=== PATIENT | female | born 1935 | race Caucasian/White ===

== ENCOUNTER → 2016-07-04 | Outpatient (REF) | payer MEDICARE, OTHER ==
[~2016-07-04] MED LIST: /BRIN1OS OU; /HCTZ25TA PO; /ONDA4TA PO; BIMA01SOL OU; BISAC5TA PO; CALC25TA PO; CALC600T7 PO; CALTTAB10 PO; CARD120T4 PO; CLAR5TAB PO; CORE25TA PO; DEPA250T32 PO; DEPA500T2 PO; DILT180C53 PO; DILT90TA PO; DIOV320T PO; DOXA1TAB41 PO; DOXA2TAB PO; DRIS50002 PO; ESTR62CR PV; FIBE625T4 PO; FLAX1000 PO; FLOV110A IN; HYDR100T13 PO; HYDR12.55 PO; HYDR25TA PO; KLOR10TA21 PO; LEXA1TAB PO; MICR10CA PO; TYLE325T5 PO; VENTAER INH; VITA100066 PO; VITA200016 PO; ZETI10TA2 PO; ZYPR2.5T2 PO; ZYPR5TAB2 PO
[2016-07-04 17:06] LABS: ANION GAP 8 MEQ/L (8-16); BLOOD UREA NITROGEN 15 MG/DL (7-18); CALCIUM LEVEL 9.1 MG/DL (8.8-10.2); CARBON DIOXIDE LEVEL 28 MEQ/L (21-32); CHLORIDE LEVEL 103 MEQ/L (98-107); CREATININE FOR GFR 0.94 MG/DL (0.55-1.02); GLOMERULAR FILTRATION RATE > 60.0 (>32); GLUCOSE, FASTING 164 MG/DL (83-110); POTASSIUM SERUM 3.6 MEQ/L (3.5-5.1); SODIUM LEVEL 139 MEQ/L (136-145)
== END ==
LOC: M LAB REF 16:20
PROVIDERS: ATTEND Internal Medicine Endocrinology, Diabetes & Metabolism
DX: M85.9 Disorder of bone density and structure, unspecified (principal)

== ENCOUNTER 2016-07-10 10:16 | Outpatient (CLI) | payer MEDICARE, OTHER ==
[~2016-07-10] VITALS: Ht 162.6 cm; Wt 79.1 kg
[2016-07-10] MEDS ORDERED: ZOLEDRONIC ACID 5 MG in APPROPRIATE DILUENT 1 EA IV ONE (11:00)
[2016-07-10] MEDS ORDERED: LOSA100T36 PO (15:20)
[2016-07-10] MEDS ORDERED: BUME1TAB27 PO (15:22)
[2016-07-10] MEDS ORDERED: CLON3PA TD (15:23)
[2016-07-10] MEDS ORDERED: COUM2.5T11 PO (15:23)
== END 2016-07-10 11:20 | disposition home or self-care (01) ==
LOC: M INFU 10:16
PROVIDERS: ATTEND Internal Medicine Endocrinology, Diabetes & Metabolism
DX: M81.0 Age-related osteoporosis without current pathological fracture (principal); Z78.0 Asymptomatic menopausal state; Z79.01 Long term (current) use of anticoagulants; Z79.899 Other long term (current) drug therapy; Z88.2 Allergy status to sulfonamides; Z88.8 Allergy status to other drugs, medicaments and biological substances; Z91.012 Allergy to eggs; Z91.013 Allergy to seafood
CPT/HCPCS: 96365; J3489

== ENCOUNTER → 2016-10-09 | Outpatient (REF) | payer MEDICARE, OTHER ==
[~2016-10-09] MED LIST changes: +BUME1TAB27 PO; +CLON3PA TD; +COUM2.5T11 PO; +LOSA100T36 PO
[2016-10-09 17:56] LABS: ANION GAP 9 MEQ/L (8-16); BLOOD UREA NITROGEN 16 MG/DL (7-18); CALCIUM LEVEL 9.5 MG/DL (8.8-10.2); CARBON DIOXIDE LEVEL 27 MEQ/L (21-32); CHLORIDE LEVEL 101 MEQ/L (98-107); CREATININE FOR GFR 0.74 MG/DL (0.55-1.02); GLOMERULAR FILTRATION RATE > 60.0 (>32); GLUCOSE, FASTING 136 MG/DL (83-110); POTASSIUM SERUM 3.7 MEQ/L (3.5-5.1); SODIUM LEVEL 137 MEQ/L (136-145)
== END ==
LOC: M LAB REF 16:26
PROVIDERS: ATTEND Physician Assistant Medical
DX: M85.9 Disorder of bone density and structure, unspecified (principal)

== ENCOUNTER 2017-05-21 06:04 | Day surgery (SDC) | payer MEDICARE, OTHER ==
[~2017-05-21 06:04] MED LIST changes: -/BRIN1OS OU; -/HCTZ25TA PO; -/ONDA4TA PO; -BIMA01SOL OU; -BISAC5TA PO; -BUME1TAB27 PO; -CALC25TA PO; -CALC600T7 PO; -CALTTAB10 PO; -CARD120T4 PO; -CLAR5TAB PO; -CLON3PA TD; -CORE25TA PO; -COUM2.5T11 PO; -DEPA250T32 PO; -DEPA500T2 PO; -DILT180C53 PO; -DILT90TA PO; -DIOV320T PO; -DOXA1TAB41 PO; -DOXA2TAB PO; -DRIS50002 PO; -ESTR62CR PV; -FIBE625T4 PO; -FLAX1000 PO; -FLOV110A IN; -HYDR100T13 PO; -HYDR12.55 PO; -HYDR25TA PO; -KLOR10TA21 PO; -LEXA1TAB PO; -LOSA100T36 PO; -MICR10CA PO; +SLF 3 ML SYR IV; -TYLE325T5 PO; -VENTAER INH; -VITA100066 PO; -VITA200016 PO; -ZETI10TA2 PO; -ZYPR2.5T2 PO; -ZYPR5TAB2 PO
[2017-05-21] MEDS: LIDOCAINE 0.75%/EPINEPHRINE 0.025% IN BSS 1ML SYR INTRACAMERAL (OR ONLY) As Ordered (06:36)
[2017-05-21] MEDS ORDERED: MIDAZOLAM INJ 2 MG/2 ML VIAL (J2250) As Ordered (07:00)
[2017-05-21] MEDS ORDERED: fentaNYL 100 MCG/2 ML INJECTION (J3010) As Ordered (07:00)
[2017-05-21] MEDS: ACETYLCHOLINE OPHTH SOLN 1% 2ML (MIOCHOL-E) As Ordered (07:33)
[2017-05-21] MEDS: POVIDONE-IODINE 5% OPHTH PREP SOL 30ML As Ordered (07:33)
[2017-05-21] MEDS: DUOVISC (0.50ML VISCOAT/0.55ML PROVISC) OPHTH KIT As Ordered (07:33)
[2017-05-21] MEDS: CEFUROXIME 1MG/0.1ML INTRACAMERAL INJ As Ordered (07:33)
[2017-05-21] MEDS: BALANCED SALT IRRIGATION SOLUTION 500ML BAG (FOR OR EYE MACHINE) As Ordered (07:33)
[2017-05-21] MEDS: LIDOCAINE 1% SDV 5 ML VIAL As Ordered (07:36)
== END 2017-05-21 08:24 | disposition home or self-care (01) ==
LOC: M SDC 06:04
DX: H59.022 Cataract (lens) fragments in eye following cataract surgery, left eye (principal); I11.0 Hypertensive heart disease with heart failure; H40.1130 Primary open-angle glaucoma, bilateral, stage unspecified; I48.91 Unspecified atrial fibrillation; I50.9 Heart failure, unspecified; R60.0 Localized edema; K57.32 Diverticulitis of large intestine without perforation or abscess without bleeding; K21.9 Gastro-esophageal reflux disease without esophagitis; M17.9 Osteoarthritis of knee, unspecified; F41.9 Anxiety disorder, unspecified; F32.9 Major depressive disorder, single episode, unspecified; Z88.1 Allergy status to other antibiotic agents; Z88.2 Allergy status to sulfonamides; Z88.5 Allergy status to narcotic agent; Z91.012 Allergy to eggs; Z91.013 Allergy to seafood; Z79.899 Other long term (current) drug therapy; Z79.01 Long term (current) use of anticoagulants; Z95.0 Presence of cardiac pacemaker; Z96.651 Presence of right artificial knee joint; Z98.51 Tubal ligation status
CPT/HCPCS: 66850

== ENCOUNTER → 2017-10-02 | Outpatient (CLI) | payer MEDICARE, OTHER ==
[2017-10-02 12:33] LABS: ANION GAP 6 MEQ/L (8-16); BLOOD UREA NITROGEN 14 MG/DL (7-18); CALCIUM LEVEL 9.7 MG/DL (8.8-10.2); CARBON DIOXIDE LEVEL 29 MEQ/L (21-32); CHLORIDE LEVEL 104 MEQ/L (98-107); GLOMERULAR FILTRATION RATE > 60.0 (>32); GLUCOSE, FASTING 109 MG/DL (70-100); POTASSIUM SERUM 4.1 MEQ/L (3.5-5.1); SODIUM LEVEL 139 MEQ/L (136-145)
== END ==
LOC: M WUC 10:29
DX: M85.9 Disorder of bone density and structure, unspecified (principal)
CPT/HCPCS: 80048

== ENCOUNTER → 2017-10-15 | Outpatient (CLI) | payer MEDICARE, OTHER | LOC: M WHC 13:33 | DX: Z12.31 Encounter for screening mammogram for malignant neoplasm of breast (principal); Z01.419 Encounter for gynecological examination (general) (routine) without abnormal findings (principal); Z78.0 Asymptomatic menopausal state; Z92.29 Personal history of other drug therapy; Z12.12 Encounter for screening for malignant neoplasm of rectum | CPT/HCPCS: 77067 ==

== ENCOUNTER → 2017-12-02 | Outpatient (CLI) | payer MEDICARE, OTHER ==
[2017-12-02 08:54] LABS: HEMATOCRIT 37.7 % (36.0-47.0); HEMOGLOBIN 12.5 g/dl (12.0-15.5); MEAN CORPUSCULAR HGB CONC 33.2 g/dl (32.0-36.5); MEAN CORPUSCULAR VOLUME 90.6 fl (80.0-96.0); PLATELET COUNT, AUTOMATED 274 10^3/uL (150-450); RED BLOOD COUNT 4.16 10^6/uL (4.00-5.40); RED CELL DISTRIBUTION WIDTH 13.2 % (11.5-14.5); WHITE BLOOD COUNT 7.4 10^3/uL (4.0-10.0)
[2017-12-02 09:13] LABS: ANION GAP 7 MEQ/L (8-16); BLOOD UREA NITROGEN 15 MG/DL (7-18); CALCIUM LEVEL 9.6 MG/DL (8.8-10.2); CARBON DIOXIDE LEVEL 28 MEQ/L (21-32); CHLORIDE LEVEL 105 MEQ/L (98-107); GLOMERULAR FILTRATION RATE > 60.0 (>32); GLUCOSE, FASTING 137 MG/DL (70-100); POTASSIUM SERUM 4.3 MEQ/L (3.5-5.1); SODIUM LEVEL 140 MEQ/L (136-145)
== END ==
LOC: M WUC 08:09
DX: I44.7 Left bundle-branch block, unspecified (principal); I50.40 Unspecified combined systolic (congestive) and diastolic (congestive) heart failure
CPT/HCPCS: 80048

== ENCOUNTER → 2017-12-05 | Outpatient (CLI) | payer MEDICARE, OTHER | LOC: M WUC 11:57 | DX: M19.011 Primary osteoarthritis, right shoulder (principal) | CPT/HCPCS: 73030 ==

== ENCOUNTER → 2018-02-10 | Outpatient (REF) | payer MEDICARE, OTHER | LOC: M WUC 11:55 | DX: N39.0 Urinary tract infection, site not specified (principal) | CPT/HCPCS: 87088; 87186 ==

== ENCOUNTER → 2018-05-12 | Outpatient (CLI) | payer MEDICARE, OTHER ==
[~2018-05-12] MED LIST changes: +/BRIN1OS OU; +/HCTZ25TA PO; +/ONDA4TA PO; +BIMA01SOL OU; +BISAC5TA PO; +BUME1TAB27 PO; +CALC25TA PO; +CALC600T7 PO; +CALTTAB10 PO; +CARD120T4 PO; +CART240C3 PO; +CLAR5TAB PO; +CLON3PA TD; +CORE25TA PO; +COUM2.5T17 PO; +DEPA250T32 PO; +DEPA500T2 PO; +DILT180C53 PO; +DILT90TA PO; +DIOV320T PO; +DOXA1TAB41 PO; +DOXA2TAB PO; +DRIS50003 PO; +ELIQ2.5T PO; +ESTR62CR PV; +FIBE625T4 PO; +FLAX1000 PO; +FLAX10008 PO; +FLOV110A IN; +HYDR100T13 PO; +HYDR12.55 PO; +HYDR25TA PO; +KLOR10TA21 PO; +LEXA1TAB PO; +LOSA-4 PO; +MICR10CA PO; +RECL5INJ2 IV; -SLF 3 ML SYR IV; +TYLE325T5 PO; +VENTAER INH; +VITA100066 PO; +VITA200016 PO; +ZETI10TA30 PO; +ZYPR2.5T2 PO; +ZYPR5TAB2 PO
[2018-05-12 17:45] LABS: CALCIUM LEVEL 9.2 MG/DL (8.8-10.2)
[2018-05-12 18:02] LABS: TOTAL 25(OH) VITAMIN D 28.6 NG/ML (30.0-100.0)
== END ==
LOC: M WUC 10:41
PROVIDERS: ATTEND Internal Medicine Endocrinology, Diabetes & Metabolism
DX: E83.52 Hypercalcemia (principal)

== ENCOUNTER → 2018-07-05 | Outpatient (CLI) | payer MEDICARE, OTHER ==
[~2018-07-05] MED LIST changes: +ACET1TAB55 PO; +ASPI325T PO; +BRIN1OPH OU; +BUME1TAB3 PO; +FIBE625T PO; -LOSA-4 PO; +LOSA100T50 PO; +TIMOXEOPD OU
[2018-07-05 14:09] LABS: BLOOD UREA NITROGEN 14 MG/DL (7-18); CALCIUM LEVEL 9.5 MG/DL (8.8-10.2); CARBON DIOXIDE LEVEL 26 MEQ/L (21-32); CHLORIDE LEVEL 105 MEQ/L (98-107); CREATININE FOR GFR 0.79 MG/DL (0.55-1.30); GLOMERULAR FILTRATION RATE > 60.0 (>32); GLUCOSE, FASTING 150 MG/DL (70-100); POTASSIUM SERUM 4.1 MEQ/L (3.5-5.1); SODIUM LEVEL 138 MEQ/L (136-145)
== END ==
LOC: M WUC 09:54
PROVIDERS: ATTEND Internal Medicine Endocrinology, Diabetes & Metabolism
DX: M85.9 Disorder of bone density and structure, unspecified (principal)

== ENCOUNTER 2018-07-13 08:51 | Outpatient (CLI) | payer MEDICARE, OTHER ==
[~2018-07-13] VITALS: Ht 162.6 cm; Wt 73.1 kg
[~2018-07-13 08:51] MED LIST changes: -ACET1TAB55 PO; -ASPI325T PO; -BRIN1OPH OU; -BUME1TAB3 PO; -FIBE625T PO; -TIMOXEOPD OU
[2018-07-13 09:00] VITALS: BP 173/74
[2018-07-13] MEDS ORDERED: ZOLEDRONIC ACID 5 MG in APPROPRIATE DILUENT 1 EA IV ONE (09:00)
[2018-07-13 09:50] VITALS: BP_SYST 157; BP_SYST 173; BP_DIAS 73; BP_DIAS 74
[2018-07-13] MEDS ORDERED: BUME1TAB3 PO (15:19)
[2018-07-13] MEDS ORDERED: VENTAER INH (15:22)
[2018-07-13] MEDS ORDERED: FIBE625T PO (15:24)
[2018-07-13] MEDS ORDERED: ASPI325T PO (15:24)
[2018-07-13] MEDS ORDERED: BIMA01SOL OU ×2 (15:25→15:26)
[2018-07-13] MEDS ORDERED: BRIN1OPH OU (15:25)
[2018-07-13] MEDS ORDERED: TIMOXEOPD OU (15:28)
[2018-07-13] MEDS ORDERED: ACET1TAB55 PO (15:29)
== END 2018-07-13 09:50 | disposition home or self-care (01) ==
LOC: M INFU 08:51
PROVIDERS: ATTEND Internal Medicine Endocrinology, Diabetes & Metabolism
DX: M81.0 Age-related osteoporosis without current pathological fracture (principal); Z88.3 Allergy status to other anti-infective agents; Z88.8 Allergy status to other drugs, medicaments and biological substances; Z91.012 Allergy to eggs
CPT/HCPCS: 96365; J3489

== ENCOUNTER → 2018-10-04 | Outpatient (CLI) | payer MEDICARE, OTHER ==
[~2018-10-04] MED LIST changes: -/BRIN1OS OU; -/HCTZ25TA PO; -/ONDA4TA PO; +ACET1TAB55 PO; +ASPI-1 PO; +AZOP0.2S OU; +BRIN1OPH OU; +BUME1TAB3 PO; +CLON0.3D2 TD; -CLON3PA TD; +FIBE625T PO; +HYDR-3644 PO; +HYDR-4266 PO; -HYDR25TA PO; +ONDA-1 PO; +TIMOXEOPD OU
[2018-10-04 16:56] LABS: BLOOD UREA NITROGEN 11 MG/DL (7-18); CARBON DIOXIDE LEVEL 31 MEQ/L (21-32); CHLORIDE LEVEL 103 MEQ/L (98-107); CREATININE FOR GFR 0.77 MG/DL (0.55-1.30); GLOMERULAR FILTRATION RATE > 60.0 (>32); GLUCOSE, FASTING 150 MG/DL (70-100); POTASSIUM SERUM 3.9 MEQ/L (3.5-5.1); SODIUM LEVEL 139 MEQ/L (136-145)
[2018-10-04 17:03] LABS: TOTAL 25(OH) VITAMIN D 32.2 NG/ML (30.0-100.0)
== END ==
LOC: M WUC 14:10
PROVIDERS: ATTEND Internal Medicine Endocrinology, Diabetes & Metabolism
DX: M85.9 Disorder of bone density and structure, unspecified (principal); E55.9 Vitamin D deficiency, unspecified

== ENCOUNTER → 2019-03-22 | Outpatient (CLI) | payer MEDICARE, OTHER ==
[~2019-03-22] MED LIST changes: +ZETI10TA16 PO; -ZETI10TA30 PO
--- NOTE | 2019-03-22 14:14 | REPMRS ---
Patient History The patient states she had a clinical breast exam in 02/2019. No known family history of cancer. Took unspecified hormones for 2 years 6 months. 3D TOMOSYNTHESIS WAS PERFORMED. The Giana Jose lifetime risk for breast cancer is 0.4%. Digital Woman Screen Mammo: March 22, 2019 - Exam #: [id number] Bilateral CC and MLO view(s) were taken. Technologist: Kasia Molina, Technologist Prior study comparison: October 15, 2017, digital woman screen mammo performed at [facility]. April 04, 2016, digital woman screen mammo performed at [facility]. FINDINGS: The breast tissue is heterogeneously dense. This may lower the sensitivity of mammography. There has been no change in the appearance of the mammogram from the prior studies. There is a moderate amount of residual fibroglandular tissue which is fairly symmetric. There is no interval development of dominant mass, areas of architectural distortion, or clustered microcalcification typical of malignancy. Assessment: BI-RADS/ACR category 1 mammogram. Negative Mammogram. Recommendation Routine screening mammogram in 1 year (for women over age 40). This mammogram was interpreted with the aid of an FDA-approved computer-aided dectection system. Electronically Signed By: Anton Sandy MD 03/22/19 [id number]
== END ==
LOC: M WHC 13:09
PROVIDERS: ATTEND Nurse Practitioner Women's Health
DX: Z12.31 Encounter for screening mammogram for malignant neoplasm of breast (principal); Z92.29 Personal history of other drug therapy
CPT/HCPCS: 77063; 77067; G0463

== ENCOUNTER → 2019-05-03 | Outpatient (CLI) | payer MEDICARE, OTHER ==
[2019-05-03 09:59] LABS: HEMOGLOBIN A1c 7.2 %
[2019-05-03 10:09] LABS: CHOLESTEROL RISK RATIO 4.625 (<5)
== END ==
LOC: M WUC 08:09
PROVIDERS: ATTEND Psychiatry & Neurology Psychiatry
DX: Z79.899 Other long term (current) drug therapy (principal)

== ENCOUNTER → 2019-05-03 | Outpatient (CLI) | payer MEDICARE, OTHER ==
[2019-05-03 10:06] LABS: BLOOD UREA NITROGEN 16 MG/DL (7-18); CALCIUM LEVEL 9.8 MG/DL (8.8-10.2); CARBON DIOXIDE LEVEL 29 MEQ/L (21-32); CHLORIDE LEVEL 106 MEQ/L (98-107); CREATININE FOR GFR 0.82 MG/DL (0.55-1.30); GLOMERULAR FILTRATION RATE > 60.0 (>32); GLUCOSE, FASTING 134 MG/DL (70-100); POTASSIUM SERUM 4.3 MEQ/L (3.5-5.1); SODIUM LEVEL 139 MEQ/L (136-145)
[2019-05-03 10:24] LABS: TOTAL 25(OH) VITAMIN D 35.3 NG/ML (30.0-100.0)
== END ==
LOC: M WUC 08:05
PROVIDERS: ATTEND Internal Medicine Endocrinology, Diabetes & Metabolism
DX: E55.9 Vitamin D deficiency, unspecified (principal); M85.9 Disorder of bone density and structure, unspecified; Z79.82 Long term (current) use of aspirin; Z79.899 Other long term (current) drug therapy

== ENCOUNTER 2019-06-21 01:14 | Inpatient (IN) | payer MEDICARE, OTHER ==
[~2019-06-21] VITALS: Ht 162.6 cm; Wt 74.6 kg
[2019-06-21] VITALS (7 sets, daily range): BP systolic 131–154; BP diastolic 62–69
[~2019-06-21 01:14] MED LIST changes: +cloNIDine HCL 0.2 MG/24 HR PATCH TD SCH
[2019-06-21] MEDS ORDERED: FUROSEMIDE 100 MG/10 ML VIAL (J1940) IV ONE (01:45)
[2019-06-21] MEDS ORDERED: dexameTHASONE 20 MG/5 ML VIAL (J1100) IV ONE (01:45)
[2019-06-21] MEDS: IPRATROPIUM 0.5MG/ALBUTEROL 2.5MG INH SOL UD 3ML (DUONEB)(J7620) NEB SCH ×3 (01:46→02:07)
[2019-06-21 01:59] LABS: BASO # 0.1 10^3/uL (0.0-0.2); BASO % 0.4 % (0.0-1.0); EOS # 0.2 10^3/uL (0.0-0.5); EOS % 1.1 % (0.0-3.0); HEMOGLOBIN 12.1 g/dl (12.0-15.5); LYMPH # 4.2 10^3/uL (1.5-5.0); MEAN CORPUSCULAR HEMOGLOBIN 26.9 pg (27.0-33.0); MEAN CORPUSCULAR HGB CONC 29.5 g/dl (32.0-36.5); MEAN CORPUSCULAR VOLUME 91.1 fl (80.0-96.0); MONO # 1.1 10^3/uL (0.0-0.8); MONO % 6.6 % (0.0-5.0); NEUTROPHILS % 66.1 % (36.0-66.0); PLATELET COUNT, AUTOMATED 272 10^3/uL (150-450); WHITE BLOOD COUNT 16.6 10^3/uL (4.0-10.0)
[2019-06-21] MEDS: IPRATROPIUM 0.5MG/ALBUTEROL 2.5MG INH SOL UD 3ML (DUONEB)(J7620) INH SCH ×4 (02:00→19:53)
[2019-06-21 02:14] LABS: ABG BASE EXCESS -6.3 (-2.0-2.0); ABG HCO3 20.5 MEQ/L (22.0-26.0); ABG O2 SATURATION 97.7 % (95.0-99.0); ABG PARTIAL PRESSURE CO2 45.6 mmHg (35.0-45.0); ABG STANDARD HCO3 19.4 MEQ/L (22.0-26.0); ABG TOTAL CO2 21.9 MEQ/L (23.0-31.0); ABG pH (ARTERIAL) 7.271 UNITS (7.350-7.450)
[2019-06-21 02:24] LABS: BLOOD UREA NITROGEN 13 MG/DL (7-18); CALCIUM LEVEL 8.9 MG/DL (8.8-10.2); CARBON DIOXIDE LEVEL 23 MEQ/L (21-32); CHLORIDE LEVEL 106 MEQ/L (98-107); CK-MB VALUE MASS < 1.0 NG/ML (<3.6); CPK CREATINE PHOSPHOKINASE 45 U/L (26-192); CREATININE FOR GFR 1.01 MG/DL (0.55-1.30); GLOMERULAR FILTRATION RATE 55.6 (>32); GLUCOSE, FASTING 295 MG/DL (70-100); MB/CK RELATIVE INDEX 2.22 (< OR =4); NT-PRO BNP 5249 PG/ML (<450); POTASSIUM SERUM 3.5 MEQ/L (3.5-5.1); SODIUM LEVEL 140 MEQ/L (136-145); TROPONIN I 0.02 NG/ML (< 0.10)
[2019-06-21] MEDS ORDERED: NITROGLYCERIN 2% OINT 1 GM *U/D* PKT TOP ONE (02:45)
[2019-06-21] MEDS ORDERED: AZITHROMYCIN INJ 500 MG, VIAL MATE ADAPTER 1 EACH in D5W 250 ML IV ONE (03:00)
[2019-06-21] MEDS ORDERED: cefTRIAXone SOD 1 GM in D5W MINI-BAG PLUS 50 ML IV ONE (03:00)
[2019-06-21] MEDS ORDERED: CLON0.2D6 TD (03:45)
[2019-06-21] MEDS ORDERED: CART240C3 PO (03:45)
[2019-06-21] MEDS ORDERED: PROAAER10 INH (03:45)
[2019-06-21] MEDS ORDERED: CLON0.1D3 TD (03:45)
[2019-06-21] MEDS ORDERED: ACET-907 PO (03:45)
[2019-06-21] MEDS ORDERED: VITAD1000T PO (03:45)
[2019-06-21] MEDS ORDERED: RHOP0.02 OU (03:45)
[2019-06-21] MEDS ORDERED: ASPI-264 PO (03:45)
[2019-06-21] MEDS ORDERED: CEPH500C PO (03:45)
[2019-06-21] MEDS ORDERED: ALBUTEROL SULFATE 2.5 MG/0.5 ML INH NEB SOLN INH PRN (03:45)
[2019-06-21] MEDS ORDERED: BUME1TAB3 PO (03:45)
[2019-06-21] MEDS ORDERED: PILL CUTTER 1 EACH XX PRN (04:45)
--- NOTE | 2019-06-21 07:11 | HPEPDOC ---
[facility] Medical History & Physical Date of Admission Jun 21, 2019 Date of Service: Jun 21, 2019 Primary Care Physician: Tien Cerna MD Attending Physician: ELY TOUSSAINT MD History and Physical CHIEF COMPLAINT: Shortness of breath HISTORY OF PRESENT ILLNESS: Rosario is an 83-year-old female with past history of CHF (unspecified type) with pacemaker, atrial fibrillation with watchman's device, hypertension, asthma, diverticulitis with history of GI bleed, GERD, and osteoporosis, who presented to the emergency department this evening by EMS for acute shortness of breath and increased work of breathing. Patient had been seen 2 weeks ago by her primary care physician and was informed she had "fluid on the lungs." Her PCP subsequently instructed her to take her daily Bumex medication bid to help get off the excess fluid. Patient experienced a couple days of improved breathing, but then over the last 3-4 days, her dyspnea returned and this evening became even more pronounced. Around midnight tonight, patient's shortness of breath and increased work of breathing, became so severe that she called 911 and was subsequently brought to the ED. In the ambulance patient was placed on CPAP. In the ED, patient received a dose of Decadron, 80 mg IV furosemide, 1 nebulizer treatment, nitroglycerin to decrease afterload, and was switched to bilevel ventilation. She was in acute respiratory distress with on presentation with O2 saturation of 85%, coarse breath sounds, and significant bilateral crackles. ABG showed borderline respiratory acidosis and she had leukocytosis. There were no ischemic findings on EKG and negative troponins. Portable chest x-ray official radiology read was not in, yet there pierced to be signs of fluid overload as well as potential or right lobe infiltrate. Patient received IV ceftriaxone. Hospitalist team was contacted to continue treatment and further workup patient's acute respiratory failure, potential CAP, and acutely decompensated CHF. PAST MEDICAL HISTORY: CHF (unspecified type), with pacemaker Asthma Hypertension. Atrial fibrillation, with watchman's device Diverticulosis. Diverticulitis. History of GI bleed. GERD Osteoporosis. PAST SURGICAL HISTORY: Cholecystectomy Tubal ligation Tonsillectomy. Neck lipoma excision. Hysterectomy (uterus only) Right total knee arthroplasty. Left heart cath. Pacemaker implantation. Watchman's device implantation. Dilation and curettage. SOCIAL HISTORY: Marital status: . Resides in: Children: Employment: Tobacco use: ETOH: Illicit drug use: Tattoos done unprofessionally: . IV drug use: Other relevant social factors: FAMILY HISTORY: Father: Mother: Siblings: Children: Hereditary Diseases: Unexpected deaths due to medical reasons: ALLERGIES: Please see below. REVIEW OF SYSTEMS: CONSTITUTIONAL: Endorses unintentional 4 pound weight loss in last week an unintentional 10 pound weight loss in the last year; Denies fever, chills, night sweats HEENT: Endorses dry throat, chronic morning rhinorrhea, CARDIOVASCULAR: Endorses bilateral pedal edema RESPIRATORY: Endorses shortness of breath that is improving with less work of breathing, orthopnea, paroxysmal nocturnal dyspnea nonproductive cough but with sensation phlegm needs to be expectorated GASTROINTESTINAL: Denies abdominal pain, feeling nauseated, vomiting, constipation or diarrhea. GENITOURINARY: Denies dysuria or hematuria. NEUROLOGICAL: Denies numbness or paresthesias. ENDOCRINE: Endorses recent intermittent heat intolerance; denies cold intolerance HOME MEDICATIONS: Please see below. PHYSICAL EXAMINATION: VITAL SIGNS: Please see below. GENERAL APPEARANCE: Pleasant and interactive, elderly female sitting upright in bed with bilevel ventilatory assistance device operating with full face mask. Does not appear to be in acute distress. Alert and oriented 3. Well- developed and well-nourished. Appears stated age. Approximately 1200 and 100 light yellow colored expelled from Ludwig HEENT: Normocephalic, atraumatic. Full face mask over nose and mouth connected to bilevel ventilatory device. No pharyngeal erythema or exudate. No cervical or supraclavicular lymphadenopathy appreciated. Anicteric and noninjected sclera. PERRLA. CARDIOVASCULAR: Difficult to appreciate for rhythm and murmurs or rubs with background noise of bilevel ventilatory machine running. S1, S2 appreciated. LUNGS: Moderate rhonchorous breath sounds with bilateral crackles, more pronounced on the right and expiratory wheeze bilateral bases. Symmetric chest expansion. Mildly diminished tidal volume. No accessory muscle use or retractions on respiration. Breathing with the assistance of bilevel ventilatory devicewith settings of IPAP 12, EPAP 8, respiratory rate 12, inspiratory time 0.9 seconds, and O2 percentage 80%. ABDOMEN: Multiple well-healed abdominal scars present. Soft, nondistended and nontender. Possible umbilical hernia. Hypoactive bowel sounds present but difficult to appreciate fully due to background bilevel ventilatory noise. EXTREMITIES: Trace pitting edema, more pronounced with right lower extremity. 2+ radial and posterior tibial pulses palpated bilaterally. NEUROLOGICAL: Awake, alert and oriented 3. No focal neurological deficits appreciated. Responds appropriately to questions and commands. PSYCHIATRIC: Mood and affect appear appropriate. LABORATORY DATA: Please see below. IMAGING: Portable chest x-ray, 06/17/19: (Official radiologist read not in at time of documentation). Signs of fluid overload with right lobe infiltrate. MICROBIOLOGY: Please see below. ASSESSMENT & PLAN: This is an 83-year-old female with history of CHF with pacemaker, atrial fibrillation with watchman's device, hypertension, asthma, diverticulosis and diverticulitis, history of GI bleed, GERD, and osteoporosis who presented in acute respiratory failure likely secondary to acutely decompensated congestive heart failure and possible right lung community-acquired pneumonia. #Acute hypoxic respiratory failure -Likely secondary to CHF exacerbation and right lobe infiltrate -Initial O2 saturation of 85% -Patient has improved respiratory status since presentation is oxygenating well -Likely will try to step down to nasal cannula supplemental oxygen soon -Received 1 nebulizer treatment and Decadron in ED -Due to patient's improvement after urinating off 1 L, her respiratory distress is most likely due to fluid overload; we will do another ABG and pending stability likely switch patient from bilevel to nasal cannula #Right lung lobe infiltrate -Likely community-acquired pneumonia -IV ceftriaxone and azithromycin -Pro calcitonin ordered and pending to evaluate for CAP -Repeat 6 PM chest x-ray ordered for 06/21 -Blood culture pending #Acutely decompensated congestive heart failure -Patient has pacemaker -Patient has urinated off over 1 L in the ED after receiving 1 dose IV furosemide; has Ludwig for now, but please consider discontinuing it after patient is off bilevel ventilatory management -Acute respiratory distress due mostly to fluid volume as respiratory status improved after urinating off 1 L -80 mg furosemide every 8 hours with goal of -2 L in the next 24 hour -fluid restriction of 1.5-2 L -Strict I's and O's -Daily weights -Echocardiogram ordered to further define CHF type: On review, patient did have previous echocardiograms done, but unable to view results as they were through [facility] #Atrial fibrillation -Patient has watchman's device -Rate well controlled -Continue with home diltiazem for rate control -DVT prophylaxis dose of subcutaneous heparin -No home anticoagulation, does take 325 mg of aspirin for antiplatelet coverage -Telemetry #Hypertension -Patient's home weekly clonidine patch continued, *but significant consideration should be given to another antihypertensive medication. As patient complains she is very thirsty as a result of taking the clonidine; this thirst is leading to increased oral fluid intake and may be complicating patient's fluid/CHF status - - common side effect of clonidine is increased thirst #DVT prophylaxis: Heparin 5000 units, q12h sq DISPOSITION: Vital Signs Vital Signs Date Time Temp Pulse Resp B/P (MAP) Pulse Ox O2 Delivery O2 Flow Rate FiO2 06/21/19 06:00 69 131/63 (85) 94 Nasal Cannula 4.0 06/21/19 05:28 65 06/21/19 05:23 97.8 22 Laboratory Data Labs 24H Laboratory Tests 2 06/21/19 01:53: Immature Granulocyte % (Auto) 0.8, Neutrophils (%) (Auto) 66.1H, Lymphocytes (%) (Auto) 25.0, Monocytes (%) (Auto) 6.6H, Eosinophils (%) (Auto) 1.1, Basophils (%) (Auto) 0.4, Neutrophils # (Auto) 11.0H, Lymphocytes # (Auto) 4.2, Monocytes # (Auto) 1.1H, Eosinophils # (Auto) 0.2, Basophils # (Auto) 0.1, Nucleated Red Blood Cells % (auto) 0.0, Blood Gas Bicarbonate Standard 19.4L, Arterial Blood pH 7.271L, Arterial Blood Partial Pressure CO2 45.6H, Arterial Blood Partial Pressure O2 112.0H, Arterial Blood Total CO2 21.9L, Arterial Blood HCO3 20.5L, Arterial Blood Base Excess -6.3L, Arterial Blood Oxygen Saturation 97.7, Anion Gap 11, Glomerular Filtration Rate 55.6, Calcium Level 8.9, Total Creatine Kinase 45, Creatine Kinase MB < 1.0, Creatine Kinase MB Relative Index 2.22, T roponin I 0.02, NG-Stt-K-Type Natriuretic Peptide 5249H 06/21/19 05:39: CBC/BMP Laboratory Tests 06/21/19 01:53 Microbiology Microbiology 06/21/19 Blood Culture, Received Pending Home Medications Scheduled Acetaminophen (Tylenol) 325 Mg Tablet, 650 MG PO QHS Aspirin (Aspirin) 325 Mg Tablet, 325 MG PO DAILY TAKES RIGHT AFTER LUNCH Bimatoprost (Lumigan) 50 Drop/2.5 Ml Mavis, 1 DROP OU QHS Brinzolamide (Azopt) 200 Drop/10 Ml Susp, 1 DROP OU TID Bumetanide (Bumetanide) 1 Mg Tablet, 1 MG PO DAILY Cefuroxime Axetil (Cefuroxime) 250 Mg Tablet, 250 MG PO BID Cephalexin (Cephalexin) 500 Mg Capsule, 2,000 MG PO ASDIRECTED PRIOR TO DENTAL PROCEDURE Cholecalciferol (Vitamin D3) (Vitamin D3) 1,000 Unit Tablet, 2,000 UNITS PO DAILY TAKES RIGHT AFTER LUNCH Clonidine (Clonidine) 0.1 Mg Patch.tdwk, 0.1 MG TD 1XWK PLACES ON OPPOSITE SHOULDER OF 0.2MG PATCH. ALTERNATES AFTER EACH DOSE. EVERY THURSDAY. Clonidine (Clonidine) 0.2 Mg Patch.tdwk, 0.2 MG TD 1XWK PLACES ON OPPOSITE SHOULDER OF 0.1MG PATCH. ALTERNATES AFTER EACH DOSE. EVERY THURSDAY. Diltiazem HCl (Cartia Xt) 240 Mg Cap.er.24h, 240 MG PO QHS Netarsudil Mesylate (Rhopressa) 2.5 Ml Drops, 1 DROP OU QHS Olanzapine (Zyprexa) 2.5 Mg Tab, 3.75 MG PO QHS Polyethylene Glycol 3350 (Miralax) 119 Gm Powder, 17 GRAM PO DAILY for constipation dissolve in water Timolol Maleate (Timolol Maleate) 100 Drop/5 Ml Mavis, 1 DROP OU DAILY Scheduled PRN Albuterol Sulfate (Proair Hfa) 8.5 Gm Hfa.aer.ad, 2 PUFF INH Q4H PRN for SHORTNESS OF BREATH Allergies Coded Allergies: Crab (Verified Allergy, Severe, SEVERE BY TESTING NEVER HAD, 06/21/19) egg (Verified Adverse Reaction, Intermediate, DIARRHEA, 06/21/19) meperidine (Verified Adverse Reaction, Intermediate, INTOLERANCE - NAUSEA, 06/21/19) moxifloxacin (Verified Adverse Reaction, Intermediate, N/V/D DEHYDRATION, 06/21/19) Sulfa (Sulfonamide Antibiotics) (Verified Adverse Reaction, Mild, DIZZY, 06/21/19) A-FIB/CHADSVASC A-FIB History Current/History of A-Fib/PAF?: Yes Current PO Anticoag Therapy: Yes (DVT prophylaxis heparin) GME ATTESTATION GME ATTESTATION My faculty preceptor for this patient encounter was physically present during the encounter and was fully available. All aspects of the patient interview, examination, medical decision making process, and medical care plan development were reviewed and approved by the faculty preceptor. The faculty preceptor is aware and concurs with the plan as stated in the body of this note and will attest to such by his/her cosignature. ATTENDING NOTE I examined Ms. Castro and agree with Dr. Beckham's assessment and plan. Briefly she is an elderly lady with significant cardiac disease with a history of CHF, AF and has a PPM wh presented with elizabeth volume overload and respiratory distress and found to be in significant pulmonary edema 2/2 congestive heart failure, however also with R sided infiltrate c/f pneumonia. We are treating her with diuretics and antibiotics and will order a TTE to assess the status of her HF. Of note, she was initially placedo on BiPAP and given some steroids during moment of respiratory distress in the ED but quickly responded to IV lasix and was de-escalated to nasal canula. ARPIT TRAVIS D.O. Jun 21, 2019 07:11 ELY TOUSSAINT MD Jun 23, 2019 20:46
--- NOTE | 2019-06-21 07:43 | REP ---
Portable chest, 01:42 a.m., single AP view with the patient upright: Comparison is 08/13/2013. There is a large perihilar density as an interval change. There is a large right lower lobe density as an interval change. These could represent infiltrates or masses. Left lung is clear. There is cardiomegaly, unchanged. There has been interval placement of a dual chamber pacemaker. There is an old healed fracture of the left humeral neck. Impression: Large right lung densities. These could represent infiltrates or masses. No pleural effusion. Electronically Signed by Anton Ramirez MD 06/21/2019 07:34 A
[2019-06-21] MEDS ORDERED: FUROSEMIDE 100 MG/10 ML VIAL (J1940) IV SCH (08:00)
[2019-06-21] MEDS: BRINZOLAMIDE 1 % OPHTH SUSP (AZOPT) 10ML OU SCH ×3 (08:42→20:04)
[2019-06-21] MEDS: TIMOLOL MALEATE 0.5% OPHTH SOLN 5 ML OU SCH ×2 (08:42→20:03)
[2019-06-21] MEDS: HEPARIN SOD (PORCINE) 5000 UNITS/ML VIAL (J1644 PER 1000UNITS) SQ SCH ×2 (08:45→20:03)
[2019-06-21] MEDS: VITAMIN D 1,000 INTERNATIONAL UNITS TABLET PO SCH (08:46)
[2019-06-21] MEDS ORDERED: ASPIRIN 325 MG TAB PO SCH ×2 (09:00→14:00)
--- NOTE | 2019-06-21 12:03 | IPNPDOC ---
Text Note Date of Service The patient was seen on 06/21/19. NOTE H&P reviewed. Patient admitted after midnight. Doing much better currently. No longer requiring bipap. On 4 liters, does not use home oxygen. Breathing comfortably at rest. Can transfer to PCU, wean oxygen as tolerated, start k dur 20 meq bid, reduce IV lasix 40 mg tid, continue empiric abx pending procalcitonin level. keep tenorio x 24 hours than discontinue, echo pending. VS,Fishbone, I+O VS, Fishbone, I+O Laboratory Tests 06/21/19 01:53 Vital Signs Date Time Temp Pulse Resp B/P (MAP) Pulse Ox O2 Delivery O2 Flow Rate FiO2 06/21/19 08:47 142/63 06/21/19 08:20 69 06/21/19 06:00 94 Nasal Cannula 4.0 06/21/19 05:28 65 06/21/19 05:23 97.8 22 I&O- Last 24 Hours up to 6 AM 06/21/19 05:59 Intake Total 50 ml Output Total 1600 ml Balance -1550 ml JO ANN ORTIZ MD Jun 21, 2019 12:03
[2019-06-21] MEDS: POTASSIUM CHLORIDE 10 MEQ SR TABLET PO SCH ×2 (12:32→20:04)
[2019-06-21 12:36] LABS: CALCIUM LEVEL 9.3 MG/DL (8.8-10.2); CREATININE FOR GFR 1.15 MG/DL (0.55-1.30); GLOMERULAR FILTRATION RATE 47.9 (>32); MAGNESIUM LEVEL 1.9 MG/DL (1.8-2.4); POTASSIUM SERUM 3.3 MEQ/L (3.5-5.1)
[2019-06-21] MEDS: FUROSEMIDE 40 MG/4 ML VIAL (J1940) IV SCH ×2 (16:35→23:01)
[2019-06-21 18:13] LABS: CALCIUM LEVEL 8.9 MG/DL (8.8-10.2); CREATININE FOR GFR 1.05 MG/DL (0.55-1.30); GLOMERULAR FILTRATION RATE 53.2 (>32); POTASSIUM SERUM 3.3 MEQ/L (3.5-5.1)
--- NOTE | 2019-06-21 19:48 | ECHO ---
DATE OF PROCEDURE: 06/21/2019 REFERRING PHYSICIAN: Dr. Cain INDICATION: Congestive heart failure. Height 163 cm, weight is 80 kg. DIMENSIONS: IVS: 1.2 LV: 5.0 LVPW: 1.1 LA: 4.5 Aorta: 3.1 IVC: 2.5 Mitral E wave velocity: 106 A wave: 35 E prime septal: 5.5 E prime lateral: 11.5 FINDINGS: The study is of difficult technical quality with limited visualization. The patient is in sinus rhythm with intermittent ventricular pacing. Left ventricle is of normal size. There appears to be hypokinesis of the posterior wall and atypical septal motion, likely related to ventricular pacing. Overall ejection fraction is estimated around 50%. Right ventricle appears grossly normal size. Left atrium is at least moderately enlarged. Right atrium was poorly visualized but appears at least mildly enlarged. Aortic valve is sclerotic, but it is tricuspid and mobility of cusps is preserved. There are degenerative abnormalities of mitral valve with thickening of mitral leaflets and mitral annular calcifications. Tricuspid and pulmonic valves appear normal. No pericardial effusion is noted. Inferior vena cava is dilated, and there is only partial collapse with inspiration indicative of very high central venous pressure. Aortic root is normal. Aortic arch and abdominal aorta were not well seen. Left pleural effusion is seen. There is an echo artifact with right- sided heart chambers corresponding to the pacemaker electrode. Doppler interrogation reveals no significant aortic stenosis or insufficiency. There is moderate mitral insufficiency and probably mild to moderate tricuspid insufficiency. Calculated pulmonary artery pressure is at least in 50s corresponding at minimum to moderate pulmonary hypertension. Mitral inflow pattern and tissue Doppler imaging of mitral annulus revealed grade 2 diastolic dysfunction. CONCLUSIONS: 1. Study is of fair technical quality. 2. The patient is in sinus rhythm. 3. Normal LV size with septal wall motion abnormality, posterior wall hypokinesis and overall ejection fraction (EF) estimated around 50%. 4. Moderate mitral insufficiency. 5. Mild to moderate tricuspid insufficiency. 6. High central venous pressure and at least moderate pulmonary hypertension. 7. Left pleural effusion. COMMENT: Subacute bacterial endocarditis (SBE) prophylaxis is not recommended. MTDD
[2019-06-21] MEDS: LATANOPROST 0.005% OPHTH SOLN 2.5 ML OU SCH (20:04)
[2019-06-21] MEDS: OLANZapine 2.5MG TABLET PO SCH (20:07)
[2019-06-21] MEDS ORDERED: POTASSIUM CHLORIDE 10 MEQ SR TABLET PO ONE (20:30)
[2019-06-21] MEDS: [UNRECOGNIZED DRUG - OTHER] OU SCH (20:42)
[2019-06-21] MEDS: ACETAMINOPHEN TAB 650MG DOSE (2X325MG) PO PRN (23:01)
[2019-06-22] VITALS (7 sets, daily range): BP systolic 103–163; BP diastolic 52–70
[2019-06-22] MEDS: IPRATROPIUM 0.5MG/ALBUTEROL 2.5MG INH SOL UD 3ML (DUONEB)(J7620) INH SCH ×4 (01:30→21:05)
[2019-06-22] MEDS: cefTRIAXone SOD 1 GM in D5W MINI-BAG PLUS 50 ML IV SCH (02:28)
[2019-06-22] MEDS: AZITHROMYCIN INJ 500 MG, VIAL MATE ADAPTER 1 EACH in D5W 250 ML IV SCH (03:00)
[2019-06-22 05:24] LABS: HEMATOCRIT 33.7 % (36.0-47.0); HEMOGLOBIN 10.7 g/dl (12.0-15.5); MEAN CORPUSCULAR HEMOGLOBIN 27.9 pg (27.0-33.0); MEAN CORPUSCULAR HGB CONC 31.8 g/dl (32.0-36.5); MEAN CORPUSCULAR VOLUME 87.8 fl (80.0-96.0); PLATELET COUNT, AUTOMATED 260 10^3/uL (150-450); RED BLOOD COUNT 3.84 10^6/uL (4.00-5.40); WHITE BLOOD COUNT 20.2 10^3/uL (4.0-10.0)
[2019-06-22 05:52] LABS: CALCIUM LEVEL 8.8 MG/DL (8.8-10.2); CREATININE FOR GFR 1.06 MG/DL (0.55-1.30); GLOMERULAR FILTRATION RATE 52.6 (>32); POTASSIUM SERUM 4.1 MEQ/L (3.5-5.1)
[2019-06-22] MEDS: VITAMIN D 1,000 INTERNATIONAL UNITS TABLET PO SCH (08:19)
[2019-06-22] MEDS: HEPARIN SOD (PORCINE) 5000 UNITS/ML VIAL (J1644 PER 1000UNITS) SQ SCH ×2 (08:19→20:05)
[2019-06-22] MEDS: FUROSEMIDE 40 MG/4 ML VIAL (J1940) IV SCH ×3 (08:19→23:49)
[2019-06-22] MEDS: POTASSIUM CHLORIDE 10 MEQ SR TABLET PO SCH ×2 (08:20→20:02)
[2019-06-22] MEDS: BRINZOLAMIDE 1 % OPHTH SUSP (AZOPT) 10ML OU SCH ×3 (08:20→20:05)
[2019-06-22] MEDS: TIMOLOL MALEATE 0.5% OPHTH SOLN 5 ML OU SCH ×2 (08:20→20:06)
--- NOTE | 2019-06-22 11:35 | IPNPDOC ---
Subjective Date Seen The patient was seen on 06/22/19. Subjective Chief Complaint/HPI feeling better this morning, off oxygen. Objective Physical Examination General Exam: Positive: Alert Eye Exam: Negative: Sclera icteric Neck Exam: Positive: Supple; Negative: JVD, thyromegaly Chest Exam: Positive: Rales Heart Exam: Positive: Rate Normal, Normal S1, Normal S2 Abdomen Exam: Positive: Normal bowel sounds Extremity Exam: Negative: Edema Skin Exam: Negative: Rash Neuro Exam: Positive: Normal Speech Psych Exam: Positive: Mood NL Assessment /Plan Assessment #Acute diastolic CHF - continue IV lasix 40 mg for another 24 hours, will change to bumex in am - ECHO reviewed, LVEF 50% - remove tenorio - transfer to med/surg with tele - likely home in next 1-2 days # Acute hypoxic respiratory failure - resolved #Right lung lobe infiltrate -IV ceftriaxone and azithromycin -Procalcitonin pending, continue abx until result back #Hx of Atrial fibrillation - s/p watchman's device - on full dose asa - continue diltiazem #Hypertension -continue clonidine #DVT prophylaxis: Heparin 5000u sq bid Plan/VTE VTE Prophylaxis Ordered?: Yes VTE Exclusion Mechanical Proph: N/A:VTE Prophy Ordered VTE Exclusion Pharmacological: N/A:VTE Prophy Ordered VS, I&O, 24H, Fishbone Vital Signs/I&O Vital Signs Date Time Temp Pulse Resp B/P (MAP) Pulse Ox O2 Delivery O2 Flow Rate FiO2 06/22/19 08:00 98.1 69 20 119/59 (79) 94 Room Air 06/22/19 04:00 1.0 06/21/19 05:28 65 I&O- Last 24 Hours up to 6 AM 06/22/19 05:59 Intake Total 1865 ml Output Total 2150 ml Balance -285 ml Laboratory Data 24H LABS Laboratory Tests 2 06/21/19 11:57: Anion Gap 9, Glomerular Filtration Rate 47.9, Calcium Level 9.3, Magnesium Level 1.9 06/21/19 17:38: Anion Gap 8, Glomerular Filtration Rate 53.2, Calcium Level 8.9 06/22/19 05:06: Anion Gap 7L, Glomerular Filtration Rate 52.6, Calcium Level 8.8, Magnesium Level 2.0, Nucleated Red Blood Cells % (auto) 0.0 CBC/BMP Laboratory Tests 06/21/19 11:57 1/28/20 17:38 06/22/19 05:06 Microbiology Microbiology 06/21/19 Blood Culture - Preliminary, Resulted No growth after 24 hours . All specim... JO ANN ORTIZ MD Jun 22, 2019 11:35
[2019-06-22] MEDS ORDERED: ASPIRIN 325 MG TAB PO SCH (14:00)
[2019-06-22] MEDS: OLANZapine 2.5MG TABLET PO SCH (20:03)
[2019-06-22] MEDS: ACETAMINOPHEN TAB 650MG DOSE (2X325MG) PO PRN (20:03)
[2019-06-22] MEDS: [UNRECOGNIZED DRUG - OTHER] OU SCH (20:06)
[2019-06-22] MEDS: LATANOPROST 0.005% OPHTH SOLN 2.5 ML OU SCH (20:06)
[2019-06-23] VITALS: BP 128/59
[2019-06-23] MEDS: IPRATROPIUM 0.5MG/ALBUTEROL 2.5MG INH SOL UD 3ML (DUONEB)(J7620) INH SCH ×2 (01:51→07:34)
[2019-06-23] MEDS: cefTRIAXone SOD 1 GM in D5W MINI-BAG PLUS 50 ML IV SCH (02:17)
[2019-06-23] MEDS: AZITHROMYCIN INJ 500 MG, VIAL MATE ADAPTER 1 EACH in D5W 250 ML IV SCH (03:11)
[2019-06-23 04:00] VITALS: BP 153/69
[2019-06-23] MEDS: ACETAMINOPHEN TAB 650MG DOSE (2X325MG) PO PRN (04:12)
[2019-06-23 05:20] LABS: HEMATOCRIT 34.9 % (36.0-47.0); HEMOGLOBIN 11.2 g/dl (12.0-15.5); MEAN CORPUSCULAR HEMOGLOBIN 28.3 pg (27.0-33.0); MEAN CORPUSCULAR HGB CONC 32.1 g/dl (32.0-36.5); MEAN CORPUSCULAR VOLUME 88.1 fl (80.0-96.0); PLATELET COUNT, AUTOMATED 265 10^3/uL (150-450); RED BLOOD COUNT 3.96 10^6/uL (4.00-5.40); WHITE BLOOD COUNT 18.3 10^3/uL (4.0-10.0)
[2019-06-23 05:41] LABS: CALCIUM LEVEL 9.6 MG/DL (8.8-10.2); CREATININE FOR GFR 1.05 MG/DL (0.55-1.30); GLOMERULAR FILTRATION RATE 53.2 (>32)
[2019-06-23 07:24] VITALS: BP 134/67
[2019-06-23] MEDS: BRINZOLAMIDE 1 % OPHTH SUSP (AZOPT) 10ML OU SCH (08:45)
[2019-06-23] MEDS: TIMOLOL MALEATE 0.5% OPHTH SOLN 5 ML OU SCH (08:45)
[2019-06-23] MEDS: VITAMIN D 1,000 INTERNATIONAL UNITS TABLET PO SCH (08:46)
[2019-06-23] MEDS: POTASSIUM CHLORIDE 10 MEQ SR TABLET PO SCH (08:47)
[2019-06-23] MEDS: HEPARIN SOD (PORCINE) 5000 UNITS/ML VIAL (J1644 PER 1000UNITS) SQ SCH (08:47)
--- NOTE | 2019-06-23 08:57 | IPNPDOC ---
Subjective Date Seen The patient was seen on 06/23/19. Subjective Chief Complaint/HPI No events overnight. Did well with PT, and cleared to go home. No sob, nor CP. Objective Physical Examination General Exam: Positive: Alert Eye Exam: Negative: Sclera icteric Neck Exam: Positive: Supple; Negative: JVD, thyromegaly Chest Exam: Positive: Rales Heart Exam: Positive: Rate Normal, Normal S1, Normal S2 Abdomen Exam: Positive: Normal bowel sounds Extremity Exam: Negative: Edema Skin Exam: Negative: Rash Neuro Exam: Positive: Normal Speech Psych Exam: Positive: Mood NL Assessment /Plan Assessment #Acute diastolic CHF - resume home bumex - ECHO reviewed, LVEF 50% - home today, f/u with pcp in 1 week # Acute hypoxic respiratory failure - resolved #Right lung lobe infiltrate/CAP - cefuroxime x 5 days -Procalcitonin mildly elevated #Hx of Atrial fibrillation - s/p watchman's device - on full dose asa - continue diltiazem #Hypertension -continue clonidine #DVT prophylaxis: Heparin 5000u sq bid Plan/VTE VTE Prophylaxis Ordered?: Yes VTE Exclusion Mechanical Proph: N/A:VTE Prophy Ordered VTE Exclusion Pharmacological: N/A:VTE Prophy Ordered VS, I&O, 24H, Fishbone Vital Signs/I&O Vital Signs Date Time Temp Pulse Resp B/P (MAP) Pulse Ox O2 Delivery O2 Flow Rate FiO2 06/23/19 04:00 97.6 69 18 153/69 (97) 94 Room Air 06/22/19 04:00 1.0 06/21/19 05:28 65 I&O- Last 24 Hours up to 6 AM 06/23/19 06:00 Intake Total 1235 ml Output Total 2850 ml Balance -1615 ml Laboratory Data 24H LABS Laboratory Tests 2 06/23/19 04:53: Nucleated Red Blood Cells % (auto) 0.0, Anion Gap 9, Glomerular Filtration Rate 53.2, Calcium Level 9.6 CBC/BMP Laboratory Tests 06/23/19 04:53 Microbiology Microbiology 06/21/19 Blood Culture - Preliminary, Resulted No Growth after 48 hours. All Specime... JO ANN ORTIZ MD Jun 23, 2019 08:57
[2019-06-23] MEDS ORDERED: BUMETANIDE 1 MG TAB PO SCH (09:00)
[2019-06-23] MEDS ORDERED: CEFU1TAB20 PO (09:01)
[2019-06-23] MEDS ORDERED: MIRA3350 PO (10:14)
[2019-06-24 00:08] LABS: BODY FLUID CULTURE Not indicated. (.); LEGIONELLA ANTIGEN URINE Negative (Negative); ORGANISM ID Not indicated. (.); SPECIMEN SOURCE Urine (.); URINE STREP PNEUMONIAE ANTIGEN Negative (Negative)
[2019-06-25] MEDS ORDERED: cloNIDine HCL 0.1 MG/24 HR PATCH TD SCH (09:00)
--- NOTE | 2019-06-25 13:45 | DSES ---
DATE OF ADMISSION: 06/21/2019 DATE OF DISCHARGE: 06/23/2019 DISCHARGE DIAGNOSIS: 1. Acute diastolic congestive heart failure. 2. Acute hypoxic respiratory failure, resolved. 3. Right lower lobe infiltrate likely secondary to community acquired pneumonia. 4. History of atrial fibrillation status post watchman's procedure in the past. 5. Hypertension. CONSULTANTS: None. PROCEDURES DURING HOSPITALIZATION: None. DISPOSITION: The patient is discharged home in stable condition without any need for home oxygen. Her condition is much improved from admission. DISCHARGE INSTRUCTIONS: The patient was instructed to take antibiotics cefuroxime for the next 5 days. She is to resume her Bumex at her current outpatient dose and is to followup with her primary care physician within the next week. Relevant imaging studies done during the patient's hospital stay were a chest x-ray which showed a large right lower lobe density that could represent infiltrate, large perihilar density evident interval change. Old healed fracture of the left humeral neck. Echocardiogram Doppler which showed that she had a left ventricular ejection fraction measured at around 50% with moderate mitral insufficiency and mild to moderate tricuspid insufficiency, high central venous pressure and at least moderate pulmonary hypertension, left pleural effusion. LABS: Blood cultures times 2 are no growth to date. Urine legionella was negative. Urine strip pneumonia antigen was negative. Procalcitonin was slightly elevated at 0.56. Sodium 136, potassium 4, chloride 98, bicarbonate 29, anion gap was 9, BUN 32, creatinine 1.05, calcium 9.6, blood gas showed a pH of 7.27, Pco2 of 45, Po2 of 112, bicarbonate 20, total of CO2 of 21.9, oxygen saturation was 97% on base ex of -6.3, white blood cell count 16.6 on admission and slighter higher at 18.3 secondary to having received Dexamethasone in the ER department. Hemoglobin 12.1, hematocrit 41, platelet count 272,000. DISCHARGE MEDICATIONS: Tylenol 650 mg at bed, albuterol inhaler 2 puffs every 4 hours as needed, full dose aspirin daily, Lumigan 1 drop OU at bedtime, Azopt 1 drop OU three times a day, bumetanide 1 mg by mouth daily, ceftriaxone 250 mg twice a day for the next 5 days, cholecalciferol 2000 units by mouth daily, clonidine weekly, diltiazem 240 mg at bedtime, Lopressor 1 drop OU at bedtime, olanzapine 3.75 mg at bedtime, MiraLAX 17 grams daily, Timolol 1 drop OU daily. HOSPITAL COURSE: Mrs. Castro is an 83-year-old woman who presents to the hospital with complaints of worsening shortness of breath. Patient was noted to be in respiratory distress. She was found to have Oxygen sats of 85%. She received neublizer treatment. She was placed on BiPAP. She is treated with a dose of Decadron 80 mg IV, furosemide and given nitroglycerin and was admitted to the ICU for close monitoring. Clinically she diuresed quite well during her hospital stay putting out a net negative water balance of 3.9 liters. Patient was maintained on IV Lasix, An echocardiogram was obtained which showed that she had a preserved left ventricular ejection fraction with no significant valvular heart disease. Her chest x-ray was suspicious for possible pneumonia so she was empirically treated with antibiotics. Procalcitonin did come back slightly elevated so she was transitioned to oral antibiotics. Patient clinically improved. She was weaned off of the BiPAP and transitioned to nasal cannula which was eventually weaned to home oxygen. She was seen by PT/OT and cleared to go home. She was subsequently discharged home in stable condition. A total of 30 minutes was spent completing discharge.
== END 2019-06-23 10:24 | disposition home health service (06) | DRG 291 ==
LOC: M ED 01:14 → M ED INP 03:43 → ENRESERVTM 04:49 → ENRESERVDT 04:49 → M ICU 05:19
PROVIDERS: ADMIT Internal Medicine; ATTEND Internal Medicine
DX: I11.0 Hypertensive heart disease with heart failure (principal); J18.9 Pneumonia, unspecified organism; J96.01 Acute respiratory failure with hypoxia; I50.31 Acute diastolic (congestive) heart failure; I48.91 Unspecified atrial fibrillation; I27.20 Pulmonary hypertension, unspecified; I08.1 Rheumatic disorders of both mitral and tricuspid valves; Z95.0 Presence of cardiac pacemaker; J45.909 Unspecified asthma, uncomplicated; K57.30 Diverticulosis of large intestine without perforation or abscess without bleeding; K21.9 Gastro-esophageal reflux disease without esophagitis; M81.0 Age-related osteoporosis without current pathological fracture; Z96.651 Presence of right artificial knee joint; F17.200 Nicotine dependence, unspecified, uncomplicated; Z79.82 Long term (current) use of aspirin; Z79.899 Other long term (current) drug therapy; Z88.2 Allergy status to sulfonamides; Z91.012 Allergy to eggs; Z91.013 Allergy to seafood; Z88.8 Allergy status to other drugs, medicaments and biological substances

== ENCOUNTER 2019-09-04 01:44 | Inpatient (IN) | payer MEDICARE, OTHER ==
[2019-09-04] VITALS (44 sets, daily range): BP systolic 88–154; BP diastolic 42–69; O2SAT 100
[~2019-09-04] VITALS: Ht 162.6 cm; Wt 77.8 kg
[~2019-09-04 01:44] MED LIST changes: +ACET-907 PO; +ASPI-264 PO; +CEFU1TAB20 PO; +CEPH500C PO; +CLON0.1D3 TD; +CLON0.2D6 TD; +MIRA3350 PO; +PROAAER10 INH; +RHOP0.02 OU; +VITAD1000T PO; -cloNIDine HCL 0.2 MG/24 HR PATCH TD SCH
[2019-09-04] MEDS ORDERED: PROPOFOL 1,000 MG/100 ML VIAL As Ordered ONE (01:57)
[2019-09-04] MEDS ORDERED: FUROSEMIDE 20 MG TAB As Ordered ONE (02:04)
[2019-09-04] MEDS ORDERED: FUROSEMIDE 100MG/10ML VIAL (J1940) As Ordered ONE (02:05)
[2019-09-04] MEDS ORDERED: propofoL 1,000 MG in IV 1 EA IV SCH (02:30)
[2019-09-04] MEDS ORDERED: VECURONIUM BROMIDE 10 MG VIAL IV STA (02:30)
[2019-09-04] MEDS ORDERED: FUROSEMIDE 100MG/10ML VIAL (J1940) IV ONE (02:30)
[2019-09-04] MEDS ORDERED: SUCCINYLCHOLINE INJ 200 MG/10 ML VIAL (J0330) IV STA (02:30)
[2019-09-04] MEDS ORDERED: ETOMIDATE INJ 20MG/10ML VIAL IV STA (02:30)
[2019-09-04 02:35] LABS: INR 1.29; PARTIAL THROMBOPLASTIN TIME 28.1 SECONDS (25.0-38.4); PROTHROMBIN TIME 15.8 SECONDS (11.8-14.0)
[2019-09-04 02:38] LABS: D-DIMER QUANT 2408.62 ng/ml (<500)
[2019-09-04 02:44] LABS: BLOOD UREA NITROGEN 20 MG/DL (7-18); C REACTIVE PROTEIN QUANTITATIV 0.32 MG/DL (0.00-0.30); CALCIUM LEVEL 10.1 MG/DL (8.8-10.2); CARBON DIOXIDE LEVEL 27 MEQ/L (21-32); CHLORIDE LEVEL 104 MEQ/L (98-107); CK-MB VALUE MASS < 1.0 NG/ML (<3.6); CPK CREATINE PHOSPHOKINASE 50 U/L (26-192); CREATININE FOR GFR 1.02 MG/DL (0.55-1.30); GLUCOSE, FASTING 216 MG/DL (70-100); LDH LACTATE DEHYDROGENASE 238 U/L (84-246); NT-PRO BNP 5344 PG/ML (<450); POTASSIUM SERUM 3.9 MEQ/L (3.5-5.1); SODIUM LEVEL 138 MEQ/L (136-145); TROPONIN I < 0.02 NG/ML (< 0.10)
[2019-09-04 03:07] LABS: BASO # 0.1 10^3/uL (0.0-0.2); BASO % 0.5 % (0.0-1.0); EOS # 0.2 10^3/uL (0.0-0.5); EOS % 1.5 % (0.0-3.0); HEMATOCRIT 40.5 % (36.0-47.0); HEMOGLOBIN 12.6 g/dl (12.0-15.5); LYMPH # 3.4 10^3/uL (1.5-5.0); LYMPH % 23.7 % (24.0-44.0); MEAN CORPUSCULAR HEMOGLOBIN 27.9 pg (27.0-33.0); MEAN CORPUSCULAR HGB CONC 31.1 g/dl (32.0-36.5); MEAN CORPUSCULAR VOLUME 89.6 fl (80.0-96.0); MONO % 7.1 % (0.0-5.0); NEUTROPHILS # 9.6 10^3/uL (1.5-8.5); NEUTROPHILS % 66.8 % (36.0-66.0); PLATELET COUNT, AUTOMATED 267 10^3/uL (150-450); RED BLOOD COUNT 4.52 10^6/uL (4.00-5.40); WHITE BLOOD COUNT 14.4 10^3/uL (4.0-10.0)
[2019-09-04] MEDS ORDERED: NOREPINEPHRINE 4 MG/4 ML AMP As Ordered ONE ×3 (03:16→03:21)
[2019-09-04] MEDS ORDERED: VECURONIUM BROMIDE 10 MG VIAL IV ONE (03:45)
[2019-09-04] MEDS ORDERED: NOREPINEPHRINE BITARTRATE 16 MG in D5W 484 ML IV SCH (03:45)
[2019-09-04] MEDS ORDERED: NOREPINEPHRINE BITARTRATE 8 MG in D5W 492 ML IV SCH (04:36)
[2019-09-04] MEDS ORDERED: MORPHINE 2 MG/ML 1ML VIAL (J2270) IV PRN (05:15)
[2019-09-04] MEDS: AZITHROMYCIN INJ 500 MG, VIAL MATE ADAPTER 1 EACH in D5W 250 ML IV SCH (05:17)
[2019-09-04 05:57] LABS: ABG BASE EXCESS -1.4 (-2.0-2.0); ABG HCO3 24.1 MEQ/L (22.0-26.0); ABG O2 SATURATION 98.2 % (95.0-99.0); ABG PARTIAL PRESSURE CO2 43.4 mmHg (35.0-45.0); ABG PARTIAL PRESSURE O2 111.3 mmHg (75.0-100.0); ABG STANDARD HCO3 23.3 MEQ/L (22.0-26.0); ABG TOTAL CO2 25.4 MEQ/L (23.0-31.0); ABG pH (ARTERIAL) 7.362 UNITS (7.350-7.450)
[2019-09-04] MEDS ORDERED: ETOMIDATE INJ 20MG/10ML VIAL ONE (07:30)
[2019-09-04] MEDS ORDERED: VECURONIUM BROMIDE 10 MG VIAL ONE (07:30)
[2019-09-04] MEDS ORDERED: SUCCINYLCHOLINE 100 MG/5 ML SYRINGE (J0330) ONE (07:30)
--- NOTE | 2019-09-04 07:40 | HPE ---
DATE OF ADMISSION: 09/04/2019 START TIME: 0415 hours. STOP TIME: 0500 hours. I was called to the emergency room to attend Rosario Castro. The patient has been examined and chart is reviewed. I spoke by phone with her as currently no visitors are allowed in the hospital. This is an 83-year-old female with known underlying issues with heart failure. She was recently admitted for it in May. She is known to have an underlying pacemaker. She was admitted in May with similar issues. According to her , she had a recent change in her medications as she has had increasing difficulties with inability to lie flat in bed secondary to shortness of breath. He said she was just started on a new medication several days ago, but is not sure what it is. She is followed by Dr. Cerna. She has no fever, no chills, no sweats, no sputum production and no recent travel. He denies that she had any chest pain. He says that last night she laid down, felt short of breath and sat up, was able to lay back down, but in less than an hour again was up short of breath and called the ambulance. He states that over the last several weeks she has had increasing difficulties with inability to lie flat and has actually been sleeping sitting up in a recliner chair. ALLERGIES: Are listed as: 1. Crab. 2. SULFA. 3. EGGS. 4. MEPERIDINE. 5. MOXIFLOXACIN. MEDICATIONS: Medications at the time of her most recent discharge show: - albuterol as needed - Lumigan and Azopt eye drops - Bumex 1 mg daily - clonidine unknown patch, which she changes weekly - diltiazem 240 mg at bedtime - Rhopressa eye drops - olanzapine 3.75 at bedtime - MiraLAX - timolol eye drops PAST MEDICAL HISTORY: Significant for: Known congestive heart failure (CHF), mainly diastolic with a pacemaker in place. Previous history of atrial fibrillation. Underlying asthma, not further defined. Hypertension. Diverticulitis. Previous gastrointestinal (GI) bleed. Osteoporosis. Glaucoma. PAST SURGICAL HISTORY: Surgically, she has had: Cholecystectomy. Tonsillectomy. Previous tubal ligation. Hysterectomy, uterus only. Right knee arthroplasty. Pacemaker. SOCIAL HISTORY: She is currently a nonsmoker. No history of alcohol. FAMILY HISTORY: Currently unobtainable. REVIEW OF SYSTEMS: This per the . CONSTITUTIONAL: Negative for any recent fevers or chills. HEENT: Unremarkable for double vision or blurred vision. PULMONARY: As per the HPI. CARDIAC: As per the HPI. GI: Unremarkable for any recent nausea or vomiting. : Unremarkable for any dysuria or urgency. NEUROLOGIC: Unremarkable for seizures or stroke. ENDOCRINE: Unremarkable for diabetes or thyroid disease. HEMATOLOGIC: Unremarkable for any chronic bleeding dyscrasias. MUSCULOSKELETAL: Unremarkable for any recent arthralgias or myalgias. NEUROLOGIC: Unremarkable. PSYCHIATRIC: Unremarkable. PHYSICAL EXAMINATION: Reveals an intubated elderly female here in the emergency department. She is on 5 mcg of Levophed. Heart rate is 70 and regular. Respiratory rate is 16, with occasional breathing over the vent. Blood pressure currently 136 systolic. HEENT: Shows an oral endotracheal tube. Pupils with some reaction. Membranes are moist. Trachea is in the midline. CHEST: Shows diminished but symmetric expansion. There are rhonchi that clear completely with suctioning. There are significant basilar crackles dependently bilaterally. CARDIAC EXAM: Distant but generally regular. Pacemaker generator palpable in the left pectoralis region. Peripheral pulses palpable. Trace edema. ABDOMEN: Obese, soft, active bowel sounds. No convincing organomegaly or masses. EXTREMITIES: No cyanosis or clubbing. NEUROLOGIC: She was medically paralyzed by the ER. LABORATORIES: Current laboratories show a white blood cell count of 14.4, hemoglobin 12.6, platelet count 267,000, 66.8% segs, no bands. Sodium 138, potassium 3.9, chloride 104, CO2 27, BUN 20, creatinine 1.02, first lactate 3.3, LDH 238, BNP 5344, troponin less than 0.02. Blood gas done in the ER, after intubation, shows a pH of 7.274, pCO2 of 49.2 then a pO2 of 77. Chest x-ray compared to one from May shows significant cardiomegaly, diffuse increased interstitial markings, right much greater than left, and an endotracheal tube in good position. IMPRESSION: : 1. Acute respiratory failure most likely secondary to cardiac dysfunction. 2. Known diastolic heart failure. 3. Indwelling pacemaker. 4. History of hypertension. RECOMMENDATIONS: At this point, she in intubated as she presented to the ER in profound respiratory distress. I spoke with the who requested at this point she remain a FULL CODE. Given the history obtained from the with her progressive difficulties with orthopnea and her known heart failure, my suspicion is that is the primary driving force. There is no suggestion of underlying COVID-19 infection at this point. I suspect that her white count is on the basis of stress and demargination, but she will be empirically treated for community acquired pneumonia. She is allergic to quinolones and therefore Rocephin and azithromycin will be used. She was hypertensive at the time of admission, became hypotensive after the administration of propofol and increased level of PEEP by the ER. We were able to wean her Levophed at this point. Her clonidine patch at this point has been removed. We will gently diuresis her, especially in view of her previous presentation, the history obtained from the , and her elevated BNP. Ulcer and deep vein thrombosis (DVT) prophylaxis are in place. At this point, she is critically ill. There is a very high likelihood of further decompensation. We will sedate her as needed and assure adequate pain control as well. I have discussed this at length with the by phone. We will facilitate transfer to the intensive care unit. She does remain critically ill. I left the bedside at 0500 hours. 45 minutes of critical care time were delivered at the bedside, not including procedures. She had a central line placed prior to my arrival in the right IJ by the ER.
[2019-09-04] MEDS: propofoL 1,000 MG in IV 1 EA IV SCH ×3 (08:01→21:56)
[2019-09-04] MEDS: PANTOPRAZOLE 40MG INJ (PROTONIX) (C9113) IV SCH (08:16)
[2019-09-04] MEDS: cefTRIAXone SOD 1 GM in D5W MINI-BAG PLUS 50 ML IV SCH (08:17)
[2019-09-04] MEDS: HEPARIN SOD (PORCINE) 5000 UNITS/ML VIAL (J1644 PER 1000UNITS) SC SCH ×3 (08:17→21:56)
[2019-09-04] MEDS: CHLORHEXIDINE GLUCONATE 0.12 % 15ML UDC (PERIDEX ORAL RINSE) MT SCH ×2 (08:26→20:07)
[2019-09-04] MEDS: ALBUTEROL SULFATE 2.5 MG/0.5 ML INH NEB SOLN NEB SCH ×5 (08:37→23:57)
[2019-09-04 09:00] LABS: CK-MB VALUE MASS 2.3 NG/ML (<3.6); MB/CK RELATIVE INDEX 2.88 (< OR =4); TROPONIN I 0.03 NG/ML (< 0.10)
--- NOTE | 2019-09-04 09:17 | REP ---
REASON: Status post intubation. Two AP examinations of the chest were obtained, one at 02:16:54 a.m. and the other at 02:18:28 a.m. The reason for the second image is due to the fact that the first image was incomplete. Both have been compared to 06/21/2019. There is an endotracheal tube in place, the tip is in satisfactory position at the level of the inferior margin of the aortic knob. There is cardiomegaly accentuated by technique. There is a dual-chamber bipolar pacemaker device in place, the leads appear contiguous and appropriate. There is a central venous catheter seen entering from the right internal jugular vein, the tip is in the superior vena cava. Heavy patchy opacities are seen in the right upper and right lower lobe regions with possible early left perihilar opacity. There is slight right CP angle blunting. The left CP angle is clear. The osseous structures are within normal limits. IMPRESSION: 1. Endotracheal tube and central venous catheter, as described above. 2. Right upper and right lower lobe pneumonia with possible developing left perihilar pneumonia. 3. Small right pleural effusion. 4. Cardiomegaly, accentuated by technique. 5. Other findings, as described above. Electronically Signed by Art Baxter DO 09/04/2019 10:45 A
--- NOTE | 2019-09-04 10:02 | CCN ---
DATE: 09/04/2019 START TIME: 0908 hours. STOP TIME: 0929 hours. I again attended Rosario Castro her in the recovery room, which is now the intensive care unit for overflow. She is much more comfortable on the ventilator. She is arousable. Blood pressure anywhere from the 120s to 160s. She is making reasonable urine. She is synchronous with the ventilator at this point. Lactic acid down to 2.8. Repeat chemistries are pending. On exam, she is sedate but comfortable. She remains afebrile. HEENT otherwise normocephalic, atraumatic. OG tube and oral endotracheal tube in place. She has a right IJ line in place. Chest shows some occasional rhonchi, but much improved from earlier today. She has dependent crackles. Peripheral pulses are palpable. Edema is unchanged. Cardiac exam distant but generally regular. Pacemaker generator palpable. Peripheral pulses palpable. Edema is unchanged. Abdomen obese, soft, nontender with active bowel sounds. Extremities no cyanosis or clubbing. Neurologically she is sedate but moves all extremities. The most pressing problems requiring my presence at the bedside: 1. Respiratory failure, hypoxemic. 2. Metabolic acidosis. 3. Congestive heart failure (CHF). At this point, i still believe this is predominantly secondary to cardiac dysfunction. She has responded nicely to diuretics. Her blood pressure is somewhat labile and should it remain more elevated we will begin to re-add her outpatient antihypertensives. At this point, we will keep her ventilated for the next several hours and see how she does. Cardiac enzymes are pending. There is no obvious ischemic changes on her ECG. I do not believe this is predominantly infectious, but her procalcitonin is pending and will continue empiric antimicrobials until to return. I left the bedside at 0929 hours. An additional 21 minutes of critical care time was delivered at the bedside, not including procedures.
[2019-09-04] MEDS: FUROSEMIDE 40MG/4ML VIAL (J1940) IV SCH ×2 (11:15→17:27)
--- NOTE | 2019-09-04 11:39 | ECGEPIP ---
[facility] - ED Test Date: 2019-09-04 Pat Name: LASHA JOHNSON Department: Room: - Gender: Female Lifestyle Director: : 1935 Requested By: REJI CHINCHILLA Order Number: [id number] Reading MD: Marla Rees Measurements Intervals [place] Rate: 69 P: MA: 0 QRS: -25 QRSD: 161 T: 80 QT: 443 QTc: 477 Interpretive Statements ELECTRONIC VENTRICULAR PACEMAKER ABNORMAL RHYTHM ECG NO PRIOR ECG FOR COMPARISON Electronically Signed on 09-04-2019 11:39:05 EDT by Marla Rees
[2019-09-04] MEDS: MIDAZOLAM INJ 2 MG/2 ML VIAL (J2250) IV PRN ×2 (11:56→16:02)
[2019-09-04 16:48] LABS: BLOOD UREA NITROGEN 17 MG/DL (7-18); CALCIUM LEVEL 9.1 MG/DL (8.8-10.2); CARBON DIOXIDE LEVEL 29 MEQ/L (21-32); CHLORIDE LEVEL 105 MEQ/L (98-107); CREATININE FOR GFR 0.83 MG/DL (0.55-1.30); GLOMERULAR FILTRATION RATE > 60.0 (>32); GLUCOSE, FASTING 119 MG/DL (70-100); POTASSIUM SERUM 3.1 MEQ/L (3.5-5.1); SODIUM LEVEL 142 MEQ/L (136-145)
[2019-09-04] MEDS ORDERED: POTASSIUM CHLORIDE 10% LIQ 20 MEQ/15 ML UDC PO ONE ×3 (17:15→23:45)
[2019-09-04 23:21] LABS: BLOOD UREA NITROGEN 14 MG/DL (7-18); CALCIUM LEVEL 6.7 MG/DL (8.8-10.2); CARBON DIOXIDE LEVEL 23 MEQ/L (21-32); CHLORIDE LEVEL 118 MEQ/L (98-107); CK-MB VALUE MASS < 1.0 NG/ML (<3.6); CPK CREATINE PHOSPHOKINASE 52 U/L (26-192); CREATININE FOR GFR 0.61 MG/DL (0.55-1.30); GLOMERULAR FILTRATION RATE > 60.0 (>32); GLUCOSE, FASTING 105 MG/DL (70-100); MB/CK RELATIVE INDEX 1.92 (< OR =4); POTASSIUM SERUM 2.9 MEQ/L (3.5-5.1); SODIUM LEVEL 147 MEQ/L (136-145); TROPONIN I 0.07 NG/ML (< 0.10)
[2019-09-05] VITALS (26 sets, daily range): BP systolic 99–173; BP diastolic 52–80
[2019-09-05] MEDS: FUROSEMIDE 40MG/4ML VIAL (J1940) IV SCH ×2 (02:00→09:48)
[2019-09-05] MEDS ORDERED: POTASSIUM CHLORIDE 10% LIQ 20 MEQ/15 ML UDC PO ONE (02:15)
[2019-09-05] MEDS: propofoL 1,000 MG in IV 1 EA IV SCH ×2 (03:07→07:58)
[2019-09-05] MEDS: ALBUTEROL SULFATE 2.5 MG/0.5 ML INH NEB SOLN NEB SCH ×6 (04:36→23:30)
[2019-09-05] MEDS: HEPARIN SOD (PORCINE) 5000 UNITS/ML VIAL (J1644 PER 1000UNITS) SC SCH ×3 (05:17→20:28)
[2019-09-05] MEDS: AZITHROMYCIN INJ 500 MG, VIAL MATE ADAPTER 1 EACH in D5W 250 ML IV SCH (05:17)
[2019-09-05 06:10] LABS: ABG HCO3 22.7 MEQ/L (22.0-26.0); ABG O2 SATURATION 97.5 % (95.0-99.0); ABG PARTIAL PRESSURE CO2 34.6 mmHg (35.0-45.0); ABG PARTIAL PRESSURE O2 95.7 mmHg (75.0-100.0); ABG STANDARD HCO3 23.7 MEQ/L (22.0-26.0); ABG TOTAL CO2 23.8 MEQ/L (23.0-31.0); ABG pH (ARTERIAL) 7.435 UNITS (7.350-7.450)
[2019-09-05 06:14] LABS: BASO % 0.3 % (0.0-1.0); EOS # 0.1 10^3/uL (0.0-0.5); EOS % 0.9 % (0.0-3.0); HEMATOCRIT 35.8 % (36.0-47.0); HEMOGLOBIN 11.3 g/dl (12.0-15.5); LYMPH # 2.2 10^3/uL (1.5-5.0); MEAN CORPUSCULAR HEMOGLOBIN 28.3 pg (27.0-33.0); MEAN CORPUSCULAR HGB CONC 31.6 g/dl (32.0-36.5); MEAN CORPUSCULAR VOLUME 89.7 fl (80.0-96.0); MONO # 1.3 10^3/uL (0.0-0.8); MONO % 13.1 % (0.0-5.0); NEUTROPHILS # 6.1 10^3/uL (1.5-8.5); NEUTROPHILS % 62.4 % (36.0-66.0); PLATELET COUNT, AUTOMATED 199 10^3/uL (150-450); RED BLOOD COUNT 3.99 10^6/uL (4.00-5.40); WHITE BLOOD COUNT 9.7 10^3/uL (4.0-10.0)
[2019-09-05 06:41] LABS: ALBUMIN 2.6 GM/DL (3.2-5.2); ALT/SGPT 14 U/L (12-78); BILIRUBIN,TOTAL 0.7 MG/DL (0.2-1.0); BLOOD UREA NITROGEN 18 MG/DL (7-18); CALCIUM LEVEL 7.6 MG/DL (8.8-10.2); CARBON DIOXIDE LEVEL 25 MEQ/L (21-32); CHLORIDE LEVEL 114 MEQ/L (98-107); CHOLESTEROL LEVEL 149 MG/DL (< 200); CPK CREATINE PHOSPHOKINASE 86 U/L (26-192); CREATININE FOR GFR 0.76 MG/DL (0.55-1.30); GLOMERULAR FILTRATION RATE > 60.0 (>32); GLUCOSE, FASTING 144 MG/DL (70-100); LDH LACTATE DEHYDROGENASE 148 U/L (84-246); PHOSPHORUS LEVEL 2.4 MG/DL (2.5-4.9); POTASSIUM SERUM 3.5 MEQ/L (3.5-5.1); SODIUM LEVEL 144 MEQ/L (136-145); TOTAL PROTEIN 5.8 GM/DL (6.4-8.2); TRIGLYCERIDES LEVEL 204 MG/DL (<150)
--- NOTE | 2019-09-05 07:33 | REP ---
Clinical: Respiratory failure. Comparison: 09/04/2019, 06/21/2019. Findings: Endotracheal tube approximately 2 cm above the trinh. Nasogastric tube courses below left hemidiaphragm. Right IJ line with tip in the SVC. The cardiac silhouette is stable and mildly enlarged. Aerated lung haskins appear improved as compared to recent prior examination with decreased opacity/interstitial markings. No obvious effusion. No pneumothorax. Skeletal structures intact. Impression: 1. Considerably improved aeration to the bilateral lung haskins with decreased infiltrates. 2. Lines and tubes in satisfactory position. Electronically Signed by Agustin Fernandez MD 09/05/2019 07:24 A
[2019-09-05] MEDS: cefTRIAXone SOD 1 GM in D5W MINI-BAG PLUS 50 ML IV SCH (07:57)
[2019-09-05] MEDS: PANTOPRAZOLE 40MG INJ (PROTONIX) (C9113) IV SCH (08:00)
[2019-09-05] MEDS: POTASSIUM CHLORIDE 10% LIQ 20 MEQ/15 ML UDC PO SCH ×2 (08:01→20:28)
[2019-09-05] MEDS: CHLORHEXIDINE GLUCONATE 0.12 % 15ML UDC (PERIDEX ORAL RINSE) MT SCH ×2 (08:01→20:26)
[2019-09-05] MEDS ORDERED: cloNIDine HCL 0.2 MG/24 HR PATCH TD SCH ×2 (09:00)
[2019-09-05 10:12] LABS: ABG BASE EXCESS 0.2 (-2.0-2.0); ABG HCO3 24.4 MEQ/L (22.0-26.0); ABG PARTIAL PRESSURE CO2 38.1 mmHg (35.0-45.0); ABG PARTIAL PRESSURE O2 80.5 mmHg (75.0-100.0); ABG STANDARD HCO3 24.7 MEQ/L (22.0-26.0); ABG TOTAL CO2 25.6 MEQ/L (23.0-31.0); ABG pH (ARTERIAL) 7.425 UNITS (7.350-7.450)
--- NOTE | 2019-09-05 10:27 | CCN ---
DATE OF VISIT: 09/05/2019 START TIME: 829 STOP TIME: 914 I again attended Rosario Castro her in the recovery room/intensive care unit (ICU). I spoke at length with the nurse at the bedside. She has had no new events overnight. Maximum temperature (Tmax) overnight 97.6, blood pressure 99 to the 170s systolic, heart rate 60s-80s, respiratory rate 16-20. She does overbreathe the ventilator. Intake and output midnight to midnight 752 mL in with 2722 mL out, and she is already 400 mL negative for this morning. Most recent laboratories show a white blood cell count 9.7, hemoglobin 11.3, platelet count 199,000, 66% segmented neutrophils, no bands. Sodium 144, potassium of 3.5, chloride 114, CO2 25, BUN 18, creatinine 0.76, glucose 144. Troponin max only 0.07. Blood gas this morning, rate of 16, tidal volume 380, FIO2 of 40%, shows a pH 7.435, PCO2 of 34.6, and a pO2 of 95.7. Chest x-ray shows marked improvement in vasculature. Lines and tubes in good position. On examination, she is sedate but easily arousable. Moves all extremities. Pupils were actually clear. Trache is in the midline. Jugular venous distention difficult to assess. Chest shows occasional rhonchi, cleared completely with cough and suctioning. There are some faint dependent crackles. Expansion although diminished is symmetric. Cardiac examination: Distant but regular. Pacemaker generator palpable in the left pectoralis region. Peripheral pulses palpable. Trace edema. Abdomen: Obese, soft, nontender, with active bowel sounds. No convincing organomegaly or masses. Extremities: No cyanosis or clubbing. Neurologically, as outlined above. The most pressing problems requiring my immediate presence at the bedside: 1. Respiratory failure, requiring mechanical ventilatory support. 2. Congestive heart failure, mainly diastolic. 3. Metabolic acidosis secondary to the above. 4. Hypertension. At this point, likely we will be able to proceed quickly towards extubation this morning. We will start adding back her home medications, especially her antihypertensives. She has diuresed well. She did require repletion of her potassium. We will continue with twice a day dosing of her diuretics until she can be on an oral regimen. We will continue to replace her potassium, as well. Once she is extubated, we will likely transfer her care to the hospitalist service. We await the outcome of that intervention. Propofol was discontinued. She immediately became quite alert. She was extubated without difficulty. No stridor. Oxygenating well on 40% aerosol face mask. Blood pressure 150-170 systolic, and he clonidine patch was re-added. We have spoken with Dr. Murray from the hospitalist service, who has agreed to assume her care. Will check a blood gas in an hour. I left the bedside at 0915 hours. A total of 45 minutes of critical care time was delivered at the bedside, not including procedures.
[2019-09-05] MEDS ORDERED: PILL CUTTER 1 EACH XX PRN (20:15)
[2019-09-05] MEDS: OLANZapine 2.5MG TABLET PO SCH (20:27)
[2019-09-06 04:00] VITALS: BP 134/78
[2019-09-06] MEDS: ALBUTEROL SULFATE 2.5 MG/0.5 ML INH NEB SOLN NEB SCH ×5 (04:19→20:56)
[2019-09-06] MEDS: HEPARIN SOD (PORCINE) 5000 UNITS/ML VIAL (J1644 PER 1000UNITS) SC SCH ×3 (04:56→23:19)
[2019-09-06 05:08] LABS: BASO # 0.1 10^3/uL (0.0-0.2); BASO % 0.5 % (0.0-1.0); EOS # 0.2 10^3/uL (0.0-0.5); EOS % 1.3 % (0.0-3.0); HEMATOCRIT 36.7 % (36.0-47.0); HEMOGLOBIN 11.4 g/dl (12.0-15.5); LYMPH # 2.8 10^3/uL (1.5-5.0); LYMPH % 24.1 % (24.0-44.0); MEAN CORPUSCULAR HEMOGLOBIN 27.8 pg (27.0-33.0); MEAN CORPUSCULAR HGB CONC 31.1 g/dl (32.0-36.5); MEAN CORPUSCULAR VOLUME 89.5 fl (80.0-96.0); MONO # 1.5 10^3/uL (0.0-0.8); MONO % 12.7 % (0.0-5.0); PLATELET COUNT, AUTOMATED 200 10^3/uL (150-450); WHITE BLOOD COUNT 11.6 10^3/uL (4.0-10.0)
[2019-09-06 05:47] LABS: ALBUMIN 2.9 GM/DL (3.2-5.2); ALT/SGPT 12 U/L (12-78); BILIRUBIN,TOTAL 1.3 MG/DL (0.2-1.0); BLOOD UREA NITROGEN 18 MG/DL (7-18); CALCIUM LEVEL 9.1 MG/DL (8.8-10.2); CARBON DIOXIDE LEVEL 28 MEQ/L (21-32); CHLORIDE LEVEL 108 MEQ/L (98-107); CHOLESTEROL LEVEL 176 MG/DL (< 200); CPK CREATINE PHOSPHOKINASE 81 U/L (26-192); CREATININE FOR GFR 0.69 MG/DL (0.55-1.30); GLOMERULAR FILTRATION RATE > 60.0 (>32); GLUCOSE, FASTING 114 MG/DL (70-100); LDH LACTATE DEHYDROGENASE 199 U/L (84-246); PHOSPHORUS LEVEL 2.9 MG/DL (2.5-4.9); POTASSIUM SERUM 4.1 MEQ/L (3.5-5.1); SODIUM LEVEL 140 MEQ/L (136-145); TOTAL PROTEIN 6.2 GM/DL (6.4-8.2); TRIGLYCERIDES LEVEL 164 MG/DL (<150)
[2019-09-06 06:02] LABS: ABG BASE EXCESS 1.8 (-2.0-2.0); ABG HCO3 25.7 MEQ/L (22.0-26.0); ABG O2 SATURATION 97.4 % (95.0-99.0); ABG PARTIAL PRESSURE CO2 37.9 mmHg (35.0-45.0); ABG PARTIAL PRESSURE O2 90.7 mmHg (75.0-100.0); ABG TOTAL CO2 26.9 MEQ/L (23.0-31.0); ABG pH (ARTERIAL) 7.449 UNITS (7.350-7.450)
[2019-09-06] MEDS ORDERED: MIRALAX *UNIT DOSE* 17GM PACKET PO PRN (07:30)
--- NOTE | 2019-09-06 07:36 | REP ---
Clinical: Respiratory failure. Comparison: 09/05/2019, 09/04/2019. Findings: Right IJ line with tip in the SVC. Pacemaker in stable position. Cardiomegaly again suggested. Lung haskins are relatively clear and without obvious consolidation, effusion, or pneumothorax. Previously identified infiltrates have essentially resolved by radiographic evaluation. Skeletal structures stable. Impression: 1. Improved aeration and the previously noted infiltrates have essentially resolved by radiographic appearance. Electronically Signed by Agustin Fernandez MD 09/06/2019 07:28 A
[2019-09-06] MEDS: CHLORHEXIDINE GLUCONATE 0.12 % 15ML UDC (PERIDEX ORAL RINSE) MT SCH ×2 (07:42→21:25)
[2019-09-06] MEDS: FUROSEMIDE 40MG/4ML VIAL (J1940) IV SCH (08:44)
[2019-09-06] MEDS: PANTOPRAZOLE 40MG INJ (PROTONIX) (C9113) IV SCH (08:44)
[2019-09-06] MEDS: POTASSIUM CHLORIDE 10% LIQ 20 MEQ/15 ML UDC PO SCH (08:53)
[2019-09-06] MEDS: TIMOLOL MALEATE 0.5% OPHTH SOLN 5 ML OU SCH (09:00)
[2019-09-06 10:04] VITALS: BP 136/56
[2019-09-06 15:27] VITALS: BP 163/68
[2019-09-06] MEDS: BRINZOLAMIDE 1 % OPHTH SUSP (AZOPT) 10ML OU SCH ×2 (17:14→21:28)
--- NOTE | 2019-09-06 17:52 | IPNPDOC ---
Date Seen The patient was seen on 09/06/19. Progress Note SUBJECTIVE: 83-year-old female with past medical history of atrial fibrillation, hypertension and congestive heart failure, was admitted for acute respiratory failure and acute on chronic systolic congestive heart failure. Patient was intubated and placed on mechanical ventilation in the emergency department, extubated successfully the following morning, has been stable since then. She has diuresed really well with IV Lasix, currently requiring 2 L of oxygen via nasal cannula. She is having a mild nonproductive cough, no other complaints at this time. She denies any chest pain, nausea, vomiting, abdominal pain, diarrhea or constipation. 10 point review of system is negative except for above PHYSICAL EXAMINATION: VITAL SIGNS: Please see below. GENERAL: No distress HEENT: Normocephalic, atraumatic, moist mucous membranes NECK: Supple CARDIOVASCULAR EXAMINATION: S1, S2, no murmurs RESPIRATORY EXAMINATION: Scattered rhonchi, no wheezing ABDOMINAL EXAMINATION: Soft, nontender, nondistended, positive bowel sounds EXTREMITIES: Range of motion intact SKIN: No rash NEUROLOGICAL EXAMINATION: Alert and oriented 3, no focal deficits PSYCHIATRIC EXAMINATION: Calm and cooperative LABORATORY DATA, IMAGING STUDIES, MICROBIOLOGY: Please see below. ASSESSMENT AND PLAN: 83-year-old female with past medical history of systolic congestive heart failure, atrial fibrillation and hypertension was admitted for acute respiratory failure secondary to acute on chronic systolic congestive heart failure. PROBLEMS: 1. Acute on chronic systolic congestive heart failure: Significant clinical imp rovement with IV Lasix, switch to home Bumex 1 mg per day starting tomorrow, monitor I's and O's, weight daily, fluid restriction of 1500 miles per day. 2. Acute respiratory failure: Secondary to above, was intubated, has been extubated since yesterday. Continue supplemental oxygen as needed to maintain O2 sats between 80-92%. 3. Hypertension: Continue clonidine patch and Cardizem. 4. Atrial fibrillation: Not on anticoagulation, continue Cardizem. DVT prophylaxis: Heparin subcutaneous GI prophylaxis: Not needed VS, I&O, 24H, Fishbone Vital Signs/I&O Vital Signs Date Time Temp Pulse Resp B/P (MAP) Pulse Ox O2 Delivery O2 Flow Rate FiO2 09/06/19 15:28 70 16 09/06/19 15:27 97.6 163/68 (99) 95 Room Air 09/06/19 08:05 1.0 09/05/19 12:00 35 I&O- Last 24 Hours up to 6 AM 09/06/19 06:00 Intake Total 740 ml Output Total 2750 ml Balance -2010 ml Laboratory Data 24H LABS Laboratory Tests 2 09/06/19 04:55: Immature Granulocyte % (Auto) 0.4, Neutrophils (%) (Auto) 61.0, Lymphocytes (%) (Auto) 24.1, Monocytes (%) (Auto) 12.7H, Eosinophils (%) (Auto) 1.3, Basophils (%) (Auto) 0.5, Neutrophils # (Auto) 7.0, Lymphocytes # (Auto) 2.8, Monocytes # (Auto) 1.5H, Eosinophils # (Auto) 0.2, Basophils # (Auto) 0.1, Nucleated Red Blood Cells % (auto) 0.0, Anion Gap 4L, Glomerular Filtration Rate > 60.0, Calcium Level 9.1#, Phosphorus Level 2.9#, Total Bilirubin 1.3#H, Aspartate Amino Transf (AST/SGOT) 13, Alanine Aminotransferase (ALT/SGPT) 12, Alkaline Phosphatase 56, Lactate Dehydrogenase 199, Total Creatine Kinase 81, Total Protein 6.2L, Albumin 2.9L, Albumin/Globulin Ratio 0.88L, Triglycerides Level 164H, Cholesterol Level 176 09/06/19 05:44: Blood Gas Bicarbonate Standard 26.0, Arterial Blood pH 7.449, Arterial Blood Partial Pressure CO2 37.9, Arterial Blood Partial Pressure O2 90.7, Arterial Blood Total CO2 26.9, Arterial Blood HCO3 25.7, Arterial Blood Base Excess 1.8, Arterial Blood Oxygen Saturation 97.4 CBC/BMP Laboratory Tests 09/06/19 04:55 Microbiology Microbiology 09/04/19 Gram Stain - Final, Resulted 09/04/19 Sputum Culture - Preliminary, Resulted Streptococcus Pneumoniae 09/04/19 Respiratory Virus Panel (PCR) ([facility]) - Final, Complete 09/04/19 Blood Culture - Preliminary, Resulted No Growth after 48 hours. All Specime... LYUBOV DIEHL MD Sep 06, 2019 17:52
[2019-09-06] MEDS ORDERED: NETARSUDIL MESYLATE OU SCH (21:00)
[2019-09-06] MEDS ORDERED: LATANOPROST 0.005% OPHTH SOLN 2.5 ML OU SCH (21:00)
[2019-09-06 21:27] VITALS: BP 148/58
[2019-09-06] MEDS: OLANZapine 2.5MG TABLET PO SCH (21:27)
[2019-09-06 22:00] VITALS: BP 167/69
[2019-09-07] MEDS: ALBUTEROL SULFATE 2.5 MG/0.5 ML INH NEB SOLN NEB SCH ×4 (00:41→11:11)
[2019-09-07] MEDS: HEPARIN SOD (PORCINE) 5000 UNITS/ML VIAL (J1644 PER 1000UNITS) SC SCH ×2 (05:35→13:03)
[2019-09-07 06:00] VITALS: BP 148/59
[2019-09-07 06:31] LABS: BASO # 0.1 10^3/uL (0.0-0.2); BASO % 0.7 % (0.0-1.0); EOS # 0.2 10^3/uL (0.0-0.5); HEMATOCRIT 38.8 % (36.0-47.0); HEMOGLOBIN 12.1 g/dl (12.0-15.5); LYMPH # 2.9 10^3/uL (1.5-5.0); LYMPH % 25.5 % (24.0-44.0); MEAN CORPUSCULAR HEMOGLOBIN 28.1 pg (27.0-33.0); MEAN CORPUSCULAR HGB CONC 31.2 g/dl (32.0-36.5); MEAN CORPUSCULAR VOLUME 90.2 fl (80.0-96.0); MONO # 1.3 10^3/uL (0.0-0.8); MONO % 11.6 % (0.0-5.0); NEUTROPHILS # 6.7 10^3/uL (1.5-8.5); NEUTROPHILS % 59.8 % (36.0-66.0); PLATELET COUNT, AUTOMATED 195 10^3/uL (150-450); WHITE BLOOD COUNT 11.2 10^3/uL (4.0-10.0)
[2019-09-07 07:03] LABS: ALBUMIN 2.9 GM/DL (3.2-5.2); ALT/SGPT 15 U/L (12-78); BILIRUBIN,TOTAL 0.7 MG/DL (0.2-1.0); BLOOD UREA NITROGEN 18 MG/DL (7-18); CALCIUM LEVEL 9.6 MG/DL (8.8-10.2); CARBON DIOXIDE LEVEL 26 MEQ/L (21-32); CHLORIDE LEVEL 105 MEQ/L (98-107); CHOLESTEROL LEVEL 171 MG/DL (< 200); CPK CREATINE PHOSPHOKINASE 41 U/L (26-192); CREATININE FOR GFR 0.74 MG/DL (0.55-1.30); GLOMERULAR FILTRATION RATE > 60.0 (>32); GLUCOSE, FASTING 123 MG/DL (70-100); LDH LACTATE DEHYDROGENASE 196 U/L (84-246); MAGNESIUM LEVEL 2.2 MG/DL (1.8-2.4); PHOSPHORUS LEVEL 3.9 MG/DL (2.5-4.9); SODIUM LEVEL 136 MEQ/L (136-145); TOTAL PROTEIN 6.7 GM/DL (6.4-8.2); TRIGLYCERIDES LEVEL 155 MG/DL (<150)
[2019-09-07] MEDS ORDERED: BUMETANIDE 1 MG TAB PO SCH (09:00)
[2019-09-07] MEDS: CHLORHEXIDINE GLUCONATE 0.12 % 15ML UDC (PERIDEX ORAL RINSE) MT SCH (09:03)
[2019-09-07] MEDS: BRINZOLAMIDE 1 % OPHTH SUSP (AZOPT) 10ML OU SCH (09:03)
[2019-09-07] MEDS: TIMOLOL MALEATE 0.5% OPHTH SOLN 5 ML OU SCH (09:08)
--- NOTE | 2019-09-07 09:52 | REP ---
REASON: Followup. COMPARISON: Multiple, the latest 09/06/2019. The technique utilized in obtaining the radiograph has magnified the cardiac silhouette and accentuated the interstitial markings. There is cardiomegaly accentuated by technique, status quo. There is a dual chamber bipolar pacemaker device in place status quo. No acute patchy parenchymal opacities or pleural effusions have developed since the last exam. Mild chronic lung field changes status quo with evidence of mild fibrotic change. No change in the osseous structures. IMPRESSION: No evidence of acute cardiopulmonary disease. Findings as described above. Electronically Signed by Art Baxter DO 09/07/2019 10:24 A
[2019-09-07] MEDS ORDERED: CEFD1CAP8 PO (10:40)
--- NOTE | 2019-09-07 18:39 | DS.PDOC ---
Discharge Summary General Date of Admission Sep 04, 2019 at 04:36 Date of Discharge 09/07/19 Attending Physician: LYUBOV DIEHL MD Discharge Summary PROCEDURES PERFORMED DURING STAY: Intubation and mechanical ventilation ADMITTING DIAGNOSES: 1. Acute respiratory failure, acute on chronic systolic congestive heart failure. DISCHARGE DIAGNOSES: 1. Acute respiratory failure, acute on chronic systolic congestive heart failure. COMPLICATIONS/CHIEF COMPLAINT: Acute Resp Failure With Hypoxia. HISTORY OF PRESENT ILLNESS: 83-year-old female with past medical history of congestive heart failure, was admitted for acute respiratory failure secondary to acute on chronic systolic congestive heart failure. She was intubated in the emergency department and remained on mechanical ventilation overnight, was extubated the following day without any difficulties. She was diuresed aggr essively with IV Lasix 40 mg twice a day with good urine output and clinical improvement. She initially required supplemental oxygen, which has been titrated off at this time. She has been switched back on her outpatient regimen of Bumex 1 mg daily, making good urine, clinically at baseline, no other complaint at this time. Patient has been evaluated by physical therapy and acute rehabilitation is recommended. Patient will be discharged to acute rehabilitation unit later today. HOSPITAL COURSE: As above. DISCHARGE MEDICATIONS: Please see below. ALLERGIES: Please see below. PHYSICAL EXAMINATION: VITAL SIGNS: Please see below. GENERAL: No distress HEENT: Normocephalic, atraumatic, moist mucous membranes NECK: Supple CARDIOVASCULAR EXAMINATION: S1, S2, no murmurs RESPIRATORY EXAMINATION: Scattered rhonchi, no wheezing ABDOMINAL EXAMINATION: Soft, nontender, nondistended, positive bowel sounds EXTREMITIES: Trace edema SKIN: No rash NEUROLOGICAL EXAMINATION: Alert and oriented 3, no focal deficits PSYCHIATRIC EXAMINATION: Calm and cooperative LABORATORY DATA: Please see below. IMAGING: Chest x-ray showed pulmonary edema, which resolved on subsequent x-rays PROGNOSIS: Fair ACTIVITY: As tolerated. DIET: Cardiac DISCHARGE PLAN: Follow with PCP and faculty administrator after discharge from acute rehabilitation unit DISPOSITION: 62 D/T Rehab Facility. DISCHARGE INSTRUCTIONS: 1. As above. DISCHARGE CONDITION: Stable. TIME SPENT ON DISCHARGE: Greater than 32 minutes. Vital Signs/I&Os Vital Signs Date Time Temp Pulse Resp B/P (MAP) Pulse Ox O2 Delivery O2 Flow Rate FiO2 09/07/19 06:00 98.8 70 19 148/59 (88) 94 Room Air 09/06/19 22:58 2.0 09/05/19 12:00 35 I&O- Last 24 Hours up to 6 AM 09/07/19 06:00 Intake Total 1260 ml Output Total 1025 ml Balance 235 ml Laboratory Data Labs 24H Laboratory Tests 2 09/07/19 06:14: Immature Granulocyte % (Auto) 0.4, Neutrophils (%) (Auto) 59.8, Lymphocytes (%) (Auto) 25.5, Monocytes (%) (Auto) 11.6H, Eosinophils (%) (Auto) 2.0, Basophils (%) (Auto) 0.7, Neutrophils # (Auto) 6.7, Lymphocytes # (Auto) 2.9, Monocytes # (Auto) 1.3H, Eosinophils # (Auto) 0.2, Basophils # (Auto) 0.1, Nucleated Red Blood Cells % (auto) 0.0, Anion Gap 5L, Glomerular Filtration Rate > 60.0, Ca lcium Level 9.6, Phosphorus Level 3.9#, Magnesium Level 2.2, Total Bilirubin 0.7, Aspartate Amino Transf (AST/SGOT) 12, Alanine Aminotransferase (ALT/SGPT) 15, Alkaline Phosphatase 56, Lactate Dehydrogenase 196, Total Creatine Kinase 41, Total Protein 6.7, Albumin 2.9L, Albumin/Globulin Ratio 0.76L, Triglycerides Level 155H, Cholesterol Level 171 CBC/BMP Laboratory Tests 09/07/19 06:14 Microbiology Microbiology 09/04/19 Gram Stain - Final, Complete 09/04/19 Sputum Culture - Final, Complete Streptococcus Pneumoniae 09/04/19 Respiratory Virus Panel (PCR) ([facility]) - Final, Complete 09/04/19 Blood Culture - Preliminary, Resulted No Growth after 72 hours. All specime... Discharge Medications Scheduled Acetaminophen (Tylenol) 325 Mg Tablet, 650 MG PO QHS, (Reported) Aspirin (Aspirin) 325 Mg Tablet, 325 MG PO DAILY, (Reported) TAKES RIGHT AFTER LUNCH Bimatoprost (Lumigan) 50 Drop/2.5 Ml Mavis, 1 DROP OU QHS, (Reported) Brinzolamide (Azopt) 200 Drop/10 Ml Susp, 1 DROP OU TID, (Reported) Bumetanide (Bumetanide) 1 Mg Tablet, 1 MG PO DAILY, (Reported) Cefdinir (Cefdinir) 300 Mg Capsule, 1 CAP PO BID Cholecalciferol (Vitamin D3) (Vitamin D3) 1,000 Unit Tablet, 2,000 UNITS PO DAILY, (Reported) TAKES RIGHT AFTER LUNCH Clonidine (Clonidine) 0.1 Mg Patch.tdwk, 0.1 MG TD 1XWK, (Reported) PLACES ON OPPOSITE SHOULDER OF 0.2MG PATCH. ALTERNATES AFTER EACH DOSE. EVERY THURSDAY. NEITHER PATCH ON AT THIS TIME, REMOVED ON ADMISSION Clonidine (Clonidine) 0.2 Mg Patch.tdwk, 0.2 MG TD 1XWK, (Reported) PLACES ON OPPOSITE SHOULDER OF 0.1MG PATCH. ALTERNATES AFTER EACH DOSE. EVERY THURSDAY. NEITHER PATCH ON AT THIS TIME, REMOVED ON ADMISSION Diltiazem HCl (Cartia Xt) 240 Mg Cap.er.24h, 240 MG PO QHS, (Reported) Netarsudil Mesylate (Rhopressa) 2.5 Ml Drops, 1 DROP OU QHS, (Reported) Olanzapine (Zyprexa) 2.5 Mg Tab, 3.75 MG PO QHS, (Reported) Polyethylene Glycol 3350 (Miralax) 119 Gm Powder, 17 GRAM PO DAILY for constipation dissolve in water Timolol Maleate (Timolol Maleate) 100 Drop/5 Ml Mavis, 1 DROP OU DAILY, (Reported) Allergies Coded Allergies: Crab (Verified Allergy, Severe, SEVERE BY TESTING NEVER HAD, 06/21/19) egg (Verified Adverse Reaction, Intermediate, DIARRHEA, 06/21/19) meperidine (Verified Adverse Reaction, Intermediate, INTOLERANCE - NAUSEA, 06/21/19) moxifloxacin (Verified Adverse Reaction, Intermediate, N/V/D DEHYDRATION, 06/21/19) Sulfa (Sulfonamide Antibiotics) (Verified Adverse Reaction, Mild, DIZZY, 06/21/19) LYUBOV DIEHL MD Sep 07, 2019 18:39
== END 2019-09-07 13:20 | DRG 208 ==
LOC: M ED 01:44 → M ED INP 04:36 → ENRESERV 05:14 → M RR INP 06:43 → M MS5PR 09-06 09:40
PROVIDERS: ADMIT Internal Medicine; ATTEND Internal Medicine
PROC: 5A1945Z Respiratory Ventilation, 24-96 Consecutive Hours (ICD-10-PCS; principal; 2019-09-04)
DX: J96.01 Acute respiratory failure with hypoxia (principal); I50.23 Acute on chronic systolic (congestive) heart failure; E87.2 Acidosis; Z79.899 Other long term (current) drug therapy; Z79.82 Long term (current) use of aspirin; Z88.8 Allergy status to other drugs, medicaments and biological substances; Z88.2 Allergy status to sulfonamides; Z91.012 Allergy to eggs; Z91.013 Allergy to seafood; Z95.0 Presence of cardiac pacemaker; J45.909 Unspecified asthma, uncomplicated; I11.0 Hypertensive heart disease with heart failure; M81.0 Age-related osteoporosis without current pathological fracture; H40.9 Unspecified glaucoma; Z96.651 Presence of right artificial knee joint; K57.30 Diverticulosis of large intestine without perforation or abscess without bleeding; I48.91 Unspecified atrial fibrillation

== ENCOUNTER 2019-09-07 11:53 | Inpatient (IN) | payer MEDICARE, OTHER ==
[~2019-09-07] VITALS: Ht 162.6 cm; Wt 71.4 kg
[2019-09-07] MEDS: PANTOPRAZOLE 40MG TAB (PROTONIX) PO SCH (09:00)
[~2019-09-07 11:53] MED LIST changes: +ASPIRIN ENTERIC 325 MG TAB PO SCH; +CEFD1CAP8 PO
[2019-09-07 13:30] VITALS: BP 149/70
[2019-09-07] MEDS ORDERED: BISACODYL 10 MG SUPP PR PRN (13:30)
[2019-09-07] MEDS ORDERED: MAALOX 30 ML SUSP *UDC PO PRN (13:30)
[2019-09-07] MEDS: ALBUTEROL 90 MCG/ACT 8GM HFA INHALER INH SCH ×2 (15:24→19:46)
[2019-09-07] MEDS: BRINZOLAMIDE 1 % OPHTH SUSP (AZOPT) 10ML OU SCH ×2 (15:51→20:45)
[2019-09-07] MEDS: guaiFENesin 200 MG TAB PO SCH ×2 (15:56→20:43)
[2019-09-07] MEDS: REMEDY PHYTOPLEX Z-GUARD PASTE 113GM TUBE (FROM STOREROOM PRODUCT) TOP SCH ×2 (15:57→20:45)
--- NOTE | 2019-09-07 18:43 | IPNPDOC ---
Date Seen The patient was seen on 09/07/19. Progress Note SUBJECTIVE: 83-year-old female with past medical history of atrial fibrillation, hypertension and congestive heart failure, was admitted for acute respiratory failure and acute on chronic systolic congestive heart failure. Patient was intubated for 1 day, extubated without any difficulty, made significant clinical improvement with aggressive diuresis and currently back to her baseline. Patient was discharged to acute rehabilitation unit based on physical therapy recommendations. Patient is is comfortable, without any complaints at this time, reports dyspnea and cough are at baseline, no other complaints at this time. 10 point review of system is negative except for above PHYSICAL EXAMINATION: VITAL SIGNS: Please see below. GENERAL: No distress HEENT: Normocephalic, atraumatic, moist mucous membranes NECK: Supple CARDIOVASCULAR EXAMINATION: S1, S2, no murmurs RESPIRATORY EXAMINATION: Scattered rhonchi, no wheezing ABDOMINAL EXAMINATION: Soft, nontender, nondistended, positive bowel sounds EXTREMITIES: Range of motion intact SKIN: No rash NEUROLOGICAL EXAMINATION: Alert and oriented 3, no focal deficits PSYCHIATRIC EXAMINATION: Calm and cooperative LABORATORY DATA, IMAGING STUDIES, MICROBIOLOGY: Please see below. ASSESSMENT AND PLAN: 83-year-old female with past medical history of systolic congestive heart failure, atrial fibrillation and hypertension was admitted for acute respiratory failure secondary to acute on chronic systolic congestive heart failure. PROBLEMS: 1. Acute on chronic systolic congestive heart failure: Now resolved, continue Bumex 1 mg daily, monitor I's and O's and fluid restriction of 1500 miles per day is recommended. 2. Pneumonia: Patient with productive cough, sputum cultures grew strep pneumo, continue cefdinir. 3. Hypertension: Continue clonidine patch and Cardizem. 4. Atrial fibrillation: Not on anticoagulation, continue Cardizem. 5. Physical deconditioning: Management as per primary team DVT prophylaxis: Heparin subcutaneous GI prophylaxis: Not needed VS, I&O, 24H, Fishbone Vital Signs/I&O Vital Signs Date Time Temp Pulse Resp B/P (MAP) Pulse Ox O2 Delivery O2 Flow Rate FiO2 09/07/19 13:30 98.2 70 20 149/70 (96) 94 Room Air LYUBOV DIEHL MD Sep 07, 2019 18:42
[2019-09-07] MEDS: CHLORHEXIDINE GLUCONATE 0.12 % 15ML UDC (PERIDEX ORAL RINSE) MT SCH (20:43)
[2019-09-07] MEDS: CEFDINIR 300 MG CAP (OMNICEF) PO SCH (20:43)
[2019-09-07] MEDS: OLANZapine 2.5MG TABLET PO SCH (20:44)
[2019-09-07] MEDS: LATANOPROST 0.005% OPHTH SOLN 2.5 ML OU SCH (20:44)
[2019-09-07] MEDS: NETARSUDIL MESYLATE OU SCH (20:44)
[2019-09-07] MEDS: DOCUSATE SODIUM 100 MG CAP PO SCH (20:45)
[2019-09-07] MEDS: SENNA 8.6 MG TAB (SENOKOT) PO SCH (20:46)
[2019-09-07] MEDS: ACETAMINOPHEN TAB 650MG DOSE (2X325MG) PO PRN (20:59)
[2019-09-07] MEDS: HEPARIN SOD (PORCINE) 5000UNITS/ML VIAL (J1644 PER 1000UNITS) SC SCH (21:00)
[2019-09-07 21:03] VITALS: BP 154/80
[2019-09-07] MEDS ORDERED: HEPARIN SOD (PORCINE) 5000UNITS/ML VIAL (J1644 PER 1000UNITS) SC SCH (22:00)
[2019-09-08 06:00] VITALS: BP 140/65
[2019-09-08 06:19] LABS: BASO # 0.1 10^3/uL (0.0-0.2); BASO % 0.6 % (0.0-1.0); EOS # 0.3 10^3/uL (0.0-0.5); EOS % 2.9 % (0.0-3.0); HEMATOCRIT 40.9 % (36.0-47.0); HEMOGLOBIN 12.8 g/dl (12.0-15.5); LYMPH % 29.7 % (24.0-44.0); MEAN CORPUSCULAR HEMOGLOBIN 27.5 pg (27.0-33.0); MEAN CORPUSCULAR HGB CONC 31.3 g/dl (32.0-36.5); MONO # 1.1 10^3/uL (0.0-0.8); MONO % 10.6 % (0.0-5.0); NEUTROPHILS # 5.6 10^3/uL (1.5-8.5); NEUTROPHILS % 55.9 % (36.0-66.0); PLATELET COUNT, AUTOMATED 243 10^3/uL (150-450); RED BLOOD COUNT 4.65 10^6/uL (4.00-5.40)
[2019-09-08 06:47] LABS: ALT/SGPT 14 U/L (12-78); BLOOD UREA NITROGEN 19 MG/DL (7-18); CALCIUM LEVEL 10.6 MG/DL (8.8-10.2); CARBON DIOXIDE LEVEL 26 MEQ/L (21-32); CHLORIDE LEVEL 104 MEQ/L (98-107); CREATININE FOR GFR 0.82 MG/DL (0.55-1.30); GLOMERULAR FILTRATION RATE > 60.0 (>32); GLUCOSE, FASTING 123 MG/DL (70-100); POTASSIUM SERUM 3.9 MEQ/L (3.5-5.1); SODIUM LEVEL 137 MEQ/L (136-145)
[2019-09-08 06:48] LABS: ALBUMIN 3.2 GM/DL (3.2-5.2); BILIRUBIN,TOTAL 0.6 MG/DL (0.2-1.0); TOTAL PROTEIN 7.3 GM/DL (6.4-8.2)
[2019-09-08] MEDS: ALBUTEROL 90 MCG/ACT 8GM HFA INHALER INH SCH ×4 (07:39→19:30)
[2019-09-08] MEDS: TIMOLOL MALEATE 0.5% OPHTH SOLN 5 ML OU SCH (08:06)
[2019-09-08] MEDS: BRINZOLAMIDE 1 % OPHTH SUSP (AZOPT) 10ML OU SCH ×3 (08:06→22:09)
[2019-09-08] MEDS: BUMETANIDE 1 MG TAB PO SCH (08:12)
[2019-09-08] MEDS: CEFDINIR 300 MG CAP (OMNICEF) PO SCH ×2 (08:12→22:07)
[2019-09-08] MEDS: DOCUSATE SODIUM 100 MG CAP PO SCH ×2 (08:12→21:00)
[2019-09-08] MEDS: PANTOPRAZOLE 40MG TAB (PROTONIX) PO SCH (08:12)
[2019-09-08] MEDS: ASPIRIN 81 MG ENTERIC TAB PO SCH (08:13)
[2019-09-08] MEDS: REMEDY PHYTOPLEX Z-GUARD PASTE 113GM TUBE (FROM STOREROOM PRODUCT) TOP SCH ×3 (08:13→21:00)
[2019-09-08] MEDS: guaiFENesin 200 MG TAB PO SCH ×3 (08:13→22:07)
[2019-09-08] MEDS: CHLORHEXIDINE GLUCONATE 0.12 % 15ML UDC (PERIDEX ORAL RINSE) MT SCH ×2 (08:13→21:00)
[2019-09-08] MEDS: HEPARIN SOD (PORCINE) 5000UNITS/ML VIAL (J1644 PER 1000UNITS) SC SCH ×2 (09:39→22:10)
[2019-09-08] MEDS: ACETAMINOPHEN TAB 650MG DOSE (2X325MG) PO PRN (10:46)
--- NOTE | 2019-09-08 13:06 | HPEPDOC ---
Liquefaction Supervisor Note DATE OF ADMISSION: 09-07-19 DATE OF SERVICE: 09-07-19 TIME OF ADMISSION: Please refer to physician's admission order. SOURCE OF ADMISSION INFORMATION: [facility] record and patient CHIEF COMPLAINT: pneumonia with CHF exacerbation HISTORY OF PRESENT ILLNESS: 83F pmh diastolic CHF with pacemaker, Afib not on AC due to hx of GI bleed, HTN, asthma, diverticulitis, recent admission for CHF exacerbation in May 2019, presented to [facility] ED on 09-04-19 with difficulty breathing, orthopnea and admitted for respiratory failure. CXR revealed, Right upper and right lower lobe pneumonia with possible developing left perihilar pneumonia. She was diuresed, treated for suspected CAP, started on levophed for hypotension, intubated, and admitted to the ICU. She continued IV antibiotics, diuresis, and had her electrolyte imbalances corrected. She was evaluated by therapy and noted to be below her baseline for ADLs and mobility and deemed medically appropriate for discharge to ARU on 09-07-19. On initial visit patient reports she does not want to take ASA 325mg as she has a family member who had a hemorrhagic stroke and is concerned about bleeding. She is agreeable to take baby Aspirin at this time and agrees to discuss this further with her PMD. REVIEW OF SYSTEMS: The following is a completed review of systems and has been reviewed. Review of systems otherwise unremarkable. PAIN: Patient self reports no pain EYES: No recent vision changes EARS, NOSE, & THROAT: No throat pain, or dysphagia, or rhinorrhea CARDIOVASCULAR: Denies chest pain or palpitations PULMONARY: Denies shortness of breath at rest, +on exertion GASTROINTESTINAL: Denies constipation/diarrhea GENITOURINARY:denies dysuria MUSCULOSKELETAL: generalized weakness NEUROLOGICAL:no paresthesias HEMATOLOGICAL: denies easy bruising SKIN:right central line incision PSYCHIATRIC: Unremarkable All other review of systems found to be negative. PAST MEDICAL HISTORY: as per HPI PAST SURGICAL HISTORY: Cholecystectomy, tonsillectomy, tubal ligation, hysterectomy, right knee arthroplasty, pacemaker ALLERGIES: Please see below. MEDICATIONS: Please see below. FAMILY HISTORY: hemorrhagic stroke SOCIAL HISTORY: Non smoker, no ETOH, no illicit drugs DIET: low sodium, fluid restrict PHYSICAL EXAMINATION: VITAL SIGNS: Please see below. GENERAL: Pleasant and cooperative. No acute distress. HEENT: PERRL. Extraocular movements intact. Clear conjunctiva. right neck incision with dressing c/d/i CARDIOVASCULAR: Regular rate and rhythm. No murmurs, rubs, or gallops LUNGS: Clear to auscultation bilaterally. No wheezes. No rhonchi ABDOMEN: Soft, nontender, nondistended. Positive bowel sounds. Normal active bowel sounds NEUROLOGICAL: Alert and oriented times three. Cranial nerves II through XII grossly intact. Sensation grossly intact all 4 limbs EXTREMITIES: 5\5 strength bilateral upper extremities. 5\5 strength right lower extremity. 5/5 strength in left lower extremity. (+) bilat LE edema SKIN: right neck incision LABORATORY DATA: Please see below. IMAGING:Imaging documentation personally reviewed by record. FUNCTIONAL STATUS: Premorbid: Independent with all activities of daily life as well as mobility On Admission: Standby-by assist to contact guard for functional transfers, ambulation, and transfers GOALS: Mod-I with RW community distances, stairs, functional transfers, dressing, bathing, toileting, medical optimization ASSESSMENT:83-year-old F with past medical history of diastolic CHF who presents status post CHF exacerbation with pneumonia PLAN: 1. Rehab-PT/OT advance gait and ADLs, energy conservation techniques, titrate off 02, strengthen/stretch/maintain ROM all 4 limbs 2. Neuro: no active concerns 3. Cardiac: hx of diastolic CHF s/p recent exacerbation, c/u Bumex, fluid rstriction, daily weights, monitor for fluid overload -hx of Afib with Pacemaker not on AC with hx of GI bleed, c/u Cardizem -HTN c/u clonidine and ASA 81 mg, patient refusing to restart 325mg as she is concerned about family hx of hemorrhagic strokes-she agrees to discuss this further with her PMD 4. Resp: c/u Cefdinir for community acquired pneumonia with sputum +strep pneumo, c/u breathing treatments, incentive spirometry, monitor for worsening respiratory function -c/u 02 prn goal 88-92%, will attempt to taper off 5. GI ppx: protonix 6. DVT ppx: heparin and teds 7. Psych: c/u Zyprexa qHS 8. Pain: tylneol prn 9. Dispo: TBD POST ADMISSION PHYSICIAN EVALUATION: Medical and functional status: Description of medical status, medical assessment: As above. Rehabilitation diagnosis and current and prior cold morbid medical conditions as above. Risk of complications and plans to mitigate them as above. Description of functional status current status is as above. Prior status as above. Status compared to preadmission: There are no clinically significant differences between the patient's current status and the information described on the preadmission screening document. Treatment plan anticipated: Treatment plan is as described above. Required disciplines including physical therapy, occupational therapy, others as noted above. Intensity of services: 3 hours a day, 6 days a week. Special considerations: There are no specific special or safety considerations that would likely preclude immediate implementation of an intensive rehabilitation program or subsequently influence the plan of care. ATTESTATION: Considering all the information above, it is my best judgment that this patient requires intensive rehabilitation therapy as described above and an inpatient hospital environment due to the complexity of nursing, medical, and rehabilitation needs required by the patient. Furthermore, this patient can reasonably be expected to participate in an benefit from an inpatient rehabilitation stay with an interdisciplinary team approach to the delivery of rehabilitation care under the direction and supervision of rehabilitation physician. PROGNOSIS: good ESTIMATED LENGTH OF STAY:7-10 days. PROJECTED DISCHARGE DESTINATION: Home with family support and any durable medical equipment required to increase functional safety and mobility. TIME SPENT COUNSELING AND COORDINATING INITIAL CARE: Greater than 70 minutes. Vital Signs Vital Sign - Last 24 Hours 09/07/19 09/07/19 09/07/19 09/08/19 13:30 20:44 21:03 06:00 Temp 98.2 98.4 97.6 Pulse 70 65 80 70 Resp 20 20 18 B/P (MAP) 149/70 (96) 154/80 154/80 (104) 140/65 (90) Pulse Ox 94 91 92 O2 Delivery Room Air Room Air Room Air Laboratory Data CBC/BMP Laboratory Tests 09/08/19 06:08 Labs 24H Laboratory Tests 2 09/08/19 06:08: Immature Granulocyte % (Auto) 0.3, Neutrophils (%) (Auto) 55.9, Lymphocytes (%) (Auto) 29.7, Monocytes (%) (Auto) 10.6H, Eosinophils (%) (Auto) 2.9, Basophils (%) (Auto) 0.6, Neutrophils # (Auto) 5.6, Lymphocytes # (Auto) 3.0, Monocytes # (Auto) 1.1H, Eosinophils # (Auto) 0.3, Basophils # (Auto) 0.1, Nucleated Red Blood Cells % (auto) 0.2H, Anion Gap 7L, Glomerular Filtration Rate > 60.0, Calcium Level 10.6H, Total Bilirubin 0.6, Aspartate Amino Transf (AST/SGOT) 10, Alanine Aminotransferase (ALT/SGPT) 14, Alkaline Phosphatase 66, Total Protein 7.3, Albumin 3.2, Albumin/Globulin Ratio 0.78L Home Medications Scheduled Acetaminophen (Tylenol) 325 Mg Tablet, 650 MG PO QHS, (Reported) Aspirin (Aspirin) 325 Mg Tablet, 325 MG PO DAILY, (Reported) TAKES RIGHT AFTER LUNCH Bimatoprost (Lumigan) 50 Drop/2.5 Ml Mavis, 1 DROP OU QHS, (Reported) Brinzolamide (Azopt) 200 Drop/10 Ml Susp, 1 DROP OU TID, (Reported) Bumetanide (Bumetanide) 1 Mg Tablet, 1 MG PO DAILY, (Reported) Cefdinir (Cefdinir) 300 Mg Capsule, 1 CAP PO BID Cholecalciferol (Vitamin D3) (Vitamin D3) 1,000 Unit Tablet, 2,000 UNITS PO DAILY, (Reported) TAKES RIGHT AFTER LUNCH Clonidine (Clonidine) 0.1 Mg Patch.tdwk, 0.1 MG TD 1XWK, (Reported) PLACES ON OPPOSITE SHOULDER OF 0.2MG PATCH. ALTERNATES AFTER EACH DOSE. EVERY THURSDAY. NEITHER PATCH ON AT THIS TIME, REMOVED ON ADMISSION Clonidine (Clonidine) 0.2 Mg Patch.tdwk, 0.2 MG TD 1XWK, (Reported) PLACES ON OPPOSITE SHOULDER OF 0.1MG PATCH. ALTERNATES AFTER EACH DOSE. EVERY THURSDAY. NEITHER PATCH ON AT THIS TIME, REMOVED ON ADMISSION Diltiazem HCl (Cartia Xt) 240 Mg Cap.er.24h, 240 MG PO QHS, (Reported) Netarsudil Mesylate (Rhopressa) 2.5 Ml Drops, 1 DROP OU QHS, (Reported) Olanzapine (Zyprexa) 2.5 Mg Tab, 3.75 MG PO QHS, (Reported) Polyethylene Glycol 3350 (Miralax) 119 Gm Powder, 17 GRAM PO DAILY dissolve in water Timolol Maleate (Timolol Maleate) 100 Drop/5 Ml Mavis, 1 DROP OU DAILY, (Reported) Allergies Coded Allergies: Crab (Verified Allergy, Severe, SEVERE BY TESTING NEVER HAD, 06/21/19) egg (Verified Adverse Reaction, Intermediate, DIARRHEA, 06/21/19) meperidine (Verified Adverse Reaction, Intermediate, INTOLERANCE - NAUSEA, 06/21/19) moxifloxacin (Verified Adverse Reaction, Intermediate, N/V/D DEHYDRATION, 06/21/19) Sulfa (Sulfonamide Antibiotics) (Verified Adverse Reaction, Mild, DIZZY, 06/21/19) A-FIB/CHADSVASC A-FIB History Current/History of A-Fib/PAF?: Yes Current PO Anticoag Therapy: No GLEN MARSHALL MD Sep 08, 2019 13:06
--- NOTE | 2019-09-08 13:06 | IPNPDOC ---
PM&R Progress Note DATE OF SERVICE: Sep 08, 2019 [employer] Progress Note Subjective: Patient reports she thinks therapy is going well, but that she is too advanced for the program. She wants to be more active and thinks she can do this better at home. She is agreeable to wait until tomorrow to make her final decision, but is leaning towards Thursday. She reports nasal congestion from sitting next to heater. REVIEW OF SYSTEMS: The following is a completed review of systems and has been reviewed. Review of systems otherwise unremarkable. PAIN: Patient self reports no pain EYES: No recent vision changes EARS, NOSE, & THROAT: No throat pain, or dysphagia, or rhinorrhea CARDIOVASCULAR: Denies chest pain or palpitations PULMONARY: Denies shortness of breath at rest, +on exertion GASTROINTESTINAL: Denies constipation/diarrhea GENITOURINARY:denies dysuria MUSCULOSKELETAL: generalized weakness NEUROLOGICAL:no paresthesias HEMATOLOGICAL: denies easy bruising SKIN:right central line incision PSYCHIATRIC: Unremarkable All other review of systems found to be negative. PHYSICAL EXAMINATION: VITAL SIGNS: Please see below. GENERAL: Pleasant and cooperative. No acute distress. HEENT: PERRL. Extraocular movements intact. Clear conjunctiva. right neck incision with dressing c/d/i CARDIOVASCULAR: Regular rate and rhythm. No murmurs, rubs, or gallops LUNGS: Clear to auscultation bilaterally. No wheezes. No rhonchi ABDOMEN: Soft, nontender, nondistended. Positive bowel sounds. Normal active bowel sounds NEUROLOGICAL: Alert and oriented times three. Cranial nerves II through XII grossly intact. Sensation grossly intact all 4 limbs EXTREMITIES: 5\5 strength bilateral upper extremities. 5\5 strength right lower extremity. 5/5 strength in left lower extremity. (+) bilat LE edema (improving) SKIN: right neck incision ASSESSMENT:83-year-old F with past medical history of diastolic CHF who presents status post CHF exacerbation with pneumonia PLAN: 1. Rehab-PT/OT advance gait and ADLs, energy conservation techniques, titrate off 02, strengthen/stretch/maintain ROM all 4 limbs, ambulating with RW 2. Neuro: no active concerns 3. Cardiac: hx of diastolic CHF s/p recent exacerbation, c/u Bumex, fluid restriction, daily weights, monitor for fluid overload -hx of Afib with Pacemaker not on AC with hx of GI bleed, c/u Cardizem -HTN c/u clonidine and ASA 81 mg, patient refusing to restart 325mg as she is concerned about family hx of hemorrhagic strokes-she agrees to discuss this further with her PMD 4. Resp: c/u Cefdinir for community acquired pneumonia with sputum +strep pneumo, c/u breathing treatments, incentive spirometry, monitor for worsening respiratory function -will start Floanse and nasal spray -c/u 02 prn goal 88-92%, will attempt to taper off 5. GI ppx: protonix 6. DVT ppx: heparin and teds 7. Psych: c/u Zyprexa qHS 8. Pain: tylneol prn 9. Dispo: TBD Allergies Coded Allergies: Crab (Verified Allergy, Severe, SEVERE BY TESTING NEVER HAD, 06/21/19) egg (Verified Adverse Reaction, Intermediate, DIARRHEA, 06/21/19) meperidine (Verified Adverse Reaction, Intermediate, INTOLERANCE - NAUSEA, 06/21/19) moxifloxacin (Verified Adverse Reaction, Intermediate, N/V/D DEHYDRATION, 06/21/19) Sulfa (Sulfonamide Antibiotics) (Verified Adverse Reaction, Mild, DIZZY, 06/21/19) Vital Signs Vital Signs Date Time Temp Pulse Resp B/P (MAP) Pulse Ox O2 Delivery O2 Flow Rate FiO2 09/08/19 06:00 97.6 70 18 140/65 (90) 92 Room Air Laboratory Data CBC/BMP Laboratory Tests 09/08/19 06:08 Labs 24H Laboratory Tests 2 09/08/19 06:08: Immature Granulocyte % (Auto) 0.3, Neutrophils (%) (Auto) 55.9, Lymphocytes (%) (Auto) 29.7, Monocytes (%) (Auto) 10.6H, Eosinophils (%) (Auto) 2.9, Basophils (%) (Auto) 0.6, Neutrophils # (Auto) 5.6, Lymphocytes # (Auto) 3.0, Monocytes # (Auto) 1.1H, Eosinophils # (Auto) 0.3, Basophils # (Auto) 0.1, Nucleated Red Blood Cells % (auto) 0.2H, Anion Gap 7L, Glomerular Filtration Rate > 60.0, Calcium Level 10.6H, Total Bilirubin 0.6, Aspartate Amino Transf (AST/SGOT) 10, Alanine Aminotransferase (ALT/SGPT) 14, Alkaline Phosphatase 66, Total Protein 7.3, Albumin 3.2, Albumin/Globulin Ratio 0.78L Current Medications Current Medications Current Medications Medications (Trade) Dose Ordered Sig/Andrew Route PRN Reason Start Time Stop Time Status Last Admin Dose Admin Acetaminophen (Tylenol Tab) 650 mg Q4HP PRN PO fever/MILD PAIN (PS 1-4) 09/07/19 13:30 09/08/19 10:46 Al Hydrox/Mg Hydrox/Simethicone (Mylanta) 30 ml Q4HP PRN PO DYSPEPSIA 09/07/19 13:30 Albuterol Sulfate (Proventil, Ventolin Hfa) 2 puff RQID INH 09/07/19 16:00 09/08/19 12:10 Aspirin (Ecotrin) 81 mg DAILY PO 09/08/19 09:00 09/08/19 08:13 Aspirin (Ecotrin) 325 mg DAILY PO 09/07/19 09:00 09/07/19 18:38 DC Bisacodyl (Dulcolax Suppository) 10 mg DAILYPRN PRN TX CONSTIPATION 09/07/19 13:30 Brinzolamide (Azopt) 1 drop TID OU 09/07/19 16:00 09/08/19 08:06 Bumetanide (Bumex) 1 mg DAILY PO 09/08/19 09:00 09/08/19 08:12 Cefdinir (Omnicef) 300 mg BID PO 09/07/19 21:00 09/12/19 09:01 09/08/19 08:12 Chlorhexidine Gluconate (Peridex Oral Rinse) 15 ml BID MT 09/07/19 21:00 09/08/19 08:13 Clonidine HCl (Qngapxge-Wsx-9) 1 ea Q7D@09 [facility] 09/12/19 09:00 Diltiazem HCl (Cardizem Cd) 240 mg QPM PO 09/07/19 21:00 09/07/19 20:44 Docusate Sodium (Colace) 100 mg BID PO 09/07/19 21:00 09/08/19 08:12 Guaifenesin (Robitussin Tab) 400 mg TID PO 09/07/19 16:00 09/08/19 08:13 Heparin Sodium (Porcine) (Heparin) 5,000 units Q12H SC 09/07/19 22:00 09/08/19 09:39 Heparin Sodium (Porcine) (Heparin) 5,000 units Q8H SC 09/07/19 22:00 09/07/19 18:38 DC Latanoprost (Xalatan 0.005% Op Soln) 1 drop QHS OU 09/07/19 21:00 09/07/19 20:44 Olanzapine (ZyPREXA) 3.75 mg QPM PO 09/07/19 21:00 09/07/19 20:44 Pantoprazole Sodium (Protonix) 40 mg DAILY PO 09/07/19 09:00 09/08/19 08:12 Patient Own Medication (Patient'S Own Med) 1 DROP OU QHS QHS OU 09/07/19 21:00 09/07/19 20:44 Senna (Senokot) 1 tab QHS PO 09/07/19 21:00 Timolol Maleate (Timoptic 0.5% Ophth Mavis) 1 drop DAILY OU 09/08/19 09:00 09/08/19 08:06 GLEN MARSHALL MD Sep 08, 2019 13:06
[2019-09-08 14:00] VITALS: BP 151/67
[2019-09-08] MEDS: SENNA 8.6 MG TAB (SENOKOT) PO SCH (21:00)
[2019-09-08 22:01] VITALS: BP 152/74
[2019-09-08] MEDS: OLANZapine 2.5MG TABLET PO SCH (22:07)
[2019-09-08] MEDS: SODIUM CHLORIDE NASAL 0.65% SPRAY BTL (OCEAN) SCH (22:07)
[2019-09-08] MEDS: FLUTICASONE PROP 0.05% NASAL SPRAY 16 GM (FLONASE) NARES SCH (22:07)
[2019-09-08] MEDS: LATANOPROST 0.005% OPHTH SOLN 2.5 ML OU SCH (22:09)
[2019-09-08] MEDS: NETARSUDIL MESYLATE OU SCH (22:09)
[2019-09-09 06:00] VITALS: BP 126/57
[2019-09-09 07:09] LABS: BASO # 0.1 10^3/uL (0.0-0.2); BASO % 0.6 % (0.0-1.0); EOS # 0.2 10^3/uL (0.0-0.5); EOS % 2.3 % (0.0-3.0); HEMOGLOBIN 11.6 g/dl (12.0-15.5); LYMPH # 2.5 10^3/uL (1.5-5.0); LYMPH % 29.3 % (24.0-44.0); MEAN CORPUSCULAR HEMOGLOBIN 27.6 pg (27.0-33.0); MEAN CORPUSCULAR HGB CONC 31.4 g/dl (32.0-36.5); MEAN CORPUSCULAR VOLUME 87.9 fl (80.0-96.0); MONO % 11.8 % (0.0-5.0); NEUTROPHILS # 4.8 10^3/uL (1.5-8.5); NEUTROPHILS % 55.7 % (36.0-66.0); PLATELET COUNT, AUTOMATED 247 10^3/uL (150-450); RED BLOOD COUNT 4.21 10^6/uL (4.00-5.40); WHITE BLOOD COUNT 8.6 10^3/uL (4.0-10.0)
[2019-09-09] MEDS: ALBUTEROL 90 MCG/ACT 8GM HFA INHALER INH SCH ×4 (07:29→19:30)
[2019-09-09 07:38] LABS: BLOOD UREA NITROGEN 21 MG/DL (7-18); CALCIUM LEVEL 9.5 MG/DL (8.8-10.2); CARBON DIOXIDE LEVEL 27 MEQ/L (21-32); CHLORIDE LEVEL 103 MEQ/L (98-107); CREATININE FOR GFR 0.85 MG/DL (0.55-1.30); GLOMERULAR FILTRATION RATE > 60.0 (>32); GLUCOSE, FASTING 114 MG/DL (70-100); POTASSIUM SERUM 4.1 MEQ/L (3.5-5.1); SODIUM LEVEL 136 MEQ/L (136-145)
[2019-09-09] MEDS: REMEDY PHYTOPLEX Z-GUARD PASTE 113GM TUBE (FROM STOREROOM PRODUCT) TOP SCH ×3 (09:00→21:00)
[2019-09-09] MEDS: CHLORHEXIDINE GLUCONATE 0.12 % 15ML UDC (PERIDEX ORAL RINSE) MT SCH ×2 (09:00→21:00)
[2019-09-09] MEDS: FLUTICASONE PROP 0.05% NASAL SPRAY 16 GM (FLONASE) NARES SCH ×2 (09:17→21:35)
[2019-09-09] MEDS: TIMOLOL MALEATE 0.5% OPHTH SOLN 5 ML OU SCH (09:17)
[2019-09-09] MEDS: BRINZOLAMIDE 1 % OPHTH SUSP (AZOPT) 10ML OU SCH ×3 (09:17→21:35)
[2019-09-09] MEDS: HEPARIN SOD (PORCINE) 5000UNITS/ML VIAL (J1644 PER 1000UNITS) SC SCH ×2 (09:18→21:32)
[2019-09-09] MEDS: SODIUM CHLORIDE NASAL 0.65% SPRAY BTL (OCEAN) SCH ×3 (09:18→21:43)
[2019-09-09] MEDS: guaiFENesin 200 MG TAB PO SCH ×3 (09:19→21:34)
[2019-09-09] MEDS: ASPIRIN 81 MG ENTERIC TAB PO SCH (09:19)
[2019-09-09] MEDS: DOCUSATE SODIUM 100 MG CAP PO SCH ×2 (09:20→21:32)
[2019-09-09] MEDS: BUMETANIDE 1 MG TAB PO SCH (09:20)
[2019-09-09] MEDS: CEFDINIR 300 MG CAP (OMNICEF) PO SCH ×2 (09:20→21:35)
[2019-09-09] MEDS: PANTOPRAZOLE 40MG TAB (PROTONIX) PO SCH (09:20)
[2019-09-09] MEDS ORDERED: BUME1TAB3 PO (10:35)
[2019-09-09] MEDS ORDERED: CEFD1CAP8 PO (10:39)
[2019-09-09] MEDS ORDERED: CART240C3 PO (10:39)
[2019-09-09] MEDS ORDERED: CLON0.2D6 TOP (10:39)
[2019-09-09] MEDS ORDERED: ASPI81TAEC PO (10:39)
--- NOTE | 2019-09-09 12:54 | IPNPDOC ---
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 REVIEW OF SYSTEMS: The following is a completed review of systems and has been reviewed. Review of systems otherwise unremarkable. PAIN: Patient self reports no pain EYES: No recent vision changes EARS, NOSE, & THROAT: No throat pain, or dysphagia, or rhinorrhea CARDIOVASCULAR: Denies chest pain or palpitations PULMONARY: Denies shortness of breath at rest, +on exertion (improving) GASTROINTESTINAL: Denies constipation/diarrhea GENITOURINARY:denies dysuria MUSCULOSKELETAL: generalized weakness NEUROLOGICAL:no paresthesias HEMATOLOGICAL: denies easy bruising SKIN:right central line incision PSYCHIATRIC: Unremarkable All other review of systems found to be negative. PHYSICAL EXAMINATION: VITAL SIGNS: Please see below. GENERAL: Pleasant and cooperative. No acute distress. HEENT: PERRL. Extraocular movements intact. Clear conjunctiva. right neck incision with dressing c/d/i CARDIOVASCULAR: Regular rate and rhythm. No murmurs, rubs, or gallops LUNGS: Clear to auscultation bilaterally. No wheezes. No rhonchi ABDOMEN: Soft, nontender, nondistended. Positive bowel sounds. Normal active bowel sounds NEUROLOGICAL: Alert and oriented times three. Cranial nerves II through XII gr ossly intact. Sensation grossly intact all 4 limbs EXTREMITIES: 5\5 strength bilateral upper extremities. 5\5 strength right lower extremity. 5/5 strength in left lower extremity. (+) bilat LE edema (improving) SKIN: right neck incision-healed ASSESSMENT:83-year-old F with past medical history of diastolic CHF who presents status post CHF exacerbation with pneumonia PLAN: 1. Rehab-PT/OT advance gait and ADLs, energy conservation techniques, titrate off 02, strengthen/stretch/maintain ROM all 4 limbs, ambulating with RW 2. Neuro: no active concerns 3. Cardiac: hx of diastolic CHF s/p recent exacerbation, c/u Bumex, fluid restriction, daily weights, monitor for fluid overload -hx of Afib with Pacemaker not on AC with hx of GI bleed, c/u Cardizem -HTN c/u clonidine and ASA 81 mg, patient refusing to restart 325mg as she is concerned about family hx of hemorrhagic strokes-she agrees to discuss this further with her PMD 4. Resp: c/u Cefdinir for community acquired pneumonia with sputum +strep pneumo, c/u breathing treatments, incentive spirometry, monitor for worsening respiratory function -c/u Flonase and nasal spray -c/u 02 prn goal 88-92%, will attempt to taper off 5. GI ppx: protonix 6. DVT ppx: heparin and teds 7. Psych: c/u Zyprexa qHS 8. Pain: tylneol prn 9. Dispo: 09-10-19 to home, patient would benefit from further inpatient rehab from a cardiac perspective, however desires to go home sooner and is functionally safe to do so and has 24-7 help at home from her . Allergies Coded Allergies: Crab (Verified Allergy, Severe, SEVERE BY TESTING NEVER HAD, 06/21/19) egg (Verified Adverse Reaction, Intermediate, DIARRHEA, 06/21/19) meperidine (Verified Adverse Reaction, Intermediate, INTOLERANCE - NAUSEA, 06/21/19) moxifloxacin (Verified Adverse Reaction, Intermediate, N/V/D DEHYDRATION, 06/21/19) Sulfa (Sulfonamide Antibiotics) (Verified Adverse Reaction, Mild, DIZZY, 06/21/19) Vital Signs Vital Signs Date Time Temp Pulse Resp B/P (MAP) Pulse Ox O2 Delivery O2 Flow Rate FiO2 09/09/19 06:00 98.0 68 16 126/57 (80) 97 Room Air Laboratory Data CBC/BMP Laboratory Tests 09/09/19 06:14 Labs 24H Laboratory Tests 2 09/09/19 06:14: Immature Granulocyte % (Auto) 0.3, Neutrophils (%) (Auto) 55.7, Lymphocytes (%) (Auto) 29.3, Monocytes (%) (Auto) 11.8H, Eosinophils (%) (Auto) 2.3, Basophils (%) (Auto) 0.6, Neutrophils # (Auto) 4.8, Lymphocytes # (Auto) 2.5, Monocytes # (Auto) 1.0H, Eosinophils # (Auto) 0.2, Basophils # (Auto) 0.1, Nucleated Red Blood Cells % (auto) 0.0, Anion Gap 6L, Glomerular Filtration Rate > 60.0, Calcium Level 9.5 Current Medications Current Medications Current Medications Medications (Trade) Dose Ordered Sig/Andrew Route PRN Reason Start Time Stop Time Status Last Admin Dose Admin Acetaminophen (Tylenol Tab) 650 mg Q4HP PRN PO fever/MILD PAIN (PS 1-4) 09/07/19 13:30 09/08/19 10:46 Al Hydrox/Mg Hydrox/Simethicone (Mylanta) 30 ml Q4HP PRN PO DYSPEPSIA 09/07/19 13:30 Albuterol Sulfate (Proventil, Ventolin Hfa) 2 puff RQID INH 09/07/19 16:00 09/09/19 12:25 Aspirin (Ecotrin) 81 mg DAILY PO 09/08/19 09:00 09/09/19 09:19 Aspirin (Ecotrin) 325 mg DAILY PO 09/07/19 09:00 09/07/19 18:38 DC Bisacodyl (Dulcolax Suppository) 10 mg DAILYPRN PRN VT CONSTIPATION 09/07/19 13:30 Brinzolamide (Azopt) 1 drop TID OU 09/07/19 16:00 09/09/19 09:17 Bumetanide (Bumex) 1 mg DAILY PO 09/08/19 09:00 09/09/19 09:20 Cefdinir (Omnicef) 300 mg BID PO 09/07/19 21:00 09/12/19 09:01 09/09/19 09:20 Chlorhexidine Gluconate (Peridex Oral Rinse) 15 ml BID MT 09/07/19 21:00 09/08/19 08:13 Clonidine HCl (Rjauqync-Zim-3) 1 ea Q7D@09 TOP 09/12/19 09:00 Diltiazem HCl (Cardizem Cd) 240 mg QPM PO 09/07/19 21:00 09/08/19 22:06 Docusate Sodium (Colace) 100 mg BID PO 09/07/19 21:00 09/09/19 09:20 Fluticasone Propionate (Flonase 0.05% Nasal Dennis) 1 spray BID NARES 09/08/19 21:00 09/09/19 09:17 Guaifenesin (Robitussin Tab) 400 mg TID PO 09/07/19 16:00 09/09/19 09:19 Heparin Sodium (Porcine) (Heparin) 5,000 units Q12H SC 09/07/19 22:00 09/09/19 09:18 Heparin Sodium (Porcine) (Heparin) 5,000 units Q8H SC 09/07/19 22:00 09/07/19 18:38 DC Latanoprost (Xalatan 0.005% Op Soln) 1 drop QHS OU 09/07/19 21:00 09/08/19 22:09 Olanzapine (ZyPREXA) 3.75 mg QPM PO 09/07/19 21:00 09/08/19 22:07 Pantoprazole Sodium (Protonix) 40 mg DAILY PO 09/07/19 09:00 09/09/19 09:20 Patient Own Medication (Patient'S Own Med) 1 DROP OU QHS QHS OU 09/07/19 21:00 09/08/19 22:09 Senna (Senokot) 1 tab QHS PO 09/07/19 21:00 Sodium Chloride (Cotton Nasal Dennis) 2 spray TID NA 09/08/19 21:00 09/09/19 09:18 Timolol Maleate (Timoptic 0.5% Ophth Mavis) 1 drop DAILY OU 09/08/19 09:00 09/09/19 09:17 GLEN MARSHALL MD Sep 09, 2019 12:54
[2019-09-09 14:05] VITALS: BP 135/60
[2019-09-09] MEDS: ACETAMINOPHEN TAB 650MG DOSE (2X325MG) PO PRN (14:29)
[2019-09-09 20:00] VITALS: BP 164/73
[2019-09-09] MEDS: OLANZapine 2.5MG TABLET PO SCH (21:33)
[2019-09-09 21:34] VITALS: BP 164/73
[2019-09-09] MEDS: SENNA 8.6 MG TAB (SENOKOT) PO SCH (21:35)
[2019-09-09] MEDS: LATANOPROST 0.005% OPHTH SOLN 2.5 ML OU SCH (21:38)
[2019-09-09] MEDS: NETARSUDIL MESYLATE OU SCH (21:39)
[2019-09-10 06:00] VITALS: BP 137/62
[2019-09-10] MEDS: ALBUTEROL 90 MCG/ACT 8GM HFA INHALER INH SCH (07:15)
[2019-09-10] MEDS: DOCUSATE SODIUM 100 MG CAP PO SCH (09:00)
[2019-09-10] MEDS: REMEDY PHYTOPLEX Z-GUARD PASTE 113GM TUBE (FROM STOREROOM PRODUCT) TOP SCH (09:00)
[2019-09-10] MEDS: CHLORHEXIDINE GLUCONATE 0.12 % 15ML UDC (PERIDEX ORAL RINSE) MT SCH (09:24)
[2019-09-10] MEDS: CEFDINIR 300 MG CAP (OMNICEF) PO SCH (09:24)
[2019-09-10] MEDS: PANTOPRAZOLE 40MG TAB (PROTONIX) PO SCH (09:25)
[2019-09-10] MEDS: guaiFENesin 200 MG TAB PO SCH (09:25)
[2019-09-10] MEDS: BUMETANIDE 1 MG TAB PO SCH (09:25)
[2019-09-10] MEDS: ASPIRIN 81 MG ENTERIC TAB PO SCH (09:25)
[2019-09-10] MEDS: HEPARIN SOD (PORCINE) 5000UNITS/ML VIAL (J1644 PER 1000UNITS) SC SCH (09:26)
[2019-09-10] MEDS: FLUTICASONE PROP 0.05% NASAL SPRAY 16 GM (FLONASE) NARES SCH (09:27)
[2019-09-10] MEDS: SODIUM CHLORIDE NASAL 0.65% SPRAY BTL (OCEAN) SCH (09:27)
[2019-09-10] MEDS: BRINZOLAMIDE 1 % OPHTH SUSP (AZOPT) 10ML OU SCH (09:27)
[2019-09-10] MEDS: TIMOLOL MALEATE 0.5% OPHTH SOLN 5 ML OU SCH (09:27)
[2019-09-12] MEDS ORDERED: cloNIDine HCL 0.2 MG/24 HR PATCH TOP SCH (09:00)
--- NOTE | 2019-09-13 12:12 | PMRDS ---
DATE OF ADMISSION: 09/07/2019 DATE OF DISCHARGE: 09/10/2019 CHIEF COMPLAINT/DISCHARGE DIAGNOSIS: Congestive heart failure (CHF) exacerbation. HISTORY OF PRESENT ILLNESS: 83F pmh diastolic CHF with pacemaker, Afib not on AC due to hx of GI bleed, HTN, asthma, diverticulitis, recent admission for CHF exacerbation in May 2019, presented to [facility] ED on 09-04-19 with difficulty breathing, orthopnea and admitted for respiratory failure. CXR revealed, Right upper and right lower lobe pneumonia with possible developing left perihilar pneumonia. She was diuresed, treated for suspected CAP, started on levophed for hypotension, intubated, and admitted to the ICU. She continued IV antibiotics, diuresis, and had her electrolyte imbalances corrected. She was evaluated by therapy and noted to be below her baseline for ADLs and mobility and deemed medically appropriate for discharge to ARU on 09-07-19. On initial visit patient reports she does not want to take ASA 325mg as she has a family member who had a hemorrhagic stroke and is concerned about bleeding. She is agreeable to take baby Aspirin at this time and agrees to discuss this further with her PMD. PAST MEDICAL HISTORY: As per history of present illness (HPI). HOSPITAL COURSE: The patient was admitted and enrolled in a comprehensive physical therapy (PT), occupational therapy (OT) program. She received 24-hour nursing supervision. She was maintained on fluid restriction and continued on Bumex for diastolic CHF, status post recent exacerbation. The patient expressed concern over restarting her aspirin 325 given the family history of hemorrhagic strokes but did agree to start on a baby aspirin and to followup closely with her primary care physician. The patient was maintained on cefdinir and made quick gains in therapy. The patient expressed desire to be discharged on 09/10/2019, despite physician and therapist encouragement to stay a few days longer to work on endurance. However, the patient was technically functionally stable to go home and was discharged on 09/10/2019/ DISCHARGE MEDICATIONS: As per instructions. FUNCTIONAL HISTORY ON DISCHARGE: The patient was independent able to walk 150 feet at a modified independent level and in occupational therapy she was modified independent for toileting and dressing. Thank for this referral.
== END 2019-09-10 11:25 | disposition home or self-care (01) | DRG 91 ==
LOC: M PM&R 13:30
PROVIDERS: ADMIT Physical Medicine & Rehabilitation; ATTEND Physical Medicine & Rehabilitation
DX: R26.89 Other abnormalities of gait and mobility (principal); J15.4 Pneumonia due to other streptococci; I50.32 Chronic diastolic (congestive) heart failure; I48.91 Unspecified atrial fibrillation; I11.0 Hypertensive heart disease with heart failure; J45.909 Unspecified asthma, uncomplicated; K57.30 Diverticulosis of large intestine without perforation or abscess without bleeding; Z95.0 Presence of cardiac pacemaker; Z79.82 Long term (current) use of aspirin; Z79.899 Other long term (current) drug therapy; Z88.2 Allergy status to sulfonamides; Z88.8 Allergy status to other drugs, medicaments and biological substances; Z91.012 Allergy to eggs; Z91.013 Allergy to seafood

== ENCOUNTER → 2019-09-28 | Outpatient (CLI) | payer MEDICARE, OTHER ==
[~2019-09-28] MED LIST changes: +ASPI81TAEC PO; -ASPIRIN ENTERIC 325 MG TAB PO SCH; +CLON0.2D6 TOP
[2019-09-28 17:00] LABS: BLOOD UREA NITROGEN 14 MG/DL (7-18); CARBON DIOXIDE LEVEL 28 MEQ/L (21-32); CHLORIDE LEVEL 104 MEQ/L (98-107); CREATININE FOR GFR 0.85 MG/DL (0.55-1.30); GLOMERULAR FILTRATION RATE > 60.0 (>32); GLUCOSE, FASTING 144 MG/DL (70-100); POTASSIUM SERUM 3.6 MEQ/L (3.5-5.1); SODIUM LEVEL 140 MEQ/L (136-145)
== END ==
LOC: M WUC 14:07
PROVIDERS: ATTEND Internal Medicine Endocrinology, Diabetes & Metabolism
DX: E83.52 Hypercalcemia (principal)

== ENCOUNTER → 2020-09-03 | Outpatient (CLI) | payer MEDICARE, OTHER ==
[~2020-09-03] MED LIST changes: +ASPI-569 PO; -ASPI81TAEC PO; +CALC-212 PO; -CALC600T7 PO; +D31000TA2 PO; -VITAD1000T PO
--- NOTE | 2020-09-03 15:01 | REPMRS ---
Patient History The patient states she had a clinical breast exam in 08/2020 No known family history of cancer. Took unspecified hormones for 2 years 6 months. 3D TOMOSYNTHESIS WAS PERFORMED. Iris breast density c. Digital Woman Screen Mammo: September 03, 2020 - Exam #: [id number] Bilateral CC and MLO view(s) were taken. Technologist: Kasia Molina, Technologist Prior study comparison: March 22, 2019, bilateral digital woman screen mammo performed at [facility]. October 15, 2017, digital woman screen mammo performed at [facility]. FINDINGS: The breast tissue is heterogeneously dense. This may lower the sensitivity of mammography. There has been no change in the appearance of the mammogram from the prior studies. There is a moderate amount of residual fibroglandular tissue which is fairly symmetric. There is no interval development of dominant mass, areas of architectural distortion, or clustered microcalcification typical of malignancy. Large coarse benign appearing calcifications are present. No significant changes when compared with prior studies. Assessment: BI-RADS/ACR category 1 mammogram. Negative Mammogram. Recommendation Routine screening mammogram in 1 year (for women over age 40). This mammogram was interpreted with the aid of an FDA-approved computer-aided dectection system. Electronically Signed By: Anton Sandy MD 09/03/20 1500
== END ==
LOC: M WHC 13:37
PROVIDERS: ATTEND Nurse Practitioner Women's Health
DX: Z01.419 Encounter for gynecological examination (general) (routine) without abnormal findings (principal); Z12.31 Encounter for screening mammogram for malignant neoplasm of breast; Z92.29 Personal history of other drug therapy; R92.1 Mammographic calcification found on diagnostic imaging of breast
CPT/HCPCS: 77063; 77067; G0101

== ENCOUNTER → 2020-09-04 | Outpatient (CLI) | payer MEDICARE, OTHER ==
[2020-09-04 10:15] LABS: HEMOGLOBIN A1c 6.4 %
[2020-09-04 10:27] LABS: CHOLESTEROL RISK RATIO 5.775 (<5)
== END ==
LOC: M WUC 08:08
PROVIDERS: ATTEND Psychiatry & Neurology Psychiatry
DX: Z79.899 Other long term (current) drug therapy (principal)

== ENCOUNTER 2021-03-22 13:44 | Inpatient (IN) | payer MEDICARE, OTHER ==
--- OUTSIDE RECORDS SUMMARY | 2021-03-22 13:50 | CCD | Continuity of Care Document ---
Author Author Rosario CURRY P.CAni Organization Unknown Address [address] [place] [address] Phone [phone] Care Team Providers Care Consumer Services Advisor Name Role Phone Jose CURRY AUTM [phone] Social History Type Date Description Comments Sex Unknown Allergies, Adverse Reactions, Alerts Active Allergies Criticality Reaction | Severity Comments Date Bactrim Unable to assess criticality 06/07/2020 Demerol Unable to assess criticality 06/07/2020 Avelox Unable to assess criticality 06/07/2020 Entresto Unable to assess criticality Leg Weakness 02/06/2021 Medications Active Medications SIG Qnty Indications Ordering Provide r Date Carvedilol 12.5mg Tablets take one tablet by mouth twice a day with food 180tabs Juni Curry, P.C. 02/06/2021 Irbesartan 300mg Tablets take one tablet by mouth in the evening 90tabs Tien Cerna M[facility] 01/30/2021 Azopt 1% Suspension Shawn King Timolol Maleate 0.5% Solution Instill 1 Drop Into Each Eye Twice Daily Unknown 0 Rhopressa 0.02% Solution Shawn King Cartia XT 240mg Caps ER 24HR take 1 capsule by mouth once daily 90caps Tien Cerna M.D[facility] Bumetanide 1mg Tablets Take One Tablet By Mouth Twice Daily 180tabs Tien Cerna [facility] Eq Aspirin Adult Low Dose 81mg Lucien Valentino Timolol Maleate 0.5% (Daily) Solution FernandoShawn johnson Clopidogrel Bisulfate 75mg Tablets ConnerBeth clayton History Medications Metoprolol Tartrate 50mg Tablets Take 1 Tablet By Mouth Twice Daily 180tabs Tien [facility] 02/06/2021 - 02/06/2021 Avapro 150mg Tablets take one tablet by mouth in the evening 90tabs Tien Cerna [facility] - 01/30/2021 Immunizations CPT Code Status Date Vaccine Lot # [id number] Given 03/15/2010 Flu Injection 15420 Given 03/16/2009 Flu Injection 95332 Given 03/16/2008 Flu Injection 88071 Given 04/27/2007 Flu Injection 44868 Given 03/12/2006 Flu Injection 15738 Given 04/29/2004 Flu Injection Vital Signs Date Vital Result Comment 01/30/2021 10:35am Height 66 inches 5'6" Weight 175.12 lb BMI (Body Mass Index) 28.3 kg/m2 Body Temperature 97.2 F BP Systolic 154 mmHg BP Diastolic 84 mmHg Heart Rate 81 /min O2 % BldC Oximetry 98 % 01/24/2021 3:26pm Height 66 inches 5'6" Weight 175.00 lb BMI (Body Mass Index) 28.2 kg/m2 Body Temperature 97.2 F BP Systolic 155 mmHg BP Diastolic 85 mmHg Heart Rate 82 /min O2 % BldC Oximetry 97 % Procedures Date Code Description Status 02/06/2021 35686 Office/Outpatient Established Mo d MDM 30-39 Min Completed 02/06/2021 01465 Pacemaker Inerrogation Completed 01/30/2021 07954 Office/Outpatient Established Mo d MDM 30-39 Min Completed 01/30/2021 66185 EKG Completed 01/24/2021 38429 Office/Outpatient Established Mo d MDM 30-39 Min Completed 11/29/2020 22498 Office/Outpatient Established Mo d MDM 30-39 Min Completed 10/12/2020 66704 Pacemaker Inerrogation Completed Encounters Type Date Location Provider Dx Diagnosis Office Visit 02/06/2021 [facility] I48.0 Paroxysmal atrial fibrillation I11.9 Hypertensive heart disease w [facility] heart failure Z95.0 Presence of cardiac pacemake r Office Visit 01/30/2021 10:30a [facility] Tien [facility] I48.0 Paroxysmal atrial fibrillation I11.9 Hypertensive heart disease w [facility] heart failure E78.5 Hyperlipidemia, unspecified I49.49 Other premature depolarizati on Office Visit 01/24/2021 3:30p [facility]ien [facility] I48.0 Paroxysmal atrial fibrillation I11.9 Hypertensive heart disease w [facility] heart failure I50.20 Unspecified systolic (conges tive) heart failure Office Visit 11/29/2020 11:30a [facility]ien [facility] I48.0 Paroxysmal atrial fibrillation I11.9 Hypertensive heart disease w [facility] heart failure F32.9 Major depressive disorder, s jade episode, unspecified M25.562 Pain in left knee Assessments Date Code Description Provider 02/06/2021 I48.0 Paroxysmal atrial fibrillation Michael [facility] 02/06/2021 I11.9 [facility] 02/06/2021 Z95.0 Presence of cardiac pacemaker Analilia [facility]erna M[facility] 01/30/2021 I48.0 Paroxysmal atrial fibrillation Michael [facility] 01/30/2021 I11.9 Hypertensive heart disease with[facility] heart failure [facility] 01/30/2021 E78.5 Hyperlipidemia, unspecified Edie Cerna M.D[facility] 01/30/2021 I49.49 Other premature depolarization Michael [facility] 01/24/2021 I48.0 Paroxysmal atrial fibrillation Michael [facility] 01/24/2021 I11.9 Hypertensive heart disease witho [place] heart failure Tien [facility] 01/24/2021 I50.20 Unspecified systolic (congestive ) heart failure Tien [facility] 11/29/2020 I48.0 Paroxysmal atrial fibrillation Michael [facility] 11/29/2020 I11.9 Hypertensive heart disease witho ut heart failure Tien [facility] 11/29/2020 F32.9 Major depressive disorder, singl e episode, unspecified Tien [facility] 11/29/2020 M25.562 Pain in left knee Tien [facility] 10/12/2020 Z95.0 Presence of cardiac pacemaker Mi kate Cerna M.D., [facility] Plan of Treatment Future Appointment(s):* 05/09/2021 2:00 pm - [facility] at [facility] * 03/08/2021 11:15 am - [facility] at [facility]
--- OUTSIDE RECORDS SUMMARY | 2021-03-22 13:50 | CCD | Continuity of Care Document ---
Author Author Rosario CURRY P.CAni Organization Unknown Address [address] [place] [address] Phone [phone] Care Team Providers Care Shingle Grader Name Role Phone Jose CURRY AUTM [phone] Social History Type Date Description Comments Sex Unknown Allergies, Adverse Reactions, Alerts Active Allergies Criticality Reaction | Severity Comments Date Bactrim Unable to assess criticality 06/07/2020 Demerol Unable to assess criticality 06/07/2020 Avelox Unable to assess criticality 06/07/2020 Medications Active Medications SIG Qnty Indications Ordering Provide r Date Irbesartan 300mg Tablets take one tablet by mouth in the evening 90tabs Tien [facility]erna [facility] 01/30/2021 Azopt 1% Suspension Shawn King Timolol Maleate 0.5% Solution Instill 1 Drop Into Each Eye Twice Daily Unknown 0 Rhopressa 0.02% Solution Shawn King Cartia XT 240mg Caps ER 24HR take 1 capsule by mouth once daily 90caps Tien Cerna M[facility] Entresto 24-26mg Tablets take 1 tablet by mouth twice daily 180tabs Tien [facility]erna [facility] Bumetanide 1mg Tablets Take One Tablet By Mouth Twice Daily 180tabs Tien [facility] Eq Aspirin Adult Low Dose 81mg Lucien Valentino Metoprolol Tartrate 25mg Tablets Take 1 Tablet By Mouth Twice Daily Unknown 00 Timolol Maleate 0.5% (Daily) Solution Shawn King Clopidogrel Bisulfate 75mg Tablets Beth Lind History Medications Avapro 150mg Tablets take one tablet by mouth in the evening 90tabs Tien [facility] - 01/30/2021 Immunizations CPT Code Status Date Vaccine Lot # [id number] Given 03/15/2010 Flu Injection 29235 Given 03/16/2009 Flu Injection 41081 Given 03/16/2008 Flu Injection 03268 Given 04/27/2007 Flu Injection 64304 Given 03/12/2006 Flu Injection 23874 Given 04/29/2004 Flu Injection Vital Signs Date [...] 97 % Procedures Date Code Description Status 01/30/2021 23313 Office/Outpatient Established Mo d MDM 30-39 Min Completed 01/30/2021 24192 EKG Completed 01/24/2021 12910 Office/Outpatient Established Mo d MDM 30-39 Min Completed 11/29/2020 21952 Office/Outpatient Established Mo d MDM 30-39 Min Completed 10/12/2020 05799 Pacemaker Inerrogation Completed 08/03/2020 44803 Office/Outpatient Established Mo d MDM 30-39 Min Completed Encounters Type Date Location Provider Dx Diagnosis Office Visit 01/30/2021 10:30a [facility] Erick Cerna M[facility] I48.0 Paroxysmal atrial fibrillation I11.9 Hypertensive heart disease w ithout heart failure E78.5 Hyperlipidemia, unspecified I49.49 Other premature depolarizati on Office Visit 01/24/2021 3:30p [facility] Erick Cerna M.D[facility] .[facility] I48.0 Paroxysmal atrial fibrillation I11.9 Hypertensive heart disease w [facility] heart failure I50.20 Unspecified systolic (conges tive) heart failure Office Visit 11/29/2020 11:30a [facility] Tien Cerna M.D[facility] .[facility] I48.0 Paroxysmal atrial fibrillation I11.9 Hypertensive heart disease w [facility] heart failure F32.9 Major depressive disorder, s jade episode, unspecified M25.562 Pain in left knee Office Visit 08/03/2020 11:00a [facility] Tien Cerna M.D[facility] .[facility] I11.9 Hypertensive heart disease without heart failure E78.5 Hyperlipidemia, unspecified I50.20 Unspecified systolic (conges tive) heart failure F32.9 Major depressive disorder, s jade episode, unspecified Assessments Date Code Description Provider 01/30/2021 I48.0 Paroxysmal atrial fibrillation Michael [facility]erna [facility] 01/30/2021 I11.9 Hypertensive heart disease witho ut heart failure Tien [facility] 01/30/2021 E78.5 Hyperlipidemia, unspecified Edie Cerna M.D[facility] 01/30/2021 I49.49 Other premature depolarization Michael [facility] 01/24/2021 I48.0 Paroxysmal atrial fibrillation Michael [facility] 01/24/2021 I11.9 Hypertensive heart disease witho ut heart failure Tien [facility]erna [facility] 01/24/2021 [...] cardiac pacemaker Mi kate Cerna M.D., P.[facility] 08/03/2020 I11.9 Hypertensive heart disease witho ut heart failure Tien [facility] 08/03/2020 E78.5 Hyperlipidemia, unspecified Edie Cerna M.D[facility] 08/03/2020 I50.20 Unspecified systolic (congestive ) heart failure Tien [facility]erna [facility] 08/03/2020 F32.9 Major depressive disorder, singl e episode, unspecified Tien [facility]erna [facility] Plan of Treatment Future Appointment(s):* 02/06/2021 2:30 pm - [facility] at [facility]
--- OUTSIDE RECORDS SUMMARY | 2021-03-22 13:50 | CCD | Continuity of Care Document ---
Author Author Rosario CURRY P.CAni Organization Unknown Address [address] [place] [address] Phone [phone] Care Team Providers Care Electrical Sign Servicer Name Role Phone Jose CURRY AUTM [phone] Social History Type Date Description Comments Sex Unknown Allergies, Adverse Reactions, Alerts Active Allergies Criticality Reaction | Severity Comments Date Bactrim Unable to assess criticality 06/07/2020 Demerol Unable to assess criticality 06/07/2020 Avelox Unable to assess criticality 06/07/2020 Medications Active Medications SIG Qnty Indications Ordering Provide r Date Avapro 150mg Tablets take one tablet by mouth in the evening 90tabs Tien Cerna M[facility] Azopt 1% Suspension Shawn King Timolol Maleate 0.5% Solution Instill 1 Drop Into Each Eye Twice Daily Unknown 0 Rhopressa 0.02% Solution Shawn Knig Cartia XT 240mg Caps ER 24HR take [...] King Clopidogrel Bisulfate 75mg Tablets Beth Lind Immunizations CPT Code Status Date Vaccine Lot # [id number] Given 03/15/2010 Flu Injection 31677 Given 03/16/2009 Flu Injection 99312 Given 03/16/2008 Flu Injection 19350 Given 04/27/2007 Flu Injection 22746 Given 03/12/2006 Flu Injection 88440 Given 04/29/2004 Flu Injection Vital Signs Date Vital Result Comment 01/24/2021 3:26pm Height 66 inches 5'6" Weight 175.00 lb BMI (Body Mass Index) 28.2 kg/m2 Body Temperature 97.2 F BP Systolic 155 mmHg BP Diastolic 85 mmHg Heart Rate 82 /min O2 % BldC Oximetry 97 % 11/29/2020 11:46am Height 66 inches 5'6" Weight 177.00 lb BMI (Body Mass Index) 28.6 kg/m2 Body Temperature 97.0 F BP Systolic 149 mmHg BP Diastolic 79 mmHg Heart Rate 75 /min O2 % BldC Oximetry 97 % Procedures Date Code Description Status 11/29/2020 99132 Office/Outpatient Established Mo d MDM 30-39 Min Completed 10/12/2020 80025 Pacemaker Inerrogation Completed 08/03/2020 00063 Office/Outpatient Established Mo d MDM 30-39 Min Completed Encounters Type Date Location Provider Dx Diagnosis Office Visit 11/29/2020 11:30a [facility] Tien [facility] I48.0 Paroxysmal atrial fibrillation I11.9 Hypertensive heart disease w ithout heart failure F32.9 Major depressive disorder, s jade episode, unspecified M25.562 Pain in left knee Office Visit 08/03/2020 11:00a [facility] Tien Cerna M.D[facility] .[facility] I11.9 Hypertensive heart disease without heart failure E78.5 Hyperlipidemia, unspecified I50.20 Unspecified systolic (conges tive) heart failure F32.9 Major depressive disorder, s jade episode, unspecified Assessments Date Code Description Provider 11/29/2020 I48.0 Paroxysmal atrial fibrillation Michael [facility]erna [facility] 11/29/2020 I11.9 Hypertensive heart disease witho wv heart failure Tien [facility] 11/29/2020 F32.9 Major depressive disorder, singl e episode, unspecified [facility]ien [facility] 11/29/2020 M25.562 Pain in left knee Tien [facility] 10/12/2020 Z95.0 Presence of cardiac pacemaker Mi kate Cerna M.D., P.C. 08/03/2020 I11.9 Hypertensive heart disease witho wv heart failure Tien [facility]erna [facility] 08/03/2020 E78.5 Hyperlipidemia, unspecified Edie Cerna M.D[facility] 08/03/2020 I50.20 Unspecified systolic (congestive ) heart failure Tien [facility] 08/03/2020 F32.9 Major depressive disorder, singl e episode, unspecified Tien [facility] Plan of Treatment Future Appointment(s):* 02/06/2021 2:30 pm - [facility] at [facility]
--- OUTSIDE RECORDS SUMMARY | 2021-03-22 13:50 | CCD | Continuity of Care Document ---
Author Author Rosario CURRY P.CAni Organization Unknown Address [address] [place] [address] Phone [phone] Care Team Providers Care Death Claim Examiner Name Role Phone Jose CURRY AUTM [phone] Social History Type Date Description Comments Sex [...] Lucien Valentino Timolol Maleate 0.5% (Daily) Solution Shawn King Clopidogrel Bisulfate 75mg Tablets ConnerBeth clayton History Medications Metoprolol Tartrate 50mg Tablets Take 1 Tablet By Mouth Twice Daily 180tabs Tien Cerna [facility] 02/06/2021 - 02/06/2021 Avapro 150mg Tablets take one tablet by mouth in the evening 90tabs Tien Cerna [facility] - 01/30/2021 Immunizations CPT Code Status Date Vaccine Lot # [id number] Given 03/15/2010 Flu Injection 63338 Given 03/16/2009 Flu Injection 73525 Given 03/16/2008 Flu Injection 21563 Given 04/27/2007 Flu Injection 18339 Given 03/12/2006 Flu Injection 52054 Given 04/29/2004 Flu Injection Vital Signs Date [...] % Procedures Date Code Description Status 01/30/2021 58664 Office/Outpatient Established Mo d MDM 30-39 Min Completed 01/30/2021 01336 EKG Completed 01/24/2021 31775 Office/Outpatient Established Mo d MDM 30-39 Min Completed 11/29/2020 63349 Office/Outpatient Established Mo d MDM 30-39 Min Completed 10/12/2020 50541 Pacemaker Inerrogation Completed Encounters Type Date Location Provider Dx Diagnosis Office Visit 01/30/2021 10:30a Medical [facility] Tien Cerna M.D[facility] .[facility]. I48.0 Paroxysmal atrial fibrillation I11.9 Hypertensive heart disease w ithout heart failure E78.5 Hyperlipidemia, unspecified I49.49 Other premature depolarizati on Office Visit 01/24/2021 3:30p Medical [facility] Tien Cerna M.D[facility] P .[facility]. I48.0 Paroxysmal atrial fibrillation I11.9 Hypertensive heart disease w [facility] heart failure I50.20 Unspecified systolic (conges tive) heart failure Office Visit 11/29/2020 11:30a Medical [facility] Tien Cerna M.D[facility] .[facility] I48.0 Paroxysmal atrial fibrillation I11.9 Hypertensive heart disease w [facility] heart failure F32.9 Major depressive disorder, s jade episode, unspecified M25.562 Pain in left knee Assessments Date Code Description Provider 01/30/2021 I48.0 Paroxysmal atrial fibrillation Michael Cerna M.D[facility] 01/30/2021 I11.9 [facility] 01/30/2021 E78.5 Hyperlipidemia, unspecified Edie Cerna M.D., [facility] 01/30/2021 I49.49 Other premature depolarization Michael Cerna M.D[facility] 01/24/2021 I48.0 Paroxysmal atrial fibrillation Michael Cerna M.D[facility] 01/24/2021 I11.9 [facility] 01/24/2021 I50.20 Unspecified systolic (congestive ) heart failure Tien Cerna M.D[facility] 11/29/2020 I48.0 Paroxysmal atrial fibrillation Michael Cerna M.D[facility] 11/29/2020 I11.9 Hypertensive heart disease witho nc heart failure Tien Cerna M.D[facility] 11/29/2020 F32.9 Major depressive disorder, singl e episode, unspecified Tien Cerna [facility] 11/29/2020 M25.562 Pain in left knee Tien Cerna [facility] 10/12/2020 Z95.0 Presence of cardiac pacemaker Mi rza Nehemiah, M.D., P.C. Plan of Treatment Future Appointment(s):* 05/09/2021 2:00 pm - T[facility] at [facility] * 03/08/2021 11:15 am - Tien Cerna [facility] at [facility]
--- OUTSIDE RECORDS SUMMARY | 2021-03-22 13:50 | CCD | Continuity of Care Document ---
Author Author Rosario RIVERA DPM-PC Organization Unknown Address [address] [place] [address] Phone [phone] Care Team Providers Care Neonatal Intensive Care Unit Nurse Name Role Phone [facility] [phone] Problems Active Problems Provider Date Idiopathic progressive polyneuropathy Verena Rivera DPM-pc Onset: 10/20/2017 Ingrowing nail Orlin Sheets Onset: 10/20/2017 Onychomycosis Orlin Sheets Onset: 10/20/2017 Pain in limb Orlin Sheets Onset: 10/20/2017 Callus of heel Orlin Sheets Onset: 10/20/2017 Eruption Orlin Sheets Onset: 07/20/2018 Dystrophia unguium Orlin Sheets Onset: 12/22/2017 Social History Type Date Description Comments Sex Unknown Tobacco Use Start: Unknown Never Smoked Cigarettes Tobacco Use Start: Unknown Never Smoked Cigars Tobacco Use Start: Unknown Never Smoked A Pipe Tobacco Use Start: Unknown Never Used Smokeless Tobacco ETOH Use Never used alcohol Tobacco Use Start: Unknown Patient has never smoked Smoking Status Reviewed: 01/17/21 Patient has never smoked Allergies, Adverse Reactions, Alerts Active Allergies Criticality Reaction | Severity Comments Date Sulfa Antibiotics Unable to assess criticality Contact dermatitis 10/20/2017 Propoxyphene Unable to assess criticality Nausea and Vomiting 10/20/2017 Ativan Unable to assess criticality Nausea and Vomiting 10/20/2017 Losartan Unable to assess criticality Dizziness 05/11/2018 Medications Active Medications SIG Qnty Indications Ordering Provide r Date Cartia XT 180mg Caps ER 24HR 1 By Mouth Daily Verena Rivera DPM-pc 8 Olanzapine 2.5mg Tablets 1 by mouth every day Unknown Bumetanide 1mg Tablets 2 by mouth every day Unknown Lumigan 0.01% Solution 1 drop both eyes every night Unknown Aspirin 81 Low Dose 81mg Chewtabs take one by mouth daily with food Unknown Entresto 24-26mg Tablets Take 1 Tablet By Mouth Twice Daily Unknown Rhopressa 0.02% Solution Shawn King MD Immunizations Description No Information Available Vital Signs Date Vital Result Comment 12/07/2018 1:19pm Weight 167.00 lb Weight 75.751 kg 12/22/2017 1:55pm Weight 173.00 lb Weight 78.473 kg Height 64 inches 5'4" BMI (Body Mass Index) 29.7 kg/m2 BSA (Body Surface Area) 1.84 m2 Results Test Acquired Date Facility Test Result H/L Range Note Hemoglobin A1c 09/04/2020 [facility] Hemoglobin A1c 6.4 % Normal 1 Estimated Average Glucose 137 mg/dL High 60-110 Lipid Panel 09/04/2020 [facility] Triglycerides Level 244 mg/dL High <150 Cholesterol Level 231 mg/dL High <200 HDL Cholesterol 40 mg/dL Normal >40 LDL Cholesterol 142 mg/dL High <100 Non-HDL-C 191 mg/dL Normal Cholesterol Risk Ratio 5.775 High <5 Laboratory test finding 09/04/2020 [facility] Glucose, Fasting 140 mg/dL High 70-100 1 REFERENCE RANGES: <=5.6% NORMAL 5.7-6.4% SUGGESTS IMPAIRED GLUCOSE META BOLISM/PREDIABETIC >= 6.5% ABNORMAL Procedures Date Code Description Status 11/08/2020 34387 Debridement Nails Any Method 1-5 Completed 11/08/2020 72390 Pare Hyperkeratotic Lesion, 2-4 Completed 08/30/2020 26188 Debridement Nails Any Method 1-5 Completed 08/30/2020 17455 Pare Hyperkeratotic Lesion, 2-4 Completed Medical Devices Description No Information Available Encounters Description No Information Available Assessments Date Code Description Provider 01/17/2021 G60.3 Idiopathic progressive neuropath y Orlin Sheets 01/17/2021 L60.0 Ingrowing nail Orlin Sheets 01/17/2021 B35.1 Tinea unguium Verena Rivera, DPM-pc 01/17/2021 L60.3 Nail dystrophy Verena Rivera, DPM-pc 01/17/2021 L84 Corns and callosities Verena Will iams, DPM-pc 01/17/2021 M79.671 Pain in right foot Verena hayes, DPM-pc 11/08/2020 G60.3 Idiopathic progressive neuropath y Verena Rivera, DPM-pc 11/08/2020 L60.0 Ingrowing nail Verena Rivera, DPM-pc 11/08/2020 B35.1 Tinea unguium Verena Rivera, DPM-pc 11/08/2020 L60.3 Nail dystrophy Verena Rivera DPM-pc 11/08/2020 L84 Corns and callosities Verena Will iams, DPM-pc 11/08/2020 M79.671 Pain in right foot Verena Tolliver freddy DPM-pc 08/30/2020 G60.3 Idiopathic progressive neuropath y Verena Rivera, DPM-pc 08/30/2020 L60.0 Ingrowing nail Verena Rivera DPM-pc 08/30/2020 B35.1 Tinea unguium Verena Rivera, DPM-pc 08/30/2020 L60.3 Nail dystrophy Verena Rivera, DPM-pc 08/30/2020 L84 Corns and callosities Verena Will iams, DPM-pc Plan of Treatment Future Appointment(s):* 03/28/2021 1:15 pm - Orlin Sheets at [facility] Podiatry 01/17/2021 - Orlin Sheets* G60.3 Idiopathic progressive neuropathy * L60.0 Ingrowing nail * B35.1 Tinea unguium * L60.3 Nail dystrophy* Comments:* I removed hyperkeratosis from the heels and R1 with scalpel and burred to normal thickness. I trimmed dystrophic nails removing the ingrown toenail from the distal end of R1 with nippers and bur. I debrided mycotic nails x2 with nippers and burred to normal thickness. I will continue to monitor hammertoes. Lotioned feet. Follow-up in 10 weeks. * L84 Corns and callosities * M79.671 Pain in right foot Functional Status Description No Information Available Mental Status Description No Information Available Referrals Description No Information Available
--- OUTSIDE RECORDS SUMMARY | 2021-03-22 13:50 | CCD | Continuity of Care Document ---
Author Author Rosario UPTON F.N.P. Organization Unknown Address [address], [address] [place] [address] Phone [phone] Care Team Providers Care Belt Lacer Name Role Phone Tien Cerna MD [facility] [phone] Problems Description No Information Available Social History Type Date Description Comments Sex Unknown Tobacco Use Start: Unknown End: Unknown Former Cigarette Smo ker Quit 1956 ETOH Use Denies alcohol use Tobacco Use Start: Unknown End: Unknown Patient is a former smoker Sun Exposure minimum amount of sun exposure Sun Exposure Has experienced blistering from sunburns Sun Exposure history of sunburn Sun Exposure Uses > 30 SPF Sun Exposure Has never used tanning bed Allergies, Adverse Reactions, Alerts Active Allergies Criticality Reaction | Severity Comments Date sulfa Unable to assess criticality 01/08/2012 Demerol Unable to assess criticality 01/08/2012 Avelox Unable to assess criticality 01/08/2012 Losartan Unable to assess criticality 01/20/2019 Medications Active Medications SIG Qnty Indications Ordering Provide r Date Lumigan Unknown Bumetanide Unknown Olanzapine Unknown Azopt Unknown Timolol Maleate Unknown 0 Cartia Unknown Tylenol Unknown Aspirin 81 Unknown Entresto Unknown Rhopressa Unknown Immunizations Description No Information Available Vital Signs Date Vital Result Comment 01/22/2021 12:36pm BP Systolic 158 mmHg BP Diastolic 79 mmHg Heart Rate 71 /min Weight 173.00 lb Respiratory Rate 18 /min 01/23/2020 12:48pm BP Systolic 139 mmHg BP Diastolic 71 mmHg Results Description No Information Available Procedures Date Code Description Status 01/22/2021 51284 Office/Outpatient Established Mo d MDM 30-39 Min Completed Medical Devices Description No Information Available Encounters Type Date Location Provider Dx Diagnosis Office Visit 01/22/2021 12:30p Main Office Mica Gunn.N.P. L82.1 Other seborrheic keratosis D18.01 Hemangioma of skin and subcu taneous tissue L40.0 Psoriasis vulgaris L72.3 Sebaceous cyst Z12.83 Encounter for screening for malignant neoplasm of skin Assessments Date Code Description Provider 01/22/2021 L82.1 Other seborrheic keratosis Mica Escalera.N.PAni 01/22/2021 D18.01 Hemangioma of skin and subcutane ous tissue Liliana Upton F.N.PAni 01/22/2021 L40.0 Psoriasis vulgaris Mariann TownsendN.PAni 01/22/2021 L72.3 Sebaceous cyst Liliana torres F.N.PAni 01/22/2021 Z12.83 Encounter for screening for chris gnant neoplasm of skin Liliana Upton FAniN.P. Plan of Treatment Future Appointment(s):* 01/28/2022 12:30 pm - Liliana Upton F.N.P. at Main Office 01/22/2021 - Liliana Upton FAniN.P.* L82.1 Other seborrheic keratosis* Comments:* ReassuranceDiscussed seborrheic keratoses are benign warty growths, patients will get more of them as they age. Literature given on how to perform monthly skin evaluations. Sunscreen and sun protection discussed. * D18.01 Hemangioma of skin and subcutaneous tissue* Comments:* Reassurance. * L40.0 Psoriasis vulgaris* Comments:* StableContinue OTC shampooContinue Cormax Scalp Solution PRNCall with any problems * L72.3 Sebaceous cyst* Comments:* Reassurance. * Z12.83 Encounter for screening for malignant neoplasm of skin* Comments:* See above. * Follow up:* Yearly/PRN- [facility] Functional Status Description No Information Available Mental Status Description No Information Available Referrals Description No Information Available"
--- OUTSIDE RECORDS SUMMARY | 2021-03-22 13:50 | CCD | Continuity of Care Document ---
Author Author Rosario CURRY P.CAni Organization Unknown Address [address] [place] [address] Phone [phone] Care Team Providers Care Classifications Officer Cc/Cm Name Role Phone Jose CURRY AUTM [phone] Social History Type Date Description Comments Sex [...] CPT Code Status Date Vaccine Lot # [id number] Given 03/15/2010 Flu Injection 26033 Given 03/16/2009 Flu Injection 56145 Given 03/16/2008 Flu Injection 65884 Given 04/27/2007 Flu Injection 40717 Given 03/12/2006 Flu Injection 58694 Given 04/29/2004 Flu Injection Vital Signs Date [...] 97 % Procedures Date Code Description Status 01/24/2021 35692 Office/Outpatient Established Mo d MDM 30-39 Min Completed 11/29/2020 23225 Office/Outpatient Established Mo d MDM 30-39 Min Completed 10/12/2020 75134 Pacemaker Inerrogation Completed 08/03/2020 08452 Office/Outpatient Established Mo d MDM 30-39 Min Completed Encounters Type Date Location Provider Dx Diagnosis Office Visit 01/24/2021 3:30p [facility] Tien Cerna M[facility] .[facility] I48.0 Paroxysmal atrial fibrillation I11.9 [facility] I50.20 Unspecified systolic (conges tive) heart failure Office Visit 11/29/2020 11:30a [facility] Tien Cerna M.D., [facility] .[facility]. I48.0 Paroxysmal atrial fibrillation I11.9 [facility] F32.9 Major depressive disorder, s jade episode, unspecified M25.562 Pain in left knee Office Visit 08/03/2020 11:00a [facility] Tien Cerna M.D., [facility] .[facility]. I11.9 Hypertensive heart disease without heart failure E78.5 Hyperlipidemia, unspecified I50.20 Unspecified systolic (conges tive) heart failure F32.9 Major depressive disorder, s jade episode, unspecified Assessments Date Code Description Provider 01/24/2021 I48.0 Paroxysmal atrial fibrillation Michael Cerna M.D., [facility]. 01/24/2021 I11.9 Hypertensive heart disease witho [place] heart failure Tien Cenra M.D., P.C. 01/24/2021 I50.20 Unspecified systolic (congestive ) heart failure Tien Cerna M.D., [facility]. 11/29/2020 I48.0 Paroxysmal atrial fibrillation Michael Cerna M.D., P.[facility]. 11/29/2020 I11.9 Hypertensive heart disease witho nv heart failure Tien Cerna M.D., [facility]. 11/29/2020 F32.9 Major depressive disorder, singl e episode, unspecified Tien Cerna M.D., [facility]. 11/29/2020 M25.562 Pain in left knee Tien Cerna M.D[facility]. 10/12/2020 Z95.0 Presence of cardiac pacemaker Mi kate Cerna M.D., P.C. 08/03/2020 I11.9 Hypertensive heart disease witho nv heart failure Tien Cerna M.D., P.C. 08/03/2020 E78.5 Hyperlipidemia, unspecified Edie Cerna M.D., P.C. 08/03/2020 I50.20 Unspecified systolic (congestive ) heart failure Tien Cerna M.D., P.C. 08/03/2020 F32.9 Major depressive disorder, singl e episode, unspecified Tien Cerna M.D., P.C. Plan of Treatment Future Appointment(s):* 02/06/2021 2:30 pm - T[facility] at [facility]
--- OUTSIDE RECORDS SUMMARY | 2021-03-22 13:50 | CCD | Continuity of Care Document ---
Author Author Rosario CURRY P.CAni Organization Unknown Address [address] [place] [address] Phone [phone] Care Team Providers Care Dining Room Coordinator Name Role Phone TIEN CERNA M.D. PDiana AUTM [phone] Social History Type Date Description Comments Sex Unknown Allergies and adverse reactions Active Allergies Criticality Reaction | Severity Comments Date Bactrim Unable to assess criticality 06/07/2020 Demerol Unable to assess criticality 06/07/2020 Avelox Unable to assess criticality 06/07/2020 Entresto Unable to assess criticality Leg Weakness 02/06/2021 Medications Active Medications SIG Qnty Indications Ordering Provide r Date Carvedilol 25mg Tablets take one tablet by mouth twice a day with food 180tabs Tien Cerna M.D.,P .C. 02/20/2021 Irbesartan 150mg Tablets take one tablet by mouth in the evening 90tabs Tien Cerna M.D.,[facility].C. 02/20/2021 Azopt 1% Suspension Shawn King Timolol Maleate 0.5% Solution Instill 1 Drop Into Each Eye Twice Daily Unknown 0 Rhopressa 0.02% Solution Shawn King Cartia XT 240mg Caps ER 24HR take 1 capsule by mouth once daily 90caps Tien Cerna M.D.,P .C. Bumetanide 1mg Tablets Take One Tablet By Mouth Twice Daily 180tabs Tien Cerna M.D.,P.C. Eq Aspirin Adult Low Dose 81mg Tab nick Valentino Timolol Maleate 0.5% (Daily) Solution Shawn King Clopidogrel Bisulfate 75mg Tablets Beth Lind Olanzapine 2.5mg Tablets Take 2 Tablets By Mouth AT Bedtime Unknown History Medications Metoprolol Tartrate 50mg Tablets Take 1 Tablet By Mouth Twice Daily 180tabs Tein Cerna M.D.,P .C. 02/06/2021 - 02/06/2021 Carvedilol 12.5mg Tablets take one tablet by mouth twice a day with food 180tabs Juni Curry,P.C. 02/06/2021 - 02/20/2021 Irbesartan 300mg Tablets take one tablet by mouth in the evening 90tabs Tien Cerna M.D.,[facility].C. 01/30/2021 - 02/20/2021 Avapro 150mg Tablets take one tablet by mouth in the evening 90tabs Tien Cerna M.D.,P.C. 06/2020 - 01/30/2021 Immunizations CPT Code Status Date Vaccine Lot # [id number] Given 03/15/2010 Flu Injection 49112 Given 03/16/2009 Flu Injection 79678 Given 03/16/2008 Flu Injection 29833 Given 04/27/2007 Flu Injection 98477 Given 03/12/2006 Flu Injection 46249 Given 04/29/2004 Flu Injection Vital Signs Date Vital Result Comment 02/26/2021 1:29pm Height 66 inches 5'6" Weight 177.00 lb BMI (Body Mass Index) 28.6 kg/m2 Body Temperature 97.5 F BP Systolic 125 mmHg BP Diastolic 70 mmHg Heart Rate 70 /min O2 % BldC Oximetry 95 % 01/30/2021 10:35am Height 66 inches 5'6" Weight 175.12 lb BMI (Body Mass Index) 28.3 kg/m2 Body Temperature 97.2 F BP Systolic 154 mmHg BP Diastolic 84 mmHg Heart Rate 81 /min O2 % BldC Oximetry 98 % Procedures Date Code Description Status 02/26/2021 63179 Office/Outpatient Established Mo d MDM 30-39 Min Completed 02/26/2021 51026 EKG Completed 02/06/2021 24330 Office/Outpatient Established Mo d MDM 30-39 Min Completed 02/06/2021 03012 Pacemaker Inerrogation Completed 01/30/2021 72788 Office/Outpatient Established Mo d MDM 30-39 Min Completed 01/30/2021 83684 EKG Completed 01/24/2021 12881 Office/Outpatient Established Mo d MDM 30-39 Min Completed 11/29/2020 64922 Office/Outpatient Established Mo d MDM 30-39 Min Completed 10/12/2020 71535 Pacemaker Inerrogation Completed Encounters Type Date Location Provider Dx Diagnosis Office Visit 02/26/2021 1:30p [facility] Tien Cerna M.D.,P. C. I11.9 Hypertensive heart disease without heart failure I48.0 Paroxysmal atrial fibrillati on E78.5 Hyperlipidemia, unspecified I95.9 Hypotension, unspecified I49.49 Other premature depolarizati on Office Visit 02/06/2021 2:30p [facility] Tien Cerna M.D.,P. C. I48.0 Paroxysmal atrial fibrillation I11.9 Hypertensive heart disease w [facility] heart failure Z95.0 Presence of cardiac pacemake r Office Visit 01/30/2021 10:30a [facility] Tien Cerna M.D.,P. C. I48.0 Paroxysmal atrial fibrillation I11.9 Hypertensive heart disease w [facility] heart failure E78.5 Hyperlipidemia, unspecified I49.49 Other premature depolarizati on Office Visit 01/24/2021 3:30p [facility] Tien Cerna M.D.,P. C. I48.0 Paroxysmal atrial fibrillation I11.9 Hypertensive heart disease w [facility] heart failure I50.20 Unspecified systolic (conges tive) heart failure Office Visit 11/29/2020 11:30a [facility] Tien Cerna M.D.,P. C. I48.0 Paroxysmal atrial fibrillation I11.9 Hypertensive heart disease w [facility] heart failure F32.9 Major depressive disorder, s jade episode, unspecified M25.562 Pain in left knee Assessments Date Code Description Provider 02/26/2021 I11.9 Hypertensive heart disease witho ut heart failure Tien Cerna M.D.,[facility].C. 02/26/2021 I48.0 Paroxysmal atrial fibrillation Michael Crena M.D.,P.C. 02/26/2021 E78.5 Hyperlipidemia, unspecified Edie Cerna M.D.,P.C. 02/26/2021 I95.9 Hypotension, unspecified Tien jovel M.D.,P.C. 02/26/2021 I49.49 Other premature depolarization Michael Cerna M.D.,P.C. 02/06/2021 I48.0 Paroxysmal atrial fibrillation Michael Cerna M.D.,P.C. 02/06/2021 I11.9 [facility] M.[facility]. 02/06/2021 Z95.0 Presence of cardiac pacemaker Analilia Cerna M.D.,P.C. 01/30/2021 I48.0 Paroxysmal atrial fibrillation Michael Cerna M.D.,P.C. 01/30/2021 I11.9 [facility] Tien Cerna M.D.,[facility].C. 01/30/2021 E78.5 Hyperlipidemia, unspecified Edie Cerna M.D.,P.C. 01/30/2021 I49.49 Other premature depolarization Michael Cerna M.D.,P.C. 01/24/2021 I48.0 Paroxysmal atrial fibrillation Michael Cerna M.D.,P.C. 01/24/2021 I11.9 [facility] Tien Cerna M.D[facility]. 01/24/2021 I50.20 Unspecified systolic (congestive ) heart failure Tien Cerna M.D.,P.C. 11/29/2020 I48.0 Paroxysmal atrial fibrillation Michael Cerna M.D.,P.C. 11/29/2020 I11.9 [facility] T[facility] C[facility] M.[facility] 11/29/2020 F32.9 Major depressive disorder, singl e episode, unspecified Tien Cerna M.D[facility]. 11/29/2020 M25.562 Pain in left knee Tien Cerna M.D.,[facility].C. 10/12/2020 Z95.0 Presence of cardiac pacemaker Mi kate Cerna M.D.,P.C. Plan of Treatment Future Appointment(s):* 03/29/2021 11:00 am - Tien Cerna [facility] at [facility] * 05/09/2021 2:00 pm - Tien Cerna M[facility] at [facility]
--- OUTSIDE RECORDS SUMMARY | 2021-03-22 13:50 | CCD | Continuity of Care Document ---
Author Author Rosario CURRY P.CAni Organization Unknown Address [address] [place] [id number] Phone [phone] Care Team Providers Care [facility]ship Name Role Phone Jose CURRY AUTM [phone] Social History Type Date Description Comments Sex [...] CPT Code Status Date Vaccine Lot # [id number] Given 03/15/2010 Flu Injection 10205 Given 03/16/2009 Flu Injection 01438 Given 03/16/2008 Flu Injection 95038 Given 04/27/2007 Flu Injection 87032 Given 03/12/2006 Flu Injection 81795 Given 04/29/2004 Flu Injection Vital Signs Date [...] % Procedures Date Code Description Status 01/24/2021 42307 Office/Outpatient Established Mo d MDM 30-39 Min Completed 11/29/2020 73208 Office/Outpatient Established Mo d MDM 30-39 Min Completed 10/12/2020 02062 Pacemaker Inerrogation Completed 08/03/2020 72989 Office/Outpatient Established Mo d MDM 30-39 Min Completed Encounters Type Date Location Provider Dx Diagnosis Office Visit 01/24/2021 3:30p [facility]ien [facility] I48.0 Paroxysmal atrial fibrillation I11.9 Hypertensive heart disease w [facility] heart failure I50.20 Unspecified systolic (conges tive) heart failure Office Visit 11/29/2020 11:30a [facility] Tien Cerna [facility] I48.0 Paroxysmal atrial fibrillation I11.9 Hypertensive heart disease w [facility] heart failure F32.9 Major depressive disorder, s jade episode, unspecified M25.562 Pain in left knee Office Visit 08/03/2020 11:00a [facility] Tien Cerna [facility] I11.9 Hypertensive heart disease without heart failure E78.5 Hyperlipidemia, unspecified I50.20 Unspecified systolic (conges tive) heart failure F32.9 Major depressive disorder, s jade episode, unspecified Assessments Date Code Description Provider 01/24/2021 I48.0 Paroxysmal atrial fibrillation Michael [facility] 01/24/2021 I11.9 Hypertensive heart disease witho wy heart failure [facility] 01/24/2021 I50.20 Unspecified systolic (congestive ) heart failure [facility] 11/29/2020 I48.0 Paroxysmal atrial fibrillation Michael [facility] 11/29/2020 I11.9 Hypertensive heart disease witho wy heart failure [facility] 11/29/2020 F32.9 Major depressive disorder, singl e episode, unspecified [facility] 11/29/2020 M25.562 Pain in left knee [facility] 10/12/2020 Z95.0 Presence of cardiac pacemaker Mi kate Cerna M.D[facility] 08/03/2020 I11.9 Hypertensive heart disease witho wy heart failure [facility] 08/03/2020 E78.5 Hyperlipidemia, unspecified Edie Cerna M.D[facility] 08/03/2020 I50.20 Unspecified systolic (congestive ) heart failure [facility] 08/03/2020 F32.9 Major depressive disorder, singl e episode, unspecified [facility] Plan of Treatment Future Appointment(s):* 02/06/2021 2:30 pm - [facility] at [facility]
--- OUTSIDE RECORDS SUMMARY | 2021-03-22 13:50 | CCD | Continuity of Care Document ---
Author Author Rosario CURRY P.CAni Organization Unknown Address [address] [place] [id number] Phone [phone] Care Team Providers Care Rn Stars Name Role Phone TIEN CERNA M.D. PDiana AUTM [phone] Social History Type Date Description Comments Sex [...] By Mouth Twice Daily 180tabs [facility] 02/06/2021 - 02/06/2021 Carvedilol [...] CPT Code Status Date Vaccine Lot # [id number] Given 03/15/2010 Flu Injection 94072 Given 03/16/2009 Flu Injection 29315 Given 03/16/2008 Flu Injection 01906 Given 04/27/2007 Flu Injection 37642 Given 03/12/2006 Flu Injection 20178 Given 04/29/2004 Flu Injection Vital Signs Date [...] 98 % Procedures Date Code Description Status 02/06/2021 67206 Office/Outpatient Established Mo d MDM 30-39 Min Completed 02/06/2021 42281 Pacemaker Inerrogation Completed 01/30/2021 85902 Office/Outpatient Established Mo d MDM 30-39 Min Completed 01/30/2021 85030 EKG Completed 01/24/2021 49164 Office/Outpatient Established Mo d MDM 30-39 Min Completed 11/29/2020 17867 Office/Outpatient Established Mo d MDM 30-39 Min Completed 10/12/2020 21839 Pacemaker Inerrogation Completed Encounters Type Date Location Provider Dx Diagnosis Office Visit 02/06/2021 2:30p [facility] Tien Cerna [facility] I48.0 Paroxysmal atrial fibrillation I11.9 Hypertensive heart disease w [facility] heart failure Z95.0 Presence of cardiac pacemake r Office Visit 01/30/2021 10:30a [facility] Tien Cerna M.D[facility] I48.0 Paroxysmal atrial fibrillation I11.9 Hypertensive heart disease w [facility] heart failure E78.5 Hyperlipidemia, unspecified I49.49 Other premature depolarizati on Office Visit 01/24/2021 3:30p [facility] Tien Cerna M.D[facility]. [facility]. I48.0 Paroxysmal atrial fibrillation I11.9 Hypertensive heart disease w [facility] heart failure I50.20 Unspecified systolic (conges tive) heart failure Office Visit 11/29/2020 11:30a [facility] Tien Cerna M.D[facility]. [facility] I48.0 Paroxysmal atrial fibrillation I11.9 Hypertensive heart disease w [facility] heart failure F32.9 Major depressive disorder, s jade episode, unspecified M25.562 Pain in left knee Assessments Date Code Description Provider 02/06/2021 I48.0 Paroxysmal atrial fibrillation Michael [facility] 02/06/2021 I11.9 Hypertensive heart disease witho ar heart failure Tien Cerna [facility] 02/06/2021 Z95.0 Presence of cardiac pacemaker Analilia Cerna M.D[facility] 01/30/2021 I48.0 Paroxysmal atrial fibrillation Michael [facility] 01/30/2021 I11.9 Hypertensive heart disease witho ar heart failure Tien [facility]erna [facility] 01/30/2021 E78.5 Hyperlipidemia, unspecified Edie Cerna M.D[facility] 01/30/2021 I49.49 Other premature depolarization Michael [facility] 01/24/2021 I48.0 Paroxysmal atrial fibrillation Michael [facility] 01/24/2021 I11.9 Hypertensive heart disease witho ar heart failure iTen Cerna M.D[facility] 01/24/2021 I50.20 Unspecified systolic (congestive ) heart failure Tien [facility]erna [facility] 11/29/2020 I48.0 Paroxysmal atrial fibrillation Michael [facility] 11/29/2020 I11.9 Hypertensive heart disease witho ar heart failure Tien [facility] 11/29/2020 F32.9 Major depressive disorder, singl e episode, unspecified Tien [facility] 11/29/2020 M25.562 Pain in left knee Tien [facility] 10/12/2020 Z95.0 Presence of cardiac pacemaker Mi kate Cerna M.D[facility] Plan of Treatment Future Appointment(s):* 05/09/2021 2:00 pm - Tien Cerna [facility] at [facility] * 03/08/2021 11:15 am - Tien Cerna [facility] at [facility]
--- OUTSIDE RECORDS SUMMARY | 2021-03-22 13:51 | CCD ---
Author Author Vijay Cee MD [facility] Organization Vijay Cee MD [facility] Address [address] [address] Phone Care Team Providers Care Foamite Mixer Name Role Phone Tien Cerna Unavailable [phone] Tien Cerna MD PP [phone] Jaye CARDENAS, FACS, Vijay Segura Unavailable [phone] Reason for Referral No Reason for Referral Recorded Problems Includes: Active, inactive, and resolved Problems All Visits Onset Date - Time Resolved Date - Time Provider Co ndition Status Refractive Error - Myopia Bilateral 07/07/2017 - 12:00AM Shawn King DO Active Glaucoma Open-angle Primary Both Eyes 06/26/2017 - 12:00AM Shawn King DO Inactive Post-surgical Cataract Fragments in Eye 05/12/2017 - 12:00AM Unk nown - Unknown Shawn Fernando DO Resolved Glaucoma Open-angle Primary Right Eye 09/10/2015 - 12:00AM Vijay Cee MD, FACS Active Note: moderate Glaucoma Open-angle Primary Left Eye 09/10/2015 - 12:00AM Vijay Cee MD, FACS Active Note: left eye Cataract Senile Cortical Anterior 04/10/2014 - 12:00AM Unknown - Unknown Shawn Fernando DO Resolved Note: Unchanged - of both ey es Glaucoma Open-angle Primary Both Eyes 04/10/2014 - 12:00AM Vijay Cee MD, FACS Inactive Note: Unchanged Conjunctivitis Chronic Allergic 09/22/2013 - 12:00AM Vijay Cee MD, FACS Active Note: Unchanged Cataract Senile Cortical 03/17/2013 - 12:00AM Vijay Cee MD, FACS Inactive Note: Unchanged - both eyes Glaucoma Stage Severe 03/17/2013 - 12:00AM Vijay Feliciano MD, FACS Inactive Note: Unchanged Vitreous Floaters Both Eyes 03/17/2013 - 12:00AM Vijay Cee MD, FACS Active Note: Unchanged Blepharitis Both Eyelids 09/13/2012 - 12:00AM Vijay Cee MD, FACS Inactive Note: Resolved Corneal Dystrophy Endothelial Fuchs' 09/13/2012 - 12:00AM Vijay Cee MD, FACS Active Note: Unchanged - of both ey es Glaucoma Open-angle Both Eyes 09/13/2012 - 12:00AM Vijay Cee MD, FACS Inactive Note: Unchanged Cataract Senile Nuclear 09/13/2012 - 12:00AM Unknown - Unknown M nora King DO Resolved Note: Unchanged - of both ey es Dry Eye Syndrome Both Eyes 09/13/2012 - 12:00AM Vijay Cee MD, FACS Active Note: Worsening Plan of Treatment Future Appointments Date Time Location Provider 3 Month Follow-Up 03/01/2021 7:45AM [facility] Shawn King DO Findings Encounter Date Ordered visual haskins test : A visual fi eld test 24-2 is indicated to determine if there are any functional changes to the optic nerve 3 Month Follow-Up with OCT Disc with Shawn King DO 07/28/2016 Assessments Includes: Assessments for all patient encounters Findings Encounter Date Primary open-angle glaucoma of left eye TESTING - VISU AL FIELD & OCT with Shawn King DO 12/07/2020 Primary open-angle glaucoma of right eye TESTING - VIS UAL FIELD & OCT with Shawn King DO 12/07/2020 Dry eye syndrome of both eyes Insertion of Punctal Plu g IN OFFICE-NEED AUTH with Shawn King DO 11/24/2019 Dry eye syndrome of both eyes 6 Month Follow-Up with Shawn King DO 11/09/2019 Fuchs' endothelial corneal dystrophy 6 Month Follow-Up with Shawn King DO 11/09/2019 Primary open-angle glaucoma of left eye 6 Month Follow -Up with Shawn King DO 11/09/2019 Primary open-angle glaucoma of right eye 6 Month Follo w-Up with Shawn King DO 11/09/2019 Primary open-angle glaucoma of left eye VISUAL FIELD 2 4-2 with Shawn Fernando DO 06/16/2019 Primary open-angle glaucoma of right eye VISUAL FIELD 24-2 with Shawn Fernando DO 06/16/2019 Dry eye syndrome of both eyes 6 Month Follow-Up with Shawn Fernando DO 05/12/2019 Fuchs' endothelial corneal dystrophy 6 Month Follow-Up with Shawn Fernando DO 05/12/2019 Primary open-angle glaucoma of left eye 6 Month Follow -Up with Shawn Fernando DO 05/12/2019 Primary open-angle glaucoma of right eye 6 Month Follo w-Up with Shawn Fernando DO 05/12/2019 Primary open-angle glaucoma of left eye 4 Month Follow -Up and Testing with Shawn Fernando DO 11/02/2018 Primary open-angle glaucoma of right eye 4 Month Follo w-Up and Testing with Shawn Fernando DO 11/02/2018 Primary open-angle glaucoma of left eye IOP CHECK with Macarena estevez Fernando DO 09/20/2018 Primary open-angle glaucoma of right eye [facility] 09/20/2018 Primary open-angle glaucoma of left eye 2 Week Follow- Up with Shawn Fernando DO 08/23/2018 Primary open-angle glaucoma of right eye 2 Week Follow -Up with Shawn Fernando DO 08/23/2018 Primary open-angle glaucoma of left eye 2 Week Follow- Up with Shawn Fernando DO 08/11/2018 Primary open-angle glaucoma of right eye 2 Week Follow -Up with Shawn Duckworthstein DO 08/11/2018 Primary open-angle glaucoma of left eye VISUAL FIELD 2 4-2 with Shawn Fernando DO 07/28/2018 Primary open-angle glaucoma of right eye VISUAL FIELD 24-2 with Shawn Fernando DO 07/28/2018 Dry eye syndrome of both eyes 6 Month Follow-Up with Shawn Duckworthstein DO 07/14/2018 Fuchs' endothelial corneal dystrophy 6 Month Follow-Up with Shawn Duckworthstein DO 07/14/2018 Primary open-angle glaucoma of left eye 6 Month Follow -Up with Shawn Duckworthstein DO 07/14/2018 Primary open-angle glaucoma of right eye 6 Month Follo w-Up with Shawn King DO 07/14/2018 Vitreous degeneration 6 Month Follow-Up with Shawn cárdenas DO 07/14/2018 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 Yag Laser Capsulotomy - Global: 90 DAY POST OP with Shawn King DO 12/18/2017 Pseudophakia Yag Laser Capsulotomy - Glob al: 90 DAY POST OP with Shawn Duckworthstein DO 12/18/2017 Posterior capsule opacification of eccentric capsule i n the right eye Yag Laser Capsulotomy - Global: 90 DAY POST OP with Shawn King DO 12/08/2017 Pseudophakia Yag Laser Capsulotomy - Glob al: 90 DAY POST OP with Shawn Duckworthstein DO 12/08/2017 Dry eye syndrome of both eyes 5 Month Follow-Up with Shawn Duckworthstein DO 12/01/2017 Fuchs' endothelial corneal dystrophy 5 Month Follow-Up with Shawn Duckworthstein DO 12/01/2017 Primary open-angle glaucoma of left eye 5 Month Follow -Up with Shawn Duckworthstein DO 12/01/2017 Primary open-angle glaucoma of right eye 5 Month Follo w-Up with Shawn Duckworthstein DO 12/01/2017 Bilateral myopia 3 - 4 Week Follow-Up with Shawn lagunas DO 07/07/2017 Primary open-angle glaucoma of left eye 3 - 4 Week Fol low-Up with Shawn Duckworthstein DO 07/07/2017 Primary open-angle glaucoma of right eye 3 - 4 Week Fo llow-Up with Shawn Duckworthstein DO 07/07/2017 Bilateral myopia 2 Week Follow-Up with Shawn Duckworthstein DO 06/12/2017 Pseudophakia 2 Week Follow-Up with Shawn Duckworthstein DO 06/12/2017 Cataract fragments in the eye after cataract surgery 1 Week Post OP with Shawn Duckworthstein DO 05/12/2017 Pseudophakia 1 Week Post OP with Shawn Duckworthstein DO 05/12/2017 Cataract fragments in the left eye after cataract surg ricardo 1 Day Post OP with Shawn Duckworthstein DO 04/28/2017 Nuclear senile cataract 1 Day Post OP with Shawn King DO 04/28/2017 Pseudophakia 1 Day Post OP with Shawn King DO 04/28/2017 Nuclear senile cataract PRE OP WITH TESTING with Shawn king DO 04/20/2017 Fuchs' endothelial corneal dystrophy 6 Month Follow-Up with Visual Field with Shawn King DO 01/28/2017 Nuclear senile cataract 6 Month Follow-Up with Visua l Field with [facility] DO 01/28/2017 Primary open-angle glaucoma of both eyes 6 Month Follo w-Up with Visual Field with [facility] DO 01/28/2017 Primary open-angle glaucoma of left eye Rx Refills/Tuyet nges with Vijay Webb MD, FACS 01/19/2017 Primary open-angle glaucoma of right eye Rx Refills/Ch anges with Vijay Webb MD, FACS 01/19/2017 Primary open-angle glaucoma of both eyes Rx Refills/Ch anges with Vijay Webb MD, FACS 12/29/2016 Primary open-angle glaucoma of left eye 3 Month Follow -Up with OCT Disc with [facility] 07/28/2016 Primary open-angle glaucoma of right eye 3 Month Follo w-Up with OCT Disc with [facility] 07/28/2016 Primary open-angle glaucoma of left eye IOP CHECK with [facility] 05/12/2016 Primary open-angle glaucoma of right eye IOP CHECK with [facility] 05/12/2016 Bilateral cortical senile cataract 3 Month Follow-Up w ith Vijay Cee MD, FACS 05/02/2016 Dry eye syndrome of both eyes 3 Month Follow-Up with Shae Cee MD, FACS 05/02/2016 Nuclear senile cataract 3 Month Follow-Up with Vijay Darnell MD, FACS 05/02/2016 Primary open-angle glaucoma of both eyes 3 Month Follo w-Up with Vijay Webb MD, FACS 05/02/2016 Primary open-angle glaucoma of both eyes IOP CHECK wit h Vijay Cee MD, FACS 02/19/2016 Primary open-angle glaucoma of left eye IOP CHECK with Vijay Cee MD, FACS 02/19/2016 Primary open-angle glaucoma, moderate stage of the ri ght eye IOP CHECK with Vijay Cee MD, FACS 11/01/2015 Primary open-angle glaucoma, severe stage of the left eye IOP CHECK with Vijay Cee MD, FACS 11/01/2015 Bilateral cortical senile cataract 10 Month Follow-Up with Vijay Cee MD, FACS 09/06/2015 Fuchs' endothelial corneal dystrophy 10 Month Follow-U p with Vijay Cee MD, FACS 09/06/2015 Nuclear senile cataract 10 Month Follow-Up with Vijay Hays MD, FACS 09/06/2015 Primary open-angle glaucoma of left eye - severe 10 M onth Follow-Up with Vijay Cee MD, FACS 09/06/2015 Primary open-angle glaucoma of right eye - moderate 1 0 Month Follow-Up with Vijay Cee MD, FACS 09/06/2015 Primary open-angle glaucoma in both eyes VISUAL FIELD 24-2 with Vijay Webb MD, FACS 03/28/2015 Anterior cortical senile cataract both eyes 9 Month F ollow-Up with Vijay Cee MD, FACS 12/14/2014 Chronic allergic conjunctivitis both eyes 9 Month Fol low-Up with Vijay Cee MD, FACS 12/14/2014 Dry eye syndrome of both eyes 9 Month Follow-Up with Shae Cee MD, FACS 12/14/2014 Fuchs' endothelial corneal dystrophy both eyes 9 Jorge h Follow-Up with Vijay Cee MD, FACS 12/14/2014 Nuclear senile cataract both eyes 9 Month Follow-Up w ith Vijay Cee MD, FACS 12/14/2014 Open-angle glaucoma in both eyes 9 Month Follow-Up wit h Vijay Cee MD, FACS 12/14/2014 Severe stage glaucoma 9 Month Follow-Up with Vijay Webb MD, FACS 12/14/2014 Vitreous floaters in both eyes 9 Month Follow-Up with Vijay Cee MD, FACS 12/14/2014 Anterior cortical senile cataract of both eyes 6 Jorge h Follow-Up OCT Disc with Vijay Cee MD, FACS 04/10/2014 Chronic allergic conjunctivitis of both eyes 6 Month Follow-Up OCT Disc with Vijay Cee MD, FACS 04/10/2014 Dry eye syndrome of both eyes 6 Month Follow-Up OCT Di sc with Vijay Webb MD, FACS 04/10/2014 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 6 M onth Follow-Up OCT Disc with Vijay Cee MD, FACS 04/10/2014 Nuclear senile cataract of both eyes 6 Month Follow-U p OCT Disc with Vijay Cee MD, FACS 04/10/2014 Primary open-angle glaucoma in both eyes 6 Month Follo w-Up OCT Disc with Vijay Cee MD, FACS 04/10/2014 Severe stage glaucoma 6 Month Follow-Up OCT Disc w ith Vijay Cee MD, FACS 04/10/2014 Vitreous floaters in both eyes 6 Month Follow-Up OCT D isc with Vijay Webb MD, FACS 04/10/2014 Chronic allergic conjunctivitis both eyes 6 Month Fol low-Up with Vijay Cee MD, FACS 09/22/2013 Cortical senile cataract both eyes 6 Month Follow-Up with Vijay Cee MD, FACS 09/22/2013 Dry eye syndrome of both eyes 6 Month Follow-Up with Shae Cee MD, FACS 09/22/2013 Fuchs' endothelial corneal dystrophy 6 Month Follow-Up with Vijay Cee MD, FACS 09/22/2013 Nuclear senile cataract both eyes 6 Month Follow-Up w ith Vijay Cee MD, FACS 09/22/2013 Open-angle glaucoma in both eyes 6 Month Follow-Up wit h Vijay Cee MD, FACS 09/22/2013 Severe stage glaucoma 6 Month Follow-Up with Vijay Webb MD, FACS 09/22/2013 Vitreous floaters in both eyes 6 Month Follow-Up with Vijay Cee MD, FACS 09/22/2013 Cortical senile cataract both eyes 6 Month Follow-Up with Vijay Cee MD, FACS 03/17/2013 Dry eye syndrome of both eyes 6 Month Follow-Up with Shae Cee MD, FACS 03/17/2013 Fuchs' endothelial corneal dystrophy both eyes 6 Jorge h Follow-Up with Vijay Cee MD, FACS 03/17/2013 Nuclear senile cataract both eyes 6 Month Follow-Up w ith Vijay Cee MD, FACS 03/17/2013 Open-angle glaucoma in both eyes 6 Month Follow-Up wit h Vijay Cee MD, FACS 03/17/2013 Severe stage glaucoma 6 Month Follow-Up with Vijay Webb MD, FACS 03/17/2013 Vitreous floaters in both eyes 6 Month Follow-Up with Vijay Cee MD, FACS 03/17/2013 Myopia REFRACTION with Vijay Cee MD, FACS 12/16/2012 Dry eye syndrome of both eyes REFRACTION with Vijay Mitchell MD, FACS 11/11/2012 Myopia both eyes REFRACTION with Vijay Cee MD, FACS 11/11/2012 Presbyopia REFRACTION with Vijay Cee MD, FACS 11/11/2012 Anterior cortical senile cataract 6 Month Follow-Up wi ann Vijay Cee MD, FACS 09/13/2012 Blepharitis in both eyes 6 Month Follow-Up with Vijay Hays MD, FACS 09/13/2012 Dry eye syndrome of both eyes 6 Month Follow-Up with Shae Cee MD, FACS 09/13/2012 Fuchs' endothelial corneal dystrophy 6 Month Follow-Up with Vijay Cee MD, FACS 09/13/2012 Nuclear senile cataract 6 Month Follow-Up with Vijay Darnell MD, FACS 09/13/2012 Open-angle glaucoma in both eyes 6 Month Follow-Up wit h Vijya Cee MD, FACS 09/13/2012 Vitreous floaters in both eyes 6 Month Follow-Up with Vijay Cee MD, FACS 09/13/2012 Instructions Instructions not supported for this document typeNo Instructions Recorded Medical Equipment - Implanted Devices Includes: Current and historical DevicesNo Medical Equipment Recorded Medications Includes: Current and historical Medications Current Medications (continue as prescribed) Entresto 24-29 mg Oral Tablet 11/23/2020 Provider: Diagnosis: Lumigan 0.01% Ophthalmic Solution 10/02/2020 Provid er: Shawn King DO Diagnosis: Primary open-angle g laucoma, bilateral, moderate stage One drop in each eye at night time Rhopressa 0.02% Ophthalmic Solution 09/05/2020 Prov ider: Shawn King DO Diagnosis: Primary open-angle g laucoma, right eye, moderate stage One drop in each eye at night time. Azopt 1% Ophthalmic Suspension 08/09/2020 Provider: Shawn King DO Diagnosis: Primary open-angle g laucoma, bilateral, moderate stage One drop three times a day in both eyes Timolol Maleate 0.5% Ophthalmic Solution 03/13/2020 Provider: Shawn King DO Diagnosis: Primary open-angle g laucoma, right eye, moderate stage One drop twice a day in both eyes Rhopressa 0.02% Ophthalmic Solution 02/08/2020 Prov ider: Shawn King DO Diagnosis: Primary open-angle g laucoma, right eye, moderate stage One drop in each eye at night time. Aspirin 325 MG Oral Tablet 05/12/2019 Provider: Diagnosis: Istalol 0.5% Ophthalmic Solution 11/02/2018 Provide r: Shawn King DO Diagnosis: Primary open-angle g laucoma, bilateral, moderate stage One drop in each eye in the morning Cartia XT 180MG Oral Capsule Extended Release 24 Hour 2017 Provider: Diagnosis: CloNIDine HCl 0.1MG/24HR Transdermal Patch Weekly 05/02/2016 Provider: Diagnosis: once a week ZyPREXA 2.5 MG Tablet 12/14/2014 Provider: Diagnosis: 1.5mg daily Tylenol 325 MG Tablet 12/14/2014 Provider: Diagnosis: [facility] Vitamin D 2000 UNIT OR CAPS 09/13/2012 Provider : Diagnosis: Caltrate 600+D Plus Minerals 600-800 MG-UNIT OR CHEW 013 Provider: Diagnosis: Past Medications on file Rhopressa 0.02% Ophthalmic Solution 02/08/2020 - 08/09/2020 Provider: Shawn King DO Diagnosis: Primary open-angle g laucoma, right eye, moderate stage One drop in each eye at night time. Lumigan 0.01% Ophthalmic Solution 10/21/2019 - 10/02/2020 Pr ovider: Shawn King DO Diagnosis: Primary open-angle g laucoma, bilateral, moderate stage One drop in each eye at night time Azopt 1% Ophthalmic Suspension 08/22/2019 - 08/09/2020 Provi catherine: Shawn King DO Diagnosis: Primary open-angle g laucoma, bilateral, moderate stage One drop three times a day in both eyes Rhopressa 0.02% Ophthalmic Solution 08/15/2019 - 02/08/2020 Provider: Shawn King DO Diagnosis: Primary open-angle g laucoma, right eye, moderate stage One drop in each eye at night time. Rhopressa 0.02% Ophthalmic Solution 03/09/2019 - 08/15/2019 Provider: Shawn King DO Diagnosis: Primary open-angle g laucoma, right eye, moderate stage One drop in each eye at night time. Lumigan 0.01% Ophthalmic Solution 11/02/2018 - 10/21/2019 Pr ovider: Shawn Fernando DO Diagnosis: Primary open-angle g laucoma, bilateral, moderate stage One drop in each eye at night time Azopt 1% Ophthalmic Suspension 08/31/2018 - 08/22/2019 Provi catherine: Vijay Cee MD, FACS Diagnosis: Primary open-angle g laucoma, bilateral, moderate stage One drop three times a day in both eyes Rhopressa 0.02% Ophthalmic Solution 08/23/2018 - 03/09/2019 Provider: Shawn King DO Diagnosis: Primary open-angle g laucoma, right eye, moderate stage One drop in each eye at night time. Lotemax 0.5% Ophthalmic Gel 12/08/2017 - 01/15/2018 Provider : Shawn King DO Diagnosis: Other secondary anthony ract, right eye one drop three times a day in the right eye for 5 days Lumigan 0.01% Ophthalmic Solution 12/02/2017 - 11/02/2018 Pr ovider: Vijay Cee MD, FACS Diagnosis: Primary open-angle g laucoma, bilateral, moderate stage One drop in each eye at night time Azopt 1% Ophthalmic Suspension 12/02/2017 - 08/31/2018 Provi catherine: Vijay Cee MD, FACS Diagnosis: Primary open-angle g laucoma, bilateral, moderate stage One drop three times a day in both eyes Istalol 0.5% Ophthalmic Solution 10/26/2017 - 11/02/2018 Pro vider: Vijay Cee MD, FACS Diagnosis: Primary open-angle g laucoma, bilateral, moderate stage One drop in each eye in the morning Istalol 0.5% Ophthalmic Solution 07/13/2017 - 10/26/2017 Pro vider: Vijay Cee MD, FACS Diagnosis: Primary open-angle g laucoma, bilateral, moderate stage One drop in each eye in the morning Pred Forte 1% Ophthalmic Suspension 05/13/2017 - 07/12/2017 Provider: Shawn King DO Diagnosis: Age-related nuclear cataract, left eye day of surgery remove patch start one drop four times a day in the left eye Pred Forte 1% Ophthalmic Suspension 04/20/2017 - 05/13/2017 Provider: Shawn King DO Diagnosis: Age-related nuclear cataract, left eye day of surgery remove patch start one drop four times a day in the left eye Besivance 0.6% Ophthalmic Suspension 04/20/2017 - 01/15/2018 Provider: Shawn King DO Diagnosis: Age-related nuclear cataract, left eye three days prior to surgery start one drop three times a day in the left eye BromSite 0.075% Ophthalmic Solution 04/20/2017 - 01/15/2018 Provider: Shawn King DO Diagnosis: Age-related nuclear cataract, left eye three days prior to surgery start one drop two times a day i n the left eye Azopt 1% Ophthalmic Suspension 01/19/2017 - 12/02/2017 Provi catherine: Vijay Cee MD, FACS Diagnosis: Primary open-angle g laucoma, right eye, moderate stage One drop three times a day in both eyes Lumigan 0.01% Ophthalmic Solution 12/29/2016 - 12/02/2017 Pr ovider: Vijay Cee MD, FACS Diagnosis: Primary open-angle g laucoma, bilateral, moderate stage One drop in each eye at night time Lumigan 0.01% Ophthalmic Solution 12/23/2016 - 12/29/2016 Pr ovider: Shawn King DO Diagnosis: Primary open-angle g laucoma, bilateral, moderate stage One drop in each eye at night time Istalol 0.5% Ophthalmic Solution 05/12/2016 - 05/07/2017 Pro vider: Shawn King DO Diagnosis: Primary open-angle g laucoma, left eye, severe stage One drop in each eye in the morning Azopt 1% Ophthalmic Suspension 05/09/2016 - 01/19/2017 Provi catherine: Vijay Cee MD, FACS Diagnosis: Primary open-angle g laucoma, severe stage One drop three times a day in both eyes Istalol 0.5% Ophthalmic Solution 05/02/2016 - 07/13/2017 Pro vider: Vijay Cee MD, FACS Diagnosis: Primary open-angle g laucoma, bilateral, moderate stage One drop in each eye in the morning CloNIDine HCl 0.1MG/24HR Transdermal Patch Weekly 05/02/2016 - 05/02/2016 Provider: Diagnosis: Lumigan 0.01 % Solution 02/19/2016 - 12/23/2016 Provider: Vijay Cee MD, FACS Diagnosis: Primary open-angle g laucoma, moderate stage One drop in each eye at night time Azopt 1 % Suspension 09/06/2015 - 05/09/2016 Provider: Vijay Cee MD, FACS Diagnosis: Primary open-angle g laucoma, severe stage One drop three times a day in both eyes Coumadin 2.5 MG Tablet 09/06/2015 - 05/12/2019 Provider: Diagnosis: Losartan Potassium 50 MG Tablet 09/06/2015 - 12/01/2017 Prov ider: Diagnosis: Metropolol 50 mg Tablet 09/06/2015 - 05/02/2016 Provider: Diagnosis: Lumigan 0.01 % Solution 05/10/2015 - 02/19/2016 Provider: Vijay Cee MD, FACS Diagnosis: Primary open-angle g laucoma, severe stage One drop in each eye at night time Lexapro 5 MG Tablet 12/14/2014 - 09/06/2015 Provider: Diagnosis: Azopt 1 % Suspension 10/23/2014 - 09/06/2015 Provider: Vijay Cee MD, FACS Diagnosis: Prim Open Angle Glau coma One drop twice a day in both eyes GIVE 90 DAY SUPPLY, Zetia 10 MG OR TABS 04/10/2014 - 12/14/2014 Provider: Diagnosis: Azopt 1% OP SUSP 04/10/2014 - 10/23/2014 Provider: Vijay Cee MD, FACS Diagnosis: Prim Open Angle Glau coma GIVE 90 DAY SUPPLY, KEEP ON FILE Lumigan 0.01% OP SOLN 04/10/2014 - 05/10/2015 Provider: Vijay Cee MD, FACS Diagnosis: Prim Open Angle Glau coma PLEASE FILL 90 DAY SUPPLY, KEEP ON FILE Azopt 1% OP SUSP 09/22/2013 - 04/10/2014 Provider: Vijay Cee MD, FACS Diagnosis: Open-angle glaucoma NOS GIVE 90 DAY SUPPLY, KEEP ON FILE Lumigan 0.01% OP SOLN 09/22/2013 - 04/10/2014 Provider: Vijay Cee MD, FACS Diagnosis: Open-angle glaucoma NOS PLEASE FILL 90 DAY SUPPLY, KEEP ON FILE Lexapro 10 MG OR TABS 09/22/2013 - 12/14/2014 Provider: Diagnosis: Lumigan 0.01% OP SOLN 06/30/2013 - 09/22/2013 Provider: Vijay Cee MD, FACS Diagnosis: Open-angle glaucoma NOS Azopt 1% OP SUSP 03/17/2013 - 09/22/2013 Provider: Vijay Cee MD FACS Diagnosis: GIVE 90 DAY SUPPLY, KEEP ON FILE Azopt 1% OP SUSP 12/16/2012 - 03/17/2013 Provider: Vijay Cee MD, FACS Diagnosis: Flovent Diskus 100 MCG/BLIST IN AEPB 09/13/2012 - 12/14/2014 Provider: Diagnosis: Tylenol Extra Strength 500 MG OR TABS 09/13/2012 - 5 Provider: Diagnosis: Flaxseed Oil 1000 MG OR CAPS 09/13/2012 - 09/06/2015 Provide r: Diagnosis: Clarinex 5 MG OR TABS 09/13/2012 - 09/06/2015 Provider: Diagnosis: hydroCHLOROthiazide 25 MG TABS 09/13/2012 - 09/06/2015 Provi catherine: Diagnosis: Doxazosin Mesylate 2 MG OR TABS 09/13/2012 - 09/06/2015 Prov ider: Diagnosis: ZyPREXA 2.5 MG OR TABS 09/13/2012 - 12/14/2014 Provider: Diagnosis: Diovan 320 MG OR TABS 09/13/2012 - 09/06/2015 Provider: Diagnosis: dilTIAZem HCl ER 180 MG OR CP24 09/13/2012 - 09/06/2015 Prov ider: Diagnosis: Klor-Con 10 10 MEQ OR TBCR 09/13/2012 - 09/06/2015 Provider: Diagnosis: hydrALAZINE HCl 25 MG OR TABS 09/13/2012 - 09/06/2015 Provid er: Diagnosis: Azopt 1% OP SUSP 09/13/2012 - 03/17/2013 Provider: Vijay Cee MD, FACS Diagnosis: Open-angle glaucoma NOS BID OU, KEEP ON FILE. Lumigan 0.01% OP SOLN 09/13/2012 - 06/30/2013 Provider: Vijay Cee MD, FACS Diagnosis: Open-angle glaucoma NOS QHS OU. KEEP ON FILE. Azopt 1% OP SUSP 09/13/2012 - 11/12/2012 Provider: Diagnosis: Lumigan 0.01% OP SOLN 09/13/2012 - 11/12/2012 Provider: Diagnosis: Medications Administered Includes: Administered Medications in patient's chartNo Administered Medications Recorded Vital Signs Includes: Vital Signs from 01/05/2020 through 01/04/2021No Vital Signs Recorded For Specified Dates Results Includes: Results from 01/05/2020 through 01/04/2021No Results Recorded For Specified Dates History of Present Illness History of Present Illness not supported for this document typeNo History of Present Illness Recorded Social History Description Last Updated Tobacco non-user 11/23/2020 No consumption of alcohol 11/09/2019 No tobacco use 11/09/2019 Not using drugs 11/09/2019 Smoking status : Never smoker 11/09/2019 Never smoked 05/12/2019 Not a current smoker 05/02/2016 Procedures and Surgical History Surgical History Last Updated History of discission of secondary membr anous cataract of left eye by laser 12/18/[address] King 05/12/2019 History of discission of secondary membr anous cataract of right eye by laser 12/08/[address] King 05/12/2019 History of extracapsular cataract extrac tion PCIOL OS with iStent 04/27/[address] King ~PCIOL OD with iStent 05/04/[address] King 05/12/2019 Surgical / procedural history : Gallblad catherine Removed 1963, Polyp on cervix reviewed 1965, Tubal Ligation 1969, Tonsillectomy 1970, Hysterectomy 2005, Bladder Suspension 2007, Arthroscopic Surgery Both Knees 2001, Right Knee Replacement 2007, Pacemaker 2015, Gerardo December 2017, Removal retained lens fragment left eye 05/21/[address] King 05/12/2019 History of laser trabeculoplasty of the left eye 09/22 History of laser trabeculoplasty of the right eye 05/2013 Medical History Includes: Medical History in patient's chart Description Last Updated No recent change in medical history 05/12/2019 Reported medical history : A-Fib, Divert iculitis, Osteoporosis, Depression, Allergies 12/14/2014 History of hyperlipidemia 04/10/2014 History of hypertension 03/17/2013 History of blepharoplasty of the upper lid was perform ed 09/13/2012 Currently wearing eyeglasses 09/13/2012 History of asthma 09/13/2012 Gall Bladder Remoaved - 1963 ~Polyp on cervix reviewed - 1965 ~Tubal Ligation - 1969 ~Tonsilectomy - 1970 ~Hysterectomy - 2005 ~Bladder Suspension - 2007 ~Arthroscopic Surgery both knees - 2001 ~Right knee replaced - 2007 ~ 09/13/2012 Family History Includes: Family History in patient's chart Description Last Updated Family medical history was unknown 11/09/2019 Fraternal history of stroke/cerebrovascular accident 0 09/06/2015 Son's history of arthritis 09/06/2015 Son's history of diabetes mellitus 09/06/2015 Son's history of hypertension 09/06/2015 Son's history of stroke/cerebrovascular accident 09/05 Family history of glaucoma 12/14/2014 Fraternal history of hypertension 12/14/2014 Maternal history of asthma 06/29/2014 Review of Systems Review of Systems not supported for this document typeNo Review of Systems Recorded Mental Status Mental Status not supported for this document typeNo Mental Status Recorded Functional Status Functional Status not supported for this document typeNo Functional Status Recorded Physical Exam Physical Exam not supported for this document typeNo Physical Exam Recorded Immunizations Includes: Immunizations in patient's chartNo Immunizations Recorded Allergies Includes: Active, inactive, and resolved Allergies Substance Type Reaction Onset Date - Time Resolved Date - Ti me Status Molds Allergy 09/06/2015 - 12:00AM Acti ve Dust Allergy 09/06/2015 - 12:00AM Acti ve Animal Dander Allergy 09/06/2015 - 12:00AM A ctive Encounters Includes: Encounters from 01/05/2020 through 01/04/2021 Encounter Provider Location Date Check-In Time Check-Out Time D iagnosis TESTING - VISUAL FIELD & OCT Shawn Ortiz MD [facility] 12/07/2020 12:05PM 12:39PM Glaucoma Open-angle Primary Right Eye, Glaucoma Open- angle Primary Left Eye VISUAL FIELD 24-2 Shawn Mccord MD [facility] 12:05PM 12:38PM 9 Month Follow-Up Shawn Mccord MD [facility] 06/2020 11:48AM 12:39PM Rx Refills/Changes Shawn King DO 10/02/2020 020 3:01PM 11/24/2019 11:59PM Rx Refills/Changes Shawn King DO 08/09/2020 020 2:52PM 11/24/2019 11:59PM Rx Refills/Changes Shawn King DO 03/13/2020 020 10:55AM 11/24/2019 11:59PM Rx Refills/Changes Shawn King DO 02/08/2020 020 8:14AM 11/24/2019 11:59PM Insurance Includes: Active Insurance Policies Plan Name Member ID Group # Subscriber Relationship Effective Da tiffany 1 - Medicare Part [facility] ([facility]) [id number] Rsoario burnett Self 2 - UMR Care Management /PRIOR AUTHS NEEDED [id number] Kimberley Castro Self Advance Directives Includes: Current Advance DirectivesNo Advance Directives Recorded Health Concerns Includes: Active Health ConcernsNo Active Health Concerns Recorded Goals Includes: Active GoalsNo Active Goals Recorded Interventions Includes: Interventions for active GoalsNo Interventions Recorded Evaluations & Outcomes Includes: Evaluations & Outcomes for active GoalsNo Outcomes Recorded
--- OUTSIDE RECORDS SUMMARY | 2021-03-22 13:51 | CCD ---
Author Author Vijay Cee MD [facility] Organization Vijay Cee MD [facility] Address [address] [address] Phone Care Team Providers Care Brim Ironer Hand Name Role Phone Tien Cerna Unavailable [phone] Tien Cerna MD PP [phone] Jaye CARDENAS, FACS, Vijay Segura Unavailable [phone] Reason for Referral No Reason for Referral [...] 05/12/2017 - 12:00AM Unk nown - Unknown Shanw Fernando DO Resolved Glaucoma Open-angle Primary Right [...] -Up with OCT Disc with [facility] 07/28/2016 Primary open-angle glaucoma of right eye 3 Month Follo w-Up with OCT Disc with [facility] 07/28/2016 Primary open-angle glaucoma of left eye IOP CHECK with [facility] 05/12/2016 Primary open-angle glaucoma of right eye IOP CHECK with [facility] 05/12/2016 Bilateral cortical senile cataract 3 [...] Follow-Up wit h Vijay Cee MD, FACS 09/13/2012 Vitreous floaters in [...] Ophthalmic Suspension 08/31/2018 - 08/22/2019 Provi catherine: Viajy Cee MD, FACS Diagnosis: Primary open-angle g [...] VISUAL FIELD & OCT Shawn Ortiz MD [facility] 12/07/2020 12:05PM 12:39PM Glaucoma Open-angle Primary Right Eye, Glaucoma Open- angle Primary Left Eye VISUAL FIELD 24-2 Shawn Mccord MD [facility] 12:05PM 12:38PM 9 Month Follow-Up Shawn Mccord MD [facility] 06/2020 11:48AM 12:39PM Rx Refills/Changes Shawn King DO 10/02/2020 020 3:01PM 11/24/2019 11:59PM Rx Refills/Changes Shawn King DO 08/09/2020 020 2:52PM 11/24/2019 11:59PM Rx Refills/Changes Shawn King DO 03/13/2020 020 10:55AM 11/24/2019 11:59PM Rx Refills/Changes Shawn King DO 02/08/2020 020 8:14AM 11/24/2019 11:59PM Insurance Includes: Active Insurance Policies Plan Name Member ID Group # Subscriber Relationship Effective Da tiffany 1 - Medicare Part [facility] ([facility]) [id number] Rosario burnett Self 2 - UMR Care Management /PRIOR AUTHS NEEDED [id number] Kimberley Castro Self Advance Directives Includes: Current Advance DirectivesNo Advance Directives Recorded Health Concerns Includes: Active Health ConcernsNo Active Health Concerns Recorded Goals Includes: Active GoalsNo Active Goals Recorded Interventions Includes: Interventions for active GoalsNo Interventions Recorded Evaluations & Outcomes Includes: Evaluations & Outcomes for active GoalsNo Outcomes Recorded
--- OUTSIDE RECORDS SUMMARY | 2021-03-22 13:51 | CCD ---
Author Author Vijay Cee MD [facility] Organization Vijay Cee MD [facility] Address [address] [address] Phone Care Team Providers Care System Integration Engineer Name Role Phone Tien Cerna Unavailable [phone] Tien Cerna MD PP [phone] Jaye CARDENAS, FACS, Vijay Segura Unavailable [phone] Reason for Referral No Reason for Referral [...] both eyes 6 Month Follow-Up with Shawn Kign DO 11/09/2019 Fuchs' endothelial corneal dystrophy 6 [...] left eye IOP CHECK with Macarena estevez Fenrando DO 09/20/2018 Primary open-angle glaucoma of right [...] eye VISUAL FIELD 2 4-2 with Shawn Fernnado DO 07/28/2018 Primary open-angle glaucoma of right eye VISUAL FIELD 24-2 with Shawn Fernando DO 07/28/2018 Dry eye syndrome of both eyes 6 Month Follow-Up with Shawn Duckworthstein DO 07/14/2018 Fuchs' endothelial corneal dystrophy 6 Month Follow-Up with Shawn Duckworthstein DO 07/14/2018 Primary open-angle glaucoma of left eye 6 Month Follow -Up with Shawn Dcukworthstein DO 07/14/2018 Primary open-angle glaucoma of right [...] Month Follow-Up with Visua l Field with [facility] DO 01/28/2017 Primary open-angle glaucoma of both eyes 6 Month Follo w-Up with Visual Field with [facility] DO 01/28/2017 Primary open-angle glaucoma of left eye Rx Refills/Tuyet nges with Vijay Webb MD, FACS 01/19/2017 Primary open-angle glaucoma of right eye Rx Refills/Ch anges with Vijay Webb MD, FACS 01/19/2017 Primary open-angle glaucoma of both eyes Rx Refills/Ch anges with Vijay Webb MD, FACS 12/29/2016 Primary open-angle glaucoma of left eye 3 Month Follow -Up with OCT Disc with [facility] 07/28/2016 Primary open-angle glaucoma of right eye 3 Month Follo w-Up with OCT Disc with [facility] 07/28/2016 Primary open-angle glaucoma of left eye IOP CHECK with [facility] 05/12/2016 Primary open-angle glaucoma of right eye IOP CHECK with [facility] 05/12/2016 Bilateral cortical senile cataract [...] eyes 6 Month Fol low-Up with Vijay eCe MD, FACS 09/22/2013 Cortical senile cataract both [...] Tobacco non-user 11/23/2020 No consumption of alcohol 11/24/2019 No tobacco use 11/24/2019 Not using drugs 11/24/2019 Smoking status : Never smoker 11/24/2019 Never smoked 05/12/2019 Not a current smoker [...] Last Updated Family medical history was unknown 11/24/2019 Fraternal history of stroke/cerebrovascular accident 0 09/06/2015 [...] VISUAL FIELD & OCT Shawn Ortiz MD [facility] 12/07/2020 12:05PM 12:39PM Glaucoma Open-angle Primary Right Eye, Glaucoma Open- angle Primary Left Eye VISUAL FIELD 24-2 Shawn Mccord MD [facility] 12:05PM 12:38PM 9 Month Follow-Up Shawn Mccord MD [facility] 06/2020 11:48AM 12:39PM Rx Refills/Changes Shawn [...] Effective Da tiffany 1 - Medicare Part [facility] ([facility]) [id number] Rosario burnett Self 2 - UMR Care Management /PRIOR AUTHS NEEDED [id number] Kimberley Castro Self Advance Directives Includes: Current Advance DirectivesNo Advance Directives Recorded Health Concerns Includes: Active Health ConcernsNo Active Health Concerns Recorded Goals Includes: Active GoalsNo Active Goals Recorded Interventions Includes: Interventions for active GoalsNo Interventions Recorded Evaluations & Outcomes Includes: Evaluations & Outcomes for active GoalsNo Outcomes Recorded
--- OUTSIDE RECORDS SUMMARY | 2021-03-22 13:51 | CCD ---
Author Author Vijay Cee MD [facility] Organization Vijay Cee MD [facility] Address [address] [address] Phone Care Team Providers Care Beater And Pulper Feeder Name Role Phone Tien Cerna Unavailable [phone] Tien Cerna MD PP [phone] Jaye CARDENAS, FACS, Vijay Segura Unavailable [phone] Reason for Referral No Reason for Referral [...] Month Follow-Up with Visua l Field with [facility] DO 01/28/2017 Primary open-angle glaucoma of both eyes 6 Month Follo w-Up with Visual Field with [facility] DO 01/28/2017 Primary open-angle glaucoma of left eye Rx Refills/Tuyet nges with Vijay Webb MD, FACS 01/19/2017 Primary open-angle glaucoma of right eye Rx Refills/Ch anges with Vijay Webb MD, FACS 01/19/2017 Primary open-angle glaucoma of both eyes Rx Refills/Ch anges with Vijay Webb MD, FACS 12/29/2016 Primary open-angle glaucoma of left eye 3 Month Follow -Up with OCT Disc with [facility] 07/28/2016 Primary open-angle glaucoma of right eye 3 Month Follo w-Up with OCT Disc with [facility] 07/28/2016 Primary open-angle glaucoma of left eye IOP CHECK with [facility] 05/12/2016 Primary open-angle glaucoma of right eye IOP CHECK with [facility] 05/12/2016 Bilateral cortical senile cataract 3 [...] VISUAL FIELD & OCT Shawn Ortiz MD [facility] 12/07/2020 12:05PM 12:39PM Glaucoma Open-angle Primary Right Eye, Glaucoma Open- angle Primary Left Eye VISUAL FIELD 24-2 Shawn Mccord MD [facility] 12:05PM 12:38PM 9 Month Follow-Up Shawn Mccord MD [facility] 06/2020 11:48AM 12:39PM Rx Refills/Changes [...] Effective Da tiffany 1 - Medicare Part [facility] ([facility]) [id number] Rosario burnett Self 2 - UMR Care Management /PRIOR AUTHS NEEDED [id number] Kimberley Castro Self Advance Directives Includes: Current Advance DirectivesNo Advance Directives Recorded Health Concerns Includes: Active Health ConcernsNo Active Health Concerns Recorded Goals Includes: Active GoalsNo Active Goals Recorded Interventions Includes: Interventions for active GoalsNo Interventions Recorded Evaluations & Outcomes Includes: Evaluations & Outcomes for active GoalsNo Outcomes Recorded
--- OUTSIDE RECORDS SUMMARY | 2021-03-22 13:51 | CCD ---
Author Author Vijay Cee MD [facility] Organization Vijay Cee MD [facility] Address [address] [address] Phone Care Team Providers Care Bottle Washer Name Role Phone Tien Cerna Unavailable [phone] Tien Cerna MD PP [phone] Jaye CARDENAS, FACS, Vijay Segura Unavailable [phone] Reason for Referral No Reason for Referral [...] right eye 5 Month Follo w-Up with Shwan Duckworthstein DO 12/01/2017 Bilateral myopia 3 - [...] -Up with OCT Disc with [facility] 07/28/2016 Primary open-angle glaucoma of right eye 3 Month Follo w-Up with OCT Disc with [facility] 07/28/2016 Primary open-angle glaucoma of left eye IOP CHECK with [facility] 05/12/2016 Primary open-angle glaucoma of right eye IOP CHECK with [facility] 05/12/2016 Bilateral cortical senile cataract 3 [...] VISUAL FIELD & OCT Shawn Ortiz MD [facility] 12/07/2020 12:05PM 12:39PM Glaucoma Open-angle Primary Right Eye, Glaucoma Open- angle Primary Left Eye VISUAL FIELD 24-2 Shawn Mccord MD [facility] 12:05PM 12:38PM 9 Month Follow-Up Shawn Mccord MD [facility] 06/2020 11:48AM 12:39PM Rx Refills/Changes Shawn King DO 10/02/2020 020 3:01PM 11/24/2019 11:59PM Rx Refills/Changes Shawn King DO 08/09/2020 020 2:52PM 11/24/2019 11:59PM Rx Refills/Changes Shawn King DO 03/13/2020 020 10:55AM 11/24/2019 11:59PM Rx Refills/Changes Shawn King DO 02/08/2020 020 8:14AM 11/24/2019 11:59PM Insurance Includes: Active Insurance Policies Plan Name Member ID Group # Subscriber Relationship Effective Da tiffany 1 - Medicare Part [facility] ([facility]) [id number] Rosario burnett Self 2 - UMR Care Management /PRIOR AUTHS NEEDED [id number] Kimberley Castro Self Advance Directives Includes: Current Advance DirectivesNo Advance Directives Recorded Health Concerns Includes: Active Health ConcernsNo Active Health Concerns Recorded Goals Includes: Active GoalsNo Active Goals Recorded Interventions Includes: Interventions for active GoalsNo Interventions Recorded Evaluations & Outcomes Includes: Evaluations & Outcomes for active GoalsNo Outcomes Recorded
--- OUTSIDE RECORDS SUMMARY | 2021-03-22 13:52 | CCD ---
Author Author Vijay Cee MD [facility] Organization Vijay Cee MD [facility] Address [address] [address] Phone Care Team Providers Care Iron Erector Name Role Phone Tien Cerna Unavailable [phone] Tien Cerna MD PP [phone] Jaye CARDENAS, FACS, Vijay Segura Unavailable [phone] Reason for Referral No Reason for Referral Recorded Problems Includes: Active, inactive, and resolved Problems All Visits Onset Date - Time Resolved Date - Time Provider Co ndition Status Refractive Error - Myopia Bilateral 07/07/2017 - 12:00AM Shawn King DO Active Glaucoma Open-angle Primary Both Eyes 06/26/2017 - 12:00AM Shwan King DO Inactive Post-surgical Cataract Fragments in [...] Month Follow-Up with Visua l Field with [facility] DO 01/28/2017 Primary open-angle glaucoma of both eyes 6 Month Follo w-Up with Visual Field with [facility] DO 01/28/2017 Primary open-angle glaucoma of left eye Rx Refills/Tuyet nges with Vijay Webb MD, FACS 01/19/2017 Primary open-angle glaucoma of right eye Rx Refills/Ch anges with Vijay Webb MD, FACS 01/19/2017 Primary open-angle glaucoma of both eyes Rx Refills/Ch anges with Vijay Webb MD, FACS 12/29/2016 Primary open-angle glaucoma of left eye 3 Month Follow -Up with OCT Disc with [facility] 07/28/2016 Primary open-angle glaucoma of right eye 3 Month Follo w-Up with OCT Disc with [facility] 07/28/2016 Primary open-angle glaucoma of left eye IOP CHECK with [facility] 05/12/2016 Primary open-angle glaucoma of right eye IOP CHECK with [facility] 05/12/2016 Bilateral cortical senile cataract 3 [...] ri ght eye IOP CHECK with Vijay eCe MD, FACS 11/01/2015 Primary open-angle glaucoma, severe [...] 1% Ophthalmic Suspension 12/02/2017 - 08/31/2018 Provi actherine: Vijay Cee MD, FACS Diagnosis: Primary open-angle [...] 0.075% Ophthalmic Solution 04/20/2017 - 01/15/2018 Provider: Sahwn King DO Diagnosis: Age-related nuclear cataract, left [...] 0.01% OP SOLN 09/22/2013 - 04/10/2014 Provider: Vjiay Cee MD, FACS Diagnosis: Open-angle glaucoma NOS [...] Tobacco non-user 11/23/2020 No consumption of alcohol 11/23/2020 No tobacco use 11/23/2020 Not using drugs 11/23/2020 Smoking status : Never smoker 11/23/2020 Never smoked 05/12/2019 Not a current smoker [...] - 1969 ~Tonsilectomy - 1970 ~Hysterectomy - 2006 ~Bladder Suspension - 2007 ~Arthroscopic Surgery both knees - 2001 ~Right knee replaced - 2007 ~ 09/13/2012 Family History Includes: Family History in patient's chart Description Last Updated Family medical history was unknown 11/23/2020 Fraternal history of stroke/cerebrovascular accident 0 09/06/2015 [...] VISUAL FIELD & OCT Shawn Ortiz MD [facility] 12/07/2020 12:05PM 12:39PM Glaucoma Open-angle Primary Right Eye, Glaucoma Open- angle Primary Left Eye VISUAL FIELD 24-2 Shawn Mccord MD [facility] 12:05PM 12:38PM 9 Month Follow-Up Shawn Mccord MD [facility] 06/2020 11:48AM 12:39PM Rx Refills/Changes Shawn [...] Da tiffany 1 - Medicare Part [facility] ([facility]) [id number] Rosario burnett Self 2 - UMR Care Management /PRIOR AUTHS NEEDED [id number] Kimberley Castro Self Advance Directives Includes: Current Advance DirectivesNo Advance Directives Recorded Health Concerns Includes: Active Health ConcernsNo Active Health Concerns Recorded Goals Includes: Active GoalsNo Active Goals Recorded Interventions Includes: Interventions for active GoalsNo Interventions Recorded Evaluations & Outcomes Includes: Evaluations & Outcomes for active GoalsNo Outcomes Recorded
--- OUTSIDE RECORDS SUMMARY | 2021-03-22 13:52 | CCD ---
Author Author Vijay Cee MD [facility] Organization Vijay Cee MD [facility] Address [address] [address] Phone Care Team Providers Care Incinerator Plant General Supervisor Name Role Phone Tien Cerna Unavailable [phone] Tien Cerna MD PP [phone] Jaye CARDENAS, FACS, Vijay Segura Unavailable [phone] Reason for Referral No Reason for Referral [...] myopia 3 - 4 Week Follow-Up with hSawn lagunas DO 07/07/2017 Primary open-angle glaucoma of [...] cataract surgery 1 Week Post OP with hSawn Duckworthstein DO 05/12/2017 Pseudophakia 1 Week Post [...] Month Follow-Up with Visua l Field with [facility] DO 01/28/2017 Primary open-angle glaucoma of both eyes 6 Month Follo w-Up with Visual Field with [facility] DO 01/28/2017 Primary open-angle glaucoma of left eye Rx Refills/Tuyet nges with Vijay Webb MD, FACS 01/19/2017 Primary open-angle glaucoma of right eye Rx Refills/Ch anges with Vijay Webb MD, FACS 01/19/2017 Primary open-angle glaucoma of both eyes Rx Refills/Ch anges with Vijay Webb MD, FACS 12/29/2016 Primary open-angle glaucoma of left eye 3 Month Follow -Up with OCT Disc with [facility] 07/28/2016 Primary open-angle glaucoma of right eye 3 Month Follo w-Up with OCT Disc with [facility] 07/28/2016 Primary open-angle glaucoma of left eye IOP CHECK with [facility] 05/12/2016 Primary open-angle glaucoma of right eye IOP CHECK with [facility] 05/12/2016 Bilateral cortical senile cataract 3 Month [...] Follow-Up wit h Vijya Cee MD, FACS 03/17/2013 Severe stage glaucoma [...] 1 % Suspension 10/23/2014 - 09/06/2015 Provider: Viajy Cee MD, FACS Diagnosis: Prim Open Angle [...] VISUAL FIELD & OCT Shawn Ortiz MD [facility] 12/07/2020 12:05PM 12:39PM Glaucoma Open-angle Primary Right Eye, Glaucoma Open- angle Primary Left Eye VISUAL FIELD 24-2 Shawn Mccord MD [facility] 12:05PM 12:38PM 9 Month Follow-Up Shawn Mccord MD [facility] 06/2020 11:48AM 12:39PM Rx Refills/Changes [...] Effective Da tiffany 1 - Medicare Part [facility] ([facility]) [id number] Rosario burnett Self 2 - UMR Care Management /PRIOR AUTHS NEEDED [id number] Kimberley Castro Self Advance Directives Includes: Current Advance DirectivesNo Advance Directives Recorded Health Concerns Includes: Active Health ConcernsNo Active Health Concerns Recorded Goals Includes: Active GoalsNo Active Goals Recorded Interventions Includes: Interventions for active GoalsNo Interventions Recorded Evaluations & Outcomes Includes: Evaluations & Outcomes for active GoalsNo Outcomes Recorded
--- OUTSIDE RECORDS SUMMARY | 2021-03-22 13:52 | CCD ---
Author Author Vijay Cee MD [facility] Organization Vijay Cee MD [facility] Address [address] [address] Phone Care Team Providers Care Veterans' Counselor Name Role Phone Tien Cerna Unavailable [phone] Tien Cerna MD PP [phone] Jaye CARDENAS, FACS, Vijay Segura Unavailable [phone] Reason for Referral No Reason for Referral [...] eye 2 Week Follow -Up with Shawn Duckowrthstein DO 08/11/2018 Primary open-angle glaucoma of left [...] left eye 6 Month Follow -Up with Shanw Duckworthstein DO 07/14/2018 Primary open-angle glaucoma of [...] Month Follow-Up with Visua l Field with [facility] DO 01/28/2017 Primary open-angle glaucoma of both eyes 6 Month Follo w-Up with Visual Field with [facility] DO 01/28/2017 Primary open-angle glaucoma of [...] -Up with OCT Disc with [facility] 07/28/2016 Primary open-angle glaucoma of right eye 3 Month Follo w-Up with OCT Disc with [facility] 07/28/2016 Primary open-angle glaucoma of left eye IOP CHECK with [facility] 05/12/2016 Primary open-angle glaucoma of right eye IOP CHECK with [facility] 05/12/2016 Bilateral cortical senile cataract [...] Ophthalmic Solution 08/23/2018 - 03/09/2019 Provider: Shawn iKng DO Diagnosis: Primary open-angle g [place], right [...] iagnosis TESTING - VISUAL FIELD & OCT Shwan Ortiz MD [facility] 12/07/2020 12:05PM 12:39PM Glaucoma Open-angle Primary Right Eye, Glaucoma Open- angle Primary Left Eye VISUAL FIELD 24-2 Shawn Mccord MD [facility] 12:05PM 12:38PM 9 Month Follow-Up Shawn Mccord MD [facility] 06/2020 11:48AM 12:39PM Rx Refills/Changes Shawn [...] Effective Da tiffany 1 - Medicare Part [facility] ([facility]) [id number] Rosario burnett Self 2 - UMR Care Management /PRIOR AUTHS NEEDED [id number] Kimberley Castro Self Advance Directives Includes: Current Advance DirectivesNo Advance Directives Recorded Health Concerns Includes: Active Health ConcernsNo Active Health Concerns Recorded Goals Includes: Active GoalsNo Active Goals Recorded Interventions Includes: Interventions for active GoalsNo Interventions Recorded Evaluations & Outcomes Includes: Evaluations & Outcomes for active GoalsNo Outcomes Recorded
--- OUTSIDE RECORDS SUMMARY | 2021-03-22 13:52 | CCD ---
Author Author Vijay Cee MD [facility] Organization Vijay Cee MD [facility] Address [address] [address] Phone Care Team Providers Care Cardiopulmonary Specialist Name Role Phone Tien Cerna Unavailable [phone] Tien Cerna MD PP [phone] Jaye CARDENAS, FACS, Vijay Segura Unavailable [phone] Reason for Referral No Reason for Referral [...] eye 6 Month Follow -Up with Shawn Frenando DO 05/12/2019 Primary open-angle glaucoma of right [...] Month Follow-Up with Visua l Field with [facility] DO 01/28/2017 Primary open-angle glaucoma of both eyes 6 Month Follo w-Up with Visual Field with [facility] DO 01/28/2017 Primary open-angle glaucoma of left eye Rx Refills/Tuyet nges with Vijay Webb MD, FACS 01/19/2017 Primary open-angle glaucoma of right eye Rx Refills/Ch anges with Vijay Webb MD, FACS 01/19/2017 Primary open-angle glaucoma of both eyes Rx Refills/Ch anges with Vijay Webb MD, FACS 12/29/2016 Primary open-angle glaucoma of left eye 3 Month Follow -Up with OCT Disc with [facility] 07/28/2016 Primary open-angle glaucoma of right eye 3 Month Follo w-Up with OCT Disc with [facility] 07/28/2016 Primary open-angle glaucoma of left eye IOP CHECK with [facility] 05/12/2016 Primary open-angle glaucoma of right eye IOP CHECK with [facility] 05/12/2016 Bilateral cortical senile cataract [...] VISUAL FIELD & OCT Shawn Ortiz MD [facility] 12/07/2020 12:05PM 12:39PM Glaucoma Open-angle Primary Right Eye, Glaucoma Open- angle Primary Left Eye VISUAL FIELD 24-2 Shawn Mccord MD [facility] 12:05PM 12:38PM 9 Month Follow-Up Shawn Mccord MD [facility] 06/2020 11:48AM 12:39PM Rx Refills/Changes Shawn King DO 10/02/2020 020 3:01PM 11/24/2019 11:59PM Rx Refills/Changes Shawn King DO 08/09/2020 020 2:52PM 11/24/2019 11:59PM Rx Refills/Changes Shawn King DO 03/13/2020 020 10:55AM 11/24/2019 11:59PM Rx Refills/Changes Shawn King DO 02/08/2020 020 8:14AM 11/24/2019 11:59PM Insurance Includes: Active Insurance Policies Plan Name Member ID Group # Subscriber Relationship Effective Da tiffany 1 - Medicare Part Health system ([facility]) [id number] Rosario burnett Self 2 - [employer] /PRIOR AUTHS NEEDED [id number] Kimberley Castro Self Advance Directives Includes: Current Advance DirectivesNo Advance Directives Recorded Health Concerns Includes: Active Health ConcernsNo Active Health Concerns Recorded Goals Includes: Active GoalsNo Active Goals Recorded Interventions Includes: Interventions for active GoalsNo Interventions Recorded Evaluations & Outcomes Includes: Evaluations & Outcomes for active GoalsNo Outcomes Recorded
--- OUTSIDE RECORDS SUMMARY | 2021-03-22 13:52 | CCD ---
Author Author Vijay Cee MD [facility] Organization Vijay Cee MD [facility] Address [address] [address] Phone Care Team Providers Care Windows And Doors Installer Name Role Phone Tien Cerna Unavailable [phone] Tien Cerna MD PP [phone] Jaye CARDENAS, FACS, Vijay Segura Unavailable [phone] Reason for Referral No Reason for Referral [...] 4 Month Follow -Up and Testing with Shwan Fernando DO 11/02/2018 Primary open-angle glaucoma of [...] Follow -Up with OCT Disc with [facility] 07/28/2016 Primary open-angle glaucoma of right eye 3 Month Follo w-Up with OCT Disc with [facility] 07/28/2016 Primary open-angle glaucoma of left eye IOP CHECK with [facility] 05/12/2016 Primary open-angle glaucoma of right eye IOP CHECK with [facility] 05/12/2016 Bilateral cortical senile cataract [...] both eyes IOP CHECK wit h Vijay eCe MD, FACS 02/19/2016 Primary open-angle glaucoma of [...] Ophthalmic Suspension 04/20/2017 - 05/13/2017 Provider: Shawn iKng DO Diagnosis: Age-related nuclear cataract, left eye [...] VISUAL FIELD & OCT Shawn Ortiz MD [facility] 12/07/2020 12:05PM 12:39PM Glaucoma Open-angle Primary Right Eye, Glaucoma Open- angle Primary Left Eye VISUAL FIELD 24-2 Shawn Mccord MD [facility] 12:05PM 12:38PM 9 Month Follow-Up Shawn Mccord MD [facility] 06/2020 11:48AM 12:39PM Rx Refills/Changes Shawn [...] Effective Da tiffany 1 - Medicare Part [facility] ([facility]) [id number] Rosario burnett Self 2 - [employer] Care Management /PRIOR AUTHS NEEDED [id number] Kimberley Castro Self Advance Directives Includes: Current Advance DirectivesNo Advance Directives Recorded Health Concerns Includes: Active Health ConcernsNo Active Health Concerns Recorded Goals Includes: Active GoalsNo Active Goals Recorded Interventions Includes: Interventions for active GoalsNo Interventions Recorded Evaluations & Outcomes Includes: Evaluations & Outcomes for active GoalsNo Outcomes Recorded
--- OUTSIDE RECORDS SUMMARY | 2021-03-22 13:53 | CCD ---
Author Author Vijay Cee MD [facility] Organization Vijay Cee MD [facility] Address [address] [address] Phone Care Team Providers Care Paint Striping Machine Operator Name Role Phone Tien Cerna Unavailable [phone] Tien Cerna MD PP [phone] Jaye CARDENAS, FACS, Vijay Segura Unavailable [phone] Reason for Referral No Reason for Referral [...] Month Follow-Up with Visua l Field with [facility] DO 01/28/2017 Primary open-angle glaucoma of both eyes 6 Month Follo w-Up with Visual Field with [facility] DO 01/28/2017 Primary open-angle glaucoma of [...] -Up with OCT Disc with [facility] 07/28/2016 Primary open-angle glaucoma of right eye 3 Month Follo w-Up with OCT Disc with [facility] 07/28/2016 Primary open-angle glaucoma of left eye IOP CHECK with [facility] 05/12/2016 Primary open-angle glaucoma of right eye IOP CHECK with [facility] 05/12/2016 Bilateral cortical senile cataract [...] Azopt 1% Ophthalmic Suspension 08/09/2020 Provider: Shawn Knig DO Diagnosis: Primary open-angle g laucoma, bilateral, [...] VISUAL FIELD & OCT Shawn Ortiz MD [facility] 12/07/2020 12:05PM 12:39PM Glaucoma Open-angle Primary Right Eye, Glaucoma Open- angle Primary Left Eye VISUAL FIELD 24-[address] [facility] 12/07/2020 12:05P M 12:38PM 9 Month Follow-Up Shawn Mccord MD [facility] 06/2020 11:48AM 12:39PM Rx Refills/Changes Shawn King DO 10/02/2020 020 3:01PM 11/24/2019 11:59PM Rx Refills/Changes Shawn King DO 08/09/2020 020 2:52PM 11/24/2019 11:59PM Rx Refills/Changes Shawn Kign DO 03/13/2020 020 10:55AM 11/24/2019 11:59PM Rx Refills/Changes Shawn King DO 02/08/2020 020 8:14AM 11/24/2019 11:59PM Insurance Includes: Active Insurance Policies Plan Name Member ID Group # Subscriber Relationship Effective Da tiffany 1 - Medicare Part [facility]) [id number] Rosario burnett Self 2 - [employer] Care Management /PRIOR AUTHS NEEDED [id number] Kimberley Castro Self Advance Directives Includes: Current Advance DirectivesNo Advance Directives Recorded Health Concerns Includes: Active Health ConcernsNo Active Health Concerns Recorded Goals Includes: Active GoalsNo Active Goals Recorded Interventions Includes: Interventions for active GoalsNo Interventions Recorded Evaluations & Outcomes Includes: Evaluations & Outcomes for active GoalsNo Outcomes Recorded
--- OUTSIDE RECORDS SUMMARY | 2021-03-22 13:54 | CCD ---
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 Name Role Phone Mo Avilez MD Unavailable Unavailable Mo Avilez MD Unavailable Unavailable Mo Avilez MD Unavailable Unavailable Mo Avilez MD Unavailable Unavailable Mo Avilez MD Unavailable Unavailable Mo Avilez MD Unavailable Unavailable JUDICATHRYN JANE MD Unavailable Unavailable CATHRYN CERNA MD Unavailable Unavailable CATHRYN CERNA MD Unavailable Unavailable CATHRYN CERNA MD Unavailable Unavailable CATHRYN CERNA MD Unavailable Unavailable CATHRYN CERNA MD Unavailable Unavailable CATHRYN CERNA MD Unavailable Unavailable CATHRYN CERNA MD Unavailable Unavailable JUDICATHRYN JANE MD Unavailable Unavailable JUDICATHRYN JANE MD Unavailable Unavailable JUDICATHRYN JANE MD Unavailable Unavailable CATHRYN CERNA MD Unavailable Unavailable JUDICATHRYN JANE MD Unavailable Unavailable JUDICATHRYN JANE MD Unavailable Unavailable JUDICATHRYN JANE MD Unavailable Unavailable JUDICATHRYN MD Unavailable Unavailable JUDICATHRYN JANE MD Unavailable Unavailable JUDIVIRGILQBOKAMINI STAUFFER MD Unavailable Unavailable JUDI, MAQBOOL EH MD Unavailable Unavailable JUDI, MAQBOOL EH MD Unavailable Unavailable JUDI, MAQBOOL EH MD Unavailable Unavailable JUDI, MAQBOOL EH MD Unavailable Unavailable JUDI, MAQBOOL EH MD Unavailable Unavailable JUDI, MAQBOOL EH MD Unavailable Unavailable JUDI, MAQBOOL EH MD Unavailable Unavailable JUDI, MAQBOOL EH MD Unavailable Unavailable JUDI, MAQBOOL EH MD Unavailable Unavailable JUDI, MAQBOOL EH MD Unavailable Unavailable JUDI, MAQBOOL EH MD Unavailable Unavailable JUDI, MAQBOOL EH MD Unavailable Unavailable JUDI, MAQBOOL EH MD Unavailable Unavailable JUDI, MAQBOOL EH MD Unavailable Unavailable JUDI, MAQBOOL EH MD Unavailable Unavailable JUDI, MAQBOOL EH MD Unavailable Unavailable JUDI, MAQBOOL EH MD Unavailable Unavailable JUDI, MAQBOOL EH MD Unavailable Unavailable JUDI, MAQBOOL EH MD Unavailable Unavailable JUDI, MAQBOOL EH MD Unavailable Unavailable JUDI, MAQBOOL EH MD Unavailable Unavailable JUDI, MAQBOOL EH MD Unavailable Unavailable JUDI, MAQBOOL EH MD Unavailable Unavailable JUDI, MAQBOOL EH MD Unavailable Unavailable JUDI, MAQBOOL EH MD Unavailable Unavailable JUDI, MAQBOOL EH MD Unavailable Unavailable JUDI, MAQBOOL EH MD Unavailable Unavailable JUDI, MAQBOOL EH MD Unavailable Unavailable JUDI, MAQBOOL EH MD Unavailable Unavailable JUDI, MAQBOOL EH MD Unavailable Unavailable JUDI, MAQBOOL EH MD Unavailable Unavailable JUDI, MAQBOOL EH MD Unavailable Unavailable JUDI, MAQBOOL EH MD Unavailable Unavailable JUDI, MAQBOOL EH MD Unavailable Unavailable JUDI, MAQBOOL EH MD Unavailable Unavailable JUDI, MAQBOOL EH MD Unavailable Unavailable JUDI, MAQBOOL EH MD Unavailable Unavailable JUDI, MAQBOOL EH MD Unavailable Unavailable JUDI, MAQBOOL EH MD Unavailable Unavailable JUDI, MAQBOOL EH MD Unavailable Unavailable JUDI, MAQBOOL EH MD Unavailable Unavailable JUDI, MAQBOOL EH MD Unavailable Unavailable JUDI, MAQBOOL EH MD Unavailable Unavailable JUDI, MAQBOOL EH MD Unavailable Unavailable JUDI, MAQBOOL EH MD Unavailable Unavailable JUDI, MAQBOOL EH MD Unavailable Unavailable JUDI, MAQBOOL EH MD Unavailable Unavailable JUDI, MAQBOOL EH MD Unavailable Unavailable JUDI, MAQBOOL EH MD Unavailable Unavailable JUDI, MAQBOOL EH MD Unavailable Unavailable JUDI, MAQBOOL EH MD Unavailable Unavailable JUDI, MAQBOOL EH MD Unavailable Unavailable JUDI, MAQBOOL EH MD Unavailable Unavailable JUDI, MAQBOOL EH MD Unavailable Unavailable JUDI, MAQBOOL EH MD Unavailable Unavailable JUDI, MAQBOOL EH MD Unavailable Unavailable JUDI, MAQBOOL EH MD Unavailable Unavailable JUDI, MAQBOOL EH MD Unavailable Unavailable JUDI, MAQBOOL EH MD Unavailable Unavailable JUDI, MAQBOOL EH MD Unavailable Unavailable TURRIN, JOSE Unavailable Unavailable TURRIN, JOSE Unavailable Unavailable TURRIN, JOSE Unavailable Unavailable TURRIN, JOSE Unavailable Unavailable [place], [place]elmira SENIOR CONSULTING MANAGER Unavailable Unavailable [place], [place]ira SENIOR CONSULTING MANAGER Unavailable Unavailable [place], [place]ira SENIOR CONSULTING MANAGER Unavailable Unavailable [place], [place] SENIOR CONSULTING MANAGER Unavailable Unavailable [place], [place] SENIOR CONSULTING MANAGER Unavailable Unavailable [place], [place]ira SENIOR CONSULTING MANAGER Unavailable Unavailable [place], [place] SENIOR CONSULTING MANAGER Unavailable Unavailable [place], [place]ira SENIOR CONSULTING MANAGER Unavailable Unavailable [place], [place] SENIOR CONSULTING MANAGER Unavailable Unavailable [place], [place] SENIOR CONSULTING MANAGER Unavailable Unavailable [place], [place] SENIOR CONSULTING MANAGER Unavailable Unavailable [place], [place] SENIOR CONSULTING MANAGER Unavailable Unavailable [place], [place] SENIOR CONSULTING MANAGER Unavailable Unavailable [place], [place] SENIOR CONSULTING MANAGER Unavailable Unavailable [place], [place] SENIOR CONSULTING MANAGER Unavailable Unavailable [place], [place] SENIOR CONSULTING MANAGER Unavailable Unavailable [place], [place] SENIOR CONSULTING MANAGER Unavailable Unavailable [place], [place] SENIOR CONSULTING MANAGER Unavailable Unavailable [place], [place] SENIOR CONSULTING MANAGER Unavailable Unavailable [place], [place] SENIOR CONSULTING MANAGER Unavailable Unavailable [place], [place] SENIOR CONSULTING MANAGER Unavailable Unavailable [place], [place] SENIOR CONSULTING MANAGER Unavailable Unavailable [place], [place] SENIOR CONSULTING MANAGER Unavailable Unavailable [place], [place] SENIOR CONSULTING MANAGER Unavailable Unavailable [place], [place]ira SENIOR CONSULTING MANAGER Unavailable Unavailable [place], [place] SENIOR CONSULTING MANAGER Unavailable Unavailable [place], [place] SENIOR CONSULTING MANAGER Unavailable Unavailable [place], [place] SENIOR CONSULTING MANAGER Unavailable Unavailable [place], [place] SENIOR CONSULTING MANAGER Unavailable Unavailable [place], [place] SENIOR CONSULTING MANAGER Unavailable Unavailable [place], [place] SENIOR CONSULTING MANAGER Unavailable Unavailable [place], [place] SENIOR CONSULTING MANAGER Unavailable Unavailable [place], [place]ira SENIOR CONSULTING MANAGER Unavailable Unavailable [place], [place] SENIOR CONSULTING MANAGER Unavailable Unavailable [place], [place]ira SENIOR CONSULTING MANAGER Unavailable Unavailable [place], [place] SENIOR CONSULTING MANAGER Unavailable Unavailable Sivakumar Carrion MD Unavailable Unavailable Sivakumar Carrion MD Unavailable Unavailable Sivakumar Carrion MD Unavailable Unavailable Sivakumar Carrion MD Unavailable Unavailable Sivakumar Carrion MD Unavailable Unavailable Sivakumar Carrion MD Unavailable Unavailable Sivakumar Carrion MD Unavailable Unavailable Sivakumar Carrion MD Unavailable Unavailable Sivakumar Carrion MD Unavailable Unavailable Sivakumar Carrion MD Unavailable Unavailable Sivakumar Carrion MD Unavailable Unavailable Sivakumar Carrion MD Unavailable Unavailable Sivakumar Carrion MD Unavailable Unavailable Sivakumar Carrion MD Unavailable Unavailable Sivakumar Carrion MD Unavailable Unavailable Sivakumar Carrion MD Unavailable Unavailable Sivakumar Carrion MD Unavailable Unavailable Sivakumar Carrion MD Unavailable Unavailable Sivakumar Carrion MD Unavailable Unavailable Sivakumar Carrion MD Unavailable Unavailable Sivakumar Carrion MD Unavailable Unavailable Sivakumar Carrion MD Unavailable Unavailable Sivakumar Carrion MD Unavailable Unavailable Sivakumar Carrion MD Unavailable Unavailable Sivakumar Carrion MD Unavailable Unavailable Sivakumar Carrion MD Unavailable Unavailable Sivakumar Carrion MD Unavailable Unavailable Sivakumar Carrion MD Unavailable Unavailable Fish, Sivakumar Michael MD Unavailable Unavailable Fish, Sivakumar Michael MD Unavailable Unavailable Fish, B Fernanda CARDENAS Unavailable Unavailable Fish, B Fernanda CARDENAS Unavailable Unavailable Fish, B Fernanda CARDENAS Unavailable Unavailable Fish, B Fernanda CARDENAS Unavailable Unavailable Fish, Sivakumar Michael MD Unavailable Unavailable Fish, Sivakumar Michael MD Unavailable Unavailable Fish, B Fernanda CARDENAS Unavailable Unavailable Fish, B Fernanda CARDENAS Unavailable Unavailable Fish, B Fernanda CARDENAS Unavailable Unavailable Fish, B Fernanda CARDENAS Unavailable Unavailable Fish, B Fernanda CARDENAS Unavailable Unavailable Fish, B Fernanda CARDENAS Unavailable Unavailable Fish, B Fernanda CARDENAS Unavailable Unavailable Fish, B Fernanda CARDENAS Unavailable Unavailable Fish, B Fernanda CARDENAS Unavailable Unavailable Fish, B Fernanda CARDENAS Unavailable Unavailable Fish, B Fernanda CARDENAS Unavailable Unavailable Fish, B Fernanda CARDENAS Unavailable Unavailable Fish, B Fernanda CARDENAS Unavailable Unavailable Fish, B Fernanda CARDENAS Unavailable Unavailable Fish, B Fernanda CARDENAS Unavailable Unavailable Fish, B Fernanda CARDENAS Unavailable Unavailable Fish, B Fernanda CARDENAS Unavailable Unavailable Fish, B Fernanda CARDENAS Unavailable Unavailable Fish, B Fernanda CARDENAS Unavailable Unavailable Fish, B Fernanda CARDENAS Unavailable Unavailable Fish, B Fernanda CARDENAS Unavailable Unavailable Fish, B Fernanda CARDENAS Unavailable Unavailable Fish, B Fernanda CARDENAS Unavailable Unavailable Fish, B Fernanda CARDENAS Unavailable Unavailable Fish, B Fernanda CARDENAS Unavailable Unavailable Fish, B Fernanda CARDENAS Unavailable Unavailable Fish, B Fernanda CARDENAS Unavailable Unavailable Fish, B Fernanda CRADENAS Unavailable Unavailable Fish, B Fernanda CARDENAS Unavailable Unavailable NICOLE J JILL DPM PC Unavailable Unavailable NICOLE J JILL DPM PC Unavailable Unavailable NICOLE J JILL DPM PC Unavailable Unavailable NICOLE J JILL DPM PC Unavailable Unavailable NICOLE J JILL DPM PC Unavailable Unavailable NICOLE J JILL DPM PC Unavailable Unavailable NICOLE J JILL DPM PC Unavailable Unavailable NICOLE J JILL DPM PC Unavailable Unavailable NICOLE, J JILL DPM PC Unavailable Unavailable NICOLE J JILL DPM PC Unavailable Unavailable NICOLE, J JILL DPM PC Unavailable Unavailable NICOLE, J JILL DPM PC Unavailable Unavailable NICOLE, J JILL DPM PC Unavailable Unavailable NICOLE, J JILL DPM PC Unavailable Unavailable NICOLE, J JILL DPM PC Unavailable Unavailable NICOLE, J JILL DPM PC Unavailable Unavailable NICOLE, J JILL DPM PC Unavailable Unavailable NICOLE, J JILL DPM PC Unavailable Unavailable NICOLE, J JILL DPM PC Unavailable Unavailable NICOLE, J JILL DPM PC Unavailable Unavailable NICOLE, J JILL DPM PC Unavailable Unavailable NICOLE, J JILL DPM PC Unavailable Unavailable NICOLE, J JILL DPM PC Unavailable Unavailable NICOLE, J JILL DPM PC Unavailable Unavailable NICOLE, J JILL DPM PC Unavailable Unavailable NICOLE, J J[facility] D[facility] PC Unavailable Unavailable NICOLE, J J[facility] PC Unavailable Unavailable NICOLE, J J[facility] DPM PC Unavailable Unavailable JUDI, MAQBOOL EH MD Unavailable Unavailable JUDI, MAQBOOL EH MD Unavailable Unavailable JUDI, MAQBOOL EH MD Unavailable Unavailable JUDI, MAQBOOL EH MD Unavailable Unavailable JUDI, MAQBOOL EH MD Unavailable Unavailable JUDI, MAQBOOL EH MD Unavailable Unavailable JUDI, MAQBOOL EH MD Unavailable Unavailable JUDI, MAQBOOL EH MD Unavailable Unavailable JUDI, MAQBOOL EH MD Unavailable Unavailable JUDI, MAQBOOL EH MD Unavailable Unavailable JUDI, MAQBOOL EH MD Unavailable Unavailable JUDI, MAQBOOL EH MD Unavailable Unavailable JUDI, MAQBOOL EH MD Unavailable Unavailable JUDI, MAQBOOL EH MD Unavailable Unavailable JUDI, MAQBOOL EH MD Unavailable Unavailable JUDI, MAQBOOL EH MD Unavailable Unavailable JUDI, MAQBOOL EH MD Unavailable Unavailable JUDI, MAQBOOL EH MD Unavailable Unavailable JUID, MAQBOOL EH MD Unavailable Unavailable JUDI, MAQBOOL EH MD Unavailable Unavailable JUDI, MAQBOOL EH MD Unavailable Unavailable JUDI, MAQBOOL EH MD Unavailable Unavailable JUDI, MAQBOOL EH MD Unavailable Unavailable JUDI, MAQBOOL EH MD Unavailable Unavailable JUDI, MAQBOOL EH MD Unavailable Unavailable JUDI, MAQBOOL EH MD Unavailable Unavailable JUDI, MAQBOOL EH MD Unavailable Unavailable JUDI, MAQBOOL EH MD Unavailable Unavailable JUDI, MAQBOOL EH MD Unavailable Unavailable JUDI, MAQBOOL EH MD Unavailable Unavailable JUDI, MAQBOOL EH MD Unavailable Unavailable JUDI, MAQBOOL EH MD Unavailable Unavailable JUDI, MAQBOOL EH MD Unavailable Unavailable JUDI, MAQBOOL EH MD Unavailable Unavailable JUDI, MAQBOOL EH MD Unavailable Unavailable JUDI, MAQBOOL EH MD Unavailable Unavailable JUDI, MAQBOOL EH MD Unavailable Unavailable JUDI, MAQBOOL EH MD Unavailable Unavailable JUDI, MAQBOOL EH MD Unavailable Unavailable JUDI, MAQBOOL EH MD Unavailable Unavailable JUDI, MAQBOOL EH MD Unavailable Unavailable JUDI, MAQBOOL EH MD Unavailable Unavailable JUDI, MAQBOOL EH MD Unavailable Unavailable JUDI, MAQBOOL EH MD Unavailable Unavailable JUDI, MAQBOOL EH MD Unavailable Unavailable JUDI, MAQBOOL EH MD Unavailable Unavailable JUDI, MAQBOOL EH MD Unavailable Unavailable JUDI, MAQBOOL EH MD Unavailable Unavailable JUDI, MAQBOOL EH MD Unavailable Unavailable JUDI, MAQBOOL EH MD Unavailable Unavailable JUDI, MAQBOOL EH MD Unavailable Unavailable JUDI, MAQBOOL EH MD Unavailable Unavailable JUDI, MAQBOOL EH MD Unavailable Unavailable JUDI, MAQBOOL EH MD Unavailable Unavailable JUDI, MAQBOOL EH MD Unavailable Unavailable JUDI, MAQBOOL EH MD Unavailable Unavailable JUDI, MAQBOOL EH MD Unavailable Unavailable JUDI, MAQBOOL EH MD Unavailable Unavailable JUDI, MAQBOOL EH MD Unavailable Unavailable JUDI, MAQBOOL EH MD Unavailable Unavailable JUDI, MAQBOOL EH MD Unavailable Unavailable JUDI, MAQBOOL EH MD Unavailable Unavailable JUDI, MAQBOOL EH MD Unavailable Unavailable JUDI, MAQBOOL EH MD Unavailable Unavailable JUDI, MAQBOOL EH MD Unavailable Unavailable JUDI, MAQBOOL EH MD Unavailable Unavailable JUDI, MAQBOOL EH MD Unavailable Unavailable JUDI, MAQBOOL EH MD Unavailable Unavailable JUDI, MAQBOOL EH MD Unavailable Unavailable JUDI, MAQBOOL EH MD Unavailable Unavailable JUDI, MAQBOOL EH MD Unavailable Unavailable JUDI, MAQBOOL EH MD Unavailable Unavailable JUDI, MAQBOOL EH MD Unavailable Unavailable JUDI, MAQBOOL EH MD Unavailable Unavailable JUDI, MAQBOOL EH MD Unavailable Unavailable JUDI, MAQBOOL EH MD Unavailable Unavailable JUDI, MAQBOOL EH MD Unavailable Unavailable JUDI, MAQBOOL EH MD Unavailable Unavailable ALISIA, A TAVON DO Unavailable Unavailable ALISIA, A TAVON DO Unavailable Unavailable ALISIA, A TAVON DO Unavailable Unavailable ALISIA, A TAVON DO Unavailable Unavailable ALISIA, A TAVON DO Unavailable Unavailable ALISIA, A TAVON DO Unavailable Unavailable ALISIA, A TAVON DO Unavailable Unavailable ALISIA, A TAVON DO Unavailable Unavailable ALISIA, A TAVON DO Unavailable Unavailable ALISIA, A TAVON DO Unavailable Unavailable ALISIA, A TAVON DO Unavailable Unavailable ALISIA, A TAVON DO Unavailable Unavailable ALISIA, A TAVON DO Unavailable Unavailable ALISIA, A TAVON DO Unavailable Unavailable ALISIA, A TAVON DO Unavailable Unavailable ALISIA, A TAVON DO Unavailable Unavailable ALISIA, A TAVON DO Unavailable Unavailable ALISIA, A TAVON DO Unavailable Unavailable ALISIA, A TAVON DO Unavailable Unavailable ALISIA, A TAVON DO Unavailable Unavailable ALISIA, A TAVON DO Unavailable Unavailable ALISIA, A TAVON DO Unavailable Unavailable Re-disclosure Warning The records that you are about to access may contain information from federally-assisted alcohol or drug abuse programs. If such information is present, then the following federally mandated warning applies: This information has been disclosed to you from records protected by federal confidentiality rules (42 CFR part 2). The federal rules prohibit you from making any further disclosure of this information unless further disclosure is expressly permitted by the written consent of the person to whom it pertains or as otherwise permitted by 42 CFR part 2. A general authorization for the release of medical or other information is NOT sufficient for this purpose. The Federal rules restrict any use of the information to criminally investigate or prosecute any alcohol or drug abuse patient.The records that you are about to access may contain highly sensitive health information, the redisclosure of which is protected by Article 27-F of the [facility] Public Health law. If you continue you may have access to information: Regarding HIV / AIDS; Provided by facilities licensed or operated by the [facility] Office of Mental Health; or Provided by the [facility] Office for People With Developmental Disabilities. If such information is present, then the following [facility] mandated warning applies: This information has been disclosed to you from confidential records which are protected by state law. State law prohibits you from making any further disclosure of this information without the specific written consent of the person to whom it pertains, or as otherwise permitted by law. Any unauthorized further disclosure in violation of state law may result in a fine or correction sentence or both. A general authorization for the release of medical or other information is NOT sufficient authorization for further disc losure. Allergies and Adverse Reactions Type Description Substance Reaction Status Data Source(s ) Propensity to adverse reactions DEMEROL DEMEROL [facility] Propensity to adverse reactions AVELOX AVELOX [facility] Propensity to adverse reactions SULFA (sulfonamide) SULFA (sulfonamid e) [facility] Family History Family Member Name Family Member Gender Family Member Status Date o f Status Description Data Source(s) Unknown Unknown Problem [facility] ([facility] Unknown Female Problem [facility] ([facility] Unknown Female Problem [facility] ([facility] Unknown Female Encounters Encounter Providers Location Date Indications Data Source(s ) Outpatient Attender: EH CERNA MD Medical [facility] 02/26 01:30:00 PM EDT [facility] (Eh Cerna MD) Outpatient Attender: EH CERNA MD Medical [facility] 02/06 02:30:00 PM EDT [facility] (Eh Cerna MD) Outpatient Attender: EH CERNA MD Medical [facility] 01/30 10:30:00 AM EDT [facility] (Eh Cerna MD) Outpatient Attender: EH CERNA MD Medical [facility] 01/24 03:30:00 PM EDT [facility] (Eh Cerna MD) Outpatient Attender: Liliana Mathias [facility] Main Office 01/22/2021 12:30:00 PM EDT [facility] ([facility]) Outpatient Attender: JILL RIVERA DPM PCConsultant: EH CERNA MD 01/17/2021 12:59:00 PM EDT - 01/17/2021 12:59:00 PM EDT [facility] Emergency Attender: Mo Avilez MDConsultant: EH CERNA MD 12/11/2020 08:39:00 AM EDT - 12/11/2020 10:40:00 AM EDT [facility] ital Patient discharged. Outpatient<td ID="encounterTypeDescripti onID1">VISUAL FIELD 24-2</td><td>Tavon King DO</td><td>Vijay Cee MD [facility]</td><td>12/07/2020</td><td>12:05PM</td><td>12:38PM</td><td></td> Attender: TAVON Mccord MD [facility] 12/07/2020 12:05:00 PM EDT - 12/07/2020 12:38:00 PM EDT [facility] (Vijay rubio MD [facility]) <td ID="encounterTypeDescriptionID0">MAHIN TING - VISUAL FIELD & OCT</td><td>Tavon King DO</td><td>Vijay Cee MD [facility]</td><td>12/07/2020</td><td>12:05PM</td><td>12:39PM</td><td><content ID="encounterDiagnosisID0-0">Glaucoma Open-angle Primary Right Eye</content>, <content ID="encounterDiagnosisID0-1">Glaucoma Open-angle Primary Left Eye</content></td>Outpatient Attender: TAVON Mccord MD [facility] 12/07/2020 12:05:00 PM EDT - 12/07/2020 12:39:00 PM ED T Glaucoma Open-angle Primary Left EyeGlaucoma Open-angle Primary Right EyeGlaucoma Open-angle Primary Left EyeGlaucoma Open-angle Primary Right EyeGlaucoma Open-angle Primary Left EyeGlaucoma Open-angle Primary Right EyeGlaucoma Open-angle Primary Left EyeGlaucoma Open-angle Primary Right EyeGlaucoma Open-angle Primary Left EyeGlaucoma Open-angle Primary Right EyeGlaucoma Open-angle Primary Left EyeGlaucoma Open-angle Primary Right EyeGlaucoma Open-angle Primary Left EyeGlaucoma Open-angle Primary Right EyeGlaucoma Open-angle Primary Left EyeGlaucoma Open-angle Primary Right EyeGlaucoma Open-angle Primary Left EyeGlaucoma Open-angle Primary Right EyeGlaucoma Open-angle Primary Left EyeGlaucoma Open-angle Primary Right EyeGlaucoma Open-angle Primary Left EyeGlaucoma Open-angle Primary Right EyeGlaucoma Open-angle Primary Left EyeGlaucoma Open-angle Primary Right Eye [facility] (Vijay Webb MD [facility]) Glaucoma Open-angle Primary Left Eye Glaucoma Open-angle Primary Right Eye Glaucoma Open-angle Primary Left Eye Glaucoma Open-angle Primary Right Eye Glaucoma Open-angle Primary Left Eye Glaucoma Open-angle Primary Right Eye Glaucoma Open-angle Primary Left Eye Glaucoma Open-angle Primary Right Eye Glaucoma Open-angle Primary Left Eye Glaucoma Open-angle Primary Right Eye Glaucoma Open-angle Primary Left Eye Glaucoma Open-angle Primary Right Eye Glaucoma Open-angle Primary Left Eye Glaucoma Open-angle Primary Right Eye Glaucoma Open-angle Primary Left Eye Glaucoma Open-angle Primary Right Eye Glaucoma Open-angle Primary Left Eye Glaucoma Open-angle Primary Right Eye Glaucoma Open-angle Primary Left Eye Glaucoma Open-angle Primary Right Eye Glaucoma Open-angle Primary Left Eye Glaucoma Open-angle Primary Right Eye Glaucoma Open-angle Primary Left Eye Glaucoma Open-angle Primary Right Eye Outpatient Attender: EH CERNA MD [facility] 11/29 11:30:00 AM EDT [facility] (Eh Cerna MD) <td ID="encounterTypeDescriptionID2">[facility]</td><td>Tavon King DO</td><td>Vijay Cee MD [facility]</td><td>11/23/2020</td><td>11:48AM</td><td>12:39PM</td><td></td>Outpatient Attender: TAVON Mccord MD [facility] 11/23/2020 11:48:00 AM EDT - 11/23/2020 12:39:00 PM EDT [facility] (Vijay Webb MD [facility]) Outpatient Attender: JILL RIVERA DPM PCConsultant: EH CERNA MD 11/08/2020 01:16:00 PM EDT - 11/08/2020 01:16:00 PM EDT [facility] 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 Outpatient Attender: EH CERNA MD Medical Building 06/07 10:15:00 AM EST [facility] (Eh Cerna MD) Inpatient Attender: EH CERNA [facility] fredy: JOSE DOMINGUEZConsultant: EH CERNA MD 05/02/2020 10:27:00 PM EST - 05/05/2020 12:08:00 PM [facility] Patient discharged. Outpatient Attender: EH CERNA MD 2019 10:27:00 PM EST - 05/04/2020 09:00:00 AM [facility] Outpatient Attender: JILL RIVERA DPM PCConsultant: EH CERNA MD 04/12/2020 10:41:00 AM EST - 04/12/2020 10:41:00 AM [facility] Outpatient Attender: Fernanda Carrion MD Physical Therapy 04/09 12:30:00 PM EST [facility] ([facility]) Outpatient Attender: EH CERNA MD Medical Building 04/04 01:00:00 PM EST [facility] (Eh Cerna MD) Outpatient Attender: EH CERNA MD Medical Building 02/28 01:30:00 PM EDT [facility] (Eh Cerna MD) Outpatient Attender: JILL RIVERA DPMichael PCConsultant: EH CERNA MD 02/02/2020 11:13:00 AM EDT - 02/02/2020 11:13:00 AM EDT [facility] Immunizations Vaccine Date Status Description Data Source(s) COVID-19 VACCINE Moderna 07/07/2020 12:00:00 AM EST completed [facility] Vaccine Series Complete: YESThis Data wa s Submitted to [facility] Via [employer]. COVID-19 VACCINE Moderna 06/09/2020 12:00:00 AM EST completed [facility] Vaccine Series Complete: NOThis Data was Submitted to [facility] Via [employer]. INFLUENZA VACCINE QUADRIVALENT 2019- (65 YR UP)/MF59 C.1/PF 02/02/2020 12:00:00 AM EDT completed [facility] Medications Medication Brand Name Start Date Product Form Dose Route Admi nistrative Instructions Pharmacy Instructions Status Indications Reaction Description Data Source(s) carvedilol 25 MG Oral Tablet Carvedilol 02/20/2021 12:00:00 AM EDT ORAL active [facility] (Eh Cerna MD) irbesartan 150 MG Oral Tablet Irbesartan 02/20/2021 12:00:00 AM EDT ORAL active [facility] (Eh Cerna MD) carvedilol 12.5 MG Oral Tablet Carvedilol 02/06/2021 12:00:00 AM EDT ORAL completed [facility] (Eh Cerna MD) Metoprolol Tartrate 50 MG Oral Tablet Metoprolol Tartrate 12:00:00 AM EDT completed [facility] (Eh Cerna MD) irbesartan 300 MG Oral Tablet Irbesartan 01/30/2021 12:00:00 AM EDT ORAL completed [facility] (Eh Cerna MD) irbesartan 150 MG Oral Tablet [Avapro] Avapro 01/24/2021 12:00:00 AM EDT ORAL completed [facility] (Analilia Cerna MD) Entresto 24-29 mg Oral Tablet Entresto 24-29 mg Oral Tablet 11/23/2020 12:00:00 AM EDT active Entresto [facility] (Vijay Webb MD [facility]) bimatoprost 0.1 MG/ML Ophthalmic Solutio n [Lumigan] Lumigan 0.01% Ophthalmic Solution Lumigan 0.01% Ophthalmic Solution 10/02/2020 12:00:00 AM EDT 1 active bimatoprost 0.1 MG/ML Ophthalmic Solution [Lumigan] [facility] (Vijay Webb MD [facility]) Rhopressa 0.02% Ophthalmic Solution Rhopressa 0.02% Ophthalm ic Solution 09/05/2020 12:00:00 AM EDT 1 active netarsudil 0.2 MG/ML Ophthalmic Solution [Rhopressa] [facility] (Vijay Webb MD [facility]) brinzolamide 10 MG/ML Ophthalmic Suspens ion [Azopt] Azopt 1% Ophthalmic Suspension Azopt 1% Ophthalmic Suspension 08/09/2020 12:00:00 AM EDT active brinzolamide 10 MG/ML Ophthalmic Suspension [Azopt] [facility] (Vijay Webb MD [facility]) carvedilol 3.125 MG Oral Tablet [Coreg] Coreg 05/07/2020 12:00:00 AM EST completed [facility] (Eh Cerna MD) Timolol Maleate 0.5% Ophthalmic Solution Timolol Catherine te 0.5% Ophthalmic Solution 03/13/2020 12:00:00 AM EDT active 12 HR timolol 5 MG/ML Ophthalmic Solution [facility] (Vijay Webb MD [facility]) Rhopressa 0.02% Ophthalmic Solution Rhopressa 0.02% Ophthalm ic Solution 02/08/2020 12:00:00 AM EDT 1 active netarsudil 0.2 MG/ML Ophthalmic Solution [Rhopressa] [facility] (Vijay Webb MD [facility]) Rhopressa 0.02% Ophthalmic Solution Rhopressa 0.02% Ophthalm ic Solution 02/08/2020 12:00:00 AM EDT 1 aborted netarsudil 0.2 MG/ML Ophthalmic Solution [Rhopressa] [facility] (Vjiay Webb MD [facility]) bimatoprost 0.1 MG/ML Ophthalmic Solutio n [Lumigan] Lumigan 0.01% Ophthalmic Solution Lumigan 0.01% Ophthalmic Solution 10/21/2019 12:00:00 AM EDT 1 aborted bimatoprost 0.1 MG/ML Ophthalmic Solution [Lumigan] [facility] (Vijay Webb MD [facility]) brinzolamide 10 MG/ML Ophthalmic Suspens ion [Azopt] Azopt 1% Ophthalmic Suspension Azopt 1% Ophthalmic Suspension 08/22/2019 12:00:00 AM EDT aborted brinzolamide 10 MG/ML Ophthalmic Suspension [Azopt] [facility] (Vijay Webb MD [facility]) Rhopressa 0.02% Ophthalmic Solution Rhopressa 0.02% Ophthalm ic Solution 08/15/2019 12:00:00 AM EDT 1 aborted netarsudil 0.2 MG/ML Ophthalmic Solution [Rhopressa] [facility] (Vijay Webb MD [facility]) Insurance Providers Payer name Policy type / Coverage type Policy ID Covered democrat ID Covered democrat's relationship to cesar Policy Cesar Plan Information MEDICARE [id number] SELF [id number] A POMCO [id number] SELF [id number] POMCO U [id number] Self [id number] POMCO U [id number] Self [id number] POMCO [id number] SP [id number] MEDICARE A [id number] Self [id number] A MEDICARE [id number] SP [id number] A [place] Primary [id number] Self 1 [id number] MEDICARE [id number] SP [id number] MEDICARE A [id number] Self [id number] Medicare [place] Medicare Primary [id number] Self MEDICARE 4 [id number] 1 [id number] A Medicare Part B [facility] [id number] 0 [id number] Medicare Part B [facility] [id number] 0 [id number] Pomco [id number] 0 [id number] Pom[employer] (pr) Medigap Part B [id number] 2833.0 Self [id number] [employer] (pr) Medigap Part B [id number] Family Dependent Pomco [id number] 0 [id number] UMR U [id number] Self [id number] Umr Care Management [id number] 0 [id number] UMR [facility] [id number] SP [id number] UMR [facility] [id number] SP [id number] Umr/Uhc/Pomco Medigap Part B [id number] Self [id number] Umr Commercial [id number] Self [id number] Umr Commercial [id number] Self [id number] UMR U [id number] Self [id number] Medicare Part B [facility] Other 0 [id number] Self 0 [employer] Other 0 [id number] Self 0 Medicare Part B [facility] Other 0 [id number] Self 0 UMR -O [id number] 18 [id number] MEDICARE PART A -I/P [id number] 18 [id number] MEDICARE PART A -O [id number] 18 [id number] MEDICARE PART A -O/P [id number] 18 [id number] [employer] Other 0 [id number] Self 0 Medicare Part B [facility] Other 0 [id number] Self 0 Umr (pr) Medigap Part B [id number] Self [id number] Medicare [place] Medicare Primary [id number] Self [id number] [employer] (pr) Medigap Part B [id number] Family Dependent [id number] UMR [facility] [id number] SP [id number] [place] Medigap Part B [id number] 16.0 Self [id number] Umr/Uhc/Pomco Medigap Part B [id number] [id number] [id number] Self [id number] Medicare Natl Gov't Servi Medicare Primary [id number] 2.16.840.1.936853.3.227.99.1767.86749.0 Self [id number] [employer] Medigap Part B [id number] 16.0 Self [id number] Umr/Uhc/Pomco Medigap Part B [id number] 2.16.840.1.873784.3.227.9 9.1767.45674.0 Self [id number] Medicare Natl Gov't Servi Medicare Primary [id number] 2.16.840.1.171638.3.227.99.1767.46676.0 Self [id number] [facility] Medicare Primary [id number] 2.16.840.1.231579.3.227.99.7765.76147.0 Self [id number] Umr (pr) Medigap Part B [id number] 2.16.840.1.102713.3.227.99.991.1 37590.0 Self [id number] Medicare [place] Medicare Primary [id number] 2.16.840.1.720295.3.227.99.991.242184.0 Self [id number] MEDICARE C [id number] S [id number] UMR O [id number] S [id number] MEDICARE C [id number] S [id number] A [employer] Medigap Part B [id number] 2.16840.1.261337.3.227.99.1767.474 16.0 Self [id number] Umr/Uhc/Pomco Medigap Part B [id number] 2.16840.1.437049.3.227.9 9.1767.97494.0 Self [id number] Medicare Natl Gov't Servi Medicare Primary [id number] 2.16840.1.009506.3.227.99.1767.56603.0 Self [id number] UMR U [id number] Self [id number] MEDICARE PART A [facility] [id number] 18 [id number] Pom[employer] Medigap Part B [id number] 16.0 Self [id number] Medicare Natl Gov't Servi Medicare Primary [id number] 2.0.1.386525.3.227.99.1767.89752.0 Self [id number] [facility] Medicare Primary [id number] 2.160.1.390812.3.227.99.7765.75173.0 Self [id number] POMCO [id number] 18 [id number] Medicare Part B [facility] Other 0 [id number] S elf 0 Medicare Part B [facility] Other 0 [id number] S elf 0 Medicare Part B [facility] Other 0 [id number] S elf 0 Medicare Part B of [facility] Other 0 [id number] S elf 0 Medicare [facility] Medicare Primary [id number] Self [id number] [employer] (pr) Medigap Part B [id number] .991.161794.0 Family Dependent [id number] Medicare [place] Medicare Primary [id number] 2.160.1.070004.3.227.99.991.868829.0 Self [id number] [employer] Commercial [id number] 2.16.840.1.360257.3.227.99.7765.05350.0 Self [id number] [employer] Medicare Primary [id number] 2.16.840.1.815562.3.227.99.7765.66535.0 Self [id number] POMCO-O/P [id number] 18 [id number] [employer] Commercial [id number] 2.16840.1.501970.3.227.99.7765.02976.0 Self [id number] [employer] Medicare Primary [id number] 2.16840.1.442298.3.227.99.7765.19217.0 Self [id number] MEDICARE [facility] [id number] S [id number] Pom[employer] Medigap Part B [id number].1767.474 16.0 Self [id number] Medicare Natl Gov't Servi Medicare Primary [id number] 2.16840.1.647012.3.227.99.1767.63049.0 Self [id number] Medicare Dme Supplies Medigap Part B [id number].991.76047.0 Self 1 [id number] [employer] Commercial [id number] 2.16840.1.580636.3.227.99.7765.57752.0 Self [id number] [employer] Medicare Primary [id number] 2.16840.1.128770.3.227.99.7765.57576.0 Self [id number] Medicare [place] Medicare Primary [id number] 2.16840.1.557574.3.227.99.991.017796.0 Self [id number] [employer] Commercial [id number] Self [employer] Medicare Primary [id number] Self POMCO PPO O [id number] S [id number] Medicare Dme Supplies Medigap Part B [id number] .[id number] Self MEDICARE -O/P [id number] 18 [id number] MEDICARE PART A -I/P [id number] 18 [id number] POMCO-I/P [id number] 18 [id number] Pom[employer] Medigap Part B [id number] Self Medicare [place] Medicare Primary [id number] Self POMCO [id number] SP [id number] SELF PAY 2 UNAVAILABLE 1 UNAVAILA BLE POMCO PPO 2 [id number] 1 [id number] MEDICARE [id number] SP [id number] POMCO PPO 2 [id number] 1 [id number] UMR [facility] [id number] SP [id number] MEDICARE PART A [facility] [id number] 18 [id number] UMR CO [id number] 18 [id number] UMR -PHYSICIAN [id number] 1 [id number] UMR -O/P [id number] 18 [id number] MEDICARE PART A -O/P [id number] 18 [id number] [employer] Other 0 [id number] Self 0 Medicare Part B of [facility] Other 0 [id number] Self 0 [employer] Other 0 [id number] Self 0 Medicare Part B of [facility] Other 0 [id number] Self 0 [employer] Other 0 [id number] Self 0 Medicare Part B of [facility] Other 0 [id number] Self 0 [employer] Other 0 [id number] Self 0 Medicare Part B of [facility] Other 0 [id number] Self 0 [employer] Other 0 [id number] Self 0 Medicare Part B of [facility] Other 0 [id number] Self 0 [employer] Other 0 [id number] Self 0 Medicare Part B of [facility] Other 0 [id number] Self 0 [employer] Other 0 [id number] Self 0 Medicare Part B of [facility] Other 0 [id number] Self 0 [employer] Other 0 [id number] Self 0 Medicare Part B of [facility] Other 0 [id number] Self 0 [employer] Other 0 [id number] Self 0 Medicare Part B of [facility] Other 0 [id number] Self 0 [employer] Other 0 [id number] Self 0 Medicare Part B of [facility] Other 0 [id number] Self 0 [employer] Other 0 [id number] Self 0 Problems, Conditions, and Diagnoses Code Display Name Description Problem Type Effective Dates Data Source(s) D49566 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 Diagnosis [facility] Presence of cardiac pacemaker Presence of cardiac pace maker Diagnosis 12/11/2020 08:39:00 AM [facility] Z7982 [facility] (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 Diagnosis 12/11/2020 08:39:00 AM [facility] R600 Localized edema Localized edema Diagnosis 12/11/2020 08:3 9:00 AM [facility] B70753 Unspecified asthma, uncomplicated Unspecified as thma, uncomplicated Diagnosis 12/11/2020 08:39:00 AM [facility] I509 Heart failure, unspecified Heart failure, unspecified Diagnosis 12/11/2020 08:39:00 AM [facility] I110 Hypertensive heart disease with heart fa ilure Hypertensive heart disease with heart failure Diagnosis 12/11/2020 08:39:00 AM [facility] M1712 Unilateral primary osteoarthritis, left knee Unilateral primary osteoarthritis, left knee Diagnosis 12/11/2020 08:39:00 AM [facility] S97149 Pain in left knee Pain in left knee Diagnosis 12/11/2020 08:39:00 AM [facility] L600 Ingrowing nail Ingrowing nail Diagnosis 06/21/2020 01:27: 00 PM [facility] Z58902 Pain in right foot Pain in right foot Diagnosis 01:27:00 PM [facility] L84 Corns and callosities Corns and callosities Diagnosis 06/21/2020 01:27:00 PM 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 B351 Tinea unguium Tinea unguium Diagnosis 06/21/2020 01:27:00 PM 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 F97928 Presence of other cardiac implants and g rafts Presence of other cardiac implants and grafts Diagnosis 05/04/2020 09:00:00 AM [facility] J449 Chronic obstructive pulmonary disease, u nspecified Chronic obstructive pulmonary disease, unspecified Diagnosis 05/04/2020 09:00:00 AM [facility] I4891 Unspecified atrial fibrillation Unspecified atrial fib rillation Diagnosis 05/04/2020 09:00:00 AM [facility] I5021 Acute systolic (congestive) heart failur e Acute systolic (congestive) heart failure Diagnosis 05/02/2020 10:27:00 PM 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 LEAD PM 2020 12:00:00 AM EDT [facility] (Eh Cerna MD) OFFICE OUTPATIENT VISIT 25 MINUTES 02/06/2021 12:00:00 AM EDT [facility] (Eh Cerna MD) ECG ROUTINE ECG W/LEAST 12 LDS W/I&R 01/30/2021 12:00: 00 AM EDT [facility] (Eh Cerna MD) OFFICE OUTPATIENT VISIT 25 MINUTES 01/30/2021 12:00:00 AM EDT [facility] (Eh Cerna MD) OFFICE OUTPATIENT VISIT 25 MINUTES 01/24/2021 12:00:00 AM EDT [facility] (Eh Cerna MD) OFFICE OUTPATIENT VISIT 25 MINUTES 01/22/2021 12:00:00 AM EDT [facility] ([facility] Pract[facility]ers) OFFICE OUTPATIENT VISIT 25 MINUTES 11/29/2020 12:00:00 AM EDT [facility] (Eh Cerna MD) Pare Hyperkeratotic Lesion, 2-4 11/08/2020 12:00:00 AM EDT [facility] ([facility]) Debridement Nails Any Method 1-5 11/08/2020 12:00:00 A M EDT [facility] ([facility]) INTERROGATION EVAL IN PERSON 1/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/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 LEAD PM 2020 12:00:00 AM EDT [facility] (Eh Cerna MD) Pare Hyperkeratotic Lesion, 2-4 08/30/2020 12:00:00 AM EDT [facility] ([facility]) Debridement Nails Any Method 1-5 08/30/2020 12:00:00 A M EDT [facility] ([facility]) OFFICE OUTPATIENT VISIT 25 MINUTES 08/03/2020 12:00:00 AM EST [facility] (Eh Cerna MD) INTERROGATION EVAL IN PERSON 1/DUAL/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 LEAD PM 2020 12:00:00 AM EST [facility] (Eh Cerna MD) OFFICE OUTPATIENT VISIT 15 MINUTES 07/05/2020 12:00:00 AM EST [facility] (Eh Cerna MD) Pare Hyperkeratotic Lesion, 2-4 06/21/2020 12:00:00 AM EST [facility] ([facility]) Debridement Nails Any Method 1-5 06/21/2020 12:00:00 A M EST [facility] ([facility]) OFFICE OUTPATIENT VISIT 25 MINUTES 06/07/2020 12:00:00 AM EST [facility] (Eh Cerna MD) Monitoring of Cardiac Electrical Activity, External Ap proach Monitoring of Cardiac Electrical Activity, External Approach 05/04/2020 12:00:00 AM EST [facility] Introduction of Vasopressor into Peripheral Vein, Perc utaneous Approach Introduction of Vasopressor into Peripheral Vein, Percutaneous Approach 05/04/2020 12:00:00 AM EST [facility] Pare Hyperkeratotic Lesion, 2-4 04/12/2020 12:00:00 AM EST [facility] ([facility]) Debridement Nails Any Method 1-5 04/12/2020 12:00:00 A M EST [facility] ([facility]) INTERROGATION EVAL IN PERSON 1/DUAL/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 LEAD PM 2019 12:00:00 AM EST [facility] (Eh Cerna MD) Debridement Nails Any Method 1-5 02/02/2020 12:00:00 A M EDT [facility] ([facility]) Results ID Date Data Source [id number] 12/13/2020 11:56:00 AM EDT [facility] [address] [place] [address] PHONE: [phone] FAX: [phone] Name .................. : CASTRO LASHA Armani Acct Number.................. : [id number] ROOM. ................. : MR Number ................... : [id number] Stay type ............. : E/R Discharge Date......... ... : Admit Date ......... : 12/11/20 Admit Phys .................... : SILAS Matamoros Date of ....... : 1935 Family Phys ................... : JUDI SURESH Phone .................. : [phone] Age ................................ : 85 Film# .................. .:[id number] Sex ................................. : F Unsigned transcriptions are preliminary reports and do not represent a medical or legal document KNEE COMPLETE-4 OR MORE S L [id number] COMPLETE:12/11/20 09:22 99624 Reason(s): Pain LEFT KNEE X-RAY: INDICATION: Pain. FINDINGS: A single view of the left knee was obtained. No fracture or dislocation is identified. The technologist reports that the patient could not tolerate to complete the examination. There is moderate joint space narrowing at the medial compartment of the knee with severe spurring at the medial compartment. There is moderate to severe spurring at the lateral compartment. There is chondrocalcinosis at the menisci. IMPRESSION: Technologist reports patient not able to complete examination. No fracture is seen on these views. Moderate to severe DJD. Electronically Reviewed and Signed By Edgar Heard MD , 12/13/20 11:56, TDS Transcribe Initials: DZ , Transcribe Date: 12/11/20 10:33, Dictation Date: Copy for: 010 EMERGENCY SRV Copy for: JUDI STAUFFER via modem Copy for: EMERGENCY DEPT via modem Copy for: 710 MED REC Page 1 of 1 Name Value Range Interpretation Code Description Data Mini rce(s) Supporting Document(s) ID Date Data Source [id number] 12/13/2020 11:40:00 AM EDT [facility] [address] [place] [address] PHONE: [phone] FAX: [phone] Name .................. : ELIZABETH Lomeli Acct Number.................. : [id number] ROOM. ................. : Number ................... : [id number] Stay type ............. : E/R Discharge Date......... ... : Admit Date ......... : 12/11/20 Admit Phys .................... : SILAS Matamoros Date of ....... : 1935 Family Phys ................... : JUDI DEMETRICE Phone .................. : [phone] Age ................................ : 85 Film# .................. .:[id number] Sex ................................. : F Unsigned transcriptions are preliminary reports and do not represent a medical or legal document DOPPLER UNILATERAL VENOUS 61205 COMPLETE:12/11/20 09:57 KNB 79270 Reason(s): Pain, Limb VENOUS DOPPLER ULTRASOUND OF THE LEFT LOWER EXTREMITY: INDICATION: Pain. FINDINGS: There is normal compressibility of the deep venous system from the external iliac through the popliteal vein with normal augmentation identified. IMPRESSION: No evidence for any underlying DVT. Examination dictated by ED Nava. Examination was reviewed with Kris Andersen MD, radiologist at the time of this dictation. Electronically Reviewed and Signed By KRIS ANDERSEN MD , 12/13/20 11:40, [facility] Transcribe Initials: SADI , Transcribe Date: 12/11/20 10:36, Dictation Date: Copy for: 010 EMERGENCY SRV Copy for: JUDI SURESHZA via mode Copy for: EMERGENCY DEPT via modem Copy for: 710 MED REC Page 1 of 1 Name Value Range Interpretation Code Description Data Mini rce(s) Supporting Document(s) ID Date Data Source [id number] 12/11/2020 08:39:00 AM EDT [facility] 1 OrderSheet [facility] Emergency Department [address] [place] [address] Phone #: ext- [phone] 12/11/2020 08:35 Patient: LASHA CASTRO Sex: F : 1935 Age: 85yWEIGHT:79.3 kg (S) HEIGHT:64 inches (S) BMI:30.0ALLERGIES: Darvan, Dust, MoldCHIEF COMPLAINT: painDIAGNOSIS: ArthritisLAB ORDERSOrder Description Priority Entered Acknowledged InitialedDIAGNOSTIC STUDY ORDERSOrder Description Priority Entered Acknowledged InitialedUS Lower Ext STAT 09:22 12/11/2020 Ack'd: 10:06 10:40 Beatrice LinoVenous Left Mo Avilez ; Arti Martinez RMartine(Oxygen?(No)) R.N. Reason for Study: Pain, LimbKnee Complete Left STAT 09:22 12/11/2020 09:35 Beatrice Lino(Oxygen?(No)) Mo Avilez ; R.N. Reason for Study: PainMEDICATION/IV/DRIP/FLUID ORDERSOrder Description Priority Entered Acknowledged InitialedAcetaminophen PO 09:22 12/11/2020 09:28 Beatrice Lino650 mg (NOW x1) Mo Avilez ; R.N.GENERAL ORDERSOrder Description Priority Entered Acknowledged Initialed[Electronically signed by Beatrice Lino R.N. (10:40 12/11/2020)][Electronically signed by Mo Avilez (13:38 12/11/2020)][Electronically locked by Beatrice Lino R.N. (10:40 12/11/2020)] Name Value Range Interpretation Code Description Data Mini rce(s) Supporting Document(s) ID Date Data Source [id number] 12/11/2020 08:39:00 AM EDT [facility] 1 Medication Reconciliation Report [facility] Emergency Department [address] [place] [address] Phone #: ext- [phone] 12/11/2020 08:35 Patient: LASHA CASTRO Sex: F : 1935 Age: 85yWeight: 79.3 kgHeight/Length: 64 in.BMI: 30.0ALLERGIES: Darvan, Dust, MoldThe patient's Home Medications are listed below:CONTINUE TAKING THE FOLLOWING MEDICATIONS: Aspirin 81 Oral (81 mg) Bumetanide Oral (1 mg) Cartia XT Oral (240 mg), daily Entresto Oral (24-26 mg) 1 tablet Lumigan Ophthalmic (0.01 %) OLANZapine Oral (2.5 mg) 1-1/2 tablets Rhopressa Ophthalmic (0.02 %) Timolol Maleate Oral Tylenol Oral (325 mg) 1 tablet, at bedtime Vitamin D OralThe source(s) of the original Home Medication information:Not obtained.The following Medications were given to the patient in the Emergency Department:Acetaminophen [PO] PO 650 mg, administered: 09:28 12/11/2020The following Medications were prescribed to the patient:None. 2 Medication Reconciliation Report [facility] Emergency Department [address] [place] [address] Phone #: ext- [phone] 12/11/2020 08:35 Patient: LASHA CASTRO Sex: F : 1935 Age: 85y Name Value Range Interpretation Code Description Data [facility](s) Supporting Document(s) ID Date Data Source [id number] 12/11/2020 08:39:00 AM EDT [facility] 1 Medication Administration Record [facility] Emergency Department [address] [place] [address] Phone #: ext [phone] 12/11/2020 08:35 Patient: LASHA CASTRO Sex: F : 1935 Age: 85yWeight: 79.3 kgHeight/Length: 64 inBMI: 30ALLERGIES: Darvan, Dust, Mold Date/Time Medication Administered Medication OrderedGiven ACETAMINOPHEN [PO] Acetaminophen PO 650 mg (NOW09:28 12/11/2020 Dose: 650 mg Tablets PO x1)Beatrice Lino R.N. Name Value Range Interpretation Code Description Data [facility](s) Supporting Document(s) ID Date Data Source [id number] 12/11/2020 08:39:00 AM EDT [facility] 1 General Instructions [facility] Emergency Department [address] [place] [address] Phone #: ext [phone] 12/11/2020 08:35 Patient: LASHA CASTRO Sex: F : 1935 Age: 85yAcute arthritis of the left knee due to osteoarthritis.INSTRUCTIONSWarnings: Further evaluation is necessary.GENERAL WARNINGS: Return or contact your physician immediately if your condition worsens orchanges unexpectedly, if not improving as expected, or if other problems arise.Your Current Medications: Your current home medications have been reviewed.CONTINUE TAKING THE FOLLOWING MEDICATIONS:Aspirin 81 Oral : Tablet Chewable 81 mg.Bumetanide Oral : Tablet 1 mg.Cartia XT Oral : Capsule Extended Release 24 Hour 240 mg, daily.Entresto Oral : Tablet 24-26 mg, 1 tablet.Lumigan Ophthalmic : Solution 0.01 %.OLANZapine Oral : Tablet 2.5 mg, 1-1/2 tablets.Rhopressa Ophthalmic : Solution 0.02 %.Timolol Maleate Oral.Tylenol Oral : Tablet 325 mg, 1 tablet, at bedtime.Vitamin D Oral.Understanding of the discharge instructions verbalized by patient.Follow-up with: Eh Cerna MD, Cardiology, , [address] [place] [address], [facility] Follow up in two days if not better. Call for an appointment. Reason for referral: evaluation. ADDITIONAL INFORMATIONOsteoarthritisOsteoarthritis happens when the cartilage in a joint becomes damaged and worn. This may be fromage, wear and tear, overuse of the joint, obesity, or other problems. Osteoarthritis can affect any joint.But it's most common in hands, knees, spine, hips, and feet. Symptoms include joint stiffness, andpain. It's also called degenerative joint disease.Home care 2 General Instructions [facility] Emergency Department [address] [place] [address] Phone #: ext- [phone] 12/11/2020 08:35 Patient: LASHA CASTRO Sex: F : 1935 Age: 85y When a joint is more sore than usual, rest it for a day or two. Heat can help relieve stiffness. Take a hot bath or apply a heating pad for up to 30 minutes at a time. If symptoms are worse in the morning, using heat just after awakening can help relax the muscle and soothe the joints. Ice helps relieve pain. It's often used after activity. Use a cold pack wrapped in a thin cloth on the joint for 10 to 15 minutes at a time. Alternating hot and cold can also help relieve pain. Try this for 20 minutes at a time, several times per day. Exercise helps prevent the muscles and ligaments around the joint from becoming weak. It also helps maintain function in the joint. Be as active as you can. Talk to your healthcare provider about what activity program is best for you. Excess weight puts a lot of extra strain on weight-bearing joints of the lower back, hips, knees, feet and ankles. If you are overweight, talk to your healthcare provider about a safe and effective weight loss program. Use anti-inflammatory medicines as prescribed for pain. This includes acetaminophen or NSAIDs such as ibuprofen or naproxen. Don't take NSAIDs if your healthcare provider has told you that you can't take NSAIDS because of other health problems If needed, topical or injected medicines may be recommended. Talk with your healthcare provider if these options are not enough to manage your pain. Follow the directions on all lqtm-glf-ywnluzp medicines. Talk with your healthcare provider about devices that might help improve your function and reduce pain. Talk with you healthcare provider about physical therapy to help strengthen your joints and the surrounding muscles.Follow-up careFollow up with your healthcare provider, or as advised.When to seek medical adviceCall your healthcare provider right away if any of these occur: Redness or swelling of a painful joint Discharge or pus from a painful joint Fever of 100.4F (38C) or higher, or as directed by your healthcare provider Worsening joint pain 3 General Instructions [facility] Emergency Department [address] [place] [address] Phone #: ext- [phone] 12/11/2020 08:35 [id number] Sex[facility] : 1935 Age: 85y Decreased ability to move the joint or bear weight on the joint [id number] [employer]. [address] [place] [address], [place] [id number]. All rights reserved. This information is not intended as asubstitute for professional medical care. Always follow your healthcare professional's instructions. You have been given the following additional information: Osteoarthritis(Electronically signed by Silas Mo 12/11/2020 13:38) Name Value Range Interpretation Code Description Data Mini rce(s) Supporting Document(s) ID Date Data Source [id number] 12/11/2020 08:39:00 AM EDT [facility] 1 Clinical Report - Nurses [facility] Emergency Department [address] [place] [address] Phone #: ext- [phone] 12/11/2020 08:35 Patient: LASHA CASTRO Sex: F : 1935 Age: 85yTRIAGEArrived by private vehicle. Historian: patient. Accompanied by family. ( saw md cerna on 11/30 told himabout the pain but he thought she was talking about her joint but the pain is in the back of the knee).Acuity: LEVEL 3.Chief Complaint: LEFT LOWER EXTREMITY PAIN. (left leg pain).Alert. No acute distress.No injury occurred. Onset. 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 SEPSIS SCREEN NEGATIVE. No suspected or confirmedsigns of infection present. --08:41 12/11/20 Beatrice Lino R.N.08:36 12/11/20. BP: 146/75. MAP: 98. HR: 70. RR: 18. O2 saturation: 97%. Temp: 97.4 F. Pain level now:08/01. --08:41 12/11/20 Beatrice Lino R.N.Weight: 79.3 kg stated. Height/Length: 64 inches Per Patient. BMI: 30. --08:35 12/11/20 Beatrice Lino R.N.MedicationsAspirin 81 Oral (Tablet Chewable 81 mg). Bumetanide Oral (Tablet 1 mg). Cartia XT Oral (Capsule Extended Release 24 Hour 240 mg), daily. Entresto Oral (Tablet 24-26 mg) 1 tablet. Lumigan Ophthalmic (Solution 0.01 %). OLANZapine Oral (Tablet 2.5 mg) 1-1/2 tablets. Rhopressa Ophthalmic (Solution 0.02 %). Timolol Maleate Oral. Tylenol Oral (Tablet 325 mg) 1 tablet, at bedtime. Vitamin D Oral. --08:42 12/11/20 Beatrice Lino R.N.AllergiesDarvan.Dust.Mold. --08:42 12/11/20 Beatrice Lino R.N.PROBLEMS:AV Node ablation. 2 Clinical Report - Nurses [facility] Emergency Department [address] [place] [address] Phone #: ces- [phone] 12/11/2020 08:35 Patient: LASHA CASTRO Sex: F : 1935 Age: 85yCHF.Asthma.Atrial Fibrillation.Hyperlipidemia.Hypertension.Congestive Heart Failure.Depression. --08:43 12/11/20 Beatrice Lino R.N.ADDITIONAL SURGERIES:Cystoscopy.Gallbladder Surgery.Pacemaker.Right knee.Tubal Ligation.Uterus removal.Watchman Procedure. --08:43 12/11/20 Beatrice Lino R.N.HistoryPAST MEDICAL HX: Immunizations: up-to-date. The patient is post- menopausal.SOCIAL HX: Never smoker. No alcohol use or drug use. She was offered HIV testing but declined andhepatitis C testing but declined. She has not traveled outside the [place]Infectious disease exposure: No infectious disease exposure. The patient was not exposed to Coronavirus.Patient is not a known carrier of tuberculosis, hepatitis, HIV, MRSA or VRE. Patient is not a known carrierof CRE.SELF HARM ASSESSMENT: Self harm assessment was performed. The patient answered "no" to thequestion(s) "Have you recently felt down, depressed, or hopeless?" and "Do you have thoughts of harmingor killing yourself?".ABUSE ASSESSMENT: Abuse assessment. Abuse denied. No suspicion of abuse. No report of abuse.NUTRITIONAL RISK ASSESSMENT: The nutritional risk assessment revealed no deficiencies.FUNCTIONAL ASSESSMENT: Functional assessment: no impairments noted.LEARNING NEEDS ASSESSMENT: The learning needs assessment revealed no barriers.FALL RISK ASSESSMENT: Fall risk assessment completed. No risk factors identified.SKIN INTEGRITY ASSESSMENT: Skin integrity risk assessment completed. No skin integrity riskidentified. --08:41 12/11/20 Beatrice Lino R.N.FAMILY HX:(non-contributory). --09:27 12/11/20 Mo Avilez. 3 Clinical Report - Nurses [facility] Emergency Department [address] [place] [address] Phone #: ext- [phone] 12/11/2020 08:35 Patient: LASHA CASTRO Sex: F : 1935 Age: 85y Interventions Identification band on patient. To treatment room. --08:41 12/11/20 Beatrice Lino R.N.PHYSICAL ASSESSMENTGENERAL / NEURO / PSYCH: Oriented X 4. Alert. Appears in no acute distress.EXTREMITIES: Extremity pulses are within normal limits. Neuro-vascular status intact to the extremity.No lower extremity edema. Normal gait. Left knee: tenderness (behind the knee).SKIN: Skin intact. Skin is warm and dry. --08:45 12/11/20 Beatrice Lino R.N.NURSING PROGRESS NOTESPatient gowned. Reassurance given. Two patient identifiers checked. Call light placed in reach. Siderails up x 2. Bed placed in lowest position. Brakes of bed on. Patient ready for evaluation. --08: Beatrice Lino R.N. 09:28 12/11/2020 Acetaminophen PO Tablets 650 mg given. Allergies verified and confirmed 5 rights. Information reviewed with patient including reason for taking this medication, signs of allergic reaction and precautions. Verbalizes understanding. --09:28 12/11/20 Beatrice Lino R.N. Patient transported to radiology by wheelchair with technical support agent. --09:29 12/11/20 Beatrice Lino R.N. 09:57 12/11/20. BP: 138/66. HR: 69. RR: 16. O2 saturation: 95%. --09:57 12/11/20 [employer] worker, [facility] Tech1 Care transferred and report given (Arti). --10:09 12/11/20 Beatrice Lino R.N.DISPOSITION / DISCHARGE 10:34 12/11/20. BP: 137/67. MAP: 90. HR: 71. RR: 16. O2 saturation: 95%. Temp: 98.7 F. Pain level now: 06/03. 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 No learning barriers present. Discharge instructions provided and reviewed with the patient. Reviewed referrals (dr cerna). Patient verbalized understanding. Written instructions provided in Gibraltarian. The patient was discharged home and accompanied by family. She left ambulatory and via private vehicle. Spouse driving. --10:39 12/11/20 Beatrice Lino R.N. Departure time: 10:39 12/11/2020. --10:39 12/11/20 Beatrice Lino R.N.Locked/Released at 12/11/2020 10:40 by Beatrice Lino R.N. Name Value Range Interpretation Code Description Data Mini rce(s) Supporting Document(s) ID Date Data Source [id number] 12/11/2020 08:39:00 AM EDT [facility] 1 Clinical Report - Physicians/Mid Levels [facility] Emergency Department [address] [place] [address] Phone #: ext- [phone] 12/11/2020 08:35 [id number] Sex[facility] F : 1935 Age: 85y Time Seen: 09:21 12/11/2020. Arrived- By private vehicle. Historian- patient.HISTORY OF PRESENT ILLNESS Chief Complaint: LOWER EXTREMITY PAIN. This started 3 days and is still present. Severity is described as being moderate. The quality is noted to be dull. No radiation. Modifying factors- worsened by walking. Relieved by remaining still. Symptoms located in the area of the left knee. The patient has not had redness. No swelling, bladder dysfunction or motor loss. She has had difficulty walking. ( Pain in back of left knee for almost a week, but the pain is present with walking over last 3 days. Patient was worried about blood clot in left, despite no prior history of DVT. No foot pain or numbness). Patient denies an injury. Similar symptoms previously. None. Recent medical care: The patient was seen recently in the office.REVIEW OF SYSTEMSNo chest pain, fever, back pain, vomiting or diarrhea. No easy bruising or extremity swelling. All othersystems reviewed and are negative.PAST HISTORYSee nurses notes. No history of DVT. Problems: CHF. Asthma. Atrial Fibrillation. Hyperlipidemia. Hypertension. Congestive Heart Failure. Depression. Additional Surgeries: Cystoscopy. Gallbladder Surgery. Pacemaker. Tubal Ligation. Watchman Procedure. Medications: 2 Clinical Report - Physicians/Mid Levels [facility] Emergency Department [address] [place] [address] Phone #: ext- [phone] 12/11/2020 08:35 Patient: LASHA CASTRO Sex: F : 1935 Age: 85y Aspirin 81 Oral (Tablet Chewable 81 mg). Bumetanide Oral (Tablet 1 mg). Cartia XT Oral (Capsule Extended Release 24 Hour 240 mg), daily. Entresto Oral (Tablet 24-26 mg) 1 tablet. Lumigan Ophthalmic (Solution 0.01 %). OLANZapine Oral (Tablet 2.5 mg) 1-1/2 tablets. Rhopressa Ophthalmic (Solution 0.02 %). Timolol Maleate Oral. Tylenol Oral (Tablet 325 mg) 1 tablet, at bedtime. Vitamin D Oral. Allergies: Darvan. Dust. Mold.SOCIAL HISTORYNever smoker.FAMILY HISTORY(non-contributory).ADDITIONAL NOTESThe nursing notes have been reviewed.PHYSICAL EXAMVital Signs: 12/11/2020 08:36 BP: 146/75. MAP: 98. HR: 70. RR: 18. O2 saturation: 97%. Temp: 97.4 F.Pain level now: 10.Appearance: Alert. No acute distress.Eyes: Pupils equal, round and reactive to light. Eyes normal inspection.Neck: Normal inspection.CVS: Normal heart rate. 2/6 systolic murmur.Respiratory: No respiratory distress. Painless inspiration. Breath sounds normal.Abdomen: Soft and nontender.Back: Normal inspection. No tenderness.Skin: Skin warm. Normal skin color.Extremities: Lower extremity edema present. (Pain with ROM of left knee. No effusion. Some fullnessand soft tissue swelling to anterior aspect of left knee). Extremities otherwise negative.Gait: Normal gait. She was able to bear weight.Neuro: Oriented X 3. No motor deficit. No sensory deficit.LABS, X-RAYS, AND EKGLaboratory Tests: US Lower Ext Venous Left: (OLIVA: 12/11/2020 09:22) ( MsgRcvd 12/11/2020 10:37) In Progress US DOPPLER UNILATERAL VENOUS LEG LT 3 Clinical Report - Physicians/Mid Levels [facility] Emergency Department [address] [place] [address] Phone #: ext- [phone] 12/11/2020 08:35 Patient: LASHA CASTRO Sex: F : 1935 Age: 85yReason(s): Pain, LimbTRANSPORTATION: S IV? O2? Oxygen?(No) Room: ED Exam US DOPPLER UNILATERAL VENOUS LEG LT [facility] [address] [place] [address] PHONE: FAX: [phone] Name .................. : ELIZABETH Lomeli Acct Number.................. : [id number] ROOM. ................. : Number ................... : [id number] Stay type ............. : E/R Discharge Date......... ... : Admit Date ......... : 12/11/20 Admit Phys .................... : SILAS Matamoros Date of ....... : 1935 Family Phys ................... : JUDI DEMETRICE Phone .................. : [phone] Age ....... ......................... : 85 Film# .................. .:[id number] Sex ................................. : F Unsigned transcriptions are preliminary reports and do not represent a medical or legal document US DOPPLER UNILATERAL VENOUS [id number] COMPLETE:12/11/20 09:57 KNB [id number] Reason(s): Pain, Limb VENOUS DOPPLER ULTRASOUND OF THE LEFT LOWER EXTREMITY: INDICATION: Pain. FINDINGS: There is normal compressibility of the deep venous system from the external iliac through the popliteal vein with normal augmentation identified. IMPRESSION: No evidence for any underlying DVT. Examination dictated by ED Nava. Examination was reviewed with Kris Andersen MD, radiologist at the time of this dictation. Electronically Reviewed and Signed By BARRETT KO GMM Transcribe Initials: DZ , Transcribe Date: 12/11/20 10:36, Dictation Date: <<REPDIST>> Page 1of 1Knee Complete Left: (OLIVA: 12/11/2020 09:22) ( MsgRcvd 12/11/2020 11:23) In Progress Exam KNEE COMPLETE-4 [place] [address] 4 Clinical Report - Physicians/Mid Levels [facility] Emergency Department [address] [place] [address] Phone #: ext- [phone] 12/11/2020 08:35 Patient: LASHA CASTRO Sex: F : 1935 Age: 85y PHONE: [phone] FAX: [phone] Name .................. : ELIZABTEH Lomeli Acct Number.................. : [id number] ROOM. ................. : MR Number ................... : [id number] Stay type ............. : E/R Discharge Date......... ... : Admit Date ......... : 12/11/20 Admit Phys .................... : SILAS Matamoros Date of ....... : 1935 Family Phys ................... : JUDI DEMETRICE Phone .................. : [phone] Age ................................ : 85 Film# .................. .:[id number] Sex ................................. : F Unsigned transcriptions are preliminary reports and do not represent a medical or legal document KNEE COMPLETE-4 OR MORE S L [id number] COMPLETE:12/11/20 09:22 [id number] Reason(s): Pain LEFT KNEE X-RAY: INDICATION: Pain. FINDINGS: A single view of the left knee was obtained. No fracture or dislocation is identified. The technologist reports that the patient could not tolerate to complete the examination. There is moderate joint space narrowing at the medial compartment of the knee with severe spurring at the medial compartment. There is moderate to severe spurring at the lateral compartment. There is chondrocalcinosis at the menisci. IMPRESSION: Technologist reports patient not able to complete examination. No fracture is seen on these views. Moderate to severe DJD. Electronically Reviewed and Signed By DCTNAME , SIGNDATE, TDS Transcribe Initials: SADI , Transcribe Date: 12/11/20 10:33, Dictation Date: <<REPDIST>> Page 1 of 1.PROGRESS AND PROCEDURESCourse of Care: 09:30 12/11/20. Patient has had right knee replacement and has history of osteoarthritis.Findings on exam more consistent with arthritis or will's cyst versus DVT. 10:28 12/11/20. Limited view of left knee showed moderate to severe DJD. No DVT on ultrasound. No signs of septic arthritis. Instructed to follow up with PCP. Old medical records ordered. 5 Clinical Report - Physicians/Mid Levels [facility] Emergency Department [address] [place] [address] Phone #: ext- [phone] 12/11/2020 08:35 [id number] Sex[facility] F : 1935 Age: 85y Disposition: Discharged. Condition: stable.CLINICAL IMPRESSION Acute arthritis of the left knee due to osteoarthritis.INSTRUCTIONS Warnings: Further evaluation is necessary. GENERAL WARNINGS: Return or contact your physician immediately if your condition worsens or changes unexpectedly, if not improving as expected, or if other problems arise. Your Current Medications: Your current home medications have been reviewed. CONTINUE TAKING THE FOLLOWING MEDICATIONS: Aspirin 81 Oral : Tablet Chewable 81 mg. Bumetanide Oral : Tablet 1 mg. Cartia XT Oral : Capsule Extended Release 24 Hour 240 mg, daily. Entresto Oral : Tablet 24-26 mg, 1 tablet. Lumigan Ophthalmic : Solution 0.01 %. OLANZapine Oral : Tablet 2.5 mg, 1-1/2 tablets. Rhopressa Ophthalmic : Solution 0.02 %. Timolol Maleate Oral. Tylenol Oral : Tablet 325 mg, 1 tablet, at bedtime. Vitamin D Oral. Understanding of the discharge instructions verbalized by patient. Follow-up with: Eh Cerna MD, Cardiology, , [address] [place] [address], [id number] Follow up in two days if not better. Call for an appointment. Reason for referral: evaluation.(Electronically signed by Mo Avilez 12/11/2020 13:38) Name Value Range Interpretation Code Description Data Mini rce(s) Supporting Document(s) ID Date Data Source [id number] 09/04/2020 08:10:00 AM EDT [facility] ([facility]) Name Value Range Interpretation Code Description Data Mini rce(s) Supporting Document(s) Fasting glucose [Moles/volume] in Serum or Plasma 140 mg/dL 70-100 Above high normal [facility] ([facility]) ID Date Data Source [id number] 09/04/2020 08:10:00 AM EDT [facility] ([facility]) Name Value Range Interpretation Code Description Data Mini rce(s) Supporting Document(s) Triglycerides Level 244 mg/dL Above high normal [facility] ([facility]) Cholesterol Level 231 mg/dL Above high normal [facility] ([facility]) LDL Cholesterol 142 mg/dL Above high normal [facility] ([facility]) HDL Cholesterol 40 mg/dL Normal (applies to non-numeric results) [facility] ([facility]) Non-HDL-C 191 mg/dL Normal (applies to non-numeric resul ts) [facility] ([facility]) Cholesterol Risk Ratio 5.775 Above high normal [facility] ([facility]) ID Date Data Source [id number] 09/04/2020 08:10:00 AM EDT [facility] ([facility]) Name Value Range Interpretation Code Description Data Mini rce(s) Supporting Document(s) Hemoglobin A1c 6.4 % Normal (applies to non-numeric r esults) [facility] <content>REFERENCE RANGES:</content><br/ ><content></content>
<content><=5.6% NORMAL</content>
<content>5.7-6.4% SUGGESTS IMPAIRED GLUCOSE METABOLISM/PREDIABETIC</content>
<content>>= 6.5% ABNORMAL</content>
<content></content> Estimated Average Glucose 137 mg/dL 60-110 Above high normal [facility] ([facility]) ID Date Data Source WW[facility] DIGITAL / DALTON BILATERAL MAMMO SCREENING (Ultraso und if indicated) 09/03/2020 12:00:00 AM EDT [facility] ([facility]) Name Value Range Interpretation Code Description Data Mini rce(s) Supporting Document(s) WWBC DIGITAL / DALTON BILAT ERAL MAMMO SCREENING (Ultrasound if indicated) [facility] ([facility]) ID Date Data Source [id number] 05/04/2020 09:35:00 [place] [address] PROGRESS NOTENAME: ELIZABETH Lomeli ROOM#: 107-1DATE OF : 1935 MR#: [id number] DATE: 05/02/20 OF SERVICE: 05/04/2020SUBJECTIVE:Patient came with dyspnea, congestive heart failure, palpitations. She has known history of atrialfibrillation. When she came her heart was beating very fast and she was short of breath. Now she feelsbetter, the heart is not beating fast. ROS: Does not notice any chest pain. No dizziness, syncope,blurred vision, diplopia, headache. No chills or fever. No cough or hemoptysis. No bowel disturbance.No ankle edema.OBJECTIVE:On exam, moderately built. Blood pressure was 130/80. Head is normal. Heart rate is now 70. Lungshave rales at the right base. Abdomen soft. Extremities normal.ASSESSMENT/PLAN:The patient has the following issues:1. Congestive heart failure, symptomatic. She has orthopnea, paroxysmal nocturnal dyspnea. Plan to continue Lasix 40 mg bid.2. History of palpitations.3. Known history of atrial fibrillation. She is on Cardizem-CD 240 mg daily. Plan is to add Coreg 3.125 mg bid po to prevent rapid atrial fibrillation. So far monitoring with Telemetry monitoring there is no rapid heartbeat.4. Serum potassium is 3.8. We will add KCL 20 mEq tid po. Coreg 3.125 mg bid has been added to prevent any further rapid ventricular rate.DD: Eh Cerna MD, 05/04/20 09:08DT: SSR 05/04/20 09:35DS: Eh Cerna MD, PC 05/10/20 08:56 1 Name Value Range Interpretation Code Description Data Mini rce(s) Supporting Document(s) ID Date Data Source [id number] 05/03/2020 12:18:00 [place] [address] PROGRESS NOTENAME: ELIZABETH Lomeli ROOM#: 107-1DATE OF : 1935 MR#: [id number] DATE: 05/02/20 OF SERVICE: 05/03/2020SUBJECTIVE:Patient came with dyspnea, palpitations. She has known atrial fibrillation, history of permanent pacemaker.Comes in with tiredness and dyspnea, has been having palpitations. Denied any chest pain.ROS: She has some orthopnea and wheezing. No chills or fever. No cough or hemoptysis. No boweldisturbance. No urinary problem. No ankle edema.OBJECTIVE:On exam, moderately built. Blood pressure was 143/80, oxygen saturation 98%. Head is normal.Pupils normal. Mouth normal. Tongue dry. Neck is supple. No lymphadenopathy. Thyroid notenlarged. Neck veins are not distended. No carotid bruits. Chest symmetrical. Heart rate is 70. Nomurmur or gallop. Lungs have mild crackles at the bases. Abdomen is soft. Extremities normal.Peripheral pulses palpable. No pitting edema. Neurologically normal.LABORATORY DATA:Lab tests showed that the EKG showed a paced rhythm. Labs today showed sodium 137, potassium3.8, BUN 18, creatinine 0.7, hemoglobin 12.8.ASSESSMENT:Patient has the following issues:1. Palpitations, history of atrial fibrillation.2. Congestive heart failure.3. 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 We will continue Lasix 40 mg bid IV here forcongestive heart failure. Monitor her cardiac rhythm for atrial fibrillation.DD: Eh Cerna MD, PC 05/03/20 09:31DT: [facility] 05/03/20 12:18DS: Eh Cerna MD, PC 05/10/20 08:56 1 [place] [address] PROGRESS NOTENAME: ELIZABETH Lomeli ROOM#: 107-1DATE OF : 1935 MR#: [id number] DATE: 05/02/20 2 Name Value Range Interpretation Code Description Data Mini rce(s) Supporting Document(s) ID Date Data Source [id number] 05/06/2020 12:06:00 AM [facility] [address] [place] [address] DISCHARGE SUMMARYNAME: ELIZABETH Lomeli ROOM#: 107-1DATE OF : 1935 MR#: [id number] PHYS: Eh Cerna MD, PC DATE: 05/02/20 DISCHARGED: 05/05/20HISTORY OF PRESENT ILLNESS:This is an 84-year-old female with history of atrial fibrillation who has had an ablation and aWatchman device. She came in with palpitations. This patient was lying in bed and suddenly thoughtshe was dyspneic and had rapid heartbeat. The rapid heartbeat was first and subsequently she wasdyspneic and she came to the emergency room. She has history of permanent pacemaker, Watchmandevice, possible AV node ablation. She was brought here by EMS. She has known hypertension also.On examin ation, blood pressure was 130/80. Head is normal. Heart is regular sinus rhythm. Lungs areclear. Abdomen is soft.LABORATORY & X-RAY DATA:Lab tests showed that the white count was 10.7, hemoglobin was 12.9. Sodium was 137, potassiumwas 3.9. A CT scan of the chest without contrast showed minimal congestive changes. I reviewed theCT scan myself. BNP was 1701. Sodium was 137, potassium was 3.9, glucose was 153, BUN was 19,creatinine was 1.0. Lipase 42. Hemoglobin was 12.9. On 05/03, sodium was 137, potassium was 3.8.On 05/04, sodium was 137, potassium was 3.8, BUN was 25, creatinine was 0.9. Blood sugar was 122.Hemoglobin was 13. EKG showed regular sinus rhythm with first degree heart block, intermittentpaced rhythm.HOSPITAL COURSE:The patient was monitored closely with telemetry monitoring. He was given Lasix 40 mg b.i.d. as shewas in mild congestive heart failure. She did response very well to IV Lasix and diltiazem was given at240 daily. Coreg was ordered at 3.125 mg b.i.d., increased. She has tachy arrhythmia, and this shouldhelp to improve the tachy arrhythmia. Entresto 24-26 mg was given for congestive heart failure at 1tablet b.i.d., Coreg at 3.125 mg b.i.d. Entresto has URBAN inhibitors. She had previous ejection fractionof 40-50%. Patient improved quite a bit. There was no arrhythmia noted, so it was decided to dischargeher and follow her in the office. She was watched closely with tele metry monitoring.DISCHARGE DIET:2-gram salt diet.DISCHARGE MEDICATIONS:1. Entresto 24-26 mg b.i.d.2. Lumigan eye drops at bedtime to both eyes3. Olanzapine 2.5 mg at bedtime4. Rhopressa 0.02% ophthalmic solution 1 drop both eyes at bedtime5. Timolol 0.5% ophthalmic solution 1 drop both eyes twice daily6. Aspirin 81 mg daily7. Azopt eye drops 3x a day 1 [place] [address] DISCHARGE SUMMARYNAME: ELIZABETH Lomeli ROOM#: 107-1DATE OF : 1935 MR#: [id number] PHYS: Eh Cerna MD, DATE: 05/02/20 DISCHARGED: 05/05/20 8. Bumex 1 mg b.i.d. 9. Cartia XT 240 mg daily 10. Tylenol p.r.n. 11. Vitamin D 1000 units daily 12. Coreg 3.125 mg b.i.d.FINAL DIAGNOSES:1. Paroxysmal atrial fibrillation2. Palpitations3. Congestive heart failure, ejection fraction of 40-50%.4. History of permanent pacemaker5. History of severe hypertension6. History of AV node ablation7. History of Watchman device8. History of bilateral cataracts9. History of [id number]. History of hcsoytjbql08. History of glaucomaDD: Eh Cerna MD, 05/05/20 08:13DT: [facility] 05/05/20 23:49DS: Eh Cerna MD, 05/10/20 08:56 2 Name Value Range Interpretation Code Description Data Mini rce(s) Supporting Document(s) ID Date Data Source [id number] 05/05/2020 11:49:00 PM EST [address] [place] [address] HISTORY AND PHYSICALNAME: ELIZABETH Lomeli ROOM#: 107-1DATE OF : 1935 MR#: [id number] PHYS: Eh Cerna MD, PC [facility]#: [id number] DATE: 05/02/20CHIEF COMPLAINT: Palpitation.HISTORY OF PRESENT ILLNESS:This is an 84-year-old female with a history of atrial fibrillation who has had an ablation, a Watchmanprocedure and has been in sinus rhythm. She has a history of congestive heart failure. She has a permanentpacemaker. She states that she began not feeling well. She felt palpitations, shortness of breath. She called theambulance. She came to the ER. Upon arrival, her blood pressure was 140/63. Heart rate was 70. Respirationswere 22. O2 saturation was 98% on nasal cannula that had been placed by EMS. She does not normally wearoxygen. She had no complaints of pain upon arrival. EKG was done which showed paced rhythm. She had nolightheadedness. No nausea, vomiting. No diaphoresis. Per the ER physician, chest x-ray showed mildcongestive heart failure, mild cardiomegaly.LABORATORY STUDIES:White count was 10.7, hemoglobin 12.9, hematocrit 38.5, platelets were 271. Sodium was 137, potassium 3.9,chloride 100, CO2 was 26, nonfasting glucose 153, BUN 19, creatinine 1.0. Lipase was 42. Protime was 14.3.INR was 1.06. PTT was 28.1. Troponin was less than 0.01. BNP was 1701. TSH was 2.98. 0.5 inch of topicalnitroglycerin ointment was placed in the ER and the patient received 60 mg of IV Lasix. The patient wasstable. Vital signs were stable. Assessment was done and patient will be admitted observation status ontelemetry to the service of Dr. Cerna for CHF for further IV diuretics and monitoring.ALLERGIES:SULFA, AVELOX, DEMEROL.SOCIAL HISTORY:The patient is . She does not smoke cigarettes. She does not drink alcohol.HOME MEDICATIONS: 1. Aspirin 81 mg p.o. daily 2. Azopt ophthalmic suspension 1 drop both eyes t.i.d. 3. Bumetanide 1 mg p.o. b.i.d. 4. Cartia XT 240 mg p.o. q h.s. 5. Entresto 24 mg-26 mg 1 p.o. b.i.d. 6. Lumigan 0.01% 1 drop each eye at bedtime 7. Olanzapine 3.75 mg q h.s. 8. Rhopressa 0.02% ophthalmic solution 1 drop both eyes at bedtime 9. Timolol 0. 5% ophthalmic solution 1 drop both eyes twice daily 10. Tylenol 650 mg p.o. q h.s. 11. Vitamin D 3000 units daily 1 [place] [address] HISTORY AND PHYSICALNAME: ELIZABETH Lomeli ROOM#: 107-1DATE OF : 1935 MR#: [id number] PHYS: Eh Cerna MD, PC DATE: 05/02/20PA MEDICAL HISTORY: 1. History of CHF, ejection fraction 40-50% 2. History of atrial fibrillation with history of AV node ablation, Watchman device and pacemaker, currently in paced rhythm 3. History of hypertension 4. History of glaucoma 5. History of Vitamin D deficiency on supplementPAST SURGICAL HISTORY: 1. AV node ablation 2. Insertion of Watchman device 3. Insertion of pacemaker 4. History of bilateral cataract surgery 5. History of cystoscopy 6. History of tubal ligation 7. HysterectomyFAMILY HISTORY:Reviewed and is noncontributory.REVIEW OF SYSTEMS:No complaint of headache. No blurred or double vision. History of glaucoma. No fever, no chills, no tinnitus.No hoarseness. No difficulty swallowing. No ligh theadedness. No vertigo. Cardiovascular: As in HPI.Respiratory: No chronic cough. No sputum production. No hemoptysis. No orthopnea. No wheeze. GI: Nonausea, vomiting or diarrhea. No hematochezia. No melena. No complaints of abdominal pain. : Nohematuria, dysuria or frequency. Musculoskeletal: No joint redness or swelling. Endocrine: No polyuria,polydipsia, polyphagia. Hematological: No history of anemia or easy bleeding or bruising. Neurological: Nohistory of seizures. No paresthesias or paralysis. Psychological: No anxiety, depression or suicidal ideation.PHYSICAL EXAMINATION:GENERAL: 84-year-old cooperative female in no acute distress.VITAL SIGNS: Weight 170 pounds. Height 64 inches. BMI 29.21. Patient is alert and oriented x3.HEENT: Pupils equal and reactive to light. EOMs are intact. Corneas and sclerae are clear. Conjunctivae arenormal. No facial asymmetry. Pharynx, tongue, and gums pink and moist. Tongue is midline.NECK: Supple without lymphadenopathy. No thyromegaly or goiter. Carotids 2+ without bruit. Jugularvenous pressure is below clavicle.HEART: Regular without murmur or gallop. 2 [place] [address] HISTORY AND PHYSICALNAME: ELIZABETH Lomeli ROOM#: 107-1DATE OF : 1935 MR#: [id number] PHYS: Eh Cerna MD, DATE: 05/02/20ABDOMEN: Benign. Bowel sounds are positive./RECTAL: Not done.EXTREMITIES: +1 bilateral lower extremity edema. Peripheral pulses equal and palpable bilaterally. Skin iswarm and dry.IMPRESSION/PLAN:CHF. IV Lasix 40 IV b.i.d. Continue Entresto. Place on telemetry. I&O. Vitals q 4 hours. Serial Troponins.EKG and chest x-ray in the AM. Patient will be admitted on telemetry to the service of Dr. Cerna onobservation status.DD: LUIS ANGEL Bronson 05/03/20 21:37DT: LUCIO 05/04/20 02:28DS: LUIS ANGEL Bronson 05/09/20 13:46 3 Name Value Range Interpretation Code Description Data Mini rce(s) Supporting Document(s) ID Date Data Source [id number] 05/09/2020 11:11:00 [place] [address] PHONE: [phone] FAX: [phone] Name .................. : ELIZABETH Lomeli Acct Number.................. : [id number] ROOM. ................. : 107-1 MR Number ................... : [id number] Stay type ............. : I/P Discharge Date......... ... : 05/05/20 Admit Date ......... : 05/02/20 Admit Phys .................... : JUDI DEMETRICE Date of ....... : 1935 Family Phys ................... : JUDI DEMETRICE Phone .................. : [phone] Age ................................ : 84 Film# .................. .:[id number] Sex ................................. : F Unsigned transcriptions are preliminary reports and do not represent a medical or legal document CHEST PORTABLE [id number] COMPLETE:05/03/20 07:01 DLA 02804 Reason(s): CHF PORTABLE CHEST X-RAY: INDICATION: Shortness of breath. FINDINGS: Examination revealed pulmonary venous hypertension and CHF. The cardiac silhouette is enlarged. A pacemaker is present over the left hemithorax with bipolar leads in satisfactory position. Atherosclerotic disease is identified in the aorta. IMPRESSION: CHF. Examination dictated by ED Nava. Examination was reviewed with Kris Andersen MD, radiologist at the time of this dictation. Electronically Reviewed and Signed By KRIS ANDERSEN MD , 05/09/20 11:11, GMMichael Transcribe Initials: DZ , Transcribe Date: 05/07/20 16:45, Dictation Date: Copy for: 710 MED REC DISCHARGED Page 1 of 1 Name Value Range Interpretation Code Description Data Mini rce(s) Supporting Document(s) ID Date Data Source [id number] 05/05/2020 06:40:00 AM EST [facility] (Eh Cerna MD) Name Value Range Interpretation Code Description Data Mini rce(s) Supporting Document(s) Laboratory test finding (navigational concept) 8.3 10^3/uL 4.2-11.0 [facility] (Eh Cerna MD) Laboratory test finding (navigational concept) Laboratory test result [facility] (Eh Cerna MD) COMPLETE BLOOD COUNT Laboratory test finding (navigational concept) 38.6 % 37.0-47.0 [facility] (Eh Cerna MD) Laboratory test finding (navigational concept) 12.7 g/dL 12.0-16.0 [facility] (Eh Cerna MD) Laboratory test finding (navigational concept) 4.20 10^6/uL 4.20-5.40 [facility] (Eh Cerna MD) Laboratory test finding (navigational concept) 30.2 pg 27.0-34.0 [facility] (Eh Cerna MD) Laboratory test finding (navigational concept) 32.9 g/dL 31.0-36.0 [facility] (Eh Cerna MD) Laboratory test finding (navigational concept) 91.9 fL 81.0-101 [facility] (Eh Cerna MD) Laboratory test finding (navigational concept) 249 10^3/uL 150-450 [facility] (Eh Cerna MD) Laboratory test finding (navigational concept) 13.3 % 11.5-14.5 [facility] (Eh Cerna MD) Laboratory test finding (navigational concept) 10.7 fL 7 .4-10.4 Above high normal [facility] (Eh Cerna MD) Laboratory test finding (navigational concept) 41.4 % 2 5.0-40.0 Above high normal [facility] (Eh Cerna MD) Laboratory test finding (navigational concept) 44.7 % 37.0-80.0 [facility] (Eh Cerna MD) Laboratory test finding (navigational concept) 10.3 % 3.0-8.0 Above high normal [facility] (Eh Cerna MD) Laboratory test finding (navigational concept) 2.9 % 0.0-7.0 [facility] (Eh Cerna MD) Laboratory test finding (navigational concept) 0.5 % 0.0-2.5 [facility] (Eh Cerna MD) Laboratory test finding (navigational concept) 3.71 10^3/uL 2.00-6.90 [facility] (Eh Cerna MD) Laboratory test finding (navigational concept) 0.0 % 0.0-0.0 [facility] (Eh Cerna MD) Laboratory test finding (navigational concept) 0.2 % 0.0-0.0 Above high normal [facility] (Eh Cerna MD) Laboratory test finding (navigational concept) 3.44 10^3/uL 0 .60-3.40 Above high normal [facility] (Eh Cerna MD) Laboratory test finding (navigational concept) 0.24 10^3/uL 0.00-0.70 [facility] (Eh Cerna MD) Laboratory test finding (navigational concept) 0.86 10^3/uL 0.00-0.90 [facility] (Eh Cerna MD) Laboratory test finding (navigational concept) 0.02 10^3/uL 0.00-0.10 [facility] (Eh Cerna MD) Laboratory test finding (navigational concept) 0.04 10^3/uL 0.00-0.20 [facility] (Eh Cerna MD) Laboratory test finding (navigational concept) 0.00 10^3/uL 0.00-0.00 [facility] (Eh Cerna MD) Laboratory test finding (navigational concept) Laboratory test result [facility] (Eh Cerna MD) Laboratory test finding (navigational concept) Laboratory test result [facility] (Eh Cerna MD) ID Date Data Source [id number] 05/05/2020 06:40:00 AM EST [facility] (Eh Cerna MD) Name Value Range Interpretation Code Description Data Mini rce(s) Supporting Document(s) Magnesium [Mass/volume] in Serum or Plasma 2.2 mg/dL 1.7-2.2 [facility] (Eh Cerna MD) ID Date Data Source [id number] 05/05/2020 06:40:00 AM EST [facility] (Eh Cerna MD) Name Value Range Interpretation Code Description Data Mini rce(s) Supporting Document(s) Laboratory test finding (navigational concept) 137 meq/L 134-153 [facility] (Eh Cerna MD) Laboratory test finding (navigational concept) Laboratory test result [facility] (Eh Cerna MD) COMPREHENSIVE METABOLIC PANEL Laboratory test finding (navigational concept) 29 meq/L 22-30 [facility] (Eh Cerna MD) Laboratory test finding (navigational concept) 102 meq/L 98-107 [facility] (Eh Cerna MD) Laboratory test finding (navigational concept) 4.4 meq/L 3.6-5.0 [facility] (Eh Cerna MD) Laboratory test finding (navigational concept) 25 mg/dL 7-21 Above high normal [facility] (Eh Cerna MD) Laboratory test finding (navigational concept) 111 mg/dL 6 5-110 Above high normal [facility] (Eh Cerna MD) Laboratory test finding (navigational concept) 0.9 mg/dL 0.7-1.5 [facility] (Eh Cerna MD) Laboratory test finding (navigational concept) 28 8-27 Above high normal [facility] (Eh Cerna MD) Laboratory test finding (navigational concept) 3.8 g/dL 3 .9-5.0 Below low normal [facility] (Eh Cerna MD) Laboratory test finding (navigational concept) 6.1 g/dL 6 .3-8.2 Below low normal [facility] (Eh Cerna MD) Laboratory test finding (navigational concept) 1.7 0.8-2.0 [facility] (Eh Cerna MD) Laboratory test finding (navigational concept) 10.1 mg/dL 8.4-10.2 [facility] (Eh Cerna MD) Laboratory test finding (navigational concept) 2.3 GM/DL 2 .4-3.2 Below low normal [facility] (Eh Cerna MD) Laboratory test finding (navigational concept) Laboratory test resu lt 0.2-1.3 [facility] (Eh Cerna MD) Laboratory test finding (navigational concept) 12 U/L 5-40 [facility] (Eh Cerna MD) Laboratory test finding (navigational concept) 56 U/L 38-126 [facility] (Eh Cerna MD) Laboratory test finding (navigational concept) 84 yrs [facility] (Eh Cerna MD) Laboratory test finding (navigational concept) 10 U/L 7-56 [facility] (Eh Cerna MD) Laboratory test finding (navigational concept) 6.0 mmol/L 8 .0-16.0 Below low normal [facility] (Eh Cerna MD) Laboratory test finding (navigational concept) Laboratory test result [facility] (Eh Cerna MD) Male GFR Interprentation 20-49 yrs >60 mL/min Normal 50-59 yrs >56 mL/min Normal 60-69 yrs >49 mL/min Normal 70-79yrs >42 mL/min Normal 80 and above >35 mL/min Normal Female GFR Interpretation 20-39 yrs >60 mL/min Normal 40-49 yrs >58 mL/min Normal 50-59 yrs >51 mL/min Normal 60-69 yrs >45 mL/min Normal 70-79 yrs >39 mL/min Normal 80 and above >32 mL/min Normal Laboratory test finding (navigational concept) Laboratory test result [facility] (Eh Cerna MD) ID Date Data Source [id number] 05/05/2020 06:40:00 AM EST [facility] (Eh Cerna MD) Name Value Range Interpretation Code Description Data Mini rce(s) Supporting Document(s) Natriuretic peptide.B prohormone N-Terminal [Mass/volu me] in Serum or Plasma 1080 pg/mL 0-450 Above high normal [facility] (Eh Cerna MD) ID Date Data Source [id number] 05/05/2020 08:52:00 AM EST [facility] Name Value Range Interpretation Code Description Data Mini rce(s) Supporting Document(s) COMPREHENSIVE METABOLIC PANEL [facility] COMPREHENSIVE METABOLIC PANEL Sodium [Moles/volume] in Serum or Plasma 137 mEq/L 134 - 153 [facility] Potassium [Moles/volume] in Serum or Plasma 4.4 mEq/L 3.6 - 5.0 [facility] Chloride [Moles/volume] in Serum or Plasma 102 mEq/L 98 - 107 [facility] Carbon dioxide, total [Moles/volume] in Serum or Plasma 29 MEQ/L 22 - 30 [facility] Glucose [Mass/volume] in Serum or Plasma 111 MG/DL 65 - 110 H [facility] BUN 25 [facility]DL 7 - [facility] Creatinine [Mass/volume] in Serum or Plasma 0.9 MG/DL 0.7 - 1.5 [facility] BUN/CREAT 28 8 - 27 H [facility] Protein [Mass/volume] in Serum or Plasma 6.1 G/DL 6.3 - 8.2 L [facility] Albumin [Mass/volume] in Serum or Plasma 3.8 G/DL 3.9 - 5.0 L [facility] Globulin [Mass/volume] in Serum by calculation 2.3 GM/DL 2.4 - 3.2 L [facility] A/G RATIO 1.7 0.8 - 2.0 [facility] Calcium [Mass/volume] in Serum or Plasma 10.1 MG/DL 8.4 - 10.2 [facility] Bilirubin.total [Mass/volume] in Serum or Plasma <0.7 MG/DL 0.2 - 1.3 [facility] Alkaline phosphatase [Enzymatic activity/volume] in Serum or Plasma 56 U/L 38 - 126 [facility] Aspartate aminotransferase [Enzymatic activity/volume] in Serum or Plasma 12 U/L 5 - 40 [facility] Alanine aminotransferase [Enzymatic activity/volume] in Seru m or Plasma 10 U/L 7 - 56 [facility] Anion gap 3 in Serum or Plasma 6.0 mmol/L 8.0 - 16.0 L [facility] AGE 84 yrs [facility] NON-AA GFR >60 mL/min [facility] AFR AMER GFR >60 [facility] Male GFR In terprentation 20-49 yrs >60 mL/min Normal 50-59 yrs >56 mL/min Normal 60-69 yrs >49 mL/min Normal 70-79yrs >42 mL/min Normal 80 and above >35 mL/min Normal Female GFR Interpretation 20-39 yrs >60 mL/min Normal 40-49 yrs >58 mL/min Normal 50-59 yrs >51 mL/min Normal 60-69 yrs >45 mL/min Normal 70-79 yrs >39 mL/min Normal 80 and above >32 mL/min Normal ID Date Data Source [id number] 05/05/2020 08:52:00 AM [facility] Name Value Range Interpretation Code Description Data Mini rce(s) Supporting Document(s) BNP 1080 PG/ML 0 - 450 [facility] ID Date Data Source [id number] 05/05/2020 08:52:00 AM [facility] Name Value Range Interpretation Code Description Data Mini rce(s) Supporting Document(s) Magnesium [Mass/volume] in Serum or Plasma 2.2 MG/DL 1.7 - 2.2 [facility] ID Date Data Source [id number] 05/05/2020 08:46:00 AM [facility] Name Value Range Interpretation Code Description Data Mini rce(s) Supporting Document(s) CBC W/AUTOMATED DIFF [facility] COMPLETE BLOOD COUNT Leukocytes [#/volume] in Blood by Automated count 8.3 10^3/uL 4.2 - 1 1.0 [facility] Erythrocytes [#/volume] in Blood by Automated count 4.20 10^6/uL 4. 20 - 5.40 [facility] Hemoglobin [Mass/volume] in Blood 12.7 g/dL 12.0 - 16.0 [facility] Hematocrit [Volume Fraction] of Blood by Automated count 38.6 % 3 7.0 - 47.0 [facility] Erythrocyte mean corpuscular volume [Entitic volume] by Auto mated count 91.9 fL 81.0 - 101 [facility] Erythrocyte mean corpuscular hemoglobin [Entitic mass] by Automated count 30.2 pg 27.0 - 34.0 [facility] Erythrocyte mean corpuscular hemoglobin concentration [Mass/volume] by Automated count 32.9 g/dL 31.0 - 36.0 [facility] Erythrocyte distribution width [Ratio] by Automated count 13.3 % 11.5 - 14.5 [facility] Platelets [#/volume] in Blood by Automated count 249 10^3/uL 150 - 45 0 [facility] Platelet mean volume [Entitic volume] in Blood by Automated count 10.7 fL 7.4 - 10.4 H [facility] Neutrophils/100 leukocytes in Blood by Automated count 44.7 % 37. 0 - 80.0 [facility] Lymphocytes/100 leukocytes in Blood by Manual count 41.4 % 25.0 - 40.0 H [facility] Monocytes/100 leukocytes in Blood by Automated count 10.3 % 3.0 - 8.0 H [facility] Eosinophils/100 leukocytes in Blood by Automated count 2.9 % 0.0 - 7.0 [facility] Basophils/100 leukocytes in Blood by Automated count 0.5 % 0.0 - 2.5 [facility] %IG 0.2 % 0.0 - 0.0 [facility] %NRBC 0.0 % 0.0 - 0.0 [facility] al Neutrophils [#/volume] in Blood by Automated count 3.71 10^3/uL 2.00 - 6.90 [facility] Lymphocytes [#/volume] in Blood by Automated count 3.44 10^3/uL 0.60 - 3.40 H [facility] Monocytes [#/volume] in Blood by Automated count 0.86 10^3/uL 0.00 - 0.90 [facility] Eosinophils [#/volume] in Blood by Automated count 0.24 10^3/uL 0.00 - 0.70 [facility] Basophils [#/volume] in Blood by Automated count 0.04 10^3/uL 0.00 - 0.20 [facility] #IG 0.02 10^3/uL 0.00 - 0.10 [facility] ospital #NRBC 0.00 10^3/uL 0.00 - 0.00 [facility] MANUAL DIFF NOT INDICATED [facility] RBC MORPH NOT INDICATED [facility] ID Date Data Source [id number] 05/04/2020 02:35:00 PM EST [facility] [address] [place] [address] PHONE: [phone] FAX: [phone] Name .................. : ELIZABETH Lomeli Acct Number.................. : [id number] ROOM. ................. : 107-1 MR Number ................... : [id number] Stay type ............. : O/P Discharge Date......... ... : Admit Date ......... : 05/02/20 Admit Phys .................... : JUDI DEMETRICE Date of ....... : 1935 Family Phys ................... : JUDI DEMETRICE Phone .................. : [phone] Age ................................ : 84 Film# .................. .[id number] Sex ................................. : F Unsigned transcriptions are preliminary reports and do not represent a medical or legal document CT THORAX W/O CONTRAST [id number] COMPLETE:05/03/20 09:32 [id number] (REASON FOR CHEST: CHF CT SCAN OF THE CHEST WITHOUT CONTRAST, 05/03/20: Comparison is December 15, 2019. FINDINGS: Imaging was performed without intravenous contrast administration. Moderate to severe cardiomegaly is seen. There is no pleural effusion. Thoracic aorta is normal in caliber. Pneumonic infiltrate or pulmonic parenchymal mass lesion is not identified. 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 There is no mediastinal or hilar adenopathy. Upper abdomen is without suggestion of acute pathology or mass. Fracture deformity or destructive osseous lesion not identified. IMPRESSION: Cardiomegaly. Acute cardiopulmonary disease not seen. 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 While performing the above CT examination, radiation dose reduction was accomplished utilizing automated exposure control, adjusting of the mA and kV based on the patient's body size and/or the use of imperative reconstructive techniques. CT dose 400.3 mGycm. Electronically Reviewed and Signed By Jo Landry MD , 05/04/20 14:35, KGG Transcribe Initials: SSR, Transcribe Date: 05/03/20 11:19, Dictation Date: Copy for: 002 [facility] Copy for: 710 [facility] REC Page 1 of 1 Name Value Range Interpretation Code Description Data Mini rce(s) Supporting Document(s) ID Date Data Source [id number] 05/04/2020 08:08:00 [place] [address] RESPIRATORY CARE REPORT ==== ---------NAME------- NUMBER SEX AGE ADMIT DISC. XRAY# F/C TYPEVALENTINE LASHA O [id number] F 84 05/02/20 [id number] MB4 O/P DATE OF : 1935 M/R# [id number] #: [id number] LOCATION: EMERGENCY DEPT EKG 11530 COMP LETE:05/03/20 01:54 T [id number] PHYSICIAN: JUDI BOONE Name Value Range Interpretation Code Description Data Mini rce(s) Supporting Document(s) ID Date Data Source [id number] 05/04/2020 05:31:00 AM EST [facility] (Eh Cerna MD) Name Value Range Interpretation Code Description Data Mini rce(s) Supporting Document(s) Laboratory test finding (navigational concept) Laboratory test result [facility] (Eh Cerna MD) COMPREHENSIVE METABOLIC PANEL Laboratory test finding (navigational concept) 136 meq/L 134-153 [facility] (Eh Cerna MD) Laboratory test finding (navigational concept) 99 meq/L 98-107 [facility] (Eh Cerna MD) Laboratory test finding (navigational concept) 3.8 meq/L 3.6-5.0 [facility] (Eh Cerna MD) Laboratory test finding (navigational concept) 25 mg/dL 7-21 Above high normal [facility] (Eh Cerna MD) Laboratory test finding (navigational concept) 122 mg/dL 6 5-110 Above high normal [facility] (Eh Cerna MD) Laboratory test finding (navigational concept) 27 meq/L 22-30 [facility] (Eh Cerna MD) Laboratory test finding (navigational concept) 28 8-27 Above high normal [facility] (Eh Cerna MD) Laboratory test finding (navigational concept) 5.9 g/dL 6 .3-8.2 Below low normal [facility] (Eh Cerna MD) Laboratory test finding (navigational concept) 0.9 mg/dL 0.7-1.5 [facility] (Eh Cerna MD) Laboratory test finding (navigational concept) 3.9 g/dL 3.9-5.0 [facility] (Eh Cerna MD) Laboratory test finding (navigational concept) 2.0 GM/DL 2 .4-3.2 Below low normal [facility] (Eh Cerna MD) Laboratory test finding (navigational concept) Laboratory test resu lt 0.2-1.3 [facility] (Eh Cerna MD) Laboratory test finding (navigational concept) 9.7 mg/dL 8.4-10.2 [facility] (Eh Cerna MD) Laboratory test finding (navigational concept) 2.0 0.8-2.0 [facility] (Eh Cerna MD) Laboratory test finding (navigational concept) 12 U/L 5-40 [facility] (Eh Cerna MD) Laboratory test finding (navigational concept) 58 U/L 38-126 [facility] (Eh Cerna MD) Laboratory test finding (navigational concept) 10 U/L 7-56 [facility] (Eh Cerna MD) Laboratory test finding (navigational concept) 84 yrs [facility] (Eh Cerna MD) Laboratory test finding (navigational concept) 10.0 mmol/L 8.0-16.0 [facility] (Eh Cerna MD) Laboratory test finding (navigational concept) Laboratory test result [facility] (Eh Cerna MD) Laboratory test finding (navigational concept) Laboratory test result [facility] (Eh Cerna MD) Male GFR Interprentation 20-49 yrs >60 mL/min Normal 50-59 yrs >56 mL/min Normal 60-69 yrs >49 mL/min Normal 70-79yrs >42 mL/min Normal 80 and above >35 mL/min Normal Female GFR Interpretation 20-39 yrs >60 mL/min Normal 40-49 yrs >58 mL/min Normal 50-59 yrs >51 mL/min Normal 60-69 yrs >45 mL/min Normal 70-79 yrs >39 mL/min Normal 80 and above >32 mL/min Normal ID Date Data Source [id number] 05/04/2020 05:31:00 AM EST [facility] (Eh Cerna MD) Name Value Range Interpretation Code Description Data Mini rce(s) Supporting Document(s) Laboratory test finding (navigational concept) Laboratory test result [facility] (Eh Cerna MD) COMPLETE BLOOD COUNT Laboratory test finding (navigational concept) 4.25 10^6/uL 4.20-5.40 [facility] (Eh Cerna MD) Laboratory test finding (navigational concept) 9.4 10^3/uL 4.2-11.0 [facility] (Eh Cerna MD) Laboratory test finding (navigational concept) 91.5 fL 81.0-101 [facility] (Eh Cerna MD) Laboratory test finding (navigational concept) 38.9 % 37.0-47.0 [facility] (Eh Cerna MD) Laboratory test finding (navigational concept) 13.0 g/dL 12.0-16.0 [facility] (Eh Cerna MD) Laboratory test finding (navigational concept) 13.5 % 11.5-14.5 [facility] (Eh Cerna MD) Laboratory test finding (navigational concept) 30.6 pg 27.0-34.0 [facility] (Eh Cerna MD) Laboratory test finding (navigational concept) 33.4 g/dL 31.0-36.0 [facility] (Eh Cerna MD) Laboratory test finding (navigational concept) 52.0 % 37.0-80.0 [facility] (Eh Cerna MD) Laboratory test finding (navigational concept) 10.7 fL 7 .4-10.4 Above high normal [facility] (Eh Cerna MD) Laboratory test finding (navigational concept) 245 10^3/uL 150-450 [facility] (Eh Cerna MD) Laboratory test finding (navigational concept) 10.0 % 3.0-8.0 Above high normal [facility] (Eh Cerna MD) Laboratory test finding (navigational concept) 35.0 % 25.0-40.0 [facility] (Eh Cerna MD) Laboratory test finding (navigational concept) 0.2 % 0.0-0.0 Above high normal [facility] (Eh Cerna MD) Laboratory test finding (navigational concept) 2.2 % 0.0-7.0 [facility] (Eh Ceran MD) Laboratory test finding (navigational concept) 0.6 % 0.0-2.5 [facility] (Eh Cerna MD) Laboratory test finding (navigational concept) 4.88 10^3/uL 2.00-6.90 [facility] (Eh Cerna MD) Laboratory test finding (navigational concept) 3.29 10^3/uL 0.60-3.40 [facility] (Eh Cerna MD) Laboratory test finding (navigational concept) 0.0 % 0.0-0.0 [facility] (Eh Cerna MD) Laboratory test finding (navigational concept) 0.06 10^3/uL 0.00-0.20 [facility] (Eh Cerna MD) Laboratory test finding (navigational concept) 0.21 10^3/uL 0.00-0.70 [facility] (Eh Cerna MD) Laboratory test finding (navigational concept) 0.94 10^3/uL 0 .00-0.90 Above high normal [facility] (Eh Cerna MD) Laboratory test finding (navigational concept) 0.00 10^3/uL 0.00-0.00 [facility] (Eh Cerna MD) Laboratory test finding (navigational concept) Laboratory test result [facility] (Eh Cerna MD) Laboratory test finding (navigational concept) 0.02 10^3/uL 0.00-0.10 [facility] (Eh Cerna MD) Laboratory test finding (navigational concept) Laboratory test result [facility] (Eh Cerna MD) ID Date Data Source [id number] 05/04/2020 07:15:00 AM EST [facility] Name Value Range Interpretation Code Description Data Mini rce(s) Supporting Document(s) COMPREHENSIVE METABOLIC PANEL [facility] COMPREHENSIVE METABOLIC PANEL Sodium [Moles/volume] in Serum or Plasma 136 mEq/L 134 - 153 [facility] Potassium [Moles/volume] in Serum or Plasma 3.8 mEq/L 3.6 - 5.0 [facility] Chloride [Moles/volume] in Serum or Plasma 99 mEq/L 98 - 107 [facility] Carbon dioxide, total [Moles/volume] in Serum or Plasma 27 MEQ/L 22 - 30 [facility] Glucose [Mass/volume] in Serum or Plasma 122 MG/DL 65 - 110 H [facility] BUN 25 MG/DL 7 - 21 [facility] Creatinine [Mass/volume] in Serum or Plasma 0.9 MG/DL 0.7 - 1.5 [facility] BUN/CREAT 28 8 - 27 H [facility] al Protein [Mass/volume] in Serum or Plasma 5.9 G/DL 6.3 - 8.2 L [facility] Albumin [Mass/volume] in Serum or Plasma 3.9 G/DL 3.9 - 5.0 [facility] Globulin [Mass/volume] in Serum by calculation 2.0 GM/DL 2.4 - 3.2 L [facility] A/G RATIO 2.0 0.8 - 2.0 [facility] Calcium [Mass/volume] in Serum or Plasma 9.7 MG/DL 8.4 - 10.2 [facility] Bilirubin.total [Mass/volume] in Serum or Plasma <0.7 MG/DL 0.2 - 1.3 [facility] Alkaline phosphatase [Enzymatic activity/volume] in Serum or Plasma 58 U/L 38 - 126 [facility] Aspartate aminotransferase [Enzymatic activity/volume] in Serum or Plasma 12 U/L 5 - 40 [facility] Alanine aminotransferase [Enzymatic activity/volume] in Seru m or Plasma 10 U/L 7 - 56 [facility] Anion gap 3 in Serum or Plasma 10.0 mmol/L 8.0 - 16.0 [facility] AGE 84 yrs [facility] al NON-AA GFR >60 mL/min [facility] ital AFR AMER GFR >60 [facility] Male GFR In terprentation 20-49 yrs >60 mL/min Normal 50-59 yrs >56 mL/min Normal 60-69 yrs >49 mL/min Normal 70-79yrs >42 mL/min Normal 80 and above >35 mL/min Normal Female GFR Interpretation 20-39 yrs >60 mL/min Normal 40-49 yrs >58 mL/min Normal 50-59 yrs >51 mL/min Normal 60-69 yrs >45 mL/min Normal 70-79 yrs >39 mL/min Normal 80 and above >32 mL/min Normal ID Date Data Source [id number] 05/04/2020 06:59:00 AM EST [facility] Name Value Range Interpretation Code Description Data Mini rce(s) Supporting Document(s) CBC W/AUTOMATED DIFF [facility] COMPLETE BLOOD COUNT Leukocytes [#/volume] in Blood by Automated count 9.4 10^3/uL 4.2 - 1 1.0 [facility] Erythrocytes [#/volume] in Blood by Automated count 4.25 10^6/uL 4. 20 - 5.40 [facility] Hemoglobin [Mass/volume] in Blood 13.0 g/dL 12.0 - 16.0 [facility] Hematocrit [Volume Fraction] of Blood by Automated count 38.9 % 3 7.0 - 47.0 [facility] Erythrocyte mean corpuscular volume [Entitic volume] by Auto mated count 91.5 fL 81.0 - 101 [facility] Erythrocyte mean corpuscular hemoglobin [Entitic mass] by Automated count 30.6 pg 27.0 - 34.0 [facility] Erythrocyte mean corpuscular hemoglobin concentration [Mass/volume] by Automated count 33.4 g/dL 31.0 - 36.0 [facility] Erythrocyte distribution width [Ratio] by Automated count 13.5 % 11.5 - 14.5 [facility] Platelets [#/volume] in Blood by Automated count 245 10^3/uL 150 - 45 0 [facility] Platelet mean volume [Entitic volume] in Blood by Automated count 10.7 fL 7.4 - 10.4 H [facility] Neutrophils/100 leukocytes in Blood by Automated count 52.0 % 37. 0 - 80.0 [facility] Lymphocytes/100 leukocytes in Blood by Manual count 35.0 % 25.0 - 40.0 [facility] Monocytes/100 leukocytes in Blood by Automated count 10.0 % 3.0 - 8.0 H [facility] Eosinophils/100 leukocytes in Blood by Automated count 2.2 % 0.0 - 7.0 [facility] Basophils/100 leukocytes in Blood by Automated count 0.6 % 0.0 - 2.5 [facility] %IG 0.2 % 0.0 - 0.0 [facility] %[facility] 0.0 % 0.0 - 0.0 [facility] al Neutrophils [#/volume] in Blood by Automated count 4.88 10^3/uL 2.00 - 6.90 [facility] Lymphocytes [#/volume] in Blood by Automated count 3.29 10^3/uL 0.60 - 3.40 [facility] Monocytes [#/volume] in Blood by Automated count 0.94 10^3/uL 0.00 - 0.90 H [facility] Eosinophils [#/volume] in Blood by Automated count 0.21 10^3/uL 0.00 - 0.70 [facility] Basophils [#/volume] in Blood by Automated count 0.06 10^3/uL 0.00 - 0.20 [facility] #IG 0.02 10^3/uL 0.00 - 0.10 [facility] ospital #NRBC 0.00 10^3/uL 0.00 - 0.00 [facility]spital MANUAL DIFF NOT INDICATED [facility] RBC MORPH NOT INDICATED [facility] spital ID Date Data Source [id number] 05/03/2020 10:20:00 PM EST [facility] (Eh Cerna MD) Name Value Range Interpretation Code Description Data Mini rce(s) Supporting Document(s) Troponin T.cardiac [Mass/volume] in Serum or Plasma Laborato ry test result 0.00-0.10 [facility] (Eh Cerna MD) TROPONIN T 0.1 ng/ml Recommended as the clinical th reshold value for Troponin T. ID Date Data Source [id number] 05/03/2020 11:02:00 PM [facility] Name Value Range Interpretation Code Description Data Mini rce(s) Supporting Document(s) TROPONIN T <0.01 NG/ML 0.00 - 0.10 [facility] TROPONIN T0.1 ng/ml Recommended as the c linical threshold value forTroponin T. ID Date Data Source [id number] 05/03/2020 04:43:00 PM EST [facility] (Eh Cerna MD) Name Value Range Interpretation Code Description Data Mini rce(s) Supporting Document(s) Troponin T.cardiac [Mass/volume] in Serum or Plasma Laborato ry test result 0.00-0.10 [facility] (Eh Cerna MD) TROPONIN T 0.1 ng/ml Recommended as the clinical th reshold value for Troponin T. ID Date Data Source [id number] 05/03/2020 05:14:00 PM [facility] Name Value Range Interpretation Code Description Data Mini rce(s) Supporting Document(s) TROPONIN T <0.01 NG/ML 0.00 - 0.10 [facility] TROPONIN T0.1 ng/ml Recommended as the c linical threshold value forTroponin T. ID Date Data Source [id number] 05/03/2020 10:22:00 AM EST [facility] (Eh Cerna MD) Name Value Range Interpretation Code Description Data Mini rce(s) Supporting Document(s) Troponin T.cardiac [Mass/volume] in Serum or Plasma Laborato ry test result 0.00-0.10 [facility] (Eh Cerna MD) TROPONIN T 0.1 ng/ml Recommended as the clinical th reshold value for Troponin T. ID Date Data Source [id number] 05/03/2020 11:12:00 AM [facility] Name Value Range Interpretation Code Description [facility] Supporting Document(s) TROPONIN T <0.01 NG/ML 0.00 - 0.10 [facility] TROPONIN T0.1 ng/ml Recommended as the c linical threshold value forTroponin T. ID Date Data Source [id number] 05/02/2020 10:27:00 PM [facility] 1 OrderSheet [facility] Emergency Department [address] [place] [address] Phone #: ext- [phone] 05/02/2020 22:26 Patient: LASHA CASTRO Sex: F : 1935 Age: 84yWEIGHT:75.2 kg (M) HEIGHT:63 inches (S) BMI:29.4ALLERGIES: Darvan, Dust, MoldCHIEF COMPLAINT: palpitationsDIAGNOSIS: Congestive heart failureLAB ORDERSOrder Description Priority Entered Acknowledged InitialedCBC w Diff STAT 22:50 05/02/2020 Ack'd: 22:52 23:28 Rosetta Paris, Joserebeca Davegno, Brandy JaramilloNAni MAshok.; R.N.CMP STAT 22:50 05/02/2020 Ack'd: 22:52 23:28 Raina, Rosetta, Jose Melaragno, Brandy JaramilloN. Juni.; R.N.Lipase STAT 22:50 05/02/2020 Ack'd: 22:52 23:28 Raina, Rosetta, Jose Tenzingno, Brandy JaramilloNAni Alfredo.; R.N.PT/PTT STAT 22:50 05/02/2020 Ack'd: 22:52 23:28 Raina, Rosetta, Jose Melaragno, Brandy Nava R.N., M.D.; R.N.Troponin-T STAT 22:50 05/02/2020 Ack'd: 22:52 23:28 Raina, Rosetta, Jose Tenzingno, Brandy JaramilloNAni Alfredo.; R.N.BNP STAT 22:50 05/02/2020 Ack'd: 22:52 23:28 Raina, Rosetta, Jose Jacquelinearagno, Brandy Nava R.N., M.D.; R.N.TSH STAT 22:51 05/02/2020 Ack'd: 22:52 23:28 Rosetta Paris, Jose Davegno, Brandy Nava R.N., M.D.; R.N.DIAGNOSTIC STUDY ORDERSOrder Description Priority Entered Acknowledged Initialed 2 OrderSheet [facility] Emergency Department [address] [place] [address] Phone #: ext- [phone] 05/02/2020 22:26 Patient: LASHA CASTRO Sex: F : 1935 Age: 84yChest Portable 1 STAT 22:50 05/02/2020 Ack'd: 22:52 22:56 Gregorio Paris (Oxygen? Nila Dominguez Laura Laura R.NAni(Yes)) Jose; R.N. Reason for Study: CHF, Shortness of BreathMEDICATION/IV/DRIP/FLUID ORDERSOrder Description Priority Entered Acknowledged InitialedNitroGLYCERIN 22:50 05/02/2020 Ack'd: 22:52 22:56 Raina,Topical Ointment Jose Dominguez Laura Laura R.N.0.5 in. M.D.; R.N.Lasix IVP 60 mg 23:13 05/02/2020 Ack'd: 23:20 23:27 Rosetta Paris, Brandy Russ R.N. M.DAni; R.N.GENERAL ORDERSOrder Description Priority Entered Acknowledged InitialedBlood Pressure 22:50 05/02/2020 22:51 Raina,Monitor Jose Dominguez R.N. M.D.;Proof Press Operator 22:50 05/02/2020 22:51 Raina,(continuous) Jose Dominguez R.N. M.D.;EKG 22:50 05/02/2020 22:51 Rosetta Paris Riccardo Laura R.N. M.D.;NPO 22:50 05/02/2020 22:51 Rosetta Paris Riccardo Laura R.N. M.D.;Obtain Old EKG 22:50 05/02/2020 22:51 Rosetta Paris Riccardo Laura R.N. M.D.;Obtain Old Records 22:50 05/02/2020 22:51 Rosetta Paris Riccardo Laura R.N. M.D.;Oxygen (2 L/min) 22:50 05/02/2020 22:51 Raina(NC) (Titrate to O2 Jose Dominguez R.N.Sat >92%Tsering Garcia;Oxygen titrate to 22:50 05/02/2020 22:51 Raina92% Jose Dominguez R.N., M.D.; 3 OrderSheet [facility] Emergency Department [address] [place] [address] Phone #: ext- [phone] 05/02/2020 22:26 Patient: LASHA CASTRO Sex: F : 1935 Age: 84yPulse oximeter 22:50 05/02/2020 22:51 Raina(Continuous) Jose Dominguez R.N., M.D.;Saline Lock 22:50 05/02/2020 22:51 Rosetta Paris Riccardo Laura R.N. M.D.;Vitals 22:50 05/02/2020 22:51 Rosetta Paris Riccardo Laura R.N. M.D.;Consult - 23:53 05/02/2020 23:57 Raina,Hospitalist Jose Dominguez R.N., M.D.;[Electronically signed by Brandy Paris R.N. (:05/03/2020)][Electronically signed by Jose Dominguez M.D. (06:02 05/03/2020)][Electronically locked by Brandy Paris R.N. (01:05/03/2020)] Name Value Range Interpretation Code Description Data Mini rce(s) Supporting Document(s) ID Date Data Source [id number] 05/02/2020 10:27:00 PM EST [facility] 1 Medication Reconciliation Report [facility] Emergency Department [address] [place] [address] Phone #: ext- [phone] 05/02/2020 22:26 Patient: LASHA CASTRO Sex: F : 1935 Age: 84yWeight: 75.2 kgHeight/Length: 63 in.BMI: 29.4ALLERGIES: Darvan, Dust, MoldThe patient's Home Medications are listed below:THE FOLLOWING MEDICATIONS NEED TO BE RECONCILED: Aspirin 81 Oral (81 mg) Azopt Ophthalmic (1 %) Bumetanide Oral (1 mg) Cartia XT Oral Entresto Oral (24-26 mg) 1 t ablet Lumigan Ophthalmic (0.01 %) OLANZapine Oral (2.5 mg) 1 tablet Rhopressa Ophthalmic (0.02 %) Timolol Maleate Oral Tylenol Oral (325 mg) 1 tablet, at bedtime Vitamin D OralThe source(s) of the original Home Medication information:Not obtained.The following Medications were given to the patient in the Emergency Department:NITROGLYCERIN [TOPICAL OINTMENT] Topical 0.5 in., administered: 22:56 05/02/2020 2 Medication Reconciliation Report [facility] Emergency Department [address] [place] [address] Phone #: ext- [phone] 05/02/2020 22:26 Patient: LASHA CASTRO Sex: F : 1935 Age: 84yLasix [IVP] IVP 60 mg, administered: 23:27 05/02/2020The following Medications were prescribed to the patient:None. Name Value Range Interpretation Code Description Data Mini rce(s) Supporting Document(s) ID Date Data Source [id number] 05/02/2020 10:27:00 PM [facility] 1 Medication Administration Record [facility] Emergency Department [address] [place] [address] Phone #: ext- [phone] 05/02/2020 22:26 Patient: LASHA CASTRO Sex: F : 1935 Age: 84yWeight: 75.2 kgHeight/Length: 63 inBMI: 29.4ALLERGIES: Darvan, Mold, Dust Date/Time Medication Administered Medication OrderedGiven NITROGLYCERIN [TOPICAL OINTMENT] NitroGLYCERIN Ipkqhbx40:56 05/02/2020 Dose: 0.5 in. Topical Ointment 0.5 in.Brandy Paris, RAniNAniGiven LASIX [IVP] Lasix IVP 60 mg23:27 05/02/2020 Dose: 60 mg IVPMBrandy griffin RAniNAni Site: #1 left wrist Name Value Range Interpretation Code Description Data Mini rce(s) Supporting Document(s) ID Date Data Source [id number] 05/02/2020 10:27:00 PM [facility] 1 General Instructions [facility] Emergency Department [address] [place] [address] Phone #: ext- [phone] 05/02/2020 22:26 Patient: LASHA CASTRO Sex: F : 1935 Age: 84yAcute mild systolic, left ventricular congestive heart failure.S/P Pacemaker status.(Electronically signed by Jose Dominguez M.D. 05/03/2020 06:02) Name Value Range Interpretation Code Description Data Mini rce(s) Supporting Document(s) ID Date Data Source [id number] 05/02/2020 10:27:00 PM EST [facility] 1 Clinical Report - Nurses [facility] Emergency Department [address] [place] [address] Phone #: ext- [phone] 05/02/2020 22:26 Patient: LASHA CASTRO Sex: F : 1935 Age: 84yTRIAGEArrived by EMS. Historian: patient.Acuity: LEVEL 3.Chief Complaint: (Palpations).Alert. No acute distress.Onset. (9 pm). ( Patient arrives via ems from home c/o palpations. Pt not able to directly state how shefeels only stating, "not well". Pt denies any pain, n/v, sob. Pt does not normally wear oxygen, arrives byEMS on 4L nc. BGL 174 per EMS. Pt has pacemaker and states she normally feels this way when it isfiring.).Treatment PATENT LAWYER:None. --22:38 05/02/20 Brandy Paris R.N.22:28 05/02/20. BP: 140/63. MAP: 88. HR: 70. RR: 22. O2 saturation: 98% on nasal cannula at 2liters/minute. Temp: 97.3 F (oral). Pain level now: 0/10. --22:38 05/02/20 Brandy Paris R.N.Weight: 75.2 kg measured. Height/Length: 63 inches Per Patient. BMI: 29.4. --22:32 05/02/20 Brandy Paris R.N.MedicationsBumetanide Oral (Tablet 1 mg). --22:34 05/02/20 Brandy Paris R.N. Aspirin 81 Oral (Tablet Chewable 81 mg). --22:35 05/02/20 Brandy Paris R.N. Entresto Oral (Tablet 24-26 mg) 1 tablet. --22:35 05/02/20 Brandy Paris R.N. Cartia XT Oral. --22:35 05/02/20 Brandy Paris R.N. OLANZapine Oral (Tablet 2.5 mg) 1 tablet. --22:35 05/02/20 Brandy Paris R.N. Tylenol Oral (Tablet 325 mg) 1 tablet, at bedtime. --22:35 05/02/20 Brandy Paris R.N. Azopt Ophthalmic (Suspension 1 %). --22:36 05/02/20 Barndy Paris R.N. Timolol Maleate Oral. --22:36 05/02/20 Brandy Paris R.N. Lumigan Ophthalmic (Solution 0.01 %). --22:36 05/02/20 Brandy Paris R.N. Rhopressa O phthalmic (Solution 0.02 %). --22:36 05/02/20 Brandy Paris R.N. Vitamin D Oral. --22:37 05/02/20 Brandy Paris R.N.AllergiesDust. --22:33 05/02/20 Brandy Paris R.N.Mold. --22:33 05/02/20 Brandy Paris R.N.Darvan. --22:33 05/02/20 Brandy Paris R.N.PROBLEMS: 2 Clinical Report - Nurses [facility] Emergency Department [address] [place] [address] Phone #: ext- [phone] 05/02/2020 22:26 [id number] Sex: F : 1935 Age: 84yAsthma.CHF.Atrial Fibrillation. --22:37 05/02/20 Brandy Paris R.N.ADDITIONAL SURGERIES:Cystoscopy.Gallbladder Surgery.Pacemaker.Right knee.Tubal Ligation.Uterus removal. --22:37 05/02/20 Brandy Paris R.N.HistoryPAST MEDICAL HX: Immunizations: up-to-date.SOCIAL HX: Never smoker. No alcohol use or drug use. She was offered HIV testing but declined.Patient education was provided. She was offered hepatitis C testing but declined. Patient education wasprovided. ( COVID screen negative). She has not traveled outside the [place]Infectious disease exposure: No infectious disease exposure. Patient is not a known carrier of tuberculosis,hepatitis, HIV, MRSA or VRE. Patient is not a known carrier of CRE.SELF HARM ASSESSMENT: Self harm assessment was performed. The patient answered "no" to thequestion(s) "Have you recently felt down, depressed, or hopeless?", "Do you have thoughts of harming orkilling yourself?", "Do you have a plan for harming or killing yourself?" and "Have you recently had thoughtsabout harming or killing others?".ABUSE ASSESSMENT: Abuse assessment. The patient had positive responses to the question(s) "Do youfeel safe in your home?", "Are you afraid to go home?" and "Has anyone hurt you or threatened to hurtyou?". Abuse denied.NUTRITIONAL RISK ASSESSMENT: The nutritional risk assessment revealed no deficiencies.FUNCTIONAL ASSESSMENT: Functional assessment: no impairments noted.LEARNING NEEDS ASSESSMENT: The learning needs assessment revealed no barriers.FALL RISK ASSESSMENT: Fall risk assessment completed. Risk factors identified include patient agegreater than 65 years.SKIN INTEGRITY ASSESSMENT: Skin integrity risk assessment completed. No skin integrity riskidentified. --22:38 05/02/20 Brandy Paris R.N.InterventionsIdentification band on patient. To treatment room. --22:38 05/02/20 Brandy Paris R.N. 3 Clinical Report - Nurses [facility] Emergency Department [address] [place] [address] Phone #: ext- [phone] 05/02/2020 22:26 Patient: LASHA CASTRO Sex: F : 1935 Age: 84yPHYSICAL ASSESSMENTTo room via stretcher. Patient gowned.GENERAL / NEURO / PSYCH: Alert. Oriented X 4. Appears in no acute distress.HEENT: Mucous membranes are pink.RESPIRATORY: Respirations not labored. Chest nontender. Breath sounds within normal limits.CVS: Cardiac rhythm: atrial fibrillation; (70). Heart sounds within normal limits. Pulses within normallimits. ( Pt has pacemaker. Pt states palpations around 9 pm and states she does not feel well now butdenies palpations at this time.). Capillary refill less than 2 seconds.GI / : Abdomen soft and nontender.EXTREMITIES: No lower extremity edema.SKIN: Skin is warm and dry. Normal skin turgor. Skin is non-tender. --22:40 05/02/20 Brandy Paris R.N.NURSING PROGRESS NOTESCardiac rhythm: atrial fibrillation; (70). Monitoring of patient in place. Patient gowned. Reassurancegiven. Two patient identifiers checked. Call light placed in reach. Side rails up x 2. Bed placed inlowest position. Brakes of bed on. --22:39 05/02/20 Brandy Paris R.N. 22:39 05/02/2020 Site #1 started via IV in the left wrist with an 20g angiocath, with aseptic technique; one attempt. Blood drawn: rainbow set. Sent to the lab. Saline lock flushed with 10 mL saline. --22:39 05/02/20 Brandy Paris R.N. EKG time: (22:43 05/02/2020). EKG was performed by a nurse and shown to the ED physician. --22:43 05/02/20 Brandy Paris R.N. 22:56 05/02/2020 NITROGLYCERIN Topical 0.5 inch given. Applied to the right chest. Allergies verified and confirmed 5 rights. Information reviewed with patient. Verbalizes understanding. --22:56 05/02/20 Brandy Paris R.N. The patient is calm and resting quietly. --23:12 05/02/20 Brandy aPris R.N. 23:11 05/02/20. BP: 124/70. MAP: 88. HR: 70. RR: 28. O2 saturation: 97% on nasal cannula at 2 liters/minute. Temp: deferred. Pain level now: 0/10. --23:12 05/02/20 Brandy Paris R.N. 23:27 05/02/2020 Lasix IVP 60 mg given via site #1. Allergies verified and confirmed 5 rights. IV patency established. IV site checked: no pain, redness, or swelling. IV flushed thoroughly pre- and post-medication administration. IVP given by RN. Information reviewed with patient. Verbalizes understanding. --23:27 05/02/20 Brandy Paris R.N. The patient is calm and resting quietly. Overall patient status- she states feels better. --23:43 05/02/20 Brandy Paris R.N. 23:41 05/02/20. BP: 127/54. MAP: 78. HR: 70. RR: 19. O2 saturation: 96% on nasal cannula at 2 liters/minute. Temp: deferred. Pain level now: 0/10. --23:43 05/02/20 Brandy Paris R.N. 4 Clinical Report - Nurses [facility] Emergency Department [address] [place] [address] Phone #: ext- [phone] 05/02/2020 22:26 Patient: LASHA CASTRO Armani Sex: F : 1935 Age: 84y The patient is calm and resting quietly. --23:58 05/02/20 Brandy Paris R.N. 23:57 05/02/20. BP: 124/65. MAP: 84. HR: 70. RR: 20. O2 saturation: 97% on nasal cannula at 2 liters/minute. Temp: deferred. Pain level now: 0/10. --23:58 05/02/20 Barndy Paris R.N. ( Patient ambulated to bathroom with steady gait independently assisted by this RN.). --00:09 05/03/20 Brandy Paris R.N. late entry - 00:30 05/03/20. The patient is calm and resting quietly. --00:43 05/03/20 Brandy Paris R.N. 00:30 05/03/20. BP: 129/66. MAP: 87. HR: 70. RR: 20. O2 saturation: 97% on nasal cannula at 2 liters/minute. Temp: deferred. Pain level now: 0/10. --00:43 05/03/20 Brandy Paris R.N. Intake Output Urine output: 200 mL with return of yellow-colored clear urine. Urine: normal smelling. --00:09 05/03/20 Brandy Paris R.N.DISPOSITION / DISCHARGE 01:05/03/2020 Site #[address] upon admission; patent, no pain and no signs of infection or infiltration. Good blood return present. Flushed with 10 mL saline; flushes easily. --01:05/03/20 Brandy Paris R.N. Disposition: observation for further evaluation and cardiac monitoring. Transported via stretcher by nurse with monitor and O2. Report was given to a nurse via a phone call and fax. Report included information regarding patient's care, treatment, allergies and condition including: recent changes, current vital signs and abnormal labs. Report included treatment information regarding medications given or pending; type and amount of IV fluids and medications infusing and total volume infused. No questions were asked. Report was acknowledged and care was transferred. (HILARY Hilliard). Bed obtained and ready. --:05/03/20 Brandy Paris R.N. 01:05/03/20. BP: 120/77. MAP: 91. HR: 70. RR: 17. O2 saturation: 98% on nasal cannula at 2 liters/minute. Temp: 97.9 F (oral). Pain level now: 0/10. --:05/03/20 Brandy Paris R.N. Departure time: late entry - 01:05/03/2020. --:05/03/20 Brandy Paris R.N.Locked/Released at 05/03/2020 01:28 by Brandy Paris R.N. 5 Clinical Report - Nurses [facility] Emergency Department [address] [place] [address] Phone #: ext- [phone] 05/02/2020 22:26 Patient: LASHA CASTRO Sex: F : 1935 Age: 84y Name Value Range Interpretation Code Description Data Mini rce(s) Supporting Document(s) ID Date Data Source [id number] 05/02/2020 10:27:00 PM EST [facility] 1 Clinical Report - Physicians/Mid Levels [facility] Emergency Department [address] [place] [address] Phone #: ext- [phone] 05/02/2020 22:26 Patient: LASHA CASTRO Sex: F : 1935 Age: 84y Time Seen: 22:30 05/02/2020; initial patient contact. Arrived- By ambulance. Historian- patient. Disposition decision: 23:51 05/02/2020.HISTORY OF PRESENT ILLNESS Chief Complaint: PALPITATIONS. It is described as a fast heart beat. This started just prior to arrival 1.5 hours ago and is now gone. Onset during rest. It was abrupt in onset and has been intermittent. Modifying factors. Not worsened by anything. Not relieved by anything. No chest pain or discomfort, sweating episodes, fainting episodes or dizziness. No tingling or muscle spasms. She has had mild difficulty breathing at rest. ( pt believes pacemaker was firing; pt states last time this happened in , she had fluid in her lungs). Similar symptoms previously. Patient has had similar symptoms occasionally. ( w Hx of CHF). Recent medical care: Not recently seen/assessed.REVIEW OF SYSTEMSNo fever, chills, cough, orthopnea or calf pain. No enlarged lymph nodes, headache, sore throat, blurredvision or nausea. No abdominal pain, black stools, difficulty with urination, skin rash or depre ssion. Notrouble sleeping, vomiting, diarrhea or bloody stools. The patient has not had a poor appetite. All othersystems reviewed and are negative.PAST HISTORYSee nurses notes. Problems: Hyperlipidemia. Hypertension. Depression. AV Node ablation. Asthma. CHF. Atrial Fibrillation. Additional Surgeries: Cystoscopy. Gallbladder Surgery. Pacemaker. Right knee. Tubal Ligation. Uterus removal. Watchman Procedure. 2 Clinical Report - Physicians/Mid Levels [facility] Emergency Department [address] [place] [address] Phone #: ext- [phone] 05/02/2020 22:26 Patient: LASHA CASTRO Sex: F : 1935 Age: 84y Medications: Vitamin D Oral. Rhopressa Ophthalmic (Solution 0.02 %). Lumigan Ophthalmic (Solution 0.01 %). Timolol Maleate Oral. Azopt Ophthalmic (Suspension 1 %). Tylenol Oral (Tablet 325 mg) 1 tablet, at bedtime. OLANZapine Oral (Tablet 2.5 mg) 1 tablet. Cartia XT Oral. Entresto Oral (Tablet 24-26 mg) 1 tablet. Aspirin 81 Oral (Tablet Chewable 81 mg). Bumetanide Oral (Tablet 1 mg). Allergies: Darvan. Dust. Mold.SOCIAL HISTORYNever smoker. No alcohol use or drug use.ADDITIONAL NOTESThe nursing notes have been reviewed with agreement regarding the chief complaint, HPI, ROS, PMH andpatient medications and allergies.PHYSICAL EXAMVital Signs: 05/02/2020 23:11 BP: 124/70. MAP: 88. HR: 70. RR: 28. O2 saturation: 97% on nasal cannulaat 2 liters/minute. Pain level now: 0/10.05/02/2020 22:28 BP: 140/63. MAP: 88. HR: 70. RR: 22. O2 saturation: 98% on nasal cannula at 2liters/minute. Temp: 97.3 F. Pain level now: 0/10. Have been reviewed. Oxygen saturation normal.Appearance: Alert. Oriented X3. No acute distress.Eyes: Pupils equal, round and reactive to light. Eyes normal inspection.ENT: Nose normal. Pharynx normal.Neck: Normal inspection. Neck supple.CVS: Normal heart rate and rhythm. Heart sounds normal. Pulses normal.Respiratory: No respiratory distress. Mildly decreased air movement diffusely over both lungs. Painlessinspiration. Mild crackles present in the bases bilaterally. Chest nontender.Abdomen: Soft and nontender. Bowel sounds normal. No organomegaly. No mass. Femoral pulsesequal. Mildly obese.Back: Normal external inspection.Skin: Skin warm and dry. Normal skin color. No rash. Normal skin turgor.Extremities: Bilateral mild non-pitting edema of the lower extremities. Extremities exhibit normal ROM.Neuro: Oriented X 3. No motor deficit. No sensory deficit. Reflexes normal. 3 Clinical Report - Physicians/Mid Levels [facility] E mergency Department [address] [place] [address] Phone #: ext- [phone] 05/02/2020 22:26 Patient: LASHA CASTRO [facility]#: [id number] Sex: F : 1935 Age: 84yLABS, X-RAYS, AND EKGEKG: No acute process. No acute ischemia. Continuous ventricular paced rhythm (70/min). Normal STand T waves. EKG unchanged when compared with prior EKG. (12-15-19). The study has beeninterpreted contemporaneously by me. The EKG appears to be a good tracing. Interpretation time: 22:4905/02/2020.Chest X-ray: Mild congestive heart failure present. Mild cardiomegaly. Views: AP (portable).Technique: good. The X-rays were interpreted contemporaneously by me. A comparison with prior films(06-09-19). Interpretation time: 23:10 05/02/2020.Laboratory Tests: Laboratory tests have been ordered, with results reviewed and considered in themedical decision making process. TSH: (OLIVA: 05/02/2020 22:35) ( [facility] 23[facility]41[facility] Final results Test Result Flag Units (Reference) TSH 2.98 uIU/mL (0.47 - 5.01) CBC w Diff: (OLIVA: 05/02/2020 22:35) ( [facility] 05/02/2020 23:23) Final results Test Result Flag Units (Reference) CBC W/AUTOMATED DIFF COMPLETE BLOOD COUNT WBC 10.7 10/uL (4.2 - 11.0) RBC 4.23 10/uL (4.20 - 5.40) HEMOGLOBIN 12.9 g/dL (12.0 - 16.0) HEMATOCRIT 38.5 % (37.0 - 47.0) MCV 91.0 fL (81.0 - 101) MCH 30.5 pg (27.0 - 34.0) MCHC 33.5 g/dL (31.0 - 36.0) RDW 13 .4 % (11.5 - 14.5) PLATELETS 271 10/uL (150 - 450) MPV 10.8 H fL (7.4 - 10.4) NEUT 53.4 % (37.0 - 80.0) LYMPH 33.1 % (25.0 - 40.0) MONO 10.1 H % (3.0 - 8.0) EOS 2.4 % (0.0 - 7.0) BASO 0.6 % (0.0 - 2.5) %IG 0.4 H % (0.0 - 0.0) %NRBC 0.0 % (0.0 - 0.0) #NEUT 5.71 10/uL (2.00 - 6.90) #LYMPH 3.53 H 10/uL (0.60 - 3.40) #MONO 1.08 H 10/uL (0.00 - 0.90) #EOS 0.26 10/uL (0.00 - 0.70) #BASO 0.06 10/uL (0.00 - 0.20) #IG 0.04 10/uL (0.00 - 0.10) #NRBC 0.00 10/uL (0.00 - 0.00) MANUAL DIFF SEE BELOW SEGS 55 % (37 - 80) %LYMPH 35 % (25 - 40) %MONO 5 % (3 - 8) %EOS 4 % (0 - 7) %BASO 1 % (0 - 2) METAMYELOCYTE 0 % RBC MORPH NOT INDICATED CMP: (OLIVA: 05/02/2020 22:35) ( MsgRcvd 05/02/2020 23:41) Final results Test Result Flag Units (Reference) COMPREHENSIVE METABOLIC PANEL 4 Clinical Report - Physicians/Mid Levels [facility] Emergency Department [address] [place] [address] Phone #: ext- [phone] 05/02/2020 22:26 Patient: LASHA CASTRO Sex: F : 1935 Age: 84y COMPREHENSIVE METABOLIC PANEL SODIUM 137 mEq/L (134 - 153) POTASSIUM 3.9 mEq/L (3.6 - 5.0) CHLORIDE 100 mEq/L (98 - 107) CO2 26 MEQ/L (22 - 30) GLUCOSE 153 H MG/DL (65 - 110) BUN 19 MG/DL (7 - 21) CREATININE 1.0 MG/DL (0.7 - 1.5) BUN/CREAT 19 (8 - 27) TOTAL PROTEIN 6.6 G/DL (6.3 - 8.2) ALBUMIN 4.1 G/DL (3.9 - 5.0) GLOBULIN 2.5 GM/DL (2.4 - 3.2) A/G RATIO 1.6 (0.8 - 2.0) CALCIUM 10.2 MG/DL (8.4 - 10.2) TOTAL BILI <0.7 MG/DL (0.2 - 1.3) ALKALINE PHOS 71 U/L (38 - 126) SGOT/AST 12 U/L (5 - 40) SGPT/ALT 10 U/L (7 - 56) ANION GAP 11.0 mmol/L (8.0 - 16.0) AGE 84 yrs NON-AA GFR 56 mL/min AFR AMER GFR >60 Male GFR Interprentation 20-49 yrs >60 mL/min Eoqhig40-17 yrs >56 mL/min Normal 60-69 yrs >49 mL/min Normal 70-79yrs>42 mL/min Normal 80 and above >35 mL/min Normal Female GFRInterpretation 20-39 yrs >60 mL/min Normal 40-49 yrs >58 mL/minNormal 50-59 yrs >51 mL/min Normal 60-69 yrs >45 mL/min Cvzkjp03-54 yrs >39 mL/min Normal 80 and above >32 mL/min NormalLipase: (OLIVA: 05/02/2020 22:35) ( MsgRcvd 05/02/2020 23:41) Final results Test Result Flag Units (Reference) LIPASE 42 U/L (13 - 60)PT/PTT: (OLIVA: 05/02/2020 22:35) ( MsgRcvd 05/02/2020 23:20) Final results Test Result Flag Units (Reference) PROTIME 14.3 SECONDS (11.0 - 15.5) INR 1.06 (0.93 - 1.23) PTT 28.1 SECONDS (24.8 - 36.7) \\BLDo\\INR INTERPRETATION\\BLDx\\ Therapeutic range for Coumadin andrelated oral anticoagulants. -International Normalized Ratio (INR): 2.0 - 3.0 for VenousThrombosis, Pulmonary Embolus, Tissue heart valves, Acute [place] Atrial Fibrillation, Valvular heart diseaseand recurrent Systemic Embolism. -International Normalized Ratio (INR): 2.5 - 3.5 forMechanical Prosthetic valve.Troponin-T: (OLIVA: 05/02/2020 22:35) ( [facility] 05/02/2020 23:27) Final results Test Result Flag Units (Reference) TROPONIN T <0.01 NG/ML (0.00 - 0.10) TROPONIN T0.1 ng/ml Recommended as the clinical threshold value forTroponin T.BNP: (OLIVA: 05/02/2020 22:35) ( [facility] 05/02/2020 23:41) Final results Test Result Flag Units (Reference) BNP 1701 H PG/ML (0 - 450) 5 Clinical Report - Physicians/Mid Levels [facility] Emergency Department [address] [place] [address] Phone #: ext- [phone] 05/02/2020 22:26 [id number] : 1935 Age: 84y.PROGRESS AND PROCEDURESCourse of Care: 23:50 05/02/20. workup all in and reviewed, BNP at 1701, was 2656 on 12-14, CXR showsmild CHF w CM, pt doing better, feeling better, no arrhythmia, case discussed w Clover Puri, hospitalist for , agrees to admission. Critical care performed (60 minutes). Time is exclusive of separately billable procedures. Time includes: direct patient care, patient reassessment, coordination of patient care, interpretation of data (laboratory data, chest xrays and prior kayleigh ctrocardiograms), medical consultation and documentation of patient care- see progress notes. Patient counseled in person regarding the patient's stable condition, test results, diagnosis and need for admission. Patient agrees with plan of care. Disposition: Condition: good and stable. Admit decision based on need for further evaluation, additional testing, monitoring, telemetry, observation, IV therapy and stabilization of condition.CLINICAL IMPRESSION Acute mild systolic, left ventricular congestive heart failure. S/P Pacemaker status.(Electronically signed by Jose Dominguez M.D. 05/03/2020 06:02) Name Value Range Interpretation Code Description Data Mini rce(s) Supporting Document(s) ID Date Data Source [id number] 05/02/2020 10:27:00 PM [facility] for LASHA CASTRO VisitID: [id number] Date: 0:01Faxed medication reconciliation request to [employer](Electronically signed by Tae Roa - 05/03/2020 0:01) Name Value Range Interpretation Code Description Data Mini rce(s) Supporting Document(s) ID Date Data Source [id number] 05/03/2020 05:35:00 AM EST [facility] (Eh Cerna MD) Name Value Range Interpretation Code Description Data Mini rce(s) Supporting Document(s) Magnesium [Mass/volume] in Serum or Plasma 2.0 mg/dL 1.7-2.2 [facility] (Eh Cerna MD) Troponin T.cardiac [Mass/volume] in Serum or Plasma Laborato ry test result 0.00-0.10 [facility] (Eh Cerna MD) TROPONIN T 0.1 ng/ml Recommended as the clinical th reshold value for Troponin T. ID Date Data Source [id number] 05/03/2020 05:35:00 AM EST [facility] (Eh Cerna MD) Name Value Range Interpretation Code Description Data Mini rce(s) Supporting Document(s) Laboratory test finding (navigational concept) Laboratory test result [facility] (Eh Cerna MD) COMPREHENSIVE METABOLIC PANEL Laboratory test finding (navigational concept) 137 meq/L 134-153 [facility] (Eh Cerna MD) Laboratory test finding (navigational concept) 100 meq/L 98-107 [facility] (hE Cerna MD) Laboratory test finding (navigational concept) 3.8 meq/L 3.6-5.0 [facility] (Eh Cerna MD) Laboratory test finding (navigational concept) 28 meq/L 22-30 [facility] (Eh Cerna MD) Laboratory test finding (navigational concept) 112 mg/dL 6 5-110 Above high normal [facility] (Eh eCrna MD) Laboratory test finding (navigational concept) 18 mg/dL 7-21 [facility] (Eh Cerna MD) Laboratory test finding (navigational concept) 26 8-27 [facility] (Eh Cerna MD) Laboratory test finding (navigational concept) 6.2 g/dL 6 .3-8.2 Below low normal [facility] (Eh Cerna MD) Laboratory test finding (navigational concept) 0.7 mg/dL 0.7-1.5 [facility] (Eh Cerna MD) Laboratory test finding (navigational concept) 1.8 0.8-2.0 [facility] (Eh Cerna MD) Laboratory test finding (navigational concept) 4.0 g/dL 3.9-5.0 [facility] (Eh Cerna MD) Laboratory test finding (navigational concept) 2.2 GM/DL 2 .4-3.2 Below low normal [facility] (Eh Cerna MD) Laboratory test finding (navigational concept) 9.4 mg/dL 8.4-10.2 [facility] (Eh Cerna MD) Laboratory test finding (navigational concept) Laboratory test resu lt 0.2-1.3 [facility] (Eh Cerna MD) Laboratory test finding (navigational concept) 14 U/L 5-40 [facility] (Eh Cerna MD) Laboratory test finding (navigational concept) 63 U/L 38-126 [facility] (Eh Cerna MD) Laboratory test finding (navigational concept) 9 U/L 7-56 [facility] (Eh Cerna MD) Laboratory test finding (navigational concept) 84 yrs [facility] (Eh Cerna MD) Laboratory test finding (navigational concept) 9.0 mmol/L 8.0-16.0 [facility] (Eh Cerna MD) Laboratory test finding (navigational concept) Laboratory test result [facility] (Eh Cerna MD) Laboratory test finding (navigational concept) Laboratory test result [facility] (Eh Cerna MD) Male GFR Interprentation 20-49 yrs >60 mL/min Normal 50-59 yrs >56 mL/min Normal 60-69 yrs >49 mL/min Normal 70-79yrs >42 mL/min Normal 80 and above >35 mL/min Normal Female GFR Interpretation 20-39 yrs >60 mL/min Normal 40-49 yrs >58 mL/min Normal 50-59 yrs >51 mL/min Normal 60-69 yrs >45 mL/min Normal 70-79 yrs >39 mL/min Normal 80 and above >32 mL/min Normal ID Date Data Source [id number] 05/03/2020 05:35:00 AM EST [facility] (Eh Cerna MD) Name Value Range Interpretation Code Description Data Mini rce(s) Supporting Document(s) Laboratory test finding (navigational concept) Laboratory test result [facility] (Eh Cerna MD) COMPLETE BLOOD COUNT Laboratory test finding (navigational concept) 8.7 10^3/uL 4.2-11.0 [facility] (Eh Cerna MD) Laboratory test finding (navigational concept) 4.28 10^6/uL 4.20-5.40 [facility] (Eh Cerna MD) Laboratory test finding (navigational concept) 91.6 fL 81.0-101 [facility] (Eh Cerna MD) Laboratory test finding (navigational concept) 39.2 % 37.0-47.0 [facility] (Eh Cerna MD) Laboratory test finding (navigational concept) 12.8 g/dL 12.0-16.0 [facility] (Eh Cerna MD) Laboratory test finding (navigational concept) 13.4 % 11.5-14.5 [facility] (Eh Cerna MD) Laboratory test finding (navigational concept) 32.7 g/dL 31.0-36.0 [facility] (Eh Cerna MD) Laboratory test finding (navigational concept) 29.9 pg 27.0-34.0 [facility] (Eh Cerna MD) Laboratory test finding (navigational concept) 10.5 fL 7 .4-10.4 Above high normal [facility] (Eh Cerna MD) Laboratory test finding (navigational concept) 272 10^3/uL 150-450 [facility] (Eh Cerna MD) Laboratory test finding (navigational concept) 49.5 % 37.0-80.0 [facility] (Eh Cerna MD) Laboratory test finding (navigational concept) 9.6 % 3.0-8.0 Above high normal [facility] (Eh Cerna MD) Laboratory test finding (navigational concept) 37.5 % 25.0-40.0 [facility] (Eh Cerna MD) Laboratory test finding (navigational concept) 2.4 % 0.0-7.0 [facility] (Eh Cerna MD) Laboratory test finding (navigational concept) 0.0 % 0.0-0.0 [facility] (Eh Cerna MD) Laboratory test finding (navigational concept) 0.2 % 0.0-0.0 Above high normal [facility] (Eh Cerna MD) Laboratory test finding (navigational concept) 0.8 % 0.0-2.5 [facility] (Eh Cerna MD) Laboratory test finding (navigational concept) 3.26 10^3/uL 0.60-3.40 [facility] (Eh Cerna MD) Laboratory test finding (navigational concept) 4.30 10^3/uL 2.00-6.90 [facility] (hE Cerna MD) Laboratory test finding (navigational concept) 0.83 10^3/uL 0.00-0.90 [facility] (Eh Cerna MD) Laboratory test finding (navigational concept) 0.21 10^3/uL 0.00-0.70 [facility] (Eh Cerna MD) Laboratory test finding (navigational concept) 0.07 10^3/uL 0.00-0.20 [facility] (Eh Cerna MD) Laboratory test finding (navigational concept) 0.02 10^3/uL 0.00-0.10 [facility] (Eh Cerna MD) Laboratory test finding (navigational concept) 0.00 10^3/uL 0.00-0.00 [facility] (Eh Cerna MD) Laboratory test finding (navigational concept) Laboratory test result [facility] (Eh Cerna MD) Laboratory test finding (navigational concept) Laboratory test result [facility] (Eh Cerna MD) ID Date Data Source [id number] 05/03/2020 07:34:00 AM EST [facility] Name Value Range Interpretation Code Description Data Mini rce(s) Supporting Document(s) CBC W/AUTOMATED DIFF [facility] COMPLETE BLOOD COUNT Leukocytes [#/volume] in Blood by Automated count 8.7 10^3/uL 4.2 - 1 1.0 [facility] Erythrocytes [#/volume] in Blood by Automated count 4.28 10^6/uL 4. 20 - 5.40 [facility] Hemoglobin [Mass/volume] in Blood 12.8 g/dL 12.0 - 16.0 [facility] Hematocrit [Volume Fraction] of Blood by Automated count 39.2 % 3 7.0 - 47.0 [facility] Erythrocyte mean corpuscular volume [Entitic volume] by Auto mated count 91.6 fL 81.0 - 101 [facility] Erythrocyte mean corpuscular hemoglobin [Entitic mass] by Automated count 29.9 pg 27.0 - 34.0 [facility] Erythrocyte mean corpuscular hemoglobin concentration [Mass/volume] by Automated count 32.7 g/dL 31.0 - 36.0 [facility] Erythrocyte distribution width [Ratio] by Automated count 13.4 % 11.5 - 14.5 [facility] Platelets [#/volume] in Blood by Automated count 272 10^3/uL 150 - 45 0 [facility] Platelet mean volume [Entitic volume] in Blood by Automated count 10.5 fL 7.4 - 10.4 H [facility] Neutrophils/100 leukocytes in Blood by Automated count 49.5 % 37. 0 - 80.0 [facility] Lymphocytes/100 leukocytes in Blood by Manual count 37.5 % 25.0 - 40.0 [facility] Monocytes/100 leukocytes in Blood by Automated count 9.6 % 3.0 - 8.0 H [facility] Eosinophils/100 leukocytes in Blood by Automated count 2.4 % 0.0 - 7.0 [facility] Basophils/100 leukocytes in Blood by Automated count 0.8 % 0.0 - 2.5 [facility] %IG 0.2 % 0.0 - [facility] 0.0 % 0.0 - 0.0 [facility] al Neutrophils [#/volume] in Blood by Automated count 4.30 10^3/uL 2.00 - 6.90 [facility] Lymphocytes [#/volume] in Blood by Automated count 3.26 10^3/uL 0.60 - 3.40 [facility] Monocytes [#/volume] in Blood by Automated count 0.83 10^3/uL 0.00 - 0.90 [facility] Eosinophils [#/volume] in Blood by Automated count 0.21 10^3/uL 0.00 - 0.70 [facility] Basophils [#/volume] in Blood by Automated count 0.07 10^3/uL 0.00 - 0.20 [facility] #IG 0.02 10^3/uL 0.00 - 0.10 [facility] ospital #NRBC 0.00 10^3/uL 0.00 - 0.00 [facility] ospital MANUAL DIFF NOT INDICATED [facility] RBC MORPH NOT INDICATED [facility] spital ID Date Data Source [id number] 05/03/2020 07:32:00 AM EST [facility] Name Value Range Interpretation Code Description Data Mini rce(s) Supporting Document(s) COMPREHENSIVE METABOLIC PANEL [facility] COMPREHENSIVE METABOLIC PANEL Sodium [Moles/volume] in Serum or Plasma 137 mEq/L 134 - 153 [facility] Potassium [Moles/volume] in Serum or Plasma 3.8 mEq/L 3.6 - 5.0 [facility] Chloride [Moles/volume] in Serum or Plasma 100 mEq/L 98 - 107 [facility] Carbon dioxide, total [Moles/volume] in Serum or Plasma 28 MEQ/L 22 - 30 [facility] Glucose [Mass/volume] in Serum or Plasma 112 MG/DL 65 - 110 H [facility] BUN 18 MG/DL 7 - 21 [facility] al Creatinine [Mass/volume] in Serum or Plasma 0.7 MG/DL 0.7 - 1.5 [facility] BUN/CREAT 26 8 - 27 [facility] Protein [Mass/volume] in Serum or Plasma 6.2 G/DL 6.3 - 8.2 L [facility] Albumin [Mass/volume] in Serum or Plasma 4.0 G/DL 3.9 - 5.0 [facility] Globulin [Mass/volume] in Serum by calculation 2.2 GM/DL 2.4 - 3.2 L [facility] A/G RATIO 1.8 0.8 - 2.0 [facility] Calcium [Mass/volume] in Serum or Plasma 9.4 MG/DL 8.4 - 10.2 [facility] Bilirubin.total [Mass/volume] in Serum or Plasma <0.7 MG/DL 0.2 - 1.3 [facility] Alkaline phosphatase [Enzymatic activity/volume] in Serum or Plasma 63 U/L 38 - 126 [facility] Aspartate aminotransferase [Enzymatic activity/volume] in Serum or Plasma 14 U/L 5 - 40 [facility] Alanine aminotransferase [Enzymatic activity/volume] in Seru m or Plasma 9 U/L 7 - 56 [facility] Anion gap 3 in Serum or Plasma 9.0 mmol/L 8.0 - 16.0 [facility] AGE 84 yrs [facility] al NON-AA GFR >60 mL/min [facility] ital AFR AMER GFR >60 [facility] Male GFR In terprentation 20-49 yrs >60 mL/min Normal 50-59 yrs >56 mL/min Normal 60-69 yrs >49 mL/min Normal 70-79yrs >42 mL/min Normal 80 and above >35 mL/min Normal Female GFR Interpretation 20-39 yrs >60 mL/min Normal 40-49 yrs >58 mL/min Normal 50-59 yrs >51 mL/min Normal 60-69 yrs >45 mL/min Normal 70-79 yrs >39 mL/min Normal 80 and above >32 mL/min Normal ID Date Data Source [id number] 05/03/2020 07:16:00 AM [facility] Name Value Range Interpretation Code Description Data Mini rce(s) Supporting Document(s) TROPONIN T <0.01 NG/ML 0.00 - 0.10 [facility] ospital TROPONIN T0.1 ng/ml Recommended as the c linical threshold value forTroponin T. ID Date Data Source [id number] 05/03/2020 07:10:00 AM [facility] Name Value Range Interpretation Code Description Data Mini rce(s) Supporting Document(s) Magnesium [Mass/volume] in Serum or Plasma 2.0 MG/DL 1.7 - 2.2 [facility] ID Date Data Source [id number] 05/02/2020 10:35:00 PM EST [facility] (Eh Cerna MD) Name Value Range Interpretation Code Description Data Mini rce(s) Supporting Document(s) Natriuretic peptide.B prohormone N-Terminal [Mass/volu me] in Serum or Plasma 1701 pg/mL 0-450 Above high normal [facility] (Eh Cerna MD) Lipoprotein lipase [Enzymatic activity/volume] in Serum or Plasm a 42 U/L 13-60 [facility] (Eh Cerna MD) Thyrotropin [Units/volume] in Serum or Plasma by Detec tion limit <= 0.005 mIU/L 2.98 uIU/mL 0.47-5.01 [facility] (Eh Cerna MD) ID Date Data Source [id number] 05/02/2020 10:35:00 PM EST [facility] (Eh Cerna MD) Name Value Range Interpretation Code Description Data Mini rce(s) Supporting Document(s) Laboratory test finding (navigational concept) Laboratory test result [facility] (Eh Cerna MD) COMPREHENSIVE METABOLIC PANEL Laboratory test finding (navigational concept) 137 meq/L 134-153 [facility] (Eh Cerna MD) Laboratory test finding (navigational concept) 3.9 meq/L 3.6-5.0 [facility] (Eh Cerna MD) Laboratory test finding (navigational concept) 100 meq/L 98-107 [facility] (Eh Cerna MD) Laboratory test finding (navigational concept) 26 meq/L 22-30 [facility] (Eh Cerna MD) Laboratory test finding (navigational concept) 19 mg/dL 7-21 [facility] (Eh Cerna MD) Laboratory test finding (navigational concept) 153 mg/dL 6 5-110 Above high normal [facility] (Eh Cerna MD) Laboratory test finding (navigational concept) 19 8-27 [facility] (Eh Cerna MD) Laboratory test finding (navigational concept) 1.0 mg/dL 0.7-1.5 [facility] (Eh Cerna MD) Laboratory test finding (navigational concept) 4.1 g/dL 3.9-5.0 [facility] (Eh Cerna MD) Laboratory test finding (navigational concept) 6.6 g/dL 6.3-8.2 [facility] (Eh Cerna MD) Laboratory test finding (navigational concept) 2.5 GM/DL 2.4-3.2 [facility] (Eh Cerna MD) Laboratory test finding (navigational concept) 10.2 mg/dL 8.4-10.2 [facility] (Eh Cerna MD) Laboratory test finding (navigational concept) 1.6 0.8-2.0 [facility] (Eh Cerna MD) Laboratory test finding (navigational concept) Laboratory test resu lt 0.2-1.3 [facility] (Eh Cerna MD) Laboratory test finding (navigational concept) 71 U/L 38-126 [facility] (Eh Cerna MD) Laboratory test finding (navigational concept) 10 U/L 7-56 [facility] (Eh Cerna MD) Laboratory test finding (navigational concept) 12 U/L 5-40 [facility] (Eh Cerna MD) Laboratory test finding (navigational concept) 11.0 mmol/L 8.0-16.0 [facility] (Eh Cerna MD) Laboratory test finding (navigational concept) 84 yrs [facility] (Eh Cerna MD) Laboratory test finding (navigational concept) 56 mL/min [facility] (Eh Cerna MD) Laboratory test finding (navigational concept) Laboratory test result [facility] (Eh Cerna MD) Male GFR Interprentation 20-49 yrs >60 mL/min Normal 50-59 yrs >56 mL/min Normal 60-69 yrs >49 mL/min Normal 70-79yrs >42 mL/min Normal 80 and above >35 mL/min Normal Female GFR Interpretation 20-39 yrs >60 mL/min Normal 40-49 yrs >58 mL/min Normal 50-59 yrs >51 mL/min Normal 60-69 yrs >45 mL/min Normal 70-79 yrs >39 mL/min Normal 80 and above >32 mL/min Normal ID Date Data Source [id number] 05/02/2020 10:35:00 PM EST [facility] (Eh Cerna MD) Name Value Range Interpretation Code Description Data Mini rce(s) Supporting Document(s) Troponin T.cardiac [Mass/volume] in Serum or Plasma Laborato ry test result 0.00-0.10 [facility] (Eh Cerna MD) TROPONIN T 0.1 ng/ml Recommended as the clinical th reshold value for Troponin T. ID Date Data Source [id number] 05/02/2020 10:35:00 PM EST [facility] (Eh Cerna MD) Name Value Range Interpretation Code Description Data Mini rce(s) Supporting Document(s) Laboratory test finding (navigational concept) 10.7 10^3/uL 4.2-11.0 [facility] (Eh Cerna MD) Laboratory test finding (navigational concept) Laboratory test result [facility] (Eh Cerna MD) COMPLETE BLOOD COUNT Laboratory test finding (navigational concept) 12.9 g/dL 12.0-16.0 [facility] (Eh Cerna MD) Laboratory test finding (navigational concept) 4.23 10^6/uL 4.20-5.40 [facility] (Eh Cerna MD) Laboratory test finding (navigational concept) 30.5 pg 27.0-34.0 [facility] (Eh Cerna MD) Laboratory test finding (navigational concept) 38.5 % 37.0-47.0 [facility] (Eh Cerna MD) Laboratory test finding (navigational concept) 91.0 fL 81.0-101 [facility] (Eh Cerna MD) Laboratory test finding (navigational concept) 13.4 % 11.5-14.5 [facility] (Eh Cerna MD) Laboratory test finding (navigational concept) 33.5 g/dL 31.0-36.0 [facility] (Eh Cerna MD) Laboratory test finding (navigational concept) 53.4 % 37.0-80.0 [facility] (Eh Cerna MD) Laboratory test finding (navigational concept) 271 10^3/uL 150-450 [facility] (Eh Cerna MD) Laboratory test finding (navigational concept) 10.8 fL 7 .4-10.4 Above high normal [facility] (Eh Cerna MD) Laboratory test finding (navigational concept) 10.1 % 3.0-8.0 Above high normal [facility] (Eh Cerna MD) Laboratory test finding (navigational concept) 33.1 % 25.0-40.0 [facility] (Eh Cerna MD) Laboratory test finding (navigational concept) 0.6 % 0.0-2.5 [facility] (Eh Cerna MD) Laboratory test finding (navigational concept) 2.4 % 0.0-7.0 [facility] (Eh Cerna MD) Laboratory test finding (navigational concept) 5.71 10^3/uL 2.00-6.90 [facility] (Eh Cerna MD) Laboratory test finding (navigational concept) 0.4 % 0.0-0.0 Above high normal [facility] (Eh Cerna MD) Laboratory test finding (navigational concept) 0.0 % 0.0-0.0 [facility] (Eh Cerna MD) Laboratory test finding (navigational concept) 3.53 10^3/uL 0 .60-3.40 Above high normal [facility] (Eh Cerna MD) Laboratory test finding (navigational concept) 1.08 10^3/uL 0 .00-0.90 Above high normal [facility] (Eh Cerna MD) Laboratory test finding (navigational concept) 0.26 10^3/uL 0.00-0.70 [facility] (Eh Cerna MD) Laboratory test finding (navigational concept) 0.06 10^3/uL 0.00-0.20 [facility] (Eh Cerna MD) Laboratory test finding (navigational concept) 0.04 10^3/uL 0.00-0.10 [facility] (Eh Cerna MD) Laboratory test finding (navigational concept) Laboratory test result [facility] (Eh Cerna MD) Laboratory test finding (navigational concept) 0.00 10^3/uL 0.00-0.00 [facility] (Eh Cerna MD) Laboratory test finding (navigational concept) 35 % 25-40 [facility] (hE Cerna MD) Laboratory test finding (navigational concept) 55 % 37-80 [facility] (Eh Cerna MD) Laboratory test finding (navigational concept) 4 % 0-7 [facility] (Eh Cerna MD) Laboratory test finding (navigational concept) 5 % 3-8 [facility] (Eh Cerna MD) Laboratory test finding (navigational concept) Laboratory test result [facility] (Eh Cerna MD) Laboratory test finding (navigational concept) 0 % [facility] (Eh Cerna MD) Laboratory test finding (navigational concept) 1 % 0-2 [facility] (Eh Cerna MD) ID Date Data Source [id number] 05/02/2020 10:35:00 PM EST [facility] (Eh Cerna MD) Name Value Range Interpretation Code Description Data Mini rce(s) Supporting Document(s) Laboratory test finding (navigational concept) 1.06 0.93-1.23 [facility] (Eh Cerna MD) Laboratory test finding (navigational concept) 14.3 s 11.0-15.5 [facility] (Eh Cerna MD) Laboratory test finding (navigational concept) 28.1 s 24.8-36.7 [facility] (Eh Cerna MD) \\BLDo\\INR INTERPRETATION\\BLDx\\ Therapeutic range for Coumadin and related oral anticoagulants. -International Normalized Ratio (INR): 2 .0 - 3.0 for Venous Thrombosis, Pulmonary Embolus, Tissue heart valves, Acute [place] Atrial Fibrillation, Valvular heart disease and recurrent Systemic Embolism. -International Normalized Ratio (INR): 2 .5 - 3.5 for Mechanical Prosthetic valve. ID Date Data Source [id number] 05/02/2020 11:41:00 PM [facility] Name Value Range Interpretation Code Description Data Mini rce(s) Supporting Document(s) Thyrotropin [Units/volume] in Serum or Plasma by Detec tion limit <= 0.05 mIU/L 2.98 uIU/mL 0.47 - 5.01 [facility] ID Date Data Source [id number] 05/02/2020 11:41:00 PM [facility] Value Range Interpretation Code Description Data Mini rce(s) Supporting Document(s) BNP 1701 PG/ML 0 - 450 [facility] ID Date Data Source [id number] 05/02/2020 11:41:00 PM [facility] Value Range Interpretation Code Description Data Mini rce(s) Supporting Document(s) Lipase [Enzymatic activity/volume] in Serum or Plasma 42 U/L 13 - 60 [facility] ID Date Data Source [id number] 05/02/2020 11:41:00 PM [facility] Value Range Interpretation Code Description Data Mini rce(s) Supporting Document(s) COMPREHENSIVE METABOLIC PANEL [facility] COMPREHENSIVE METABOLIC PANEL Sodium [Moles/volume] in Serum or Plasma 137 mEq/L 134 - 153 [facility] Potassium [Moles/volume] in Serum or Plasma 3.9 mEq/L 3.6 - 5.0 [facility] Chloride [Moles/volume] in Serum or Plasma 100 mEq/L 98 - 107 [facility] Carbon dioxide, total [Moles/volume] in Serum or Plasma 26 MEQ/L 22 - 30 [facility] Glucose [Mass/volume] in Serum or Plasma 153 MG/DL 65 - 110 H [facility] BUN 19 MG/DL 7 - 21 [facility] Creatinine [Mass/volume] in Serum or Plasma 1.0 MG/DL 0.7 - 1.5 [facility] BUN/CREAT 19 8 - 27 [facility] Protein [Mass/volume] in Serum or Plasma 6.6 G/DL 6.3 - 8.2 [facility] Albumin [Mass/volume] in Serum or Plasma 4.1 G/DL 3.9 - 5.0 [facility] Globulin [Mass/volume] in Serum by calculation 2.5 GM/DL 2.4 - 3.2 [facility] A/G RATIO 1.6 0.8 - 2.0 [facility] Calcium [Mass/volume] in Serum or Plasma 10.2 MG/DL 8.4 - 10.2 [facility] Bilirubin.total [Mass/volume] in Serum or Plasma <0.7 MG/DL 0.2 - 1.3 [facility] Alkaline phosphatase [Enzymatic activity/volume] in Serum or Plasma 71 U/L 38 - 126 [facility] Aspartate aminotransferase [Enzymatic activity/volume] in Serum or Plasma 12 U/L 5 - 40 [facility] Alanine aminotransferase [Enzymatic activity/volume] in Seru m or Plasma 10 U/L 7 - 56 [facility] Anion gap 3 in Serum or Plasma 11.0 mmol/L 8.0 - 16.0 [facility] AGE 84 yrs [facility] al NON-AA GFR 56 mL/min [facility] AFR AMER GFR >60 [facility] Male GFR In terprentation 20-49 yrs >60 mL/min Normal 50-59 yrs >56 mL/min Normal 60-69 yrs >49 mL/min Normal 70-79yrs >42 mL/min Normal 80 and above >35 mL/min Normal Female GFR Interpretation 20-39 yrs >60 mL/min Normal 40-49 yrs >58 mL/min Normal 50-59 yrs >51 mL/min Normal 60-69 yrs >45 mL/min Normal 70-79 yrs >39 mL/min Normal 80 and above >32 mL/min Normal ID Date Data Source [id number] 05/02/2020 11:27:00 PM EST [facility] Name Value Range Interpretation Code Description Data Mini rce(s) Supporting Document(s) TROPONIN T <0.01 NG/ML 0.00 - 0.10 [facility] ospital TROPONIN T0.1 ng/ml Recommended as the c linical threshold value forTroponin T. ID Date Data Source [id number] 05/02/2020 11:23:00 PM EST [facility] Name Value Range Interpretation Code Description Data Mini rce(s) Supporting Document(s) CBC W/AUTOMATED DIFF [facility] COMPLETE BLOOD COUNT Leukocytes [#/volume] in Blood by Automated count 10.7 10^3/uL 4.2 - 11.0 [facility] Erythrocytes [#/volume] in Blood by Automated count 4.23 10^6/uL 4. 20 - 5.40 [facility] Hemoglobin [Mass/volume] in Blood 12.9 g/dL 12.0 - 16.0 [facility] Hematocrit [Volume Fraction] of Blood by Automated count 38.5 % 3 7.0 - 47.0 [facility] Erythrocyte mean corpuscular volume [Entitic volume] by Auto mated count 91.0 fL 81.0 - 101 [facility] Erythrocyte mean corpuscular hemoglobin [Entitic mass] by Automated count 30.5 pg 27.0 - 34.0 [facility] Erythrocyte mean corpuscular hemoglobin concentration [Mass/volume] by Automated count 33.5 g/dL 31.0 - 36.0 [facility] Erythrocyte distribution width [Ratio] by Automated count 13.4 % 11.5 - 14.5 [facility] Platelets [#/volume] in Blood by Automated count 271 10^3/uL 150 - 45 0 [facility] Platelet mean volume [Entitic volume] in Blood by Automated count 10.8 fL 7.4 - 10.4 H [facility] Neutrophils/100 leukocytes in Blood by Automated count 53.4 % 37. 0 - 80.0 [facility] Lymphocytes/100 leukocytes in Blood by Manual count 33.1 % 25.0 - 40.0 [facility] Monocytes/100 leukocytes in Blood by Automated count 10.1 % 3.0 - 8.0 H [facility] Eosinophils/100 leukocytes in Blood by Automated count 2.4 % 0.0 - 7.0 [facility] 0.6 %IG 0.4 % 0.0 - 0.0 H [facility] al %NRBC 0.0 % 0.0 - 0.0 [facility] al Neutrophils [#/volume] in Blood by Automated count 5.71 10^3/uL 2.00 - 6.90 [facility] Lymphocytes [#/volume] in Blood by Automated count 3.53 10^3/uL 0.60 - 3.40 H [facility] Monocytes [#/volume] in Blood by Automated count 1.08 10^3/uL 0.00 - 0.90 H [facility] Eosinophils [#/volume] in Blood by Automated count 0.26 10^3/uL 0.00 - 0.70 [facility] Basophils [#/volume] in Blood by Automated count 0.06 10^3/uL 0.00 - 0.20 [facility] #IG 0.04 10^3/uL 0.00 - 0.10 [facility] #NRBC 0.00 10^3/uL 0.00 - 0.00 [facility]ital MANUAL DIFF SEE BELOW [facility] ital Segmented neutrophils/100 leukocytes in Blood by Manual count 55 % 37 - 80 [facility] %LYMPH 35 % 25 - 40 [facility] al %MONO 5 % 3 - 8 [facility] al %EOS 4 % 0 - 7 [facility] al 1 Metamyelocytes/100 leukocytes in Blood by Manual count 0 % [facility] RBC MORPH NOT INDICATED [facility] ID Date Data Source [id number] 05/02/2020 11:19:00 PM EST [facility] Name Value Range Interpretation Code Description Data Mini rce(s) Supporting Document(s) Prothrombin time (PT) 14.3 SECONDS 11.0 - 15.5 [facility] INR in Platelet poor plasma by Coagulation assay 1.06 0.93 - 1. 23 [facility] aPTT in Blood by Coagulation assay 28.1 SECONDS 24.8 - 36.7 [facility] \\BLDo\\INR INTERPRETATION\\BLDx\\ Therapeutic range for Coumadin and related oral anticoagulants. - International Normalized Ratio (INR): 2.0 - 3.0 for Venous Thrombosis, Pulmonary Embolus, Tissue heart valves, Acute [place] Atrial Fibrillation, Valvular heart disease and recurrent Systemic Embolism. - International Normalized Ratio (INR): 2.5 - 3.5 for Mechanical Prosthetic valve. ID Date Data Source [id number] 04/09/2020 01:51:00 PM EST [facility] ([facility] ) Name Value Range Interpretation Code Description Data Mini rce(s) Supporting Document(s) Hemoglobin A1c/Hemoglobin.total in Blood 6.4 [facility] ([facility]) Glucose [Mass/volume] in Serum or Plasma 140 [facility] ([facility]) Procedure Social History Code Duration Value Status Description Data Source(s ) Smoking 01/17/2021 12:00:00 AM EDT Patient has never smoked co mpleted Patient has never smoked [facility] ([facility]) Smoking 01/04/2021 10:44:33 AM EDT Never smoked tobacco (findi ng) completed Never smoked tobacco (finding) [facility] (Vijay Webb MD [facility]) Smoking 01/04/2021 10:44:08 AM EDT Never smoked tobacco (findi ng) completed Never smoked tobacco (finding) [facility] (Vijay Webb MD [facility]) Smoking 01/04/2021 10:40:56 AM EDT Never smoked tobacco (findi ng) completed Never smoked tobacco (finding) [facility] (Vijay Webb MD [facility]) Smoking 09/03/2020 12:00:00 AM EDT Never Smoker completed Never S moker eCW1 ([facility]) Smoking 04/09/2020 12:00:00 AM EST Patient is a former smoker completed Patient is a former smoker [facility] ([facility]) Vital Signs ID Date Data Source [id number] Name Value Range Interpretation Code Description Data Source(s) Body height 66 [in_i] 66 [in_i] [facility] (Eh Cerna MD) 5'6" Body weight 177.00 [lb_av] 177.00 [lb_av] MED[facility] T (Eh Cerna MD) Body mass index (BMI) [Ratio] 28.6 kg/m2 28.6 k g/m2 [facility] (Eh Cerna MD) Body temperature 97.5 [degF] 97.5 [degF] [facility] (Eh Cerna MD) Systolic blood pressure 125 mm[Hg] 125 mm[Hg] M EDENT (Eh Cerna MD) Diastolic blood pressure 70 mm[Hg] 70 mm[Hg] [facility] (Eh Cerna MD) Heart rate 70 /min 70 /min [facility] (Eh Cerna MD) Oxygen saturation in Arterial blood by Pulse oximetry 95 % 95 % [facility] (Eh Cerna MD) Diastolic blood pressure 84 mm[Hg] 84 mm[Hg] [facility] (Eh Cerna MD) Heart rate 81 /min 81 /min [facility] (Eh Cerna MD) Body height 66 [in_i] 66 [in_i] [facility] (Eh Cerna MD) 5'6" Body weight 175.12 [lb_av] 175.12 [lb_av] MEDEN T (Eh Cerna MD) Body mass index (BMI) [Ratio] 28.3 kg/m2 28.3 k g/m2 [facility] (Eh Cerna MD) Body temperature 97.2 [degF] 97.2 [degF] [facility] (Eh Cerna MD) Systolic blood pressure 154 mm[Hg] 154 mm[Hg] M EDENT (Eh Cerna MD) Oxygen saturation in Arterial blood by Pulse oximetry 98 % 98 % [facility] (Eh Cerna MD) Body weight 175.00 [lb_av] 175.00 [lb_av] MEDEN T (Eh Cerna MD) Body mass index (BMI) [Ratio] 28.2 kg/m2 28.2 k g/m2 [facility] (Eh Cerna MD) Body temperature 97.2 [degF] 97.2 [degF] [facility] (Eh Cerna MD) Body height 66 [in_i] 66 [in_i] [facility] (Eh Cerna MD) 5'6" Systolic blood pressure 155 mm[Hg] 155 mm[Hg] M EDENT (Eh Cerna MD) Diastolic blood pressure 85 mm[Hg] 85 mm[Hg] [facility] (Eh Cerna MD) Heart rate 82 /min 82 /min [facility] (Eh Cerna MD) Oxygen saturation in Arterial blood by Pulse oximetry 97 % 97 % [facility] (Eh Cerna MD) Systolic blood pressure 158 mm[Hg] 158 mm[Hg] M EDENT ([facility]) Heart rate 71 /min 71 /min [facility] ([facility]) Body weight 173.00 [lb_av] 173.00 [lb_av] MEDEN T ([facility]) Diastolic blood pressure 79 mm[Hg] 79 mm[Hg] [facility] ([facility]) Respiratory rate 18 /min 18 /min [facility] ( [facility]) Body temperature 97.0 [degF] 97.0 [degF] [facility] (Eh Cerna MD) Diastolic blood pressure 79 mm[Hg] 79 mm[Hg] [facility] (Eh Cerna MD) Heart rate 75 /min 75 /min [facility] (Eh Cerna MD) Systolic blood pressure 149 mm[Hg] 149 mm[Hg] M THOMASENT (Eh Cerna MD) Oxygen saturation in Arterial blood by Pulse oximetry 97 % 97 % [facility] (Eh Cerna MD) Body height 66 [in_i] 66 [in_i] [facility] (Eh Cerna MD) 5'6" Body weight 177.00 [lb_av] 177.00 [lb_av] MEDEN T (Eh Cerna MD) Body mass index (BMI) [Ratio] 28.6 kg/m2 28.6 k g/m2 [facility] (Eh Cerna MD) Systolic blood pressure 120 mm[Hg] 120 mm[Hg] M EDENT (Eh Cerna MD) Diastolic blood pressure 78 mm[Hg] 78 mm[Hg] [facility] (Eh Cerna MD) Heart rate 70 /min 70 /min BROOKS[facility] (Eh Cerna MD) Oxygen saturation in Arterial blood by Pulse oximetry 96 % 96 % [facility] (Eh Cerna MD) Respiratory rate 20 /min 20 /min [facility] ( Eh Cerna MD) Body height 66 [in_i] 66 [in_i] [facility] (Eh Cerna MD) 5'6" Body weight 175.00 [lb_av] 175.00 [lb_av] MEDEN T (Eh Cerna MD) Body mass index (BMI) [Ratio] 28.2 kg/m2 28.2 k g/m2 [facility] (Eh Cerna MD) Body temperature 97.4 [degF] 97.4 [degF] [facility] (Eh Cerna MD) Body weight 174 [lb_av] 174 [lb_av] eCW1 ([facility]) Body weight 78.93 kg 78.93 kg W1 ([facility]) Body height 64 [in_i] 64 [in_i] eCW1 ([facility]) Body mass index (BMI) [Ratio] 29.86 kg/m2 29.86 kg/m2 eCW1 ([facility]) Systolic blood pressure 138 mm[Hg] 138 mm[Hg] e CW1 ([facility]) Diastolic blood pressure 76 mm[Hg] 76 mm[Hg] eCW1 ([facility]) Body height 64 [in_i] 64 [in_i] MEDDILAN (Eh Cerna MD) 5'4" Body mass index (BMI) [Ratio] 30.5 kg/m2 30.5 k g/m2 [facility] (Eh Cerna MD) Oxygen saturation in Arterial blood by Pulse oximetry 95 % 95 % [facility] (Eh Cerna MD) Body weight 177.50 [lb_av] 177.50 [lb_av] MEDEN T (Eh Cerna MD) Body temperature 97.2 [degF] 97.2 [degF] MEDDILAN (Eh Cerna MD) Systolic blood pressure 141 mm[Hg] 141 mm[Hg] M EDENT (Eh Cerna MD) Diastolic blood pressure 77 mm[Hg] 77 mm[Hg] [facility] (Eh Cerna MD) Heart rate 70 /min 70 /min [facility] (Eh Cerna MD) Body height 64 [in_i] 64 [in_i] [facility] (Eh Cerna MD) 5'4" Body weight 172.25 [lb_av] 172.25 [lb_av] MEDEN T (Eh Cerna MD) Body mass index (BMI) [Ratio] 29.6 kg/m2 29.6 k g/m2 [facility] (Eh Cerna MD) Body temperature 97.3 [degF] 97.3 [degF] [facility] (Eh Cerna MD) Systolic blood pressure 148 mm[Hg] 148 mm[Hg] M EDENT (Eh Cerna MD) Diastolic blood pressure 79 mm[Hg] 79 mm[Hg] [facility] (Eh Cerna MD) Heart rate 97 /min 97 /min [facility] (Eh Cerna MD) Oxygen saturation in Arterial blood by Pulse oximetry 97 % 97 % [facility] (Eh Cerna MD) Respiratory rate 18 /min 18 /min [facility] ( Eh Cerna MD) Diastolic blood pressure 80 mm[Hg] 80 mm[Hg] [facility] ([facility] ) Systolic blood pressure 142 mm[Hg] 142 mm[Hg] M EDENT ([facility] ) Heart rate 77 /min 77 /min [facility] ([facility] ) Body temperature 96.8 [degF] 96.8 [degF] [facility] ([facility] ) Body height 64 [in_i] 64 [in_i] [facility] ([facility] ) 5'4" Body weight 168.31 [lb_av] 168.31 [lb_av] MEDEN T ([facility] ) Body mass index (BMI) [Ratio] 28.9 kg/m2 28.9 k g/m2 [facility] ([facility] ) Oxygen saturation in Arterial blood by Pulse oximetry 98 % 98 % [facility] ([facility] ) Systolic blood pressure 139 mm[Hg] 139 mm[Hg] M EDENT ([facility]) Diastolic blood pressure 71 mm[Hg] 71 mm[Hg] [facility] ([facility]) ID Date Data Source [id number] 05/21/2020 02:59:56 PM EST [facility] Name Value Range Interpretation Code Description Data Source(s) WEIGHT RECORDED 169.00 pounds 169.00 pounds [facility] Height 64 Inches 064 Inches [facility] WEIGHT RECORDED 169.00 pounds 169.00 pounds [facility] Height 64 Inches 064 Inches [facility] Patient Treatment Plan of Care Planned Activity Planned Date Details Description Data Source (s) bimatoprost 0.1 MG/ML Ophthalmic Solution [Lumigan] 10/03/19 12:00:00 AM EDT BR[facility] (Vijay Webb MD [facility]) Rhopressa 0.02% Ophthalmic Solution 09/05/2020 12:00:00 AM EDT [facility] (Vijay Webb MD [facility]) brinzolamide 10 MG/ML Ophthalmic Suspension [Azopt] 08/10/19 12:00:00 AM EDT [facility] (Vijay Webb MD [facility]) Timolol Maleate 0.5% Ophthalmic Solution 03/13/2020 12:00:00 AM EDT BR[facility] (Vijay Webb MD [facility]) Rhopressa 0.02% Ophthalmic Solution 02/08/2020 12:00:00 AM EDT BR[facility] (Vijay Webb MD [facility]) Rhopressa 0.02% Ophthalmic Solution 02/08/2020 12:00:00 AM EDT [facility] (Vijay Webb MD [facility]) bimatoprost 0.1 MG/ML Ophthalmic Solution [Lumigan] 10/21/19 12:00:00 AM EDT [facility] (Vijay Webb MD [facility]) brinzolamide 10 MG/ML Ophthalmic Suspension [Azopt] 08/22/19 12:00:00 AM EDT [facility] [facility]) Rhopressa 0.02% Ophthalmic Solution 08/15/2019 12:00:00 AM EDT [place] (Vijay Webb MD [facility])
[2021-03-22] MEDS ORDERED: FUROSEMIDE 100MG/10ML VIAL (J1940) As Ordered ONE (14:25)
[2021-03-22] MEDS: MIDAZOLAM 5MG/ML 1ML VIAL (J2250 PER 1MG) IV PRN ×2 (14:41→16:38)
--- NOTE | 2021-03-22 14:53 | REP ---
INDICATION: POST INTUBATION TUBE PLACEMENT. COMPARISON: Portable chest, 09/07/2019 TECHNIQUE: AP portable chest image was obtained. FINDINGS: There is cardiomegaly, pulmonary venous hypertension and pulmonary interstitial and alveolar edema consistent with congestive heart failure. There are no significant pleural effusions. There is an endotracheal tube present with the tip approximately 2 cm above the trinh. There is calcific vascular disease of the thoracic aorta. There is a dual lead pacemaker. There is a left atrial appendage occlusion device. IMPRESSION: 1. Congestive heart failure. 2. Endotracheal tube in good position. 3. Other findings as noted. <Electronically signed by George Alberts > 03/22/21 [id number]
[2021-03-22 15:09] LABS: ABG BASE EXCESS -9.8 (-2.0-2.0); ABG HCO3 16.9 MEQ/L (22.0-26.0); ABG O2 SATURATION 99.8 % (95.0-99.0); ABG PARTIAL PRESSURE CO2 39.9 mmHg (35.0-45.0); ABG PARTIAL PRESSURE O2 295.9 mmHg (75.0-100.0); ABG STANDARD HCO3 16.7 MEQ/L (22.0-26.0); ABG TOTAL CO2 18.1 MEQ/L (23.0-31.0)
[2021-03-22 15:10] LABS: ABG pH (ARTERIAL) 7.244 UNITS (7.350-7.450)
[2021-03-22] MEDS ORDERED: EPINEPHrine 1MG/10ML SYRINGE 1.5IN IV STA ×4 (15:21)
[2021-03-22] MEDS ORDERED: FUROSEMIDE 100MG/10ML VIAL (J1940) IV ONE (15:25)
[2021-03-22 15:31] LABS: BASO # 0.1 10^3/uL (0.0-0.2); BASO % 0.6 % (0.0-1.0); EOS # 0.1 10^3/uL (0.0-0.5); HEMATOCRIT 35.2 % (36.0-47.0); HEMOGLOBIN 10.9 g/dl (12.0-15.5); LYMPH # 1.6 10^3/uL (1.5-5.0); LYMPH % 15.3 % (24.0-44.0); MEAN CORPUSCULAR HEMOGLOBIN 30.3 pg (27.0-33.0); MEAN CORPUSCULAR VOLUME 97.8 fl (80.0-96.0); MONO # 0.5 10^3/uL (0.0-0.8); MONO % 4.8 % (2.0-8.0); NEUTROPHILS # 7.8 10^3/uL (1.5-8.5); PLATELET COUNT, AUTOMATED 270 10^3/uL (150-450); WHITE BLOOD COUNT 10.5 10^3/uL (4.0-10.0)
--- OUTSIDE RECORDS SUMMARY | 2021-03-22 15:43 | CCD ---
Author Author [facility] Organization [facility] Address Unknown Phone Unavailable Care Team Providers Care [employer] Salesperson Name Role Phone Mo Avilez MD Unavailable [...] MD Unavailable Unavailable JUDICATHRYN MD Unavailable Unavailable JUDI, MAQBOOL EH MD [...] JOSE Unavailable Unavailable TURRIN, JOSE Unavailable Unavailable [place], Edelmira LASER BEAM COLOR SCANNER OPERATOR Unavailable Unavailable [place], Edelmira LASER BEAM COLOR SCANNER OPERATOR Unavailable Unavailable [place], Edelmira LASER BEAM COLOR SCANNER OPERATOR Unavailable Unavailable [place], Edelmira LASER BEAM COLOR SCANNER OPERATOR Unavailable Unavailable [place], Edelmira LASER BEAM COLOR SCANNER OPERATOR Unavailable Unavailable [place], Ed[place]ira LASER BEAM COLOR SCANNER OPERATOR Unavailable Unavailable [place], Ed[place]ira LASER BEAM COLOR SCANNER OPERATOR Unavailable Unavailable [place], Ed[place]ira LASER BEAM COLOR SCANNER OPERATOR Unavailable Unavailable [place], Ed[place]ira LASER BEAM COLOR SCANNER OPERATOR Unavailable Unavailable [place], Edelmira LASER BEAM COLOR SCANNER OPERATOR Unavailable Unavailable [place], Edelmira LASER BEAM COLOR SCANNER OPERATOR Unavailable Unavailable [place], Edelmira LASER BEAM COLOR SCANNER OPERATOR Unavailable Unavailable [place], Edelmira LASER BEAM COLOR SCANNER OPERATOR Unavailable Unavailable [place], Edelmira LASER BEAM COLOR SCANNER OPERATOR Unavailable Unavailable [place], Ed[place]ira LASER BEAM COLOR SCANNER OPERATOR Unavailable Unavailable [place], Ed[place]ira LASER BEAM COLOR SCANNER OPERATOR Unavailable Unavailable [place], Ed[place]ira LASER BEAM COLOR SCANNER OPERATOR Unavailable Unavailable [place], Ed[place]ira LASER BEAM COLOR SCANNER OPERATOR Unavailable Unavailable [place], Ed[place]ira LASER BEAM COLOR SCANNER OPERATOR Unavailable Unavailable [place], Ed[place]ira LASER BEAM COLOR SCANNER OPERATOR Unavailable Unavailable [place], Ed[place]ira LASER BEAM COLOR SCANNER OPERATOR Unavailable Unavailable [place], Edelmira LASER BEAM COLOR SCANNER OPERATOR Unavailable Unavailable [place], Ed[place]ira LASER BEAM COLOR SCANNER OPERATOR Unavailable Unavailable [place], Ed[place]ira LASER BEAM COLOR SCANNER OPERATOR Unavailable Unavailable [place], Edelmira LASER BEAM COLOR SCANNER OPERATOR Unavailable Unavailable [place], Ed[place]ira LASER BEAM COLOR SCANNER OPERATOR Unavailable Unavailable [place], Edelmira LASER BEAM COLOR SCANNER OPERATOR Unavailable Unavailable [place], Edelmira LASER BEAM COLOR SCANNER OPERATOR Unavailable Unavailable [place], Ed[place]ira LASER BEAM COLOR SCANNER OPERATOR Unavailable Unavailable [place], Ed[place]ira LASER BEAM COLOR SCANNER OPERATOR Unavailable Unavailable [place], Ed[place]ira LASER BEAM COLOR SCANNER OPERATOR Unavailable Unavailable [place], Ed[place]ira LASER BEAM COLOR SCANNER OPERATOR Unavailable Unavailable [place], Ed[place]ira LASER BEAM COLOR SCANNER OPERATOR Unavailable Unavailable [place], Ed[place]ira LASER BEAM COLOR SCANNER OPERATOR Unavailable Unavailable [place], Ed[place]ira LASER BEAM COLOR SCANNER OPERATOR Unavailable Unavailable [place], Ed[place]ira LASER BEAM COLOR SCANNER OPERATOR Unavailable Unavailable Sivakumar Carrion MD Unavailable Unavailable [...] Unavailable Unavailable Sivakumar Carrion MD Unavailable Unavailable Murali B Fernanda CARDENAS Unavailable Unavailable Sivakumar Carrion MD Unavailable Unavailable FishSivakumar MD Unavailable Unavailable Fish, Sivakumar Michael MD [...] B Fernanda CARDENAS Unavailable Unavailable Fish, B Fernadna CARDENAS Unavailable Unavailable NICOLE J JILL DPM [...] is protected by Article 27-F of the [facility] Public Health law. If you continue you may have access to information: Regarding HIV / AIDS; Provided by facilities licensed or operated by the [facility] Office of Mental Health; or Provided by the [facility] Office for People With Developmental Disabilities. If such information is present, then the following [facility] mandated warning applies: This information has been [...] law may result in a fine or halfway sentence or both. A general authorization for the release of medical or other information is NOT sufficient authorization for further disc losure. Allergies and Adverse Reactions Type Description Substance Reaction Status Data Source(s ) Propensity to adverse reactions DEMEROL DEMEROL [facility] Propensity to adverse reactions AVELOX AVELOX [facility] Propensity to adverse reactions SULFA (sulfonamide) SULFA (sulfonamid e) [facility] Family History Family Member Name Family Member Gender Family Member Status Date o f Status Description Data Source(s) Unknown Unknown Problem [facility] ([facility]) Unknown Female Problem [facility] ([facility] Unknown Female Problem [facility] ([facility] Unknown Female Encounters Encounter Providers Location Date Indications Data Source(s ) Outpatient Attender: EH CERNA MD Medical [facility] 02/26 01:30:00 PM EDT [facility] (Eh Cerna MD) Outpatient Attender: EH CERNA MD Medical [facility] 02/06 02:30:00 PM EDT [facility] (Eh Cerna MD) Outpatient Attender: EH CERNA MD Medical [facility] 01/30 10:30:00 AM EDT [facility] (Eh Cerna MD) Outpatient Attender: EH CERNA MD Medical [facility] 01/24 03:30:00 PM EDT [facility] (Eh Cerna MD) Outpatient Attender: Liliana Mathias [facility] Main Office 01/22/2021 12:30:00 PM EDT [facility] (Deirdre [facility]helm) Outpatient Attender: JILL RIVERA DPM PCConsultant: EH CERNA MD 01/17/2021 12:59:00 PM EDT - 01/17/2021 12:59:00 PM EDT [facility] Emergency Attender: Mo Avilez MDConsultant: EH CERNA MD 12/11/2020 08:39:00 AM EDT - 12/11/2020 10:40:00 AM EDT [facility] ital Patient discharged. Outpatient<td ID="encounterTypeDescripti onID1">VISUAL FIELD 24-2</td><td>Tavon King DO</td><td>Vijay Cee MD [facility]</td><td>12/07/2020</td><td>12:05PM</td><td>12:38PM</td><td></td> Attender: TAVON Mccord MD [facility] 12/07/2020 12:05:00 PM EDT - 12/07/2020 12:38:00 PM EDT [facility] (Vijay rubio MD [facility]) Outpatient<td ID="encounterTypeDescripti onID0">TESTING - VISUAL FIELD & OCT</td><td>Tavon King DO</td><td>Vijay Cee MD [facility]</td><td>12/07/2020</td><td>12:05PM</td><td>12:39PM</td><td><content ID="encounterDiagnosisID0-0">Glaucoma Open-angle Primary Right Eye</content>, <content ID="encounterDiagnosisID0-1">Glaucoma Open-angle Primary Left Eye</content></td> Attender: TAVON Mccord MD [facility] 12/07/2020 12:05:00 PM EDT - 12/07/2020 12:39:00 PM EDT Glaucoma Open-angle Primary Left EyeGlaucoma Open-angle Primary [...] Primary Right Eye [facility] (Vijay Webb MD [facility]) Glaucoma Open-angle Primary Left Eye Glaucoma [...] Right Eye Outpatient Attender: EH CERNA MD [facility] 11/29 11:30:00 AM EDT [facility] (Eh Cerna MD) <td ID="encounterTypeDescriptionID2">[address] [facility] Follow-Up</td><td>Tavon King DO</td><td>Vijay Cee MD [facility]</td><td>11/23/2020</td><td>11:48AM</td><td>12:39PM</td><td></td>Outpatient Attender: TAVON Mccord MD [facility] 11/23/2020 11:48:00 AM EDT - 11/23/2020 12:39:00 PM EDT [facility] (Vijay Webb MD [facility]) Outpatient Attender: JILL RIVERA DPM PCConsultant: EH CERNA MD 11/08/2020 01:16:00 PM EDT - 11/08/2020 01:16:00 PM EDT [facility] 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 Exam [address] [place] [address] 09/03/2020 12:00:00 AM EDT [facility] (Critical access hospital) Outpatient Attender: JILL RIVERA DPM PCConsultant: EH CERNA MD 08/30/2020 01:00:00 PM EDT - 08/30/2020 01:00:00 PM EDT [facility] Outpatient Attender: EH CERNA MD Medical [facility] 08/03 10:00:00 AM EST [facility] (Eh Cerna MD) Outpatient Attender: EH CERNA MD Medical [facility] 07/05 01:00:00 PM EST [facility] (Eh Cerna MD) Outpatient Attender: JILL RIVERA DPM PCConsultant: EH CERNA MD 06/21/2020 01:27:00 PM EST - 06/21/2020 01:27:00 PM [facility] Outpatient Attender: EH CERNA MD Medical [facility] 06/07 10:15:00 AM EST [facility] (Eh Cerna MD) Inpatient Attender: EH CERNA [facility] fredy: JOSE GUILLAUMERINConsultant: EH CERNA MD 05/02/2020 10:27:00 PM EST - 05/05/2020 12:08:00 PM [facility] Patient discharged. Outpatient Attender: EH CERNA MD 2019 10:27:00 PM EST - 05/04/2020 09:00:00 AM [facility] Outpatient Attender: JILL RIVERA DPM PCConsultant: EH CERNA MD 04/12/2020 10:41:00 AM EST - 04/12/2020 10:41:00 AM [facility] Outpatient Attender: Fernanda Carrion MD Physical Therapy 04/09 12:30:00 PM EST [facility] ([facility]) Outpatient Attender: EH CERNA MD Medical Building 04/04 01:00:00 PM EST [facility] (Eh Cerna MD) Outpatient Attender: EH CERNA MD Medical Building 02/28 01:30:00 PM EDT [facility] (Eh Cerna MD) Outpatient Attender: JILL RIVERA DPMichael PCConsultant: EH CERNA MD 02/02/2020 11:13:00 AM EDT - 02/02/2020 11:13:00 AM EDT [facility] Immunizations Vaccine Date Status Description Data Source(s) COVID-19 VACCINE Moderna 07/07/2020 12:00:00 AM EST completed [facility] Vaccine Series Complete: YESThis Data wa s Submitted to [facility] Via [employer]. COVID-19 VACCINE Moderna 06/09/2020 12:00:00 AM EST completed [facility] Vaccine Series Complete: NOThis Data was Submitted to [facility] Via [employer]. INFLUENZA VACCINE QUADRIVALENT 2019- (65 YR UP)/MF59 [...] EDT active Entresto [facility] (Vijay Webb MD [facility]) bimatoprost 0.1 MG/ML Ophthalmic Solutio n [Lumigan] Lumigan 0.01% Ophthalmic Solution Lumigan 0.01% Ophthalmic Solution 10/02/2020 12:00:00 AM EDT 1 active bimatoprost 0.1 MG/ML Ophthalmic Solution [Lumigan] [facility] (Vijay Webb MD [facility]) Rhopressa 0.02% Ophthalmic Solution Rhopressa 0.02% Ophthalm ic Solution 09/05/2020 12:00:00 AM EDT 1 active netarsudil 0.2 MG/ML Ophthalmic Solution [Rhopressa] [facility] (Vijay Webb MD [facility]) brinzolamide 10 MG/ML Ophthalmic Suspens ion [Azopt] Azopt 1% Ophthalmic Suspension Azopt 1% Ophthalmic Suspension 08/09/2020 12:00:00 AM EDT active brinzolamide 10 MG/ML Ophthalmic Suspension [Azopt] [facility] (Vijay Webb MD [facility]) carvedilol 3.125 MG Oral Tablet [Coreg] Coreg 05/07/2020 12:00:00 AM EST completed [facility] (Eh Cerna MD) Timolol Maleate 0.5% Ophthalmic Solution Timolol Catherine te 0.5% Ophthalmic Solution 03/13/2020 12:00:00 AM EDT active 12 HR timolol 5 MG/ML Ophthalmic Solution [facility] (Vijay Webb MD [facility]) Rhopressa 0.02% Ophthalmic Solution Rhopressa 0.02% Ophthalm ic Solution 02/08/2020 12:00:00 AM EDT 1 active netarsudil 0.2 MG/ML Ophthalmic Solution [Rhopressa] [facility] (Vijay Webb MD [facility]) Rhopressa 0.02% Ophthalmic Solution Rhopressa 0.02% Ophthalm ic Solution 02/08/2020 12:00:00 AM EDT 1 aborted netarsudil 0.2 MG/ML Ophthalmic Solution [Rhopressa] [facility] (Vijay Webb MD [facility]) bimatoprost 0.1 MG/ML Ophthalmic Solutio n [Lumigan] Lumigan 0.01% Ophthalmic Solution Lumigan 0.01% Ophthalmic Solution 10/21/2019 12:00:00 AM EDT 1 aborted bimatoprost 0.1 MG/ML Ophthalmic Solution [Lumigan] [facility] (Vijay Webb MD [facility]) brinzolamide 10 MG/ML Ophthalmic Suspens ion [Azopt] Azopt 1% Ophthalmic Suspension Azopt 1% Ophthalmic Suspension 08/22/2019 12:00:00 AM EDT aborted brinzolamide 10 MG/ML Ophthalmic Suspension [Azopt] [facility] (Vijay Webb MD [facility]) Rhopressa 0.02% Ophthalmic Solution Rhopressa 0.02% Ophthalm ic Solution 08/15/2019 12:00:00 AM EDT 1 aborted netarsudil 0.2 MG/ML Ophthalmic Solution [Rhopressa] [facility] (Vijay Webb MD [facility]) Insurance Providers Payer name Policy type / Coverage type Policy ID Covered green party ID Covered green party's relationship to cesar Policy Cesar Plan Information MEDICARE [id number] SELF [id number] A POMCO [id number] SELF [id number] POMCO U [id number] Self [id number] POMCO U [id number] Self [id number] POMCO [id number] SP [id number] MEDICARE A [id number] Self [id number] A MEDICARE [id number] SP [id number] [place] Primary [id number] Self 1 [id number] MEDICARE [id number] SP [id number] MEDICARE A [id number] Self [id number] [place] Primary [id number] Self MEDICARE 4 [id number] 1 [id number] A Medicare Part B [facility] [id number] 0 [id number] Medicare Part B [facility] [id number] 0 [id number] [place] [id number] 0 [id number] [place] (pr) [facility] Part B [id number] 2833.0 Self [id number] [place] (pr) Medigap Part B [id number] Family Dependent [place] [id number] 0 [id number] UMR U [id number] Self [id number] Umr Care Management [id number] 0 [id number] UMR [facility] CARE [id number] SP [id number] UMR [facility] CARE [id number] SP [id number] Umr/Uhc/Pomco Medigap Part B [id number] Self [id number] Umr Commercial [id number] Self [id number] Umr Commercial [id number] Self [id number] UMR U [id number] Self [id number] Medicare Part B [facility] Other 0 [id number] Self 0 [employer] [place] Other 0 [id number] Self 0 Medicare Part B [facility] Other 0 [id number] Self 0 UMR -O [id number] 18 [id number] MEDICARE PART A -I/P [id number] 18 [id number] MEDICARE PART A -O [id number] 18 [id number] MEDICARE PART A -O/P [id number] 18 [id number] [employer] [place] Other 0 [id number] Self 0 Medicare Part B [facility] Other 0 [id number] Self 0 Umr (pr) Medigap Part B [id number] Self [id number] Medicare [place] Primary [id number] Self [id number] [place] (pr) Medigap Part B [id number] Family Dependent [id number] UMR [facility] [id number] SP [id number] [place] Medigap Part B [id number] 16.0 Self [id number] Umr/Uhc/[place]om[place] Medigap Part B [id number] [id number] [id number] Self [id number] Medicare Natl Gov't Servi Medicare Primary [id number] [id number] Self [id number] [place] Medigap Part B [id number] [id number] 16.0 Self [id number] Umr/Uhc/[place] Medigap Part B [id number] 2.0.1.334013.3.227.9 9.1767.18357.0 Self [id number] Medicare Natl Gov't Servi Medicare Primary [id number] [id number].91730.0 Self [id number] [facility] Medicare Primary [id number] [id number]23.0 Self [id number] Umr (pr) Medigap Part B [id number] 2.0.1.640718.3.227.99.991.1 49979.0 Self [id number] Medicare [place] Medicare Primary [id number] [id number] Self [id number] MEDICARE C [id number] S [id number] UMR O [id number] S [id number] MEDICARE C [id number] S [id number] A [place] Medigap Part B [id number] 16.0 Self [id number] Umr/Uhc/[place] Medigap Part B [id number] 2.16.840.1.916140.3.227.9 9.1767.15715.0 Self [id number] Medicare Natl Gov't Servi Medicare Primary [id number] 2.16840.1.200814.3.227.99.1767.11933.0 Self [id number] UMR U [id number] Self [id number] MEDICARE PART A [facility] [id number] 18 [id number] [place] Medigap Part B [id number] 2.16[id number] 16.0 Self [id number] Medicare Natl Gov't Servi Medicare Primary [id number] 2.0.1.232603.3.227.99.1767.63217.0 Self [id number] [facility] Medicare Primary [id number]765.32977.0 Self [id number] [facility]OM[facility] [id number] 18 [id number] Medicare Part B [facility] Other 0 [id number] S elf 0 Medicare Part B of [facility] Other 0 [id number] S elf 0 Medicare Part B of [facility] Other 0 [id number] S elf 0 Medicare Part B of [facility] Other 0 [id number] S elf 0 Medicare [facility] Medicare Primary [id number] Self [id number] [place] (pr) Medigap Part B [id number] .[id number] Family Dependent [id number] Medicare [place] Medicare Primary [id number].991.021494.0 Self [id number] [place] Commercial [id number] 2.16.840.1.726660.3.227.99.7765.59623.0 Self [id number] National [employer] Serv Medicare Primary [id number] 2.16.840.1.645275.3.227.99.7765.94661.0 Self [id number] POMCO-O/P [id number] 18 [id number] [place] Commercial [id number] 2.16.840.1.977769.3.227.99.7765.14626.0 Self [id number] National Government Serv Medicare Primary [id number]9.7765.06212.0 Self [id number] MEDICARE - [facility] [id number] S [id number] [place] Medigap Part B [id number] 16.0 Self [id number] Medicare Natl Gov't Servi Medicare Primary [id number] Self [id number] Medicare Dme Supplies Medigap Part B [id number] Self 1 [id number] [place] Commercial [id number] Self [id number] National Government Serv Medicare Primary [id number].7765.10670.0 Self [id number] Medicare [place] Medicare Primary [id number] Self [id number] [place] Commercial [id number] Self National Government Serv Medicare Primary [id number] Self [employer]OM[employer] PPO O [id number] S [id number] Medicare Dme Supplies Medigap Part B [id number] .[id number] Self MEDICARE -O/P [id number] 18 [id number] MEDICARE PART A -I/P [id number] 18 [id number] POMCO-I/P [id number] 18 [id number] [place] Medigap Part B [id number] Self Medicare [place] Primary [id number] Self POMCO [id number] SP [id number] SELF PAY 2 UNAVAILABLE 1 UNAVAILA BLE POMCO PPO 2 [id number] 1 [id number] MEDICARE [id number] SP [id number] POMCO PPO 2 [id number] 1 [id number] UMR [facility] [id number] SP [id number] MEDICARE PART A [facility] [id number] 18 [id number] UMR CO [id number] 18 [id number] UMR -PHYSICIAN [id number] 1 [id number] UMR -O/P [id number] 18 [id number] MEDICARE PART A -O/P [id number] 18 [id number] [employer] [place] Other 0 [id number] Self 0 Medicare Part B of [facility] Other 0 [id number] Self 0 [employer] [place] Other 0 [id number] Self 0 Medicare Part B of [facility] Other 0 [id number] Self 0 [employer] [place] Other 0 [id number] Self 0 Medicare Part B of [facility] Other 0 [id number] Self 0 [employer] [place] Other 0 [id number] Self 0 Medicare Part B of [facility] Other 0 [id number] Self 0 [employer] [place] Other 0 [id number] Self 0 Medicare Part B of [facility] Other 0 [id number] Self 0 [employer] [place] Other 0 [id number] Self 0 Medicare Part B of [facility] Other 0 [id number] Self 0 [employer] [place] Other 0 [id number] Self 0 Medicare Part B of [facility] Other 0 [id number] Self 0 [employer] [place] Other 0 [id number] Self 0 Medicare Part B of [facility] Other 0 [id number] Self 0 [employer] [place] Other 0 [id number] Self 0 Medicare Part B of [facility] Other 0 [id number] Self 0 [employer] [place] Other 0 [id number] Self 0 Medicare Part B of [facility] Other 0 [id number] Self 0 [employer] [place] Other 0 [id number] Self 0 Problems, Conditions, and Diagnoses Code Display Name Description Problem Type Effective Dates Data Source(s) Z31181 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 Diagnosis [facility] Presence of cardiac pacemaker Presence of cardiac pace maker Diagnosis 12/11/2020 08:39:[address] [facility] Z7982 long term care phlebotomist (current) use of aspirin long term care phlebotomist (cu rrent) use of aspirin Diagnosis 12/11/2020 08:39:[address] [facility] R600 Localized edema Localized edema Diagnosis 12/11/2020 08:3 9:[address] [facility] B94074 Unspecified asthma, uncomplicated Unspecified as thma, uncomplicated Diagnosis 12/11/2020 08:39:[address] [facility] I509 Heart failure, unspecified Heart failure, unspecified Diagnosis 12/11/2020 08:39:[address] [facility] I110 Hypertensive heart disease with heart fa ilure Hypertensive heart disease with heart failure Diagnosis 12/11/2020 08:39:[address] [facility] M1712 Unilateral primary osteoarthritis, left knee Unilateral primary osteoarthritis, left knee Diagnosis 12/11/2020 08:39:00 AM [facility] T84745 Pain in left knee Pain in left knee Diagnosis 12/11/2020 08:39:[address] 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 Idiopathic pro gressive neuropathy Diagnosis 06/21/2020 01:27:00 PM [facility] E79769 Presence of other cardiac implants and g rafts Presence of other cardiac implants and grafts Diagnosis 05/04/2020 09:00:00 AM [facility] J449 Chronic obstructive pulmonary disease, u nspecified Chronic obstructive pulmonary disease, unspecified Diagnosis 05/04/2020 09:00:00 AM [facility] I4891 Unspecified atrial fibrillation Unspecified atrial fib rillation Diagnosis 05/04/2020 09:00:00 AM [facility] I5021 Acute systolic (congestive) heart failur e Acute systolic (congestive) heart failure Diagnosis 05/02/2020 10:27:00 PM [facility] A80662 Pain in left foot Pain in left foot Diagnosis 02/02/2020 11:13:[address] [facility] Surgeries/Procedures Procedure Description Date Indications Data Source(s) ECG ROUTINE ECG W/LEAST 12 LDS W/I&R 02/26/2021 12:00: 00 AM EDT [facility] (Eh Cerna MD) OFFICE OUTPATIENT VISIT 25 MINUTES 02/26/2021 12:00:00 AM EDT [facility] (Eh Cerna MD) INTERROGATION EVAL IN PERSON 1/DUAL/HUMAN RESOURCES MGR LEAD PM 2020 12:00:00 AM EDT [facility] (Eh Cerna MD) [...] 25 MINUTES 01/22/2021 12:00:00 AM EDT [facility] ([facility] Nurse Practitioners) OFFICE OUTPATIENT VISIT 25 MINUTES 11/29/2020 12:00:00 AM EDT [facility] (Eh Cerna MD) Pare Hyperkeratotic Lesion, 2-4 11/08/2020 12:00:00 AM EDT [facility] ([facility]) Debridement Nails Any Method 1-5 11/08/2020 12:00:00 A M EDT [facility] ([facility]) INTERROGATION EVAL IN PERSON 1/DUAL/HUMAN RESOURCES MGR LEAD PM 2020 12:00:00 AM EDT [facility] (Eh Cerna MD) Pare Hyperkeratotic Lesion, 2-4 08/30/2020 12:00:00 AM EDT [facility] ([facility]) Debridement Nails Any Method 1-5 08/30/2020 12:00:00 A M EDT [facility] ([facility]) OFFICE OUTPATIENT VISIT 25 MINUTES 08/03/2020 12:00:00 AM EST [facility] (Eh Cerna MD) INTERROGATION EVAL IN PERSON 1/DUAL/HUMAN RESOURCES MGR LEAD PM 2020 12:00:00 AM EST [facility] (Eh Cerna MD) OFFICE OUTPATIENT VISIT 15 MINUTES 07/05/2020 12:00:00 AM EST [facility] (Eh Cerna MD) Pare Hyperkeratotic Lesion, 2-4 06/21/2020 12:00:00 AM EST [facility] ([facility]) Debridement Nails Any Method 1-5 06/21/2020 12:00:00 A M EST [facility] ([facility]) OFFICE OUTPATIENT VISIT 25 MINUTES 06/07/2020 12:00:00 AM EST [facility] (Eh Cerna MD) Monitoring of Cardiac Electrical Activity, External Ap proach Monitoring of Cardiac Electrical Activity, External Approach 05/04/2020 12:00:00 AM EST [facility] Introduction of Vasopressor into Peripheral Vein, Perc utaneous Approach Introduction of Vasopressor into Peripheral Vein, Percutaneous Approach 05/04/2020 12:00:00 AM EST [facility] Pare Hyperkeratotic Lesion, 2-4 04/12/2020 12:00:00 AM EST [facility] ([facility]) Debridement Nails Any Method 1-5 04/12/2020 12:00:00 A M EST [facility] ([facility]) INTERROGATION EVAL IN PERSON 1/DUAL/HUMAN RESOURCES MGR LEAD PM 2019 12:00:00 AM EST [facility] (Eh Cerna MD) Debridement Nails Any Method 1-5 02/02/2020 12:00:00 A M EDT [facility] ([facility]) Results ID Date Data Source [id number] 12/13/2020 11:56:00 AM EDT [facility] [address] [place] [address] PHONE: [phone] FAX: [phone] Name .................. : ELIZABETH LASHA O Acct Number.................. : [id number] ROOM. ................. : MR Number ................... : [id number] Stay type ............. : E/R Discharge Date......... ... : Admit Date ......... : 12/11/20 Admit Phys .................... : SILAS Matamoros Date of ....... : 1935 Family Phys ................... : JUDI SURESH Phone .................. : [phone] Age ................................ : 85 Film# .................. .:[id number] Sex ................................. : F Unsigned transcriptions are preliminary reports and do not represent a medical or legal document KNEE COMPLETE-4 OR MORE VWS L [id number] COMPLETE:12/11/20 09:22 43523 Reason(s): Pain LEFT KNEE X-RAY: INDICATION: Pain. [...] rce(s) Supporting Document(s) ID Date Data Source [id number] 12/13/2020 11:40:00 [place] [address] PHONE: [phone] FAX: [phone] Name .................. : ELIZABETH Lomeli Acct Number.................. : [id number] ROOM. ................. : MR Number ................... : [id number] Stay type ............. : E/R Discharge Date......... ... : Admit Date ......... : 12/11/20 Admit Phys .................... : SILAS Matamoros Date of ....... : 1935 Family Phys ................... : JUDI DEMETRICE Phone .................. : [phone] Age ................................ : 85 Film# .................. .:[id number] Sex ................................. : F Unsigned transcriptions are preliminary reports and do not represent a medical or legal document DOPPLER UNILATERAL VENOUS 43810 COMPLETE:12/11/20 09:57 KNB [id number] Reason(s): Pain, Limb VENOUS DOPPLER ULTRASOUND OF [...] By KRIS ANDERSEN MD , 12/13/20 11:40, [facility] Transcribe Initials: SADI , Transcribe Date: 12/11/20 10:36, Dictation Date: Copy for: 010 EMERGENCY SRV Copy for: JUDI SURESHZA via modem Copy for: EMERGENCY DEPT via modem Copy for: 710 MED REC Page 1 of 1 Name Value Range Interpretation Code Description Data Mini rce(s) Supporting Document(s) ID Date Data Source [id number] 12/11/2020 08:39:00 AM EDT [facility] 1 OrderSheet [facility] Emergency Department [address] [place] [address] Phone #: ext- [phone] 12/11/2020 08:35 Patient: LASHA CASTRO Sex: F : 1935 Age: 85yWEIGHT:79.3 kg (S) HEIGHT:64 inches (S) BMI:30.0ALLERGIES: Darvan, Dust, MoldCHIEF COMPLAINT: painDIAGNOSIS: ArthritisLAB ORDERSOrder Description Priority Entered Acknowledged InitialedDIAGNOSTIC STUDY ORDERSOrder Description Priority Entered Acknowledged InitialedUS Lower Ext STAT 09:22 12/11/2020 Ack'd: 10:06 10:40 Beatrice LinoVenous Left Mo Avilez ; Arti Martinez RAniNAni(Oxygen?(No)) R.N. Reason for Study: Pain, LimbKnee Complete [...] rce(s) Supporting Document(s) ID Date Data Source [id number] 12/11/2020 08:39:00 AM EDT [facility] 1 Medication Reconciliation Report [facility] Emergency Department [address] [place] [address] Phone #: ext- [phone] 12/11/2020 08:35 Patient: [...] to the patient:None. 2 Medication Reconciliation Report [facility] Emergency Department [address] [place] [address] Phone #: ext- [phone] 12/11/2020 08:35 Patient: LASHA CASTRO Sex: F : 1935 Age: 85y Name Value Range Interpretation Code Description Data Mini rce(s) Supporting Document(s) ID Date Data Source [id number] 12/11/2020 08:39:00 AM EDT [facility] 1 Medication Administration Record [facility] Emergency Department [address] [place] [address] Phone #: ext [phone] 12/11/2020 08:35 Patient: LASHA CASTRO Sex: F : 1935 Age: 85yWeight: 79.3 kgHeight/Length: 64 inBMI: 30ALLERGIES: Darvan, Dust, Mold Date/Time Medication Administered Medication OrderedGiven ACETAMINOPHEN [PO] Acetaminophen PO 650 mg (NOW09:28 12/11/2020 Dose: 650 mg Tablets PO x1)Beatrice Lino R.N. Name Value Range Interpretation Code Description Data [facility](s) Supporting Document(s) ID Date Data Source [id number] 12/11/2020 08:39:00 AM EDT [facility] 1 General Instructions [facility] Emergency Department [address] [place] [address] Phone #: ext [phone] 12/11/2020 08:35 Patient: LASHA CASTRO Sex: F [...] patient.Follow-up with: Eh Cerna MD, Cardiology, , [address] [place] [address], [address] Follow up in two days if not [...] degenerative joint disease.Home care 2 General Instructions [facility] Emergency Department [address] [place] [address] Phone #: ext- [phone] 12/11/2020 08:35 Patient: LASHA CASTRO [facility]#: [id number] Sex: F : 1935 Age: 85y When [...] your pain. Follow the directions on all [id number]-gov-jmabghh medicines. Talk with your healthcare provider about [...] provider Worsening joint pain 3 General Instructions [facility] Emergency Department [address] [place] [address] Phone #: ext- [phone] 12/11/2020 08:35 [id number] Sex[facility] F : 1935 Age: 85y Decreased ability to move the joint or bear weight on the joint [id number] [place] [address] 57892. All rights reserved. This information is not intended as asubstitute for professional medical care. Always follow your healthcare professional's instructions. You have been given the following additional information: Osteoarthritis(Electronically signed by Mo Avilez 12/11/2020 13:38) Name Value Range Interpretation Code Description Data Mini rce(s) Supporting Document(s) ID Date Data Source [id number] 12/11/2020 08:39:00 AM EDT [facility] 1 Clinical Report - Nurses [facility] Emergency Department [address] [place] [address] Phone #: ext- [phone] 12/11/2020 08:35 Patient: [...] distress.No injury occurred. Onset. (3 WEEKS AGO).Treatment SENIOR ACCOUNTING SPECIALIST:None.SEPSIS SCREEN: SIRS SCREEN NEGATIVE. SEPSIS SCREEN NEGATIVE. [...] Node ablation. 2 Clinical Report - Nurses [facility] Emergency Department [address] [place] [address] Phone #: [phone]- [phone] 12/11/2020 08:35 Patient: LASHA CASTRO [facility]#: [id number] Sex: F : 1935 Age: 85yCHF.Asthma.Atrial Fibrillation.Hyperlipidemia.Hypertension.Congestive [...] Mo Avilez. 3 Clinical Report - Nurses [facility] Emergency Department [address] [place] [address] Phone #: ext- [phone] 12/11/2020 08:35 Patient: ALSHA CASTRO Sex: F : 1935 Age: 85y [...] Patient transported to radiology by wheelchair with transporter radiology. --09:29 12/11/20 Beatrice Lino R.N. 09:57 12/11/20. BP: 138/66. HR: 69. RR: 16. O2 saturation: 95%. --09:57 12/11/20 Sargeant seismic plotter, [place], ER Tech1 Care transferred and report given (Arti). --10:09 12/11/20 Beatrice Lino R.N.DISPOSITION / DISCHARGE 10:34 12/11/20. BP: 137/67. MAP: 90. HR: 71. RR: 16. O2 saturation: 95%. Temp: 98.7 F. Pain level now: 06/03. --10:34 12/11/20 Sargeant seismic plotter, [place], ER Tech1 Condition at departure: unchanged. No learning barriers present. Discharge instructions provided and reviewed with the patient. Reviewed referrals (dr cerna). Patient verbalized understanding. Written instructions provided in Brazilian. The patient was discharged home and accompanied by family. She left ambulatory and via private vehicle. Spouse driving. --10:39 12/11/20 Beatrice Lino R.N. Departure time: 10:39 12/11/2020. --10:39 12/11/20 Beatrice Lino R.N.Locked/Released at 12/11/2020 10:40 by Beatrice Lino R.N. Name Value Range Interpretation Code Description Data Mini rce(s) Supporting Document(s) ID Date Data Source [id number] 12/11/2020 08:39:00 AM EDT [facility] 1 Clinical Report - Physicians/Mid Levels [facility] Emergency Department [address] [place] [address] Phone #: ext- [phone] 12/11/2020 08:35 Patient: LASHA CASTRON: [id number] Sex: F : 1935 Age: 85y Time [...] Medications: 2 Clinical Report - Physicians/Mid Levels [facility] Emergency Department [address] [place] [address] Phone #: ext- [phone] 12/11/2020 08:35 Patient: [...] saturation: 97%. Temp: 97.4 F.Pain level now: 3/10.Appearance: Alert. No acute distress.Eyes: Pupils equal, round [...] LT 3 Clinical Report - Physicians/Mid Levels [facility] Emergency Department [address] [place] [address] Phone #: ext- [phone] 12/11/2020 08:35 Patient: LASHA CASTRO Sex: F : 1935 Age: 85yReason(s): Pain, LimbTRANSPORTATION: S IV? O2? Oxygen?(No) Room: ED Exam US DOPPLER UNILATERAL VENOUS LEG LT [facility] [address] [address] PHONE: [phone] FAX: [phone] Name .................. : ELIZABETH Lomeli Acct Number.................. : [id number] ROOM. ................. : MR Number ................... : [id number] Stay type ............. : E/R Discharge Date......... ... : Admit Date ......... : 12/11/20 Admit Phys .................... : SILAS Matamoros Date of ....... : 1935 Family Phys ................... : JUDI DEMETRICE Phone .................. : [phone] Age ....... ......................... : 85 Film# .................. .:[id number] Sex ................................. : F Unsigned transcriptions are preliminary reports and do not represent a medical or legal document US DOPPLER UNILATERAL VENOUS 56736 COMPLETE:12/11/20 09:57 KNB 23331 Reason(s): Pain, Limb VENOUS DOPPLER ULTRASOUND OF [...] Signed By BARRETT KO GMM Transcribe Initials: SADI , Transcribe Date: 12/11/20 10:36, Dictation Date: <<REPDIST>> Page 1of 1Knee Complete Left: (OLIVA: 12/11/2020 09:22) ( MsgRcvd 12/11/2020 11:23) In Progress Exam KNEE COMPLETE-4 [place] [address] 4 Clinical Report - Physicians/Mid Levels [facility] Emergency Department [address] [place] [address] Phone #: ext- [phone] 12/11/2020 08:35 Patient: LASHA CASTRO Sex: F : 1935 Age: 85y PHONE: [phone] FAX: [phone] Name .................. : ELIZABETH Lomeli Acct Number.................. : [id number] ROOM. ................. : MR Number ................... : [id number] Stay type ............. : E/R Discharge Date......... ... : Admit Date ......... : 12/11/20 Admit Phys .................... : SILAS Matamoros Date of ....... : 1935 Family Phys ................... : JUDI DEMETRICE Phone .................. : [phone] Age ................................ : 85 Film# .................. .:[id number] Sex ................................. : F Unsigned transcriptions are preliminary reports and do not represent a medical or legal document KNEE COMPLETE-4 OR MORE [facility] L [id number] COMPLETE:12/11/20 09:22 60265 Reason(s): Pain LEFT KNEE X-RAY: INDICATION: Pain. [...] ordered. 5 Clinical Report - Physicians/Mid Levels [facility] Emergency Department [address] [place] [address] Phone #: ext- [phone] 12/11/2020 08:35 Patient: LASHA CASTRO [facility]#: [id number] Sex: F : 1935 Age: 85y Disposition: [...] Follow-up with: Eh Cerna MD, Cardiology, , [address] [place] [address], [address] Follow up in two days if not better. Call for an appointment. Reason for referral: evaluation.(Electronically signed by Mo Avilez 12/11/2020 13:38) Name Value Range Interpretation Code Description Data Mini rce(s) Supporting Document(s) ID Date Data Source [id number] 09/04/2020 08:10:00 AM EDT [facility] ([facility]) Name Value Range Interpretation Code Description Data Mini rce(s) Supporting Document(s) Fasting glucose [Moles/volume] in Serum or Plasma 140 mg/dL 70-100 Above high normal [facility] ([facility]) ID Date Data Source [id number] 09/04/2020 08:10:00 AM EDT [facility] ([facility]) Name Value Range Interpretation Code Description Data Mini rce(s) Supporting Document(s) Triglycerides Level 244 mg/dL Above high normal [facility] ([facility]) Cholesterol Level 231 mg/dL Above high normal [facility] ([facility]) LDL Cholesterol 142 mg/dL Above high normal [facility] ([facility]) HDL Cholesterol 40 mg/dL Normal (applies to non-numeric results) [facility] ([facility]) Non-HDL-C 191 mg/dL Normal (applies to non-numeric resul ts) [facility] ([facility]) Cholesterol Risk Ratio 5.775 Above high normal [facility] ([facility]) ID Date Data Source [id number] 09/04/2020 08:10:00 AM EDT [facility] ([facility]) Name Value Range Interpretation Code Description Data Mini rce(s) Supporting Document(s) Hemoglobin A1c 6.4 % Normal (applies to non-numeric r esults) [facility] ([facility]) <content>REFERENCE RANGES:</content><br/ ><content></content>
<content><=5.6% NORMAL</content>
<content>5.7-6.4% SUGGESTS IMPAIRED GLUCOSE METABOLISM/PREDIABETIC</content>
<content>>= 6.5% ABNORMAL</content>
<content></content> Estimated Average Glucose 137 mg/dL 60-110 Above high normal [facility] ([facility]) ID Date Data Source WWBC DIGITAL / DALTON BILATERAL MAMMO SCREENING (Ultraso und if indicated) 09/03/2020 12:00:00 AM EDT [facility] ([facility]) Name Value Range Interpretation Code Description Data Mini rce(s) Supporting Document(s) WWBC DIGITAL / DALTON BILAT ERAL MAMMO SCREENING (Ultrasound if indicated) [facility] ([facility]) ID Date Data Source [id number] 05/04/2020 09:35:00 [place] [address] PROGRESS NOTENAME: ELIZABETH Lomeli ROOM#: 107-1DATE OF : 1935 MR#: [id number] DATE: 05/02/20 OF SERVICE: 05/04/2020SUBJECTIVE:Patient came with [...] further rapid ventricular rate.DD: Eh Cerna MD, PC 05/04/20 09:08DT: RUEL 05/04/20 09:35DS: Eh Cerna MD, PC 05/10/20 08:56 1 Name Value Range Interpretation Code Description Data Mini rce(s) Supporting Document(s) ID Date Data Source [id number] 05/03/2020 12:18:00 [place] [address] PROGRESS NOTENAME: ELIZABETH Lomeli ROOM#: 107-1DATE OF : 1935 MR#: [id number] DATE: 05/02/20 OF SERVICE: 05/03/2020SUBJECTIVE:Patient came with [...] fibrillation.DD: Eh Cerna MD, PC 05/03/20 09:31DT: [facility] 05/03/20 12:18DS: Eh Cerna MD, PC 05/10/20 08:56 1 [place] [address] PROGRESS NOTENAME: ELIZABETH Lomeli ROOM#: 107-1DATE OF : 1935 MR#: [id number] DATE: 05/02/20 2 Name Value Range Interpretation Code Description Data Mini rce(s) Supporting Document(s) ID Date Data Source [id number] 05/06/2020 12:06:[address] [address] DISCHARGE SUMMARYNAME: ELIZABETH Lomeli ROOM#: 107-1DATE OF : 1935 MR#: [id number] PHYS: Eh Cerna MD, PC [facility] [id number] DATE: 05/02/20 DISCHARGED: 05/05/20HISTORY OF PRESENT ILLNESS:This [...] Azopt eye drops 3x a day [address] [address] DISCHARGE SUMMARYNAME: ELIZABETH Lomeli ROOM#: 107-1DATE OF : 1935 MR#: [id number] PHYS: Eh Cerna MD, DATE: 05/02/20 DISCHARGED: [...] device8. History of bilateral cataracts9. History of nibpwrrvne27. History of argmcmtnav09. History of glaucomaDD: Eh Cerna MD, PC 05/05/20 08:13DT: LUCIO 05/05/20 23:49DS: Eh Cerna MD, PC 05/10/20 08:56 2 Name Value Range Interpretation Code Description Data Mini rce(s) Supporting Document(s) ID Date Data Source [id number] 05/05/2020 11:49:[address] [address] HISTORY AND PHYSICALNAME: ELIZABETH Lomeli ROOM#: 107-1DATE OF : 1935 MR#: [id number] PHYS: Eh Cerna MD, PC [facility]#: [id number] DATE: 05/02/20CHIEF COMPLAINT: Palpitation.HISTORY OF PRESENT ILLNESS:This is an 84-year-old female with a history of atrial fibrillation who has had an ablation, a Watchmanprocedure and has been in sinus rhythm. She has a history of congestive heart failure. She has a permanentpacemaker. She states that she began not feeling well. She felt palpitations, shortness of breath. She called theambulanhe. She came to the ER. Upon arrival, [...] 11. Vitamin D 3000 units daily 1 [place] [address] HISTORY AND PHYSICALNAME: ELIZABETH Lomeli ROOM#: 107-1DATE OF : 1935 MR#: [id number] PHYS: Eh Cerna MD, DATE: 05/02/20PA MEDICAL HISTORY: 1. History of [...] clavicle.HEART: Regular without murmur or gallop. 2 [place] [address] HISTORY AND PHYSICALNAME: ELIZABETH COLBY Armani ROOM#: 107-1DATE OF : 1935 MR#: [id number] PHYS: Eh Cerna MD, PC DATE: 05/02/20ABDOMEN: Benign. Bowel sounds are positive./RECTAL: [...] rce(s) Supporting Document(s) ID Date Data Source [id number] 05/09/2020 11:11:00 [place] [address] PHONE: [phone] FAX: [phone] Name .................. : ELIZABETH Lomeli Acct Number.................. : [id number] ROOM. ................. : 107-1 MR Number ................... : [id number] Stay type ............. : I/P Discharge Date......... ... : 05/05/20 Admit Date ......... : 05/02/20 Admit Phys .................... : JUDI DEMETRICE Date of ....... : 1935 Family Phys ................... : JUDI DEMETRICE Phone .................. : [phone] Age ................................ : 84 Film# .................. .:[id number] Sex ................................. : F Unsigned transcriptions are preliminary reports and do not represent a medical or legal document CHEST PORTABLE [id number] COMPLETE:05/03/20 07:01 DLA 52617 Reason(s): CHF PORTABLE CHEST X-RAY: INDICATION: Shortness [...] By KRIS ANDERSEN MD , 05/09/20 11:11, [facility] Transcribe Initials: DZ , Transcribe Date: 05/07/20 16:45, Dictation Date: Copy for: 710 MED REC DISCHARGED Page 1 of 1 Name Value Range Interpretation Code Description Data Mini rce(s) Supporting Document(s) ID Date Data Source [id number] 05/05/2020 06:40:00 AM EST [facility] (Eh Cerna [...] finding (navigational concept) 32.9 g/dL 31.0-36.0 [facility] (hE Cerna MD) Laboratory test finding [...] (Eh Cerna MD) ID Date Data Source [id number] 05/05/2020 06:40:00 AM EST [facility] (Eh Cerna MD) Name Value Range Interpretation Code Description Data Mini rce(s) Supporting Document(s) Magnesium [Mass/volume] in Serum or Plasma 2.2 mg/dL 1.7-2.2 [facility] (Eh Cerna MD) ID Date Data Source [id number] 05/05/2020 06:40:00 AM EST [facility] (Eh Cerna [...] (Eh Cerna MD) ID Date Data Source [id number] 05/05/2020 06:40:00 AM EST [facility] (Eh Cerna MD) Name Value Range Interpretation Code Description Data Mini rce(s) Supporting Document(s) Natriuretic peptide.B prohormone N-Terminal [Mass/volu me] in Serum or Plasma 1080 pg/mL 0-450 Above high normal [facility] (Eh Cerna MD) ID Date Data Source [id number] 05/05/2020 08:52:00 AM EST [facility] Name Value Range Interpretation Code Description Data Mini rce(s) Supporting Document(s) COMPREHENSIVE METABOLIC PANEL [facility] COMPREHENSIVE METABOLIC PANEL Sodium [Moles/volume] in Serum or Plasma 137 mEq/L 134 - 153 [facility] Potassium [Moles/volume] in Serum or Plasma 4.4 mEq/L 3.6 - 5.0 [facility] Chloride [Moles/volume] in Serum or Plasma 102 mEq/L 98 - 107 [facility] Carbon dioxide, total [Moles/volume] in Serum or Plasma 29 MEQ/L 22 - 30 [facility] Glucose [Mass/volume] in Serum or Plasma 111 MG/DL 65 - 110 H [facility] BUN 25 MG/DL 7 - 21 H [facility] Creatinine [Mass/volume] in Serum or Plasma 0.9 MG/DL 0.7 - 1.5 [facility] BUN/CREAT 28 8 - 27 H [facility] Protein [Mass/volume] in Serum or Plasma 6.1 G/DL 6.3 - 8.2 L [facility] Albumin [Mass/volume] in Serum or Plasma 3.8 G/DL 3.9 - 5.0 L [facility] Globulin [Mass/volume] in Serum by calculation 2.3 GM/DL 2.4 - 3.2 L [facility] A/G RATIO 1.7 0.8 - 2.0 [facility] Calcium [Mass/volume] in Serum or Plasma 10.1 MG/DL 8.4 - 10.2 [facility] Bilirubin.total [Mass/volume] in Serum or Plasma <0.7 MG/DL 0.2 - 1.3 [facility] Alkaline phosphatase [Enzymatic activity/volume] in Serum or Plasma 56 U/L 38 - 126 [facility] Aspartate aminotransferase [Enzymatic activity/volume] in Serum or Plasma 12 U/L 5 - 40 [facility] Alanine aminotransferase [Enzymatic activity/volume] in Seru m or Plasma 10 U/L 7 - 56 [facility] Anion gap 3 in Serum or Plasma 6.0 mmol/L 8.0 - 16.0 L [facility] AGE 84 yrs [facility] NON-AA GFR >60 mL/min Doctors' [...] >32 mL/min Normal ID Date Data Source [id number] 05/05/2020 08:52:00 AM [facility] Name Value Range Interpretation Code Description Data Mini rce(s) Supporting Document(s) BNP 1080 PG/ML 0 - 450 [facility] ID Date Data Source [id number] 05/05/2020 08:52:00 AM [facility] Name Value Range Interpretation Code Description Data Mini rce(s) Supporting Document(s) Magnesium [Mass/volume] in Serum or Plasma 2.2 MG/DL 1.7 - 2.2 [facility] ID Date Data Source [id number] 05/05/2020 08:46:00 AM [facility] Name Value Range Interpretation Code Description Data Mini rce(s) Supporting Document(s) CBC W/AUTOMATED DIFF [facility] COMPLETE BLOOD COUNT Leukocytes [#/volume] in Blood by Automated count 8.3 10^3/uL 4.2 - 1 1.0 [facility] Erythrocytes [#/volume] in Blood by Automated count 4.20 10^6/uL 4. 20 - 5.40 [facility] Hemoglobin [Mass/volume] in Blood 12.7 g/dL 12.0 - 16.0 [facility] Hematocrit [Volume Fraction] of Blood by Automated count 38.6 % 3 7.0 - 47.0 [facility] Erythrocyte mean corpuscular volume [Entitic volume] by Auto mated count 91.9 fL 81.0 - 101 [facility] Erythrocyte mean corpuscular hemoglobin [Entitic mass] by Automated count 30.2 pg 27.0 - 34.0 [facility] Erythrocyte mean corpuscular hemoglobin concentration [Mass/volume] by Automated count 32.9 g/dL 31.0 - 36.0 [facility] Erythrocyte distribution width [Ratio] by Automated count 13.3 % 11.5 - 14.5 [facility] Platelets [#/volume] in Blood by Automated count 249 10^3/uL 150 - 45 0 [facility] Platelet mean volume [Entitic volume] in Blood by Automated count 10.7 fL 7.4 - 10.4 H [facility] Neutrophils/100 leukocytes in Blood by Automated count 44.7 % 37. 0 - 80.0 [facility] Lymphocytes/100 leukocytes in Blood by Manual count 41.4 % 25.0 - 40.0 H [facility] Monocytes/100 leukocytes in Blood by Automated count 10.3 % 3.0 - 8.0 H [facility] Eosinophils/100 leukocytes in Blood by Automated count 2.9 % 0.0 - 7.0 [facility] Basophils/100 leukocytes in Blood by Automated count 0.5 % 0.0 - 2.5 [facility] %IG 0.2 % 0.0 - 0.0 [facility] %NRBC 0.0 % 0.0 - 0.0 [facility] al Neutrophils [#/volume] in Blood by Automated count 3.71 10^3/uL 2.00 - 6.90 [facility] Lymphocytes [#/volume] in Blood by Automated count 3.44 10^3/uL 0.60 - 3.40 H [facility] Monocytes [#/volume] in Blood by Automated count 0.86 10^3/uL 0.00 - 0.90 [facility] Eosinophils [#/volume] in Blood by Automated count 0.24 10^3/uL 0.00 - 0.70 [facility] Basophils [#/volume] in Blood by Automated count 0.04 10^3/uL 0.00 - 0.20 [facility] #IG 0.02 10^3/uL 0.00 - 0.10 [facility] ospital #NRBC 0.00 10^3/uL 0.00 - 0.00 [facility] ospital MANUAL DIFF NOT INDICATED [facility] RBC MORPH NOT INDICATED [facility] spital ID Date Data Source [id number] 05/04/2020 02:35:00 PM EST [facility] [address] [place] [address] PHONE: [phone] FAX: [phone] Name .................. : ELIZABETH COLBY [employer] Acct Number.................. : [id number] ROOM. ................. : 107-1 MR Number ................... : [id number] Stay type ............. : O/P Discharge Date......... ... : Admit Date ......... : 05/02/20 Admit Phys .................... : JUDI DEMETRICE Date of ....... : 1935 Family Phys ................... : JUDI DEMETRICE Phone .................. : [phone] Age ................................ : 84 Film# .................. .:[id number] Sex ................................. : F Unsigned transcriptions are preliminary reports and do not represent a medical or legal document CT THORAX W/O CONTRAST [id number] COMPLETE:05/03/20 09:32 [id number] (REASON FOR CHEST: CHF CT SCAN OF [...] 05/03/20 11:19, Dictation Date: Copy for: 002 [facility] Copy for: 710 [facility] REC Page 1 of 1 Name Value Range Interpretation Code Description Data Mini rce(s) Supporting Document(s) ID Date Data Source [id number] 05/04/2020 08:08:00 [place] [address] RESPIRATORY CARE REPORT ==== ---------NAME------- NUMBER SEX AGE ADMIT DISC. XRAY# F/C TYPEVALENTINE LASHA O [id number] F 84 05/02/20 [id number] MB4 O/P DATE OF : 1935 M/R# [id number] #: [id number] [id number] LOCATION[place] [address] COMP LETE:05/03/20 01:54 T 35063 PHYSICIAN: JUDI BOONE Name Value Range Interpretation Code Description Data Mini rce(s) Supporting Document(s) ID Date Data Source [id number] 05/04/2020 05:31:00 AM EST [facility] (Eh Cerna [...] >32 mL/min Normal ID Date Data Source [id number] 05/04/2020 05:31:00 AM EST [facility] (Eh Cerna MD) Name Value Range Interpretation Code Description Data Mini rce(s) Supporting Document(s) Laboratory test finding (navigational concept) Laboratory test result NELSY (Eh Cerna MD) COMPLETE BLOOD COUNT Laboratory test finding (navigational concept) 4.25 10^6/uL 4.20-5.40 [facility] (Eh Cerna MD) Laboratory [...] (navigational concept) 2.2 % 0.0-7.0 [facility] (Eh Cerna MD) Laboratory [...] (Eh Cerna MD) ID Date Data Source [id number] 05/04/2020 07:15:00 AM EST [facility] Name Value Range Interpretation Code Description Data Mini rce(s) Supporting Document(s) COMPREHENSIVE METABOLIC PANEL [facility] COMPREHENSIVE METABOLIC PANEL Sodium [Moles/volume] in Serum or Plasma 136 mEq/L 134 - 153 [facility] Potassium [Moles/volume] in Serum or Plasma 3.8 mEq/L 3.6 - 5.0 [facility] Chloride [Moles/volume] in Serum or Plasma 99 mEq/L 98 - 107 [facility] Carbon dioxide, total [Moles/volume] in Serum or Plasma 27 MEQ/L 22 - 30 [facility] Glucose [Mass/volume] in Serum or Plasma 122 MG/DL 65 - 110 H [facility] BUN 25 MG/DL 7 - 21 H [facility] Creatinine [Mass/volume] in Serum or Plasma 0.9 MG/DL 0.7 - 1.5 [facility] BUN/CREAT 28 8 - 27 H [facility] al Protein [Mass/volume] in Serum or Plasma 5.9 G/DL 6.3 - 8.2 L [facility] Albumin [Mass/volume] in Serum or Plasma 3.9 G/DL 3.9 - 5.0 [facility] Globulin [Mass/volume] in Serum by calculation 2.0 GM/DL 2.4 - 3.2 L [facility] A/G RATIO 2.0 0.8 - 2.0 [facility] Calcium [Mass/volume] in Serum or Plasma 9.7 MG/DL 8.4 - 10.2 [facility] Bilirubin.total [Mass/volume] in Serum or Plasma <0.7 MG/DL 0.2 - 1.3 [facility] Alkaline phosphatase [Enzymatic activity/volume] in Serum or Plasma 58 U/L 38 - 126 [facility] Aspartate aminotransferase [Enzymatic activity/volume] in Serum or Plasma 12 U/L 5 - 40 [facility] Alanine aminotransferase [Enzymatic activity/volume] in Seru m or Plasma 10 U/L 7 - 56 [facility] Anion gap 3 in Serum or Plasma 10.0 mmol/L 8.0 - 16.0 [facility] AGE 84 yrs [facility] al NON-AA GFR >60 mL/min [facility] ital AFR AMER GFR >60 [facility] [...] >32 mL/min Normal ID Date Data Source [id number] 05/04/2020 06:59:00 AM EST [facility] Name Value Range Interpretation Code Description Data Mini rce(s) Supporting Document(s) CBC W/AUTOMATED DIFF [facility] COMPLETE BLOOD COUNT Leukocytes [#/volume] in Blood by Automated count 9.4 10^3/uL 4.2 - 1 1.0 [facility] Erythrocytes [#/volume] in Blood by Automated count 4.25 10^6/uL 4. 20 - 5.40 [facility] Hemoglobin [Mass/volume] in Blood 13.0 g/dL 12.0 - 16.0 [facility] Hematocrit [Volume Fraction] of Blood by Automated count 38.9 % 3 7.0 - 47.0 [facility] Erythrocyte mean corpuscular volume [Entitic volume] by Auto mated count 91.5 fL 81.0 - 101 [facility] Erythrocyte mean corpuscular hemoglobin [Entitic mass] by Automated count 30.6 pg 27.0 - 34.0 [facility] Erythrocyte mean corpuscular hemoglobin concentration [Mass/volume] by Automated count 33.4 g/dL 31.0 - 36.0 [facility] Erythrocyte distribution width [Ratio] by Automated count 13.5 % 11.5 - 14.5 [facility] Platelets [#/volume] in Blood by Automated count 245 10^3/uL 150 - 45 0 [facility] Platelet mean volume [Entitic volume] in Blood by Automated count 10.7 fL 7.4 - 10.4 H [facility] Neutrophils/100 leukocytes in Blood by Automated count 52.0 % 37. 0 - 80.0 [facility] Lymphocytes/100 leukocytes in Blood by Manual count 35.0 % 25.0 - 40.0 [facility] Monocytes/100 leukocytes in Blood by Automated count 10.0 % 3.0 - 8.0 H [facility] Eosinophils/100 leukocytes in Blood by Automated count 2.2 % 0.0 - 7.0 [facility] Basophils/100 leukocytes in Blood by Automated count 0.6 % 0.0 - 2.5 [facility] %IG 0.2 % 0.0 - 0.0 [facility] %NRBC 0.0 % 0.0 - 0.0 [facility] al Neutrophils [#/volume] in Blood by Automated count 4.88 10^3/uL 2.00 - 6.90 [facility] Lymphocytes [#/volume] in Blood by Automated count 3.29 10^3/uL 0.60 - 3.40 [facility] Monocytes [#/volume] in Blood by Automated count 0.94 10^3/uL 0.00 - 0.90 H [facility] Eosinophils [#/volume] in Blood by Automated count 0.21 10^3/uL 0.00 - 0.70 [facility] Basophils [#/volume] in Blood by Automated count 0.06 10^3/uL 0.00 - 0.20 [facility] #IG 0.02 10^3/uL 0.00 - 0.10 [facility] ospital #NRBC 0.00 10^3/uL 0.00 - 0.00 [facility] ospital MANUAL DIFF NOT INDICATED [facility] RBC MORPH NOT INDICATED [facility] spital ID Date Data Source [id number] 05/03/2020 10:20:00 PM EST [facility] (Eh Cerna MD) Name Value Range Interpretation Code Description Data Mini rce(s) Supporting Document(s) Troponin T.cardiac [Mass/volume] in Serum or Plasma Laborato ry test result 0.00-0.10 [facility] (Eh Cerna MD) TROPONIN T 0.1 ng/ml Recommended as the clinical th reshold value for Troponin T. ID Date Data Source [id number] 05/03/2020 11:02:00 PM [facility] Name Value Range Interpretation Code Description Data Mini rce(s) Supporting Document(s) TROPONIN T <0.01 NG/ML 0.00 - 0.10 [facility] ospital TROPONIN T0.1 ng/ml Recommended as the c linical threshold value forTroponin T. ID Date Data Source [id number] 05/03/2020 04:43:00 PM EST [facility] (Eh Cerna MD) Name Value Range Interpretation Code Description Data Mini rce(s) Supporting Document(s) Troponin T.cardiac [Mass/volume] in Serum or Plasma Laborato ry test result 0.00-0.10 [facility] (Eh Cerna MD) TROPONIN T 0.1 ng/ml Recommended as the clinical th reshold value for Troponin T. ID Date Data Source [id number] 05/03/2020 05:14:00 PM [facility] Name Value Range Interpretation Code Description Data Mini rce(s) Supporting Document(s) TROPONIN T <0.01 NG/ML 0.00 - 0.10 [facility] TROPONIN T0.1 ng/ml Recommended as the c linical threshold value forTroponin T. ID Date Data Source [id number] 05/03/2020 10:22:00 AM EST [facility] (Eh Cerna MD) Name Value Range Interpretation Code Description Data Mini rce(s) Supporting Document(s) Troponin T.cardiac [Mass/volume] in Serum or Plasma Laborato ry test result 0.00-0.10 [facility] (Eh Cerna MD) TROPONIN T 0.1 ng/ml Recommended as the clinical th reshold value for Troponin T. ID Date Data Source [id number] 05/03/2020 11:12:00 AM [facility] Name Value Range Interpretation Code Description Data Mini rce(s) Supporting Document(s) TROPONIN T <0.01 NG/ML 0.00 - 0.10 [facility] ospital TROPONIN T0.1 ng/ml Recommended as the c linical threshold value forTroponin T. ID Date Data Source [id number] 05/02/2020 10:27:00 PM [facility] 1 OrderSheet [facility] Emergency Department [address] [place] [address] Phone #: ext- [phone] 05/02/2020 22:26 Patient: LASHA CASTOR Sex: F : 1935 Age: 84yWEIGHT:75.2 kg (M) HEIGHT:63 inches (S) BMI:29.4ALLERGIES: Darvan, Dust, MoldCHIEF COMPLAINT: palpitationsDIAGNOSIS: Congestive heart failureLAB ORDERSOrder Description Priority Entered Acknowledged InitialedCBC w Diff STAT 22:50 05/02/2020 Ack'd: 22:52 23:28 Rosetta Paris, Jose Jacquelinearagno, Brandy JaramilloN. MAshok.; R.N.CMP STAT 22:50 05/02/2020 Ack'd: 22:52 23:28 Rosetta Paris, Jose Jacquelinearagno, Brandy JaramilloN. MAshok.; R.N.Lipase STAT 22:50 05/02/2020 Ack'd: 22:52 23:28 Rosetta Paris, Jose Melaragno, Brandy JaramilloN. M.Shae.; R.N.PT/PTT STAT 22:50 05/02/2020 Ack'd: 22:52 23:28 Raina, Rosetta, Jose Tenzingno, Brandy JaramilloN. M.Shae.; R.N.Troponin-T STAT 22:50 05/02/2020 Ack'd: 22:52 23:28 Raina, Rosetta, Jose Tenzingno, Brandy JaramilloN. M.Shae.; R.N.BNP STAT 22:50 05/02/2020 Ack'd: 22:52 23:28 Raina, Rosetta, Jose Jacquelinearagno, Brandy JaramilloN. M.Shae.; R.N.TSH STAT 22:51 05/02/2020 Ack'd: 22:52 23:28 Rosetta Paris, Jose Raina, Brandy JaramilloN. Juni.; R.N.DIAGNOSTIC STUDY ORDERSOrder Description Priority Entered Acknowledged Initialed 2 OrderSheet [facility] Emergency Department [address] [place] [address] Phone #: ext- [phone] 05/02/2020 22:26 [id number] Sex: F : 1935 Age: 84yChest Portable 1 STAT 22:50 05/02/2020 Ack'd: 22:52 22:56 Gregorio Paris (Oxygen? Nila Sargent Laura Laura R.NAni(Yes)) Jose; R.N. Reason for Study: CHF, Shortness of BreathMEDICATION/IV/DRIP/FLUID ORDERSOrder Description Priority Entered Acknowledged InitialedNitroGLYCERIN 22:50 05/02/2020 Ack'd: 22:52 22:56 Raina,Topical Ointment Jose Sargent Laura Laura R.N.0.5 in. M.D.; R.N.Lasix IVP 60 mg 23:13 05/02/2020 Ack'd: 23:20 23:27 Rosetta Paris, Brandy Russ R.N. MAniDAni; R.N.GENERAL ORDERSOrder Description Priority Entered Acknowledged InitialedBlood Pressure 22:50 05/02/2020 22:51 Raina,Monitor Jose Sargent R.N. M.D.;Home Energy Rater 22:50 05/02/2020 22:51 Raina,(continuous) Jose Sargent R.N. M.D.;EKG 22:50 05/02/2020 22:51 Rosetta Paris Riccardo Laura R.N. M.D.;NPO 22:50 05/02/2020 22:51 Rosetta Paris Riccardo Laura R.N. M.D.;Obtain Old EKG 22:50 05/02/2020 22:51 Rosetta Paris Riccardo Laura R.N. M.D.;Obtain Old Records 22:50 05/02/2020 22:51 Rosetta Paris Riccardo Laura R.N. M.D.;Oxygen (2 L/min) 22:50 05/02/2020 22:51 Raina(NC) (Titrate to O2 Jose Sargent R.N.Sat >92%) Juni.;Oxygen titrate to 22:50 05/02/2020 22:51 Raina92% Jose Sargent R.N., M.D.; 3 OrderSheet [facility] Emergency Department [address] [place] [address] Phone #: ext- [phone] 05/02/2020 22:26 Patient: LASHA CASTRO Sex: F : 1935 Age: 84yPulse oximeter 22:50 05/02/2020 22:51 Raina(Continuous) Jose Sargent R.N., M.D.;Saline Lock 22:50 05/02/2020 22:51 Rosetta Paris Riccardo Laura R.N. M.D.;Vitals 22:50 05/02/2020 22:51 Rosetta Paris Riccardo Laura R.N. M.D.;Consult - 23:53 05/02/2020 23:57 Raina,Hospitalist Jose Sargent R.N., M.D.;[Electronically signed by Brandy Paris R.N. (01:28 05/03/2020)][Electronically signed by Jose Sargent M.D. (06:02 05/03/2020)][Electronically locked by Brandy Paris R.N. (01:28 05/03/2020)] Name Value Range Interpretation Code Description Data Mini rce(s) Supporting Document(s) ID Date Data Source [id number] 05/02/2020 10:27:00 PM EST [facility] 1 Medication Reconciliation Report [facility] Emergency Department [address] [place] [address] Phone #: ext- [phone] 05/02/2020 22:26 [id number] Sex[facility] F : 1935 Age: 84yWeight: 75.2 [...] administered: 22:56 05/02/2020 2 Medication Reconciliation Report [facility] Emergency Department [address] [place] [address] Phone #: ext- [phone] 05/02/2020 22:26 Patient: LASHA CASTRO Sex: F : 1935 Age: 84yLasix [IVP] IVP 60 mg, administered: 23:27 05/02/2020The following Medications were prescribed to the patient:None. Name Value Range Interpretation Code Description Data Mini rce(s) Supporting Document(s) ID Date Data Source [id number] 05/02/2020 10:27:00 PM EST [facility] 1 Medication Administration Record [facility] Emergency Department [address] [place] [address] Phone #: ext- [phone] 05/02/2020 22:26 Patient: LASHA CASTRO Sex: F : 1935 Age: 84yWeight: 75.2 kgHeight/Length: 63 inBMI: 29.4ALLERGIES: Darvan, Mold, Dust Date/Time Medication Administered Medication OrderedGiven NITROGLYCERIN [TOPICAL OINTMENT] NitroGLYCERIN Uuvvlxo31:56 05/02/2020 Dose: 0.5 in. Topical Ointment 0.5 in.Brandy Paris RAniNAniGiven LASIX [IVP] Lasix IVP 60 mg23:27 05/02/2020 Dose: 60 mg IVPMBrandy griffin RAniNAni Site: #1 left wrist Name Value Range Interpretation Code Description Data Mini rce(s) Supporting Document(s) ID Date Data Source [id number] 05/02/2020 10:27:00 PM EST [facility] 1 General Instructions [facility] Emergency Department [address] [place] [address] Phone #: ext- [phone] 05/02/2020 22:26 Patient: LASHA CASTRO Sex: F : 1935 Age: 84yAcute mild systolic, left ventricular congestive heart failure.S/P Pacemaker status.(Electronically signed by Jose Sargent M.D. 05/03/2020 06:02) Name Value Range Interpretation Code Description Data Mini rce(s) Supporting Document(s) ID Date Data Source [id number] 05/02/2020 10:27:00 PM EST [facility] 1 Clinical Report - Nurses [facility] Emergency Department [address] [place] [address] Phone #: ext- [phone] 05/02/2020 22:26 Patient: [...] normally feels this way when it isfiring.).Treatment SENIOR ACCOUNTING SPECIALIST:None. --22:38 05/02/20 Brandy Paris R.N.22:28 05/02/20. BP: [...] Azopt Ophthalmic (Suspension 1 %). --22:36 05/02/20 Brandy Paris R.N. Timolol Maleate Oral. --22:36 05/02/20 Brandy Paris R.N. Lumigan Ophthalmic (Solution 0.01 %). --22:36 05/02/20 Brandy Paris R.N. Rhopressa O phthalmic (Solution 0.02 %). --22:36 05/02/20 Brandy Paris R.N. Vitamin D Oral. --22:37 05/02/20 Brandy Paris R.N.AllergiesDust. --22:33 05/02/20 Brandy Paris R.N.Mold. --22:33 05/02/20 Brandy Paris R.N.Darvan. --22:33 05/02/20 Brandy Paris R.N.PROBLEMS: 2 Clinical Report - Nurses [facility] Emergency Department [address] [place] [address] Phone #: ext- [phone] 05/02/2020 22:26 [id number] Sex: F : 1935 Age: 84yAsthma.CHF.Atrial Fibrillation. [...] Paris R.N. 3 Clinical Report - Nurses [facility] Emergency Department [address] [place] [address] Phone #: ext- [phone] 05/02/2020 22:26 Patient: [...] calm and resting quietly. --23:12 05/02/20 Brandy Paris R.N. 23:11 05/02/20. BP: 124/70. MAP: 88. [...] Paris R.N. 4 Clinical Report - Nurses [facility] Emergency Department [address] [place] [address] Phone #: ext- [phone] 05/02/2020 22:26 Patient: LASHA CASTRO Sex: F : 1935 Age: 84y The patient is calm and resting quietly. --23:58 05/02/20 Brandy Paris R.N. 23:57 05/02/20. BP: 124/65. MAP: 84. HR: 70. RR: 20. O2 saturation: 97% on nasal cannula at 2 liters/minute. Temp: deferred. Pain level now: 0/10. --23:58 05/02/20 Brandy Paris R.N. ( Patient ambulated to bathroom [...] Flushed with 10 mL saline; flushes easily. --01:27 05/03/20 Brandy Paris R.N. Disposition: observation for further [...] transferred. (HILARY Hilliard). Bed obtained and ready. --01:05/03/20 Brandy Paris R.N. 01:05/03/20. BP: 120/77. MAP: 91. HR: 70. RR: 17. O2 saturation: 98% on nasal cannula at 2 liters/minute. Temp: 97.9 F (oral). Pain level now: 010. --:05/03/20 Brandy Paris R.N. Departure time: late entry - 01:05/03/2020. --:05/03/20 Brandy Paris R.N.Locked/Released at 05/03/2020 01:28 by Brandy Paris R.N. 5 Clinical Report - Nurses [facility] Emergency Department [address] [place] [address] Phone #: ext- [phone] 05/02/2020 22:26 Patient: LASHA CASTRO Sex: F : 1935 Age: 84y Name Value Range Interpretation Code Description Data Mini rce(s) Supporting Document(s) ID Date Data Source [id number] 05/02/2020 10:27:00 PM EST [facility] 1 Clinical Report - Physicians/Mid Levels [facility] Emergency Department [address] [place] [address] Phone #: ext- [phone] 05/02/2020 22:26 Patient: [...] Procedure. 2 Clinical Report - Physicians/Mid Levels [facility] Emergency Department [address] [place] [address] Phone #: ext- [phone] 05/02/2020 22:26 Patient: LASHA CASTRO [facility]#: [id number] Sex: F : 1935 Age: 84y Medications: [...] normal. 3 Clinical Report - Physicians/Mid Levels [facility] mergency Department [address] [place] [address] Phone #: ext- [phone] 05/02/2020 22:26 Patient: LASHA CASTRO [facility]#: [id number] Sex: F : 1935 Age: 84yLABS, X-RAYS, [...] making process. TSH: (OLIVA: 05/02/2020 22:35) ( [facility] 05/02/2020 23:41) Final results Test Result Flag Units (Reference) TSH 2.98 uIU/mL (0.47 - 5.01) CBC w Diff: (OLIVA: 05/02/2020 22:35) ( MsgRcvd 05/02/2020 23:23) Final results Test Result Flag [...] PANEL 4 Clinical Report - Physicians/Mid Levels [facility] Emergency Department [address] [place] [address] Phone #: ext- [phone] 05/02/2020 22:26 Patient: [...] Male GFR Interprentation 20-49 yrs >60 mL/min Uponmo44-87 yrs >56 mL/min Normal 60-69 yrs >49 mL/min Normal 70-79yrs>42 mL/min Normal 80 and above >35 mL/min Normal Female GFRInterpretation 20-39 yrs >60 mL/min Normal 40-49 yrs >58 mL/minNormal 50-59 yrs >51 mL/min Normal 60-69 yrs >45 mL/min Exifvz81-24 yrs >39 mL/min Normal 80 and above [...] VenousThrombosis, Pulmonary Embolus, Tissue heart valves, Acute [place] Atrial Fibrillation, Valvular heart diseaseand recurrent Systemic Embolism. -International Normalized Ratio (INR): 2.5 - 3.5 forMechanical Prosthetic valve.Troponin-T: (OLIVA: 05/02/2020 22:35) ( MsgRcvd 05/02/2020 23:27) Final results Test Result Flag Units (Reference) TROPONIN T <0.01 NG/ML (0.00 - 0.10) TROPONIN T0.1 ng/ml Recommended as the clinical threshold value forTroponin T.BNP: (OLIVA: 05/02/2020 22:35) ( CtgRcvd 05/02/2020 23:41) Final results Test Result Flag Units (Reference) BNP 1701 H PG/ML (0 - 450) 5 Clinical Report - Physicians/Mid Levels [facility] Emergency Department [address] [place] [address] Phone #: ext- [phone] 05/02/2020 22:26 Patient: LASHA CASTRO Sex: F : 1935 Age: 84y.PROGRESS AND [...] failure. S/P Pacemaker status.(Electronically signed by Jose Sargent M.D. 05/03/2020 06:02) Name Value Range Interpretation Code Description Data Mini rce(s) Supporting Document(s) ID Date Data Source [id number] 05/02/2020 10:27:00 PM [facility] LASHA Zimmerman VisitID: [id number] Date: 0:01Faxed medication reconciliation request to [employer](Electronically signed by Tae Roa - 05/03/2020 0:01) Name Value Range Interpretation Code Description Data Mini rce(s) Supporting Document(s) ID Date Data Source [id number] 05/03/2020 05:35:00 AM EST [facility] (Eh Cerna MD) Name Value Range Interpretation Code Description Data Mini rce(s) Supporting Document(s) Magnesium [Mass/volume] in Serum or Plasma 2.0 mg/dL 1.7-2.2 [facility] (Eh Cerna MD) Troponin T.cardiac [Mass/volume] in Serum or Plasma Laborato ry test result 0.00-0.10 [facility] (Eh Cerna MD) TROPONIN T 0.1 ng/ml Recommended as the clinical th reshold value for Troponin T. ID Date Data Source [id number] 05/03/2020 05:35:00 AM EST [facility] (Eh Cerna [...] Cerna MD) Laboratory test finding (navigational concept) 18 [...] >32 mL/min Normal ID Date Data Source [id number] 05/03/2020 05:35:00 AM EST [facility] (Eh Cerna [...] finding (navigational concept) 4.30 10^3/uL 2.00-6.90 [facility] (Eh Cerna MD) Laboratory [...] (Eh Cerna MD) ID Date Data Source [id number] 05/03/2020 07:34:00 AM EST [facility] Name Value Range Interpretation Code Description Data Mini rce(s) Supporting Document(s) CBC W/AUTOMATED DIFF [facility] COMPLETE BLOOD COUNT Leukocytes [#/volume] in Blood by Automated count 8.7 10^3/uL 4.2 - 1 1.0 [facility] Erythrocytes [#/volume] in Blood by Automated count 4.28 10^6/uL 4. 20 - 5.40 [facility] Hemoglobin [Mass/volume] in Blood 12.8 g/dL 12.0 - 16.0 [facility] Hematocrit [Volume Fraction] of Blood by Automated count 39.2 % 3 7.0 - 47.0 [facility] Erythrocyte mean corpuscular volume [Entitic volume] by Auto mated count 91.6 fL 81.0 - 101 [facility] Erythrocyte mean corpuscular hemoglobin [Entitic mass] by Automated count 29.9 pg 27.0 - 34.0 [facility] Erythrocyte mean corpuscular hemoglobin concentration [Mass/volume] by Automated count 32.7 g/dL 31.0 - 36.0 [facility] Erythrocyte distribution width [Ratio] by Automated count 13.4 % 11.5 - 14.5 [facility] Platelets [#/volume] in Blood by Automated count 272 10^3/uL 150 - 45 0 [facility] Platelet mean volume [Entitic volume] in Blood by Automated count 10.5 fL 7.4 - 10.4 H [facility] Neutrophils/100 leukocytes in Blood by Automated count 49.5 % 37. 0 - 80.0 [facility] Lymphocytes/100 leukocytes in Blood by Manual count 37.5 % 25.0 - 40.0 [facility] Monocytes/100 leukocytes in Blood by Automated count 9.6 % 3.0 - 8.0 H [facility] Eosinophils/100 leukocytes in Blood by Automated count 2.4 % 0.0 - 7.0 [facility] Basophils/100 leukocytes in Blood by Automated count 0.8 % 0.0 - 2.5 [facility] %IG 0.2 % 0.0 - 0.0 H [facility] %NRBC 0.0 % 0.0 - 0.0 [facility] al Neutrophils [#/volume] in Blood by Automated count 4.30 10^3/uL 2.00 - 6.90 [facility] Lymphocytes [#/volume] in Blood by Automated count 3.26 10^3/uL 0.60 - 3.40 [facility] Monocytes [#/volume] in Blood by Automated count 0.83 10^3/uL 0.00 - 0.90 [facility] Eosinophils [#/volume] in Blood by Automated count 0.21 10^3/uL 0.00 - 0.70 [facility] [facility] [#/volume] in Blood by Automated count 0.07 10^3/uL 0.00 - 0.20 [facility] #IG 0.02 10^3/uL 0.00 - 0.10 [facility] ospital #NRBC 0.00 10^3/uL 0.00 - 0.00 [facility] ospital MANUAL DIFF NOT INDICATED [facility] RBC MORPH NOT INDICATED [facility] spital ID Date Data Source [id number] 05/03/2020 07:32:00 AM EST [facility] Name Value Range Interpretation Code Description Data Mini rce(s) Supporting Document(s) COMPREHENSIVE METABOLIC PANEL [facility] COMPREHENSIVE METABOLIC PANEL Sodium [Moles/volume] in Serum or Plasma 137 mEq/L 134 - 153 [facility] Potassium [Moles/volume] in Serum or Plasma 3.8 mEq/L 3.6 - 5.0 [facility] Chloride [Moles/volume] in Serum or Plasma 100 mEq/L 98 - 107 [facility] Carbon dioxide, total [Moles/volume] in Serum or Plasma 28 MEQ/L 22 - 30 [facility] Glucose [Mass/volume] in Serum or Plasma 112 MG/DL 65 - 110 H [facility] BUN 18 MG/DL 7 - 21 [facility] al Creatinine [Mass/volume] in Serum or Plasma 0.7 MG/DL 0.7 - 1.5 [facility] BUN/CREAT 26 8 - 27 [facility] Protein [Mass/volume] in Serum or Plasma 6.2 G/DL 6.3 - 8.2 L [facility] Albumin [Mass/volume] in Serum or Plasma 4.0 G/DL 3.9 - 5.0 [facility] Globulin [Mass/volume] in Serum by calculation 2.2 GM/DL 2.4 - 3.2 L [facility] A/G RATIO 1.8 0.8 - 2.0 [facility] Calcium [Mass/volume] in Serum or Plasma 9.4 MG/DL 8.4 - 10.2 [facility] Bilirubin.total [Mass/volume] in Serum or Plasma <0.7 MG/DL 0.2 - 1.3 [facility] Alkaline phosphatase [Enzymatic activity/volume] in Serum or Plasma 63 U/L 38 - 126 [facility] Aspartate aminotransferase [Enzymatic activity/volume] in Serum or Plasma 14 U/L 5 - 40 [facility] Alanine aminotransferase [Enzymatic activity/volume] in Seru m or Plasma 9 U/L 7 - 56 [facility] Anion gap 3 in Serum or Plasma 9.0 mmol/L 8.0 - 16.0 [facility] AGE 84 yrs [facility] al NON-AA GFR >60 mL/min [facility] ital AFR AMER GFR >60 [facility] [...] >32 mL/min Normal ID Date Data Source [id number] 05/03/2020 07:16:00 AM [facility] Name Value Range Interpretation Code Description Data Mini rce(s) Supporting Document(s) TROPONIN T <0.01 NG/ML 0.00 - 0.10 [facility] ospital TROPONIN T0.1 ng/ml Recommended as the c linical threshold value forTroponin T. ID Date Data Source [id number] 05/03/2020 07:10:00 AM [facility] Name Value Range Interpretation Code Description Data Mini rce(s) Supporting Document(s) Magnesium [Mass/volume] in Serum or Plasma 2.0 MG/DL 1.7 - 2.2 [facility] ID Date Data Source [id number] 05/02/2020 10:35:00 PM EST [facility] (Eh Cerna [...] (Eh Cerna MD) ID Date Data Source [id number] 05/02/2020 10:35:00 PM EST [facility] (Eh Cerna [...] >32 mL/min Normal ID Date Data Source [id number] 05/02/2020 10:35:00 PM EST [facility] (Eh Cerna MD) Name Value Range Interpretation Code Description Data Mini rce(s) Supporting Document(s) Troponin T.cardiac [Mass/volume] in Serum or Plasma Laborato ry test result 0.00-0.10 [facility] (Eh Cerna MD) TROPONIN T 0.1 ng/ml Recommended as the clinical th reshold value for Troponin T. ID Date Data Source [id number] 05/02/2020 10:35:00 PM EST [facility] (Eh Cerna [...] finding (navigational concept) 35 % 25-40 [facility] (Eh Cerna MD) Laboratory test finding [...] (Eh Cerna MD) ID Date Data Source [id number] 05/02/2020 10:35:00 PM EST [facility] (Eh Cerna [...] Thrombosis, Pulmonary Embolus, Tissue heart valves, Acute [place] Atrial Fibrillation, Valvular heart disease and recurrent Systemic Embolism. -International Normalized Ratio (INR): 2 .5 - 3.5 for Mechanical Prosthetic valve. ID Date Data Source [id number] 05/02/2020 11:41:00 PM [facility] Value Range Interpretation Code Description Data Mini rce(s) Supporting Document(s) Thyrotropin [Units/volume] in Serum or Plasma by Detec tion limit <= 0.05 mIU/L 2.98 uIU/mL 0.47 - 5.01 [facility] ID Date Data Source [id number] 05/02/2020 11:41:00 PM [facility] Value Range Interpretation Code Description Data Mini rce(s) Supporting Document(s) BNP 1701 PG/ML 0 - 450 [facility] ID Date Data Source [id number] 05/02/2020 11:41:00 PM [facility] Value Range Interpretation Code Description Data Mini rce(s) Supporting Document(s) Lipase [Enzymatic activity/volume] in Serum or Plasma 42 U/L 13 - 60 [facility] ID Date Data Source [id number] 05/02/2020 11:41:00 PM [facility] Value Range Interpretation Code Description Data Mini rce(s) Supporting Document(s) COMPREHENSIVE METABOLIC PANEL [facility] COMPREHENSIVE METABOLIC PANEL Sodium [Moles/volume] in Serum or Plasma 137 mEq/L 134 - 153 [facility] Potassium [Moles/volume] in Serum or Plasma 3.9 mEq/L 3.6 - 5.0 [facility] Chloride [Moles/volume] in Serum or Plasma 100 mEq/L 98 - 107 [facility] Carbon dioxide, total [Moles/volume] in Serum or Plasma 26 MEQ/L 22 - 30 [facility] Glucose [Mass/volume] in Serum or Plasma 153 MG/DL 65 - 110 H [facility] BUN 19 MG/DL 7 - 21 [facility] Creatinine [Mass/volume] in Serum or Plasma 1.0 MG/DL 0.7 - 1.5 [facility] BUN/CREAT 19 8 - 27 [facility] Protein [Mass/volume] in Serum or Plasma 6.6 G/DL 6.3 - 8.2 [facility] Albumin [Mass/volume] in Serum or Plasma 4.1 G/DL 3.9 - 5.0 [facility] Globulin [Mass/volume] in Serum by calculation 2.5 GM/DL 2.4 - 3.2 [facility] A/G RATIO 1.6 0.8 - 2.0 [facility] Calcium [Mass/volume] in Serum or Plasma 10.2 MG/DL 8.4 - 10.2 [facility] Bilirubin.total [Mass/volume] in Serum or Plasma <0.7 MG/DL 0.2 - 1.3 [facility] Alkaline phosphatase [Enzymatic activity/volume] in Serum or Plasma 71 U/L 38 - 126 [facility] Aspartate aminotransferase [Enzymatic activity/volume] in Serum or Plasma 12 U/L 5 - 40 [facility] Alanine aminotransferase [Enzymatic activity/volume] in Seru m or Plasma 10 U/L 7 - 56 [facility] Anion gap 3 in Serum or Plasma 11.0 mmol/L 8.0 - 16.0 [facility] AGE 84 yrs [facility] al NON-AA GFR 56 mL/min [facility] AFR AMER GFR >60 [facility] [...] >32 mL/min Normal ID Date Data Source [id number] 05/02/2020 11:27:00 PM EST [facility] Name Value Range Interpretation Code Description Data Mini rce(s) Supporting Document(s) TROPONIN T <0.01 NG/ML 0.00 - 0.10 [facility] ospital TROPONIN T0.1 ng/ml Recommended as the c linical threshold value forTroponin T. ID Date Data Source [id number] 05/02/2020 11:23:00 PM EST [facility] Name Value Range Interpretation Code Description Data Mini rce(s) Supporting Document(s) CBC W/AUTOMATED DIFF [facility] COMPLETE BLOOD COUNT Leukocytes [#/volume] in Blood by Automated count 10.7 10^3/uL 4.2 - 11.0 [facility] Erythrocytes [#/volume] in Blood by Automated count 4.23 10^6/uL 4. 20 - 5.40 [facility] Hemoglobin [Mass/volume] in Blood 12.9 g/dL 12.0 - 16.0 [facility] Hematocrit [Volume Fraction] of Blood by Automated count 38.5 % 3 7.0 - 47.0 [facility] Erythrocyte mean corpuscular volume [Entitic volume] by Auto mated count 91.0 fL 81.0 - 101 [facility] Erythrocyte mean corpuscular hemoglobin [Entitic mass] by Automated count 30.5 pg 27.0 - 34.0 [facility] Erythrocyte mean corpuscular hemoglobin concentration [Mass/volume] by Automated count 33.5 g/dL 31.0 - 36.0 [facility] Erythrocyte distribution width [Ratio] by Automated count 13.4 % 11.5 - 14.5 [facility] Platelets [#/volume] in Blood by Automated count 271 10^3/uL 150 - 45 0 [facility] Platelet mean volume [Entitic volume] in Blood by Automated count 10.8 fL 7.4 - 10.4 H [facility] Neutrophils/100 leukocytes in Blood by Automated count 53.4 % 37. 0 - 80.0 [facility] Lymphocytes/100 leukocytes in Blood by Manual count 33.1 % 25.0 - 40.0 [facility] Monocytes/100 leukocytes in Blood by Automated count 10.1 % 3.0 - 8.0 H [facility] Eosinophils/100 leukocytes in Blood by Automated count 2.4 % 0.0 - 7.0 [facility] 0.6 %IG 0.4 % 0.0 - 0.0 H [facility] al %NRBC 0.0 % 0.0 - 0.0 [facility] al Neutrophils [#/volume] in Blood by Automated count 5.71 10^3/uL 2.00 - 6.90 [facility] Lymphocytes [#/volume] in Blood by Automated count 3.53 10^3/uL 0.60 - 3.40 H [facility] Monocytes [#/volume] in Blood by Automated count 1.08 10^3/uL 0.00 - 0.90 H [facility] Eosinophils [#/volume] in Blood by Automated count 0.26 10^3/uL 0.00 - 0.70 [facility] Basophils [#/volume] in Blood by Automated count 0.06 10^3/uL 0.00 - 0.20 [facility] #IG 0.04 10^3/uL 0.00 - 0.10 [facility] ospital #NRBC 0.00 10^3/uL 0.00 - 0.00 [facility] ospital MANUAL DIFF SEE BELOW [facility] ital Segmented neutrophils/100 leukocytes in Blood by Manual count 55 % 37 - 80 [facility] %LYMPH 35 % 25 - 40 [facility] al %MONO 5 % 3 - 8 [facility] al %EOS 4 % 0 - 7 [facility] 1 Metamyelocytes/100 leukocytes in Blood by Manual count 0 % [facility] RBC MORPH NOT INDICATED [facility] spital ID Date Data Source [id number] 05/02/2020 11:19:00 PM EST [facility] Name Value Range Interpretation Code Description Data Mini rce(s) Supporting Document(s) Prothrombin time (PT) 14.3 SECONDS 11.0 - 15.5 [facility] INR in Platelet poor plasma by Coagulation assay 1.06 0.93 - 1. 23 [facility] aPTT in Blood by Coagulation assay 28.1 SECONDS 24.8 - 36.7 [facility] \\BLDo\\INR INTERPRETATION\\BLDx\\ Therapeutic range for Coumadin and related oral anticoagulants. - International Normalized Ratio (INR): 2.0 - 3.0 for Venous Thrombosis, Pulmonary Embolus, Tissue heart valves, Acute [place] Atrial Fibrillation, Valvular heart disease and recurrent Systemic Embolism. - International Normalized Ratio (INR): 2.5 - 3.5 for Mechanical Prosthetic valve. ID Date Data Source [id number] 04/09/2020 01:51:00 PM EST [facility] ([facility] ) Name Value Range Interpretation Code Description Data Mini rce(s) Supporting Document(s) Hemoglobin A1c/Hemoglobin.total in Blood 6.4 [facility] ([facility]) Glucose [Mass/volume] in Serum or Plasma 140 [facility] ([facility]) Procedure Social History Code Duration Value Status Description Data Source(s ) Smoking 01/17/2021 12:00:00 AM EDT Patient has never smoked co mpleted Patient has never smoked [facility] ([facility]) Smoking 01/04/2021 10:44:33 AM EDT Never smoked tobacco (findi ng) completed Never smoked tobacco (finding) [facility] (Vijay Webb MD [facility]) Smoking 01/04/2021 10:44:08 AM EDT Never smoked tobacco (findi ng) completed Never smoked tobacco (finding) [facility] (Vijay Webb MD [facility]) Smoking 01/04/2021 10:40:56 AM EDT Never smoked tobacco (findi ng) completed Never smoked tobacco (finding) [facility] (Vijay Webb MD [facility]) Smoking 09/03/2020 12:00:00 AM EDT Never Smoker completed Never S moker eCW1 ([facility]) Smoking 04/09/2020 12:00:00 AM EST Patient is a former smoker completed Patient is a former smoker [facility] ([facility]) Vital Signs ID Date Data Source UNK [...] Body temperature 97.2 [degF] 97.2 [degF] [facility] (hE Cerna MD) Systolic blood pressure 154 mm[Hg] 154 mm[Hg] M EDENT (Eh Cerna MD) Oxygen saturation in Arterial blood by Pulse oximetry 98 % 98 % [facility] (Eh Cerna MD) Body weight 175.00 [lb_av] 175.00 [lb_av] MEDEN T (Eh Cerna MD) Body height 66 [in_i] 66 [in_i] [facility] (Eh Cerna MD) 5'6" Body mass index (BMI) [Ratio] 28.2 kg/m2 28.2 k g/m2 [facility] (Eh Cerna MD) Body temperature 97.2 [degF] 97.2 [degF] [facility] (Eh Cerna MD) Systolic blood pressure 155 mm[Hg] 155 mm[Hg] M EDENT (Eh Cerna MD) Diastolic blood pressure 85 mm[Hg] 85 mm[Hg] [facility] (Eh Cerna MD) Heart rate 82 /min 82 /min [facility] (Eh Cerna MD) Oxygen saturation in Arterial blood by Pulse oximetry 97 % 97 % [facility] (Eh Cerna MD) Diastolic blood pressure 79 mm[Hg] 79 mm[Hg] [facility] ([facility]) Heart rate 71 /min 71 /min [facility] ([facility]) Body weight 173.00 [lb_av] 173.00 [lb_av] MEDEN T ([facility]) Systolic blood pressure 158 mm[Hg] 158 mm[Hg] M EDENT ([facility]) Respiratory rate 18 /min 18 /min [facility] ( [facility]) Body temperature 97.0 [degF] 97.0 [degF] [facility] (Eh Cerna MD) Diastolic blood pressure 79 mm[Hg] 79 mm[Hg] [facility] (Eh Cerna MD) Heart rate 75 /min 75 /min [facility] (Eh Cerna MD) Systolic blood pressure 149 mm[Hg] 149 mm[Hg] M EDENT (Eh Cerna MD) Oxygen saturation in Arterial blood by Pulse oximetry 97 % 97 % [facility] (Eh Cerna MD) Body height 66 [in_i] 66 [in_i] [facility] (hE Cerna MD) 5'6" Body weight 177.00 [lb_av] 177.00 [lb_av] MEDEN T (Eh Cerna MD) Body mass index (BMI) [Ratio] 28.6 kg/m2 28.6 k g/m2 [facility] (Eh Cerna MD) Diastolic blood pressure 78 mm[Hg] 78 mm[Hg] [facility] (Eh Cerna MD) Systolic blood pressure 120 mm[Hg] 120 mm[Hg] M EDENT (Eh Cerna MD) Heart rate 70 /min 70 /min [facility] (Eh Cerna MD) Oxygen saturation in Arterial blood by Pulse oximetry 96 % 96 % [facility] (Eh Cerna MD) Respiratory rate 20 /min 20 /min [facility] ( Eh Cerna MD) Body height 66 [in_i] 66 [in_i] [facility]OOKS[facility] (Eh Cerna MD) 5'6" Body weight 175.00 [lb_av] 175.00 [lb_av] MEDEN T (Eh Cerna MD) Body mass index (BMI) [Ratio] 28.2 kg/m2 28.2 k g/m2 [facility] (Eh Cerna MD) Body temperature 97.4 [degF] 97.4 [degF] [facility] (Eh Cerna MD) Body weight 174 [lb_av] 174 [lb_av] eCW1 ([facility]) Body weight 78.93 kg 78.93 kg W1 ([facility]) Body height 64 [in_i] 64 [in_i] eCW1 ([facility]) Body mass index (BMI) [Ratio] 29.86 kg/m2 29.86 kg/m2 eCW1 ([facility]) Systolic blood pressure 138 mm[Hg] 138 mm[Hg] e CW1 ([facility]) Diastolic blood pressure 76 mm[Hg] 76 mm[Hg] eCW1 ([facility]) Body height 64 [in_i] 64 [in_i] MEDDILAN [...] [facility] (Eh Cerna MD) Systolic blood pressure 141 [...] blood pressure 80 mm[Hg] 80 mm[Hg] [facility] ([facility] ) Heart rate 77 /min 77 /min [facility] ([facility] ) Body temperature 96.8 [degF] 96.8 [degF] [facility] ([facility] ) Body height 64 [in_i] 64 [in_i] [facility] ([facility] ) 5'4" Body weight 168.31 [lb_av] 168.31 [lb_av] MEDEN T ([facility] ) Body mass index (BMI) [Ratio] 28.9 kg/m2 28.9 k g/m2 [facility] ([facility] ) Oxygen saturation in Arterial blood by Pulse oximetry 98 % 98 % [facility] ([facility] ) Systolic blood pressure 142 mm[Hg] 142 mm[Hg] M EDENT ([facility] ) Diastolic blood pressure 71 mm[Hg] 71 mm[Hg] [facility] ([facility]) Systolic blood pressure 139 mm[Hg] 139 mm[Hg] M EDENT ([facility]) ID Date Data Source [id number] 05/21/2020 02:59:56 PM EST [facility] Name Value Range Interpretation Code Description Data Source(s) WEIGHT RECORDED 169.00 pounds 169.00 pounds [facility] Height 64 Inches 064 Inches [facility] WEIGHT RECORDED 169.00 pounds 169.00 pounds [facility] Height 64 Inches 064 Inches [facility] Patient Treatment Plan of Care Planned Activity Planned Date Details Description Data Source (s) bimatoprost 0.1 MG/ML Ophthalmic Solution [Lumigan] 10/03/19 12:00:00 AM EDT [facility] (Vijay Webb MD [facility]) Rhopressa 0.02% Ophthalmic Solution 09/05/2020 12:00:00 AM EDT [facility] (Vijay Webb MD [facility]) brinzolamide 10 MG/ML Ophthalmic Suspension [Azopt] 08/10/19 12:00:00 AM EDT [facility] (Vijay Webb MD [facility]) Timolol Maleate 0.5% Ophthalmic Solution 03/13/2020 12:00:00 AM EDT [facility] (Vijay Webb MD [facility]) Rhopressa 0.02% Ophthalmic Solution 02/08/2020 12:00:00 AM EDT [facility] (Vijay Webb MD [facility]) Rhopressa 0.02% Ophthalmic Solution 02/08/2020 12:00:00 AM EDT [facility] (Vijay Webb MD [facility]) bimatoprost 0.1 MG/ML Ophthalmic Solution [Lumigan] 10/21/19 12:00:00 AM EDT [facility] (Vijay Webb MD [facility]) brinzolamide 10 MG/ML Ophthalmic Suspension [Azopt] 08/22/19 12:00:00 AM EDT [facility] (Vijay Webb MD [facility]) Rhopressa 0.02% Ophthalmic Solution 08/15/2019 12:00:00 AM EDT [facility] (Vijay Webb MD [facility])
[2021-03-22 15:59] LABS: ALBUMIN 2.9 GM/DL (3.2-5.2); BILIRUBIN,DIRECT 0.2 MG/DL (0.0-0.2); BILIRUBIN,TOTAL 0.5 MG/DL (0.2-1.0); CALCIUM LEVEL 9.3 MG/DL (8.8-10.2); CREATININE FOR GFR 1.37 MG/DL (0.55-1.30); GLOMERULAR FILTRATION RATE 38.9 (>32)
[2021-03-22] MEDS ORDERED: REFRIGERATOR IV KEYS XX PRN (16:10)
--- NOTE | 2021-03-22 16:35 | HPEPDOC ---
[facility] Medical History & Physical Date of Admission Mar 22, 2021 Date of Service: Mar 22, 2021 History and Physical REASON FOR CRITICAL CARE CONSULTATION/CHIEF COMPLAINT: Respiratory failure HISTORY OF PRESENT ILLNESS: 85-year-old female with a history of diastolic CHF and multiple admissions for respiratory failure due to CHF exacerbation who presents to the ED for hypoxia and shortness of breath. History obtained from chart and from ER physician, patient was having symptoms of CHF exacerbation as an outpatient and she was told by her doctor to go to the ER. She had refused to go and today she had complained of severe shortness of breath and EMS was called. On arrival EMS noted that she was hypoxic but alert and responsive. On route to the ED patient became agonal breathing and unresponsive and she was subsequently intubated in the ER. She then had a cardiac arrest in the ED with an approximate downtime of 30 minutes after which she achieved ROSC. She did not have any shockable rhythm. 4 rounds of epi were given. Patient is now seen and examined in the ED, she is intubated and sedated. PAST MEDICAL/SURGICAL HISTORY: A. fib status post watchman procedure, CHF diastolic, status post pacemaker, hypertension, history of GI bleed, atrial fibrillation, asthma. Cholecystectomy, tonsillectomy, tubal ligation, hysterectomy, right knee arthroplasty FAMILY HISTORY: Unable to obtain SOCIAL HISTORY: Per chart non-smoker and no alcohol use ALLERGIES: Please see below. HOME MEDICATIONS: Please see below. REVIEW OF SYSTEMS: Unable to do to obtain as patient is intubated PHYSICAL EXAMINATION: VITAL SIGNS: Please see below. GENERAL APPEARANCE: No distress HEENT: no thyromegaly, trachea midline, PERRLA. normal mucous membranes RESPIRATORY: Intubated and breath sounds are equal bilaterally CARDIOVASCULAR: +s1 s2, no murmurs. ABDOMEN: nontender, not distended, +BS EXTREMITIES: 2+ pitting edema to mid shins bilaterally SKIN: no rash, no purpura NEUROLOGICAL: Sedated LABS/IMAGING: Chest x-ray done in the ER post intubation shows bilateral opacities consistent with congestive heart failure, ET tube is in satisfactory position. BNP 6188. Troponin 0.01. Lactic acid 6.9. Creatinine 1.37. IMPRESSION: The most critical problems requiring my immediate presence at bedside are: 1. Acute hypoxic respiratory failure secondary to decompensated CHF complicated by Cardiopulmonary arrest with approximately 30-minute downtime. Nonshockable rhythm. 2. MALIK nonoliguric 3. Lactic acidosis 4. History of A. fib not on anticoagulation status post watchman procedure 5. History of multiple admissions for respiratory failure PLAN: MENT[facility] HE[facility] PRACTICE NURSE: Keep lightly sedated with fentanyl and Versed. Targeted temperature management of 36 C for the next 24 hours. PULM: HOB 30 degrees. Maintain Sp02 94-98%. Titrate down oxygen as tolerated. Tidal volume 400, respiratory rate 18, FiO2 80%, PEEP 10. CARDIO: Maintain MAPs 60-65. Follow-up lactate. Not requiring vasopressors at this time. S/p lasix 100mg in ED, once hemodynamics improve will resume diuresis GI: OG feeds, GI prophylaxis RENAL: monitor lytes ID: No antibiotics at this time. ENDO: Monitor FS per routine. Goal range 140-180. Start insulin drip intensive care nursing protocol if remains high HEME: DVT ppx LINES/CATHETERS: No central line, tenorio CODE STATUS: Full code. DISPOSITION: Patient requires continued monitoring in the ICU. A total of 49 minutes of critical care time was spent on patient care, not including procedures Vital Signs Vital Signs Date Time Temp Pulse Resp B/P (MAP) Pulse Ox O2 Delivery O2 Flow Rate FiO2 03/22/21 16:23 97.6 03/22/21 16:20 70 106/55 (72) 97 Laboratory Data Labs 24H Laboratory Tests 2 03/22/21 14:06: Immature Granulocyte % (Auto) 4.3H, Neutrophils (%) (Auto) 74.0H, Lymphocytes (%) (Auto) 15.3L, Monocytes (%) (Auto) 4.8, Eosinophils (%) (Auto) 1.0, B asophils (%) (Auto) 0.6, Neutrophils # (Auto) 7.8, Lymphocytes # (Auto) 1.6, Monocytes # (Auto) 0.5, Eosinophils # (Auto) 0.1, Basophils # (Auto) 0.1, Nucleated Red Blood Cells % (auto) 0.0, Lactic Acid Level 6.9*H 03/22/21 14:10: POC Glucose (Misc Panel) 298H, POC Sodium (Misc Panel) 134L, POC Potassium (Misc Panel) 4.1, POC Chloride (Misc Panel) 96L, POC Total CO2 (Misc Panel) 28.0H, POC Blood Urea Nitrogen (Misc Panel 19, POC Ionized Calcium (Misc Panel) 5.4H, POC Creatinine (Misc Panel) 1.0, POC Hematocrit (Misc Panel) 43.0 03/22/21 14:18: POC Troponin I (Misc) 0.01 03/22/21 14:59: Blood Gas Bicarbonate Standard 16.7L, Arterial Blood pH 7.244*L, Arterial Blood Partial Pressure CO2 39.9, Arterial Blood Partial Pressure O2 295.9H, Arterial Blood Total CO2 18.1L, Arterial Blood HCO3 16.9L, Arterial Blood Base Excess -9.8L, Arterial Blood Oxygen Saturation 99.8H 03/22/21 15:17: Anion Gap 12, Glomerular Filtration Rate 38.9, Calcium Level 9.3, Total Bilirubin 0.5, Direct Bilirubin 0.2, Aspartate Amino Transf (AST/SGOT) 63H, Alanine Aminotransferase (ALT/SGPT) 52, Alkaline Phosphatase 58, BT-Ofo-Q-Type Natriuretic Peptide 6188H, Total Protein 6.0L, Albumin 2.9L, Albumin/Globulin Ratio 0.9L CBC/BMP Laboratory Tests 03/22/21 14:06 03/22/21 15:17 Microbiology Microbiology 03/22/21 Blood Culture, Received Pending 03/22/21 Blood Culture, Received Pending 03/22/21 Respiratory Virus Panel (PCR) ([facility]) - Final, Complete Home Medications Scheduled Acetaminophen (Tylenol) 325 Mg Tablet, 650 MG PO QHS Aspirin (Aspirin EC) 81 Mg Tablet.dr, 81 MG PO DAILY Bimatoprost (Lumigan) 50 Drop/2.5 Ml Mavis, 1 DROP OU QHS Brinzolamide (Azopt) 200 Drop/10 Ml Susp, 1 DROP OU TID Bumetanide (Bumetanide) 1 Mg Tablet, 1 MG PO DAILY Cefdinir (Cefdinir) 300 Mg Capsule, 1 CAP PO BID Cholecalciferol (Vitamin D3) (Vitamin D3) 1,000 Unit Tablet, 2,000 UNITS PO DAILY TAKES RIGHT AFTER LUNCH Clonidine (Clonidine) 0.2 Mg Patch.tdwk, 1 EA TOP Q7D@09 replace your current patch on 09-12-19, a Thursday and continue to change eveyr Thursday unless advised differently by your PMD Diltiazem HCl (Cartia Xt) 240 Mg Cap.er.24h, 240 MG PO QHS Netarsudil Mesylate (Rhopressa) 2.5 Ml Drops, 1 DROP OU QHS Olanzapine (Zyprexa) 2.5 Mg Tab, 3.75 MG PO QHS Timolol Maleate (Timolol Maleate) 100 Drop/5 Ml Mavis, 1 DROP OU DAILY Allergies Coded Allergies: Crab (Verified Allergy, Severe, SEVERE BY TESTING NEVER HAD, 06/21/19) egg (Verified Adverse Reaction, Intermediate, DIARRHEA, 06/21/19) meperidine (Verified Adverse Reaction, Intermediate, INTOLERANCE - NAUSEA, 06/21/19) moxifloxacin (Verified Adverse Reaction, Intermediate, N/V/D DEHYDRATION, 06/21/19) Sulfa (Sulfonamide Antibiotics) (Verified Adverse Reaction, Mild, DIZZY, 06/21/19) A-FIB/CHADSVASC A-FIB History Current/History of A-Fib/PAF?: Yes Current PO Anticoag Therapy: No JANY BLUNT MD Mar 22, 2021 16:35
--- OUTSIDE RECORDS SUMMARY | 2021-03-22 16:40 | CCD ---
Author Author [facility] Organization [facility] Address Unknown Phone Unavailable Care Team Providers Care Success Coach Name Role Phone Mo Avilez MD Unavailable Unavailable Mo Avilez MD Unavailable Unavailable Mo Avilez MD Unavailable Unavailable Mo Avilez MD Unavailable Unavailable Mo Avilez MD Unavailable Unavailable Mo Avilez MD Unavailable Unavailable NEHEMIAHCATHRYN JANE MD Unavailable Unavailable CATHRYN CERNA MD Unavailable Unavailable NEHEMIAHCATHRYN JANE MD Unavailable Unavailable NEHEMIAHCATHRYN JANE MD Unavailable Unavailable CATHRYN CERNA MD Unavailable Unavailable CATHRYN CERNA MD Unavailable Unavailable CATHRYN CERNA MD Unavailable Unavailable NEHEMIAHCATHRYN JANE MD Unavailable Unavailable NEHEMIAHCATHRYN JANE MD Unavailable Unavailable NEHEMIAHCATHRYN JANE MD Unavailable Unavailable NEHEMIAHCATHRYN JANE MD Unavailable Unavailable CATHRYN CERNA MD Unavailable Unavailable NEHEMIAHCATHRYN JANE MD Unavailable Unavailable NEHEMIAHCATHRYN JANE MD Unavailable Unavailable NEHEMIAHCATHRYN MD Unavailable Unavailable NEHEMIAHCATHRYN JANE MD Unavailable Unavailable NEHEMIAHCATHRYN JANE MD Unavailable Unavailable NEHEMIAHCATHRYN MD Unavailable Unavailable NEHEMIAH, MAQBOOL HE MD Unavailable Unavailable NEHEMIAH, MAQBOOL EH MD Unavailable Unavailable NEHEMIAH, MAQBOOL EH MD Unavailable Unavailable NEHEMIAH, MAQBOOL EH MD Unavailable Unavailable NEHEMIAH, MAQBOOL EH MD Unavailable Unavailable NEHEMIAH, MAQBOOL EH MD Unavailable Unavailable NEHEMIAH, MAQBOOL EH MD Unavailable Unavailable NEHEMIAH, MAQBOOL EH MD Unavailable Unavailable NEHEMIAH, MAQBOOL EH MD Unavailable Unavailable NEHEMIAH, MAQBOOL EH MD Unavailable Unavailable NEHEMIAH, MAQBOOL EH MD Unavailable Unavailable NEHEMIAH, MAQBOOL EH MD Unavailable Unavailable NEHEMIAH, MAQBOOL EH MD Unavailable Unavailable NEHEMIAH, MAQBOOL EH MD Unavailable Unavailable NEHEMIAH, MAQBOOL EH MD Unavailable Unavailable NEHEMIAH, MAQBOOL EH MD Unavailable Unavailable NEHEMIAH, MAQBOOL EH MD Unavailable Unavailable NEHEMIAH, MAQBOOL EH MD Unavailable Unavailable NEHEMIAH, MAQBOOL EH MD Unavailable Unavailable NEHEMIAH, MAQBOOL EH MD Unavailable Unavailable NEHEMIAH, MAQBOOL EH MD Unavailable Unavailable NEHEMIAH, MAQBOOL EH MD Unavailable Unavailable NEHEMIAH, MAQBOOL EH MD Unavailable Unavailable NEHEMIAH, MAQBOOL EH MD Unavailable Unavailable NEHEMIAH, MAQBOOL EH MD Unavailable Unavailable NEHEMIAH, MAQBOOL EH MD Unavailable Unavailable NEHEMIAH, MAQBOOL EH MD Unavailable Unavailable NEHEMIAH, MAQBOOL EH MD Unavailable Unavailable NEHEMIAH, MAQBOOL EH MD Unavailable Unavailable NEHEMIAH, MAQBOOL EH MD Unavailable Unavailable NEHEMIAH, MAQBOOL EH MD Unavailable Unavailable NEHEMIAH, MAQBOOL EH MD Unavailable Unavailable NEHEMIAH, MAQBOOL EH MD Unavailable Unavailable NEHEMIAH, MAQBOOL EH MD Unavailable Unavailable NEHEMIAH, MAQBOOL EH MD Unavailable Unavailable NEHEMIAH, MAQBOOL EH MD Unavailable Unavailable NEHEMIAH, MAQBOOL EH MD Unavailable Unavailable NEHEMIAH, MAQBOOL EH MD Unavailable Unavailable NEHEMIAH, MAQBOOL EH MD Unavailable Unavailable NEHEMIAH, MAQBOOL EH MD Unavailable Unavailable NEHEMIAH, MAQBOOL EH MD Unavailable Unavailable NEHEMIAH, MAQBOOL EH MD Unavailable Unavailable NEHEMIAH, MAQBOOL EH MD Unavailable Unavailable NEHEMIAH, MAQBOOL EH MD Unavailable Unavailable NEHEMIAH, MAQBOOL EH MD Unavailable Unavailable NEHEMIAH, MAQBOOL EH MD Unavailable Unavailable NEHEMIAH, MAQBOOL EH MD Unavailable Unavailable NEHEMIAH, MAQBOOL EH MD Unavailable Unavailable NEHEMIAH, MAQBOOL EH MD Unavailable Unavailable NEHEMIAH, MAQBOOL EH MD Unavailable Unavailable NEHEMIAH, MAQBOOL EH MD Unavailable Unavailable NEHEMIAH, MAQBOOL EH MD Unavailable Unavailable NEHEMIAH, MAQBOOL EH MD Unavailable Unavailable NEHEMIAH, MAQBOOL EH MD Unavailable Unavailable NEHEMIAH, MAQBOOL EH MD Unavailable Unavailable NEHEMIAH, MAQBOOL EH MD Unavailable Unavailable NEHEMIAH, MAQBOOL EH MD Unavailable Unavailable NEHEMIAH, MAQBOOL EH MD Unavailable Unavailable NEHEMIAH, MAQBOOL EH MD Unavailable Unavailable NEHEMIAH, MAQBOOL EH MD Unavailable Unavailable TURRIN, JOSE Unavailable Unavailable TURRIN, JOSE Unavailable Unavailable TURRIN, JOSE Unavailable Unavailable TURRIN, JOSE Unavailable Unavailable Jerome, Edelmira GUNNER'S MATE Unavailable Unavailable Jerome, Edelmira GUNNER'S MATE Unavailable Unavailable Jerome, Edelmira GUNNER'S MATE Unavailable Unavailable Jerome, Edelmira GUNNER'S MATE Unavailable Unavailable Jerome, Edelmira GUNNER'S MATE Unavailable Unavailable Jerome, Edelmira GUNNER'S MATE Unavailable Unavailable Jerome, Edelmira GUNNER'S MATE Unavailable Unavailable Jerome, Edelmira GUNNER'S MATE Unavailable Unavailable Jerome, Edelmira GUNNER'S MATE Unavailable Unavailable Jerome, Edelmira GUNNER'S MATE Unavailable Unavailable Jerome, Edelmira GUNNER'S MATE Unavailable Unavailable Jerome, Edelmira GUNNER'S MATE Unavailable Unavailable Jerome, Edelmira GUNNER'S MATE Unavailable Unavailable Jerome, Edelmira GUNNER'S MATE Unavailable Unavailable Jerome, Edelmira GUNNER'S MATE Unavailable Unavailable Jerome, Edelmira GUNNER'S MATE Unavailable Unavailable Jerome, Edelmira GUNNER'S MATE Unavailable Unavailable Jerome, Edelmira GUNNER'S MATE Unavailable Unavailable Jerome, Edelmira GUNNER'S MATE Unavailable Unavailable Jerome, Edelmira GUNNER'S MATE Unavailable Unavailable Jerome, Edelmira GUNNER'S MATE Unavailable Unavailable Jerome, Edelmira GUNNER'S MATE Unavailable Unavailable Jerome, Edelmira GUNNER'S MATE Unavailable Unavailable Jerome, Edelmira GUNNER'S MATE Unavailable Unavailable Jerome, Edelmira GUNNER'S MATE Unavailable Unavailable Jerome, Edelmira GUNNER'S MATE Unavailable Unavailable Jerome, Edelmira GUNNER'S MATE Unavailable Unavailable Jerome, Edelmira GUNNER'S MATE Unavailable Unavailable Jerome, Edelmira GUNNER'S MATE Unavailable Unavailable Jerome, Edelmira GUNNER'S MATE Unavailable Unavailable Jerome, Edelmira GUNNER'S MATE Unavailable Unavailable Jerome, Edelmira GUNNER'S MATE Unavailable Unavailable Jerome, Edelmira GUNNER'S MATE Unavailable Unavailable Jerome, Edelmira GUNNER'S MATE Unavailable Unavailable Jerome, Edelmira GUNNER'S MATE Unavailable Unavailable Jerome, Edelmira GUNNER'S MATE Unavailable Unavailable Sivakumar Carrion MD Unavailable Unavailable [...] NICOLE, J JILL DPM PC Unavailable Unavailable NEHEMIAH, MAQBOOL EH MD Unavailable Unavailable NEHEMIAH, MAQBOOL EH MD Unavailable Unavailable NEHEMIAH, MAQBOOL EH MD Unavailable Unavailable NEHEMIAH, MAQBOOL EH MD Unavailable Unavailable NEHEMIAH, MAQBOOL EH MD Unavailable Unavailable NEHEMIAH, MAQBOOL EH MD Unavailable Unavailable NEHEMIAH, MAQBOOL EH MD Unavailable Unavailable NEHEMIAH, MAQBOOL EH MD Unavailable Unavailable NEHEMIAH, MAQBOOL EH MD Unavailable Unavailable NEHEMIAH, MAQBOOL EH MD Unavailable Unavailable NEHEMIAH, MAQBOOL EH MD Unavailable Unavailable NEHEMIAH, MAQBOOL EH MD Unavailable Unavailable NEHEMIAH, MAQBOOL EH MD Unavailable Unavailable NEHEMIAH, MAQBOOL EH MD Unavailable Unavailable NEHEMIAH, MAQBOOL EH MD Unavailable Unavailable NEHEMIAH, MAQBOOL EH MD Unavailable Unavailable NEHEMIAH, MAQBOOL EH MD Unavailable Unavailable NEHEMIAH, MAQBOOL EH MD Unavailable Unavailable NEHEMIAH, MAQBOOL EH MD Unavailable Unavailable NEHEMIAH, MAQBOOL EH MD Unavailable Unavailable NEHEMIAH, MAQBOOL EH MD Unavailable Unavailable NEHEMIAH, MAQBOOL EH MD Unavailable Unavailable NEHEMIAH, MAQBOOL EH MD Unavailable Unavailable NEHEMIAH, MAQBOOL EH MD Unavailable Unavailable NEHEMIAH, MAQBOOL EH MD Unavailable Unavailable NEHEMIAH, MAQBOOL EH MD Unavailable Unavailable NEHEMIAH, MAQBOOL EH MD Unavailable Unavailable NEHEMIAH, MAQBOOL EH MD Unavailable Unavailable NEHEMIAH, MAQBOOL EH MD Unavailable Unavailable NEHEMIAH, MAQBOOL EH MD Unavailable Unavailable NEHEMIAH, MAQBOOL EH MD Unavailable Unavailable NEHEMIAH, MAQBOOL EH MD Unavailable Unavailable NEHEMIAH, MAQBOOL EH MD Unavailable Unavailable NEHEMIAH, MAQBOOL EH MD Unavailable Unavailable NEHEMIAH, MAQBOOL EH MD Unavailable Unavailable NEHEMIAH, MAQBOOL EH MD Unavailable Unavailable NEHEMIAH, MAQBOOL EH MD Unavailable Unavailable NEHEMIAH, MAQBOOL EH MD Unavailable Unavailable NEHEMIAH, MAQBOOL EH MD Unavailable Unavailable NEHEMIAH, MAQBOOL EH MD Unavailable Unavailable NEHEMIAH, MAQBOOL EH MD Unavailable Unavailable NEHEMIAH, MAQBOOL EH MD Unavailable Unavailable NEHEMIAH, MAQBOOL EH MD Unavailable Unavailable NEHEMIAH, MAQBOOL EH MD Unavailable Unavailable NEHEMIAH, MAQBOOL EH MD Unavailable Unavailable NEHEMIAH, MAQBOOL EH MD Unavailable Unavailable NEHEMIAH, MAQBOOL EH MD Unavailable Unavailable NEHEMIAH, MAQBOOL EH MD Unavailable Unavailable NEHEMIAH, MAQBOOL EH MD Unavailable Unavailable NEHEMIAH, MAQBOOL EH MD Unavailable Unavailable NEHEMIAH, MAQBOOL EH MD Unavailable Unavailable NEHEMIAH, MAQBOOL EH MD Unavailable Unavailable NEHEMIAH, MAQBOOL EH MD Unavailable Unavailable NEHEMIAH, MAQBOOL EH MD Unavailable Unavailable NEHEMIAH, MAQBOOL EH MD Unavailable Unavailable NEHEMIAH, MAQBOOL EH MD Unavailable Unavailable NEHEMIAH, MAQBOOL EH MD Unavailable Unavailable NEHEMIAH, MAQBOOL EH MD Unavailable Unavailable NEHEMIAH, MAQBOOL EH MD Unavailable Unavailable NEHEMIAH, MAQBOOL EH MD Unavailable Unavailable NEHEMIAH, MAQBOOL EH MD Unavailable Unavailable NEHEMIAH, MAQBOOL EH MD Unavailable Unavailable NEHEMIAH, MAQBOOL EH MD Unavailable Unavailable NEHEMIAH, MAQBOOL EH MD Unavailable Unavailable NEHEMIAH, MAQBOOL EH MD Unavailable Unavailable NEHEMIAH, MAQBOOL EH MD Unavailable Unavailable NEHEMIAH, MAQBOOL EH MD Unavailable Unavailable NEHEMIAH, MAQBOOL EH MD Unavailable Unavailable NEHEMIAH, MAQBOOL EH MD Unavailable Unavailable NEHEMIAH, MAQBOOL EH MD Unavailable Unavailable NEHEMIAH, MAQBOOL EH MD Unavailable Unavailable NEHEMIAH, MAQBOOL EH MD Unavailable Unavailable NEHEMIAH, MAQBOOL EH MD Unavailable Unavailable NEHEMIAH, MAQBOOL EH MD Unavailable Unavailable NEHEMIAH, MAQBOOL EH MD Unavailable Unavailable NEHEMIAH, MAQBOOL EH MD Unavailable Unavailable NEHEMIAH, MAQBOOL EH MD Unavailable Unavailable NEHEMIAH, MAQBOOL EH MD Unavailable Unavailable ALISIA, A [...] is protected by Article 27-F of the [facility] Public Health law. If you continue you may have access to information: Regarding HIV / AIDS; Provided by facilities licensed or operated by the [facility] Office of Mental Health; or Provided by the [facility] Office for People With Developmental Disabilities. If such information is present, then the following [facility] mandated warning applies: This information has been [...] ) Propensity to adverse reactions DEMEROL DEMEROL [facility] Propensity to adverse reactions AVELOX AVELOX [facility] Propensity to adverse reactions SULFA (sulfonamide) SULFA (sulfonamid e) [facility] Family History Family Member Name [...] ) Outpatient Attender: EH CERNA MD Medical [facility] 02/26 01:30:00 PM EDT [facility] (Eh Cerna MD) Outpatient Attender: EH CERNA MD Medical [facility] 02/06 02:30:00 PM EDT [facility] (Eh Cerna MD) Outpatient Attender: EH CERNA MD [facility] 01/30 10:30:00 AM EDT [facility] (Eh Cerna MD) Outpatient Attender: EH CERNA MD Medical [facility] 01/24 03:30:00 PM EDT [facility] (Eh Cerna MD) Outpatient Attender: Liliana Mathias [facility] Main Office 01/22/2021 12:30:00 PM EDT [facility] (Deirdre wilhelm) Outpatient Attender: JILL RIVERA DPM PCConsultant: EH CERNA MD 01/17/2021 12:59:00 PM EDT - 01/17/2021 12:59:00 PM EDT [facility] Emergency Attender: Mo Avilez MDConsultant: EH CERNA MD 12/11/2020 08:39:00 AM EDT - 12/11/2020 10:40:00 AM EDT [facility] ital Patient discharged. Outpatient<td ID="encounterTypeDescripti onID1">VISUAL FIELD 24-2</td><td>Tavon King DO</td><td>Vijay Cee MD [facility]</td><td>12/07/2020</td><td>12:05PM</td><td>12:38PM</td><td></td> Attender: TAVON Mccord MD [facility] 12/07/2020 12:05:00 PM EDT - 12/07/2020 12:38:00 PM EDT [facility] (Vijay rubio MD [facility]) Outpatient<td ID="encounterTypeDescripti onID0">TESTING - VISUAL FIELD & OCT</td><td>Tavon King DO</td><td>Vijay Cee MD [facility]</td><td>12/07/2020</td><td>12:05PM</td><td>12:39PM</td><td><content ID="encounterDiagnosisID0-0">Glaucoma Open-angle Primary Right Eye</content>, <content ID="encounterDiagnosisID0-1">Glaucoma Open-angle Primary Left Eye</content></td> Attender: TAVON Mccord MD [facility] 12/07/2020 12:05:00 PM EDT - 12/07/2020 [...] Primary Right Eye [facility] (Vijay Webb MD [facility]) Glaucoma Open-angle Primary Left Eye Glaucoma [...] MD [facility] 11/29 11:30:00 AM EDT [facility] (Eh Cerna MD) <td ID="encounterTypeDescriptionID2">[facility]</td><td>Tavon King DO</td><td>Vijay Cee MD [facility]</td><td>11/23/2020</td><td>11:48AM</td><td>12:39PM</td><td></td>Outpatient Attender: TAVON Mccord MD [facility] 11/23/2020 11:48:00 AM EDT - 11/23/2020 12:39:00 PM EDT [facility] (Vijay Webb MD [facility]) Outpatient Attender: JILL RIVERA DPM PCConsultant: EH CERNA MD 11/08/2020 01:16:00 PM EDT - 11/08/2020 01:16:00 PM EDT [facility] Exam [address] [place] [address] 09/03/2020 12:00:00 AM EDT eCW1 ([facility]) Outpatient Attender: JILL RIVERA DPM PCConsultant: EH CERNA MD 08/30/2020 01:00:00 PM EDT - 08/30/2020 01:00:00 PM EDT [facility] Outpatient Attender: EH CERNA MD Medical [facility] 08/03 10:00:00 AM EST [facility] (Eh Cerna MD) Outpatient Attender: EH CERNA MD Medical [facility] 07/05 01:00:00 PM EST [facility] (Eh Cerna MD) Outpatient Attender: JILL RIVERA DPM PCConsultant: EH CERNA MD 06/21/2020 01:27:00 PM EST - 06/21/2020 01:27:00 PM [facility] Outpatient Attender: EH CERNA MD Medical [facility] 06/07 10:15:00 AM EST [facility] (Eh Cerna MD) Inpatient Attender: EH CERNA [facility] fredy: JOSE GUILLAUMERINConsultant: EH CERNA MD 05/02/2020 10:27:00 PM EST - 05/05/2020 12:08:00 PM [facility] Patient discharged. Outpatient Attender: EH CERNA MD 2019 10:27:00 PM EST - 05/04/2020 09:00:00 AM [facility] Outpatient Attender: JILL RIVERA DPM PCConsultant: EH CERNA MD 04/12/2020 10:41:00 AM EST - 04/12/2020 10:41:00 AM [facility] Outpatient Attender: Fernanda Carrion MD Physical Therapy 04/09 12:30:00 PM EST [facility] ([facility]) Outpatient Attender: EH CERNA MD Medical Building 04/04 01:00:00 PM EST [facility] (Eh Cerna MD) Outpatient Attender: EH CERNA MD Medical Building 02/28 01:30:00 PM EDT [facility] (Eh Cerna MD) Outpatient Attender: JILL RIVERA DPMichael PCConsultant: EH CERNA MD 02/02/2020 11:13:00 AM EDT - 02/02/2020 11:13:00 AM EDT [facility] Immunizations Vaccine Date Status Description Data Source(s) COVID-19 VACCINE Moderna 07/07/2020 12:00:00 AM EST completed [facility] Vaccine Series Complete: YESThis Data wa s Submitted to [facility]. COVID-19 VACCINE Moderna 06/09/2020 12:00:00 AM EST completed [facility] Vaccine Series Complete: NOThis Data was Submitted to [facility] [employer]. INFLUENZA VACCINE QUADRIVALENT 2019- (65 YR UP)/MF59 C.1/PF 02/02/2020 12:00:00 AM EDT completed [facility] Medications Medication Brand Name Start Date Product Form Dose Route Admi nistrative Instructions Pharmacy Instructions Status Indications Reaction Description Data Source(s) carvedilol 25 MG Oral Tablet Carvedilol 02/20/2021 12:00:00 AM EDT ORAL active [facility] (Eh Cerna MD) irbesartan 150 MG Oral Tablet Irbesartan 02/20/2021 12:00:00 AM EDT ORAL completed [facility] (Eh Cerna MD) carvedilol 12.5 MG [...] EDT active Entresto [facility] (Vijay Webb MD [facility]) bimatoprost 0.1 MG/ML Ophthalmic Solutio n [Lumigan] Lumigan 0.01% Ophthalmic Solution Lumigan 0.01% Ophthalmic Solution 10/02/2020 12:00:00 AM EDT 1 active bimatoprost 0.1 MG/ML Ophthalmic Solution [Lumigan] [facility] (Vijay Webb MD [facility]) Rhopressa 0.02% Ophthalmic Solution Rhopressa 0.02% Ophthalm ic Solution 09/05/2020 12:00:00 AM EDT 1 active netarsudil 0.2 MG/ML Ophthalmic Solution [Rhopressa] [facility] (Vijay Webb MD [facility]) brinzolamide 10 MG/ML Ophthalmic Suspens ion [Azopt] Azopt 1% Ophthalmic Suspension Azopt 1% Ophthalmic Suspension 08/09/2020 12:00:00 AM EDT active brinzolamide 10 MG/ML Ophthalmic Suspension [Azopt] [facility] (Vijay Webb MD [facility]) carvedilol 3.125 MG Oral Tablet [Coreg] Coreg 05/07/2020 12:00:00 AM EST completed [facility] (Eh Cerna MD) Timolol Maleate 0.5% Ophthalmic Solution Timolol Catherine te 0.5% Ophthalmic Solution 03/13/2020 12:00:00 AM EDT active 12 HR timolol 5 MG/ML Ophthalmic Solution [facility] (Vijay Webb MD [facility]) Rhopressa 0.02% Ophthalmic Solution Rhopressa 0.02% Ophthalm ic Solution 02/08/2020 12:00:00 AM EDT 1 active netarsudil 0.2 MG/ML Ophthalmic Solution [Rhopressa] [facility] (Vijay Webb MD [facility]) Rhopressa 0.02% Ophthalmic Solution Rhopressa 0.02% Ophthalm ic Solution 02/08/2020 12:00:00 AM EDT 1 aborted netarsudil 0.2 MG/ML Ophthalmic Solution [Rhopressa] [facility] (Vijay Webb MD [facility]) bimatoprost 0.1 MG/ML Ophthalmic Solutio n [Lumigan] Lumigan 0.01% Ophthalmic Solution Lumigan 0.01% Ophthalmic Solution 10/21/2019 12:00:00 AM EDT 1 aborted bimatoprost 0.1 MG/ML Ophthalmic Solution [Lumigan] [facility] (Vijay Webb MD [facility]) brinzolamide 10 MG/ML Ophthalmic Suspens ion [Azopt] Azopt 1% Ophthalmic Suspension Azopt 1% Ophthalmic Suspension 08/22/2019 12:00:00 AM EDT aborted brinzolamide 10 MG/ML Ophthalmic Suspension [Azopt] [facility] (Vijay Webb MD [facility]) Rhopressa 0.02% Ophthalmic Solution Rhopressa 0.02% Ophthalm ic Solution 08/15/2019 12:00:00 AM EDT 1 aborted netarsudil 0.2 MG/ML Ophthalmic Solution [Rhopressa] [facility] (Vijay Webb MD [facility]) Insurance Providers Payer name Policy type / Coverage type Policy ID Covered alliance party ID Covered alliance party's relationship to cesar Policy Cesar Plan Information MEDICARE [id number] SELF [id number] A POMCO [id number] SELF [id number] POMCO U [id number] Self [id number] POMCO U [id number] Self [id number] POMCO [id number] SP [id number] MEDICARE A [id number] Self [id number] A MEDICARE [id number] SP [id number] [place] Primary [id number] Self 1 [id number] MEDICARE [id number] SP [id number] MEDICARE A [id number] Self [id number] [place] Primary [id number] Self MEDICARE [id number] 1 [id number] Medicare Part B [facility] [id number] 0 [id number] Medicare Part B [facility] [id number] 0 [id number] [employer] [id number] 0 [id number] [employer] (pr) [facility] Part B [id number] 2833.0 Self [id number] [employer] (pr) Medigap Part B [id number] Family Dependent [employer] [id number] 0 [id number] UMR U [id number] Self [id number] Umr Care Management [id number] 0 [id number] UMR REPLACED BY [facility] [id number] SP [id number] UMR REPLACED BY [facility] [id number] SP [id number] Umr/Uhc/Pomco Medigap Part B [id number] Self [id number] Umr Commercial [id number] Self [id number] Umr Commercial [id number] Self [id number] UMR U [id number] Self [id number] Medicare Part B [facility] Other 0 [id number] Self 0 [employer] [place] Other 0 [id number] Self 0 Medicare Part B [facility] Other 0 [id number] Self 0 UMR -O [id number] 18 [id number] MEDICARE PART A -I/P [id number] 18 [id number] MEDICARE PART A -O [id number] 18 [id number] MEDICARE PART A -O/P [id number] 18 [id number] [employer] [place] Other 0 [id number] Self 0 Medicare Part B [facility] Other 0 [id number] Self 0 Umr (pr) Medigap Part B [id number] Self [id number] Medicare [place] Medicare Primary [id number] Self [id number] [employer] (pr) Medigap Part B [id number] Family Dependent [id number] UMR [facility] [id number] SP [id number] [employer] Medigap Part B [id number] 16.0 Self [id number] Umr/Uhc/[employer]om[employer] Medigap Part B [id number] [id number] [id number] Self [id number] Medicare Natl Gov't Servi Medicare Primary [id number] [id number] Self [id number] [employer] Medigap Part B [id number]..[id number] 16.0 Self [id number] Umr/Uhc/[employer]om[employer] Medigap Part B [id number] [id number] [id number] Self [id number] Medicare Natl Gov't Servi Medicare Primary [id number] [id number] Self [id number] [facility] Medicare Primary [id number] [id number] Self [id number] Umr (pr) Medigap Part B [id number] [id number] 80562.0 Self [id number] Medicare [place] Medicare Primary [id number] [id number]65.0 Self [id number] MEDICARE C [id number] S [id number] UMR O [id number] S [id number] MEDICARE C [id number] S [id number] A [employer] Medigap Part B [id number] 16.0 Self [id number] Umr/Uhc/[employer]om[employer] Medigap Part B [id number] 2.16.840.1.379243.3.227.9 [id number] Self [id number] Medicare Natl Gov't Servi Medicare Primary [id number] [id number] Self [id number] UMR U [id number] Self [id number] MEDICARE PART A [facility] [id number] 18 [id number] [employer] Medigap Part B [id number] 16.0 Self [id number] Medicare Natl Gov't Servi Medicare Primary [id number] 2.0.1.418[id number] Self [id number] [facility] Medicare Primary [id number] [id number] Self [id number] [employer]OM[employer] [id number] 18 [id number] Medicare Part B [facility] Other 0 [id number] S elf 0 Medicare Part B of [facility] Other 0 [id number] S elf 0 Medicare Part B of [facility] Other 0 [id number] S elf 0 Medicare Part B of [facility] Other 0 [id number] S elf 0 Medicare [facility] Medicare Primary [id number] Self [id number] [employer] (pr) Medigap Part B [id number] .[id number] Family Dependent [id number] Medicare [place] Medicare Primary [id number] 2.16840.1.654314.3.227.99.991.142568.0 Self [id number] [employer] Commercial [id number] Self [id number] National [employer] Serv Medicare Primary [id number]9.7765.61206.0 Self [id number] POMCO-O/P [id number] 18 [id number] [employer] Commercial [id number]9.7765.14317.0 Self [id number] National Government Serv Medicare Primary [id number] 2.16.840.1.549950.3.227.99.7765.14313.0 Self [id number] MEDICARE - [facility] [id number] S [id number] [employer] Medigap Part B [id number] Self [id number] Medicare Natl Gov't Servi Medicare Primary [id number] Self [id number] Medicare Dme Supplies Medigap Part B [id number] Self 1 [id number] [place] Commercial [id number] Self [id number] National Government Serv Medicare Primary [id number] Self [id number] [place] [id number] Self [id number] [employer] [id number] Self National Government Serv Medicare Primary [id number] Self [employer] PPO O [id number] S [id number] Medicare Dme Supplies Medigap Part B [id number] Self MEDICARE -O/P [id number] 18 [id number] MEDICARE PART A -I/P [id number] 18 [id number] [employer]OM[employer]-I/P [id number] 18 [id number] [employer] Medigap Part B [id number] Self [place] [id number] Self [employer]OM[employer] [id number] SP [id number] SELF PAY 2 UNAVAILABLE 1 UNAVAILA BLE POM[employer] PPO 2 [id number] 1 [id number] MEDICARE [id number] SP [id number] [employer] PPO [id number] [facility] [id number] SP [id number] MEDICARE PART A [facility] [id number] 18 [id number] UMR CO [id number] 18 [id number] UMR -PHYSICIAN [id number] 1 [id number] UMR -O/P [id number] 18 [id number] MEDICARE PART A -O/P [id number] 18 [id number] [employer] [place] Other 0 [id number] Self 0 Medicare Part B of [facility] Other 0 [id number] Self 0 [employer] [place] Other 0 [id number] Self 0 Medicare Part B of [facility] Other 0 [id number] Self 0 [employer] [place] Other 0 [id number] Self 0 Medicare Part B of [facility] Other 0 [id number] Self 0 [employer] [place] Other 0 [id number] Self 0 Medicare Part B of [facility] Other 0 [id number] Self 0 [employer] [place] Other 0 [id number] Self 0 Medicare Part B of [facility] Other 0 [id number] Self 0 [employer] [place] Other 0 [id number] Self 0 Medicare Part B of [facility] Other 0 [id number] Self 0 [employer] [place] Other 0 [id number] Self 0 Medicare Part B of [facility] Other 0 [id number] Self 0 [employer] [place] Other 0 [id number] Self 0 Medicare Part B of [facility] Other 0 [id number] Self 0 [employer] [place] Other 0 [id number] Self 0 Medicare Part B of [facility] Other 0 [id number] Self 0 [employer] [place] Other 0 [id number] Self 0 Medicare Part B of [facility] Other 0 [id number] Self 0 [employer] [place] Other 0 [id number] Self 0 Problems, Conditions, and Diagnoses Code Display Name Description Problem Type Effective Dates Data Source(s) T92972 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 R600 Localized edema Localized edema Diagnosis 12/11/2020 08:3 9:[address] [facility] B34391 Unspecified asthma, uncomplicated Unspecified as thma, uncomplicated Diagnosis 12/11/2020 08:39:[address] [facility] I509 Heart failure, unspecified Heart failure, unspecified Diagnosis 12/11/2020 08:39:[address] [facility] I110 Hypertensive heart disease with heart fa ilure Hypertensive heart disease with heart failure Diagnosis 12/11/2020 08:39:[address] [facility] M1712 Unilateral primary osteoarthritis, left knee Unilateral primary osteoarthritis, left knee Diagnosis 12/11/2020 08:39:00 AM [facility] I77950 Pain in left knee Pain in left knee Diagnosis 12/11/2020 08:39:[address] [facility] L600 Ingrowing nail Ingrowing nail Diagnosis 06/21/2020 01:27: 00 PM [facility] C79913 Pain in right foot Pain in right foot Diagnosis 01:27:00 PM [facility] L84 Corns and callosities Corns and callosities Diagnosis 06/21/2020 01:27:00 PM 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 B351 Tinea unguium Tinea unguium Diagnosis 06/21/2020 01:27:00 PM 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 U66284 Presence of other cardiac implants and g rafts Presence of other cardiac implants and grafts Diagnosis 05/04/2020 09:00:00 AM [facility] J449 Chronic obstructive pulmonary disease, u nspecified Chronic obstructive pulmonary disease, unspecified Diagnosis 05/04/2020 09:00:00 AM [facility] I4891 Unspecified atrial fibrillation Unspecified atrial fib rillation Diagnosis 05/04/2020 09:00:00 AM [facility] I5021 Acute systolic (congestive) heart failur e Acute systolic (congestive) heart failure Diagnosis 05/02/2020 10:27:00 PM [facility] G09866 Pain in left foot Pain in left foot Diagnosis 02/02/2020 11:13:[address] [facility] Surgeries/Procedures Procedure Description Date Indications Data Source(s) ECG ROUTINE ECG W/LEAST 12 LDS W/I&R 02/26/2021 12:00: 00 AM EDT [facility] (Eh Cerna MD) OFFICE OUTPATIENT VISIT 25 MINUTES 02/26/2021 12:00:00 AM EDT [facility] (Eh Cerna MD) INTERROGATION EVAL IN PERSON 1/DUAL/RESOURCING ADVISOR LEAD PM 2020 12:00:00 AM EDT [facility] [...] 25 MINUTES 01/22/2021 12:00:00 AM EDT [facility] ([facility]) OFFICE OUTPATIENT VISIT 25 MINUTES 11/29/2020 12:00:00 AM EDT [facility] (Eh Cerna MD) Pare Hyperkeratotic Lesion, 2-4 11/08/2020 12:00:00 AM EDT [facility] ([facility]) Debridement Nails Any Method 1-5 11/08/2020 12:00:00 A M EDT [facility] ([facility]) INTERROGATION EVAL IN PERSON 1/DUAL/RESOURCING ADVISOR LEAD PM 2020 12:00:00 AM EDT [facility] (Eh Cerna MD) Pare Hyperkeratotic Lesion, 2-4 08/30/2020 12:00:00 AM EDT [facility] ([facility]) Debridement Nails Any Method 1-5 08/30/2020 12:00:00 A M EDT [facility] ([facility]) OFFICE OUTPATIENT VISIT 25 MINUTES 08/03/2020 12:00:00 AM EST [facility] (Eh Cerna MD) INTERROGATION EVAL IN PERSON 1/DUAL/RESOURCING ADVISOR LEAD PM 2020 12:00:00 AM EST [facility] (Eh Cerna MD) OFFICE OUTPATIENT VISIT 15 MINUTES 07/05/2020 12:00:00 AM EST [facility] (Eh Cerna MD) Pare Hyperkeratotic Lesion, 2-4 06/21/2020 12:00:00 AM EST [facility] ([facility]) Debridement Nails Any Method 1-5 06/21/2020 12:00:00 A M EST [facility] ([facility]) OFFICE OUTPATIENT VISIT 25 MINUTES 06/07/2020 12:00:00 AM EST [facility] (Eh Cerna MD) Monitoring of Cardiac Electrical Activity, External Ap proach Monitoring of Cardiac Electrical Activity, External Approach 05/04/2020 12:00:00 AM EST [facility] Introduction of Vasopressor into Peripheral Vein, Perc utaneous Approach Introduction of Vasopressor into Peripheral Vein, Percutaneous Approach 05/04/2020 12:00:00 AM EST [facility] Pare Hyperkeratotic Lesion, 2-4 04/12/2020 12:00:00 AM EST [facility] ([facility]) Debridement Nails Any Method 1-5 04/12/2020 12:00:00 A M EST [facility] ([facility]) INTERROGATION EVAL IN PERSON 1/DUAL/RESOURCING ADVISOR LEAD PM 2019 12:00:00 AM EST [facility] (Eh Cerna MD) Debridement Nails Any Method 1-5 02/02/2020 12:00:00 A M EDT [facility] ([facility]) Results ID Date Data Source [id number] 03/22/2021 02:59:00 PM EDT [facility] (Eh Cerna MD) Name Value Range Interpretation Code Description Data Mini rce(s) Supporting Document(s) Laboratory test finding (navigational concept) 7.244 units 7 .350-7.450 Below lower panic limits [facility] (Eh Cerna MD) Laboratory test finding (navigational concept) 39.9 mmHg 3 5.0-45.0 Normal (applies to non-numeric results) [facility] (Eh Cerna MD) Laboratory test finding (navigational concept) 295.9 mmHg 7 5.0-100.0 Above high normal [facility] (Eh Cerna MD) Laboratory test finding (navigational concept) 18.1 meq/L 2 3.0-31.0 Below low normal [facility] (Eh Cerna MD) Laboratory test finding (navigational concept) -9.8 Below low normal [facility] (Eh Cerna MD) Laboratory test finding (navigational concept) 16.9 meq/L 2 2.0-26.0 Below low normal [facility] (Eh Cerna MD) Laboratory test finding (navigational concept) 99.8 % 9 5.0-99.0 Above high normal [facility] (Eh Cerna MD) Laboratory test finding (navigational concept) 16.7 meq/L 2 2.0-26.0 Below low normal [facility] (Eh Cerna MD) ID Date Data Source [id number] 03/22/2021 02:10:00 PM EDT [facility] (Eh Cerna MD) Name Value Range Interpretation Code Description Data Mini rce(s) Supporting Document(s) Laboratory test finding (navigational concept) 298 mg/dL 7 0-105 Above high normal [facility] (Eh Cerna MD) Laboratory test finding (navigational concept) 43.0 % 3 8.0-51.0 Normal (applies to non-numeric results) [facility] (Eh Cerna MD) Laboratory test finding (navigational concept) 134 meq/L 1 36-145 Below low normal [facility] (Eh Cerna MD) Laboratory test finding (navigational concept) 4.1 meq/L 3 .5-5.1 Normal (applies to non-numeric results) [facility] (Eh Cerna MD) Laboratory test finding (navigational concept) 5.4 mg/dL 4 .5-5.3 Above high normal [facility] (Eh Cerna MD) Laboratory test finding (navigational concept) 96 meq/L 98-109 Below low normal [facility] (Eh Cerna MD) Laboratory test finding (navigational concept) 28.0 MM/L 2 3.0-27.0 Above high normal [facility] (Eh Cerna MD) Laboratory test finding (navigational concept) 19 mg/dL 8 -26 Normal (applies to non-numeric results) [facility] (Eh Cerna MD) Laboratory test finding (navigational concept) 1.0 mg/dL 0 .6-1.3 Normal (applies to non-numeric results) [facility] (Eh Cerna MD) ID Date Data Source [id number] 12/13/2020 11:56:00 [place] [address] PHONE: [phone] FAX: [phone] Name .................. : ELIZABETH Lomeli Acct Number.................. : [id number] ROOM. ................. : Number ................... : [id number] Stay type ............. : E/R Discharge Date......... ... : Admit Date ......... : 12/11/20 Admit Phys .................... : SILAS Matamoros Date of ....... : 1935 Family Phys ................... : NEHEMIAH DEMETRICE Phone .................. : [phone] Age ................................ : 85 Film# .................. .:[id number] Sex ................................. : F Unsigned transcriptions are preliminary reports and do not represent a medical or legal document KNEE COMPLETE-4 OR MORE S L [id number] COMPLETE:12/11/20 09:22 [id number] Reason(s): Pain LEFT KNEE X-RAY: INDICATION: Pain. [...] MD , 12/13/20 11:56, TDS Transcribe Initials: SADI , Transcribe Date: 12/11/20 10:33, Dictation Date: Copy for: 010 EMERGENCY SRV Copy for: NEHEMIAH STAUFFER via modem Copy for: EMERGENCY DEPT via modem Copy for: 710 MED REC Page 1 of 1 Name Value Range Interpretation Code Description Data Mini rce(s) Supporting Document(s) ID Date Data Source [id number] 12/13/2020 11:40:00 AM EDT [facility] [address] [place] [address] PHONE: [phone] FAX: [phone] Name .................. : ELIZABETH Lomeli Acct Number.................. : [id number] ROOM. ................. : Number ................... : [id number] Stay type ............. : E/R Discharge Date......... ... : Admit Date ......... : 12/11/20 Admit Phys .................... : SILAS Matamoros Date of ....... : 1935 Family Phys ................... : NEHEMIAH SURESH Phone .................. : [phone] Age ................................ : 85 Film# .................. .:[id number] Sex ................................. : F Unsigned transcriptions are preliminary reports and do not represent a medical or legal document DOPPLER UNILATERAL VENOUS 13079 COMPLETE:12/11/20 09:57 KNB 12102 Reason(s): Pain, Limb VENOUS DOPPLER ULTRASOUND OF [...] By KRIS ANDERSEN MD , 12/13/20 11:40, [facility] Transcribe Initials: DZ , Transcribe Date: 12/11/20 10:36, Dictation Date: Copy for: 010 EMERGENCY SRV Copy for: NEHEMIAH STAUFFER via modem Copy for: EMERGENCY DEPT via modem Copy for: 710 MED REC Page 1 of 1 Name Value Range Interpretation Code Description Data Mini rce(s) Supporting Document(s) ID Date Data Source [id number] 12/11/2020 08:39:00 AM EDT [facility] 1 OrderSheet [facility] Emergency Department [address] [place] [address] Phone #: ext- [phone] 12/11/2020 08:35 Patient: LASHA CASTRO Sex: F : 1935 Age: 85yWEIGHT:79.3 kg (S) HEIGHT:64 inches (S) BMI:30.0ALLERGIES: Eyal Dhillon MoldCHIEF COMPLAINT: painDIAGNOSIS: ArthritisLAB ORDERSOrder Description Priority Entered Acknowledged InitialedDIAGNOSTIC STUDY ORDERSOrder Description Priority Entered Acknowledged InitialedUS Lower Ext STAT 09:22 12/11/2020 Ack'd: 10:06 10:40 Alexandr Lino Jack ; Arti Martinez R.N.(Oxygen?(No)) R.N. Reason for Study: Pain, LimbKnee Complete Left STAT 09:22 12/11/2020 09:35 Beatrice Lino(Oxygen?(No)) Mo Avilez ; Loly Reason for Study: PainMEDICATION/IV/DRIP/FLUID ORDERSOrder Description Priority [...] rce(s) Supporting Document(s) ID Date Data Source [id number] 12/11/2020 08:39:00 AM EDT [facility] 1 Medication Reconciliation Report [facility] Emergency Department [address] [place] [address] Phone #: ext- [phone] 12/11/2020 08:35 Patient: [...] to the patient:None. 2 Medication Reconciliation Report [facility] Emergency Department [address] [place] [address] Phone #: ext- [phone] 12/11/2020 08:35 Patient: LASHA CASTRO Sex: F : 1935 Age: 85y Name Value Range Interpretation Code Description Data Mini e(s) Supporting Document(s) ID Date Data Source [id number] 12/11/2020 08:39:00 AM EDT [facility] 1 Medication Administration Record [facility] Emergency Department [address] [place] [address] Phone #: ext- [phone] 12/11/2020 08:35 Patient: LASHA CASTRO Sex: F : 1935 Age: 85yWeight: 79.3 kgHeight/Length: 64 inBMI: 30ALLERGIES: Darvan, Dust, Mold Date/Time Medication Administered Medication OrderedGiven ACETAMINOPHEN [PO] Acetaminophen PO 650 mg (:12/11/2020 Dose: 650 mg Tablets PO x1)Beatrice Lino R.N. Name Value Range Interpretation Code Description Data Mini rce(s) Supporting Document(s) ID Date Data Source [id number] 12/11/2020 08:39:00 AM EDT [facility] 1 General Instructions [facility] Emergency Department [address] [place] [address] Phone #: ext- [phone] 12/11/2020 08:35 [facility]: [id number] Sex: F : 1935 Age: 85yAcute arthritis [...] patient.Follow-up with: Eh Cerna MD, Cardiology, , [address] [place] [address], [address] Follow up in two days if not [...] degenerative joint disease.Home care 2 General Instructions [facility] Emergency Department [address] [place] [address] Phone #: ext- [phone] 12/11/2020 08:35 Patient: LASHA CASTRO [facility]#: [id number] Sex: F : 1935 Age: 85y When [...] your pain. Follow the directions on all zots-evv-qscrkyh medicines. Talk with your healthcare provider about [...] provider Worsening joint pain 3 General Instructions [facility] Emergency Department [address] [place] [address] Phone #: ext- [phone] 12/11/2020 08:35 Patient: LASHA CASTRO Sex: F : 1935 Age: 85y Decreased ability to move the joint or bear weight on the joint [id number] [employer] [place] [address]. All rights reserved. This information is not intended as asubstitute for professional medical care. Always follow your healthcare professional's instructions. You have been given the following additional information: Osteoarthritis(Electronically signed by Mo Avilez 12/11/2020 13:38) Name Value Range Interpretation Code Description Data Mini rce(s) Supporting Document(s) ID Date Data Source [id number] 12/11/2020 08:39:00 AM EDT [facility] 1 Clinical Report - Nurses [facility] Emergency Department [address] [place] [address] Phone #: ext- [phone] 12/11/2020 08:35 Patient: [...] distress.No injury occurred. Onset. 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 SEPSIS SCREEN NEGATIVE. [...] Node ablation. 2 Clinical Report - Nurses [facility] Emergency Department [address] [place] [address] Phone #: atn- [phone] 12/11/2020 08:35 [id number] Sex: F : 1935 Age: 85yCHF.Asthma.Atrial Fibrillation.Hyperlipidemia.Hypertension.Congestive Heart Failure.Depression. --08:43 7/20/21 Beatrice Lino R.N.ADDITIONAL SURGERIES:Cystoscopy.Gallbladder Surgery.Pacemaker.Right knee.Tubal Ligation.Uterus [...] Mo Avilez. 3 Clinical Report - Nurses [facility] Emergency Department [address] [place] [address] Phone #: ext- [phone] 12/11/2020 08:35 Patient: LASHA CASTRO Sex: F : 1935 Age: 85y Interventions Identification band on patient. To treatment room. --08:41 7/20/21 Beatrice Lino R.N.PHYSICAL ASSESSMENTGENERAL / NEURO / [...] Patient transported to radiology by wheelchair with audiology technician. --09:29 12/11/20 Beatrice Lino R.N. 09:57 12/11/20. BP: 138/66. HR: 69. RR: 16. O2 saturation: 95%. --09:57 12/11/20 [facility] Tech, [place] [address] Care transferred and report given (Arti). --10:09 12/11/20 Beatrice Lino R.N.DISPOSITION / DISCHARGE 10:34 12/11/20. BP: 137/67. MAP: 90. HR: 71. RR: 16. O2 saturation: 95%. Temp: 98.7 F. Pain level now: 06/03. --10:34 12/11/20 [facility] Tech, Jacklyn, Tech1 Condition at departure: unchanged. No learning barriers present. Discharge instructions provided and reviewed with the patient. Reviewed referrals (dr cerna). Patient verbalized understanding. Written instructions provided in Nigerian. The patient was discharged home and accompanied by family. She left ambulatory and via private vehicle. Spouse driving. --10:39 12/11/20 Beatrice Lino R.N. Departure time: 10:39 12/11/2020. --10:39 12/11/20 Beatrice Lino R.N.Locked/Released at 12/11/2020 10:40 by Beatrice Lino R.N. Name Value Range Interpretation Code Description Data Mini rce(s) Supporting Document(s) ID Date Data Source [id number] 12/11/2020 08:39:00 AM EDT [facility] 1 Clinical Report - Physicians/Mid Levels [facility] Emergency Department [address] [place] [address] Phone #: ext- [phone] 12/11/2020 08:35 Patient: [facility]STR[id number] Sex: F : 1935 Age: 85y Time [...] Medications: 2 Clinical Report - Physicians/Mid Levels [facility] Emergency Department [address] [place] [address] Phone #: ext- [phone] 12/11/2020 08:35 Patient: LASHA CASTRO [facility]#: [id number] Sex: F : 1935 Age: 85y Aspirin [...] LT 3 Clinical Report - Physicians/Mid Levels [facility] Emergency Department [address] [place] [address] Phone #: ext- [phone] 12/11/2020 08:35 Patient: LASHA CASTRO Sex: F : 1935 Age: 85yReason(s): Pain, LimbTRANSPORTATION: S IV? O2? Oxygen?(No) Room: ED Exam US DOPPLER [place] [address] PHONE: [phone] FAX: [phone] Name .................. : ELIZABETH Lomeli Acct Number.................. : [id number] ROOM. ................. : MR Number ................... : [id number] Stay type ............. : E/R Discharge Date......... ... : Admit Date ......... : 12/11/20 Admit Phys .................... : SILAS Matamoros Date of ....... : 1935 Family Phys ................... : NEHEMIAH SURESH Phone .................. : [phone] Age ....... ......................... : 85 Film# .................. .:[id number] Sex ................................. : F Unsigned transcriptions are preliminary reports and do not represent a medical or legal document US DOPPLER UNILATERAL VENOUS [id number] COMPLETE:12/11/20 09:57 KNB 62337 Reason(s): Pain, Limb VENOUS DOPPLER ULTRASOUND OF [...] this dictation. Electronically Reviewed and Signed By DCTNAME , SIGNDATE, [facility] Transcribe Initials: SADI , Transcribe Date: 12/11/20 10:36, Dictation Date: <<REPDIST>> Page 1of 1Knee Complete Left: (OLIVA: 12/11/2020 09:22) ( MsgRcvd 12/11/2020 11:23) In Progress Exam KNEE COMPLETE-4 [place] [address] 4 Clinical Report - Physicians/Mid Levels [facility] Emergency Department [address] [place] [address] Phone #: ext- [phone] 12/11/2020 08:35 Patient: LASHA CASTRO Sex: F : 1935 Age: 85y PHONE: [phone] FAX: [phone] Name .................. : ELIZABETH Lomeli Acct Number.................. : [id number] ROOM. ................. : MR Number ................... : [id number] Stay type ............. : E/R Discharge Date......... ... : Admit Date ......... : 12/11/20 Admit Phys .................... : SILAS Matamoros Date of ....... : 1935 Family Phys ................... : NEHEMIAH DEMETRICE Phone .................. : [phone] Age ................................ : 85 Film# .................. .:[id number] Sex ................................. : F Unsigned transcriptions are preliminary reports and do not represent a medical or legal document KNEE COMPLETE-4 OR MORE S L [id number] COMPLETE:12/11/20 09:22 99340 Reason(s): Pain LEFT KNEE X-RAY: INDICATION: Pain. [...] ordered. 5 Clinical Report - Physicians/Mid Levels [facility] Emergency Department [address] [place] [address] Phone #: ext- [phone] 12/11/2020 08:35 Patient: LASHA CASTRO Sex: F : 1935 Age: 85y Disposition: [...] Follow-up with: Eh Cerna MD, Cardiology, , [address] [place] [address], [facility] Follow up in two days if not better. Call for an appointment. Reason for referral: evaluation.(Electronically signed by Mo Avilez 12/11/2020 13:38) Name Value Range Interpretation Code Description Data Mini rce(s) Supporting Document(s) ID Date Data Source [id number] 09/04/2020 08:10:00 AM EDT [facility] ([facility]) Name Value Range Interpretation Code Description Data Mini rce(s) Supporting Document(s) Fasting glucose [Moles/volume] in Serum or Plasma 140 mg/dL 70-100 Above high normal [facility] ([facility]) ID Date Data Source [id number] 09/04/2020 08:10:00 AM EDT [facility] ([facility]) Name Value Range Interpretation Code Description Data Mini rce(s) Supporting Document(s) Triglycerides Level 244 mg/dL Above high normal [facility] ([facility]) Cholesterol Level 231 mg/dL Above high normal [facility] ([facility]) LDL Cholesterol 142 mg/dL Above high normal [facility] ([facility]) HDL Cholesterol 40 mg/dL Normal (applies to non-numeric results) [facility] ([facility]) Non-HDL-C 191 mg/dL Normal (applies to non-numeric resul ts) [facility] ([facility]) Cholesterol Risk Ratio 5.775 Above high normal [facility] ([facility]) ID Date Data Source [id number] 09/04/2020 08:10:00 AM EDT [facility] ([facility]) Name Value Range Interpretation Code Description Data Mini rce(s) Supporting Document(s) Hemoglobin A1c 6.4 % Normal (applies to non-numeric r esults) [facility] ([facility]) <content>REFERENCE RANGES:</content><br/ ><content></content>
<content><=5.6% NORMAL</content>
<content>5.7-6.4% SUGGESTS IMPAIRED GLUCOSE METABOLISM/PREDIABETIC</content>
<content>>= 6.5% ABNORMAL</content>
<content></content> Estimated Average Glucose 137 mg/dL 60-110 Above high normal [facility] ([facility]) ID Date Data Source [facility] DIGITAL / [place] BILATERAL MAMMO SCREENING (Ultraso und if indicated) 09/03/2020 12:00:00 AM EDT eCW1 ([facility]) Name Value Range Interpretation Code Description Data Mini rce(s) Supporting Document(s) [facility] DIGITAL / DALTON BILAT ERAL MAMMO SCREENING (Ultrasound if indicated) eCW1 ([facility]) ID Date Data Source [id number] 05/04/2020 09:35:00 [place] [address] PROGRESS NOTENAME: ELIZABETH Lomeli ROOM#: 107-1DATE OF : 1935 MR#: [id number] DATE: 05/02/20 OF SERVICE: 05/04/2020SUBJECTIVE:Patient came with [...] rate.DD: Eh Cerna MD, PC 05/04/20 09:08DT: SSR 05/04/20 09:35DS: Eh Cerna MD, PC 05/10/20 08:56 1 Name Value Range Interpretation Code Description Data Mini rce(s) Supporting Document(s) ID Date Data Source [id number] 05/03/2020 12:18:00 [place] [address] PROGRESS NOTENAME: ELIZABETH Lomeli ROOM#: 107-1DATE OF : 1935 MR#: [id number] DATE: 05/02/20 OF SERVICE: 05/03/2020SUBJECTIVE:Patient came with [...] rhythm for atrial fibrillation.DD: Eh Cerna MD, 05/03/20 09:31DT: SSR 05/03/20 12:18DS: Eh Cerna MD, PC 05/10/20 08:56 1 [place] [address] PROGRESS NOTENAME: ELIZABETH Lomeli ROOM#: 107-1DATE OF : 1935 MR#: [id number] DATE: 05/02/20 2 Name Value Range Interpretation Code Description Data Mini rce(s) Supporting Document(s) ID Date Data Source [id number] 05/06/2020 12:06:00 [place] [address] DISCHARGE SUMMARYNAME: ELIZABETH Lomeli ROOM#: 107-1DATE OF : 1935 MR#: [id number] PHYS: Eh Cerna MD, PC DATE: 05/02/20 [...] Azopt eye drops 3x a day 1 [place] [address] DISCHARGE SUMMARYNAME: ELIZABETH Lomeli ROOM#: 107-1DATE OF : 1935 MR#: [id number] PHYS: Eh Cerna MD, PC DATE: 05/02/20 DISCHARGED: 05/05/20 8. Bumex 1 [...] device8. History of bilateral cataracts9. History of amcystycaf75. History of ygndfhopig26. History of glaucomaDD: Eh Cerna MD, PC 05/05/20 08:13DT: LUCIO 05/05/20 23:49DS: Eh Cerna MD, PC 05/10/20 08:56 2 Name Value Range Interpretation Code Description Data Mini rce(s) Supporting Document(s) ID Date Data Source [id number] 05/05/2020 11:49:00 [place] [address] HISTORY AND PHYSICALNAME: ELIZABETH COLBY ROOM#: 107-1DATE OF : 1935 MR#: [id number] PHYS: Eh Cerna MD, PC DATE: 05/02/20CHIEF COMPLAINT: Palpitation.HISTORY OF PRESENT ILLNESS:This is an 84-year-old female with a history of atrial fibrillation who has had an ablation, a Watchmanprocedure and has been in sinus rhythm. She has a history of congestive heart failure. She has a permanentpacemaker. She states that she began not feeling well. She felt palpitations, shortness of breath. [facility]. Upon arrival, [...] 11. Vitamin D 3000 units daily 1 [place] [address] HISTORY AND PHYSICALNAME: ELIZABETH Lomeli ROOM#: 107-1DATE OF : 1935 MR#: [id number] PHYS: Eh Cerna MD, [facility] [id number] DATE: 05/02/20PA MEDICAL HISTORY: 1. History of [...] clavicle.HEART: Regular without murmur or gallop. 2 [place] [address] HISTORY AND PHYSICALNAME: ELIZABETH Lomeli ROOM#: 107-1DATE OF : 1935 MR#: [id number] PHYS: Eh Cerna MD, PC DATE: 05/02/20ABDOMEN: [...] the service of Dr. Cerna onobservation status.DD: Clover Garnett Álvaro, [facility] 05/03/20 21:37DT: DMZ 05/04/20 02:28DS: Clover Garnett Álvaro [facility] 05/09/20 13:46 3 Name Value Range Interpretation Code Description Data Mini rce(s) Supporting Document(s) ID Date Data Source [id number] 05/09/2020 11:11:[address] [facility] [address] [place] [address] PHONE: [phone] FAX: [phone] Name .................. : CASTRO ANNE Armani Acct Number.................. : [id number] ROOM. ................. : 107-1 MR Number ................... : [id number] Stay type ............. : I/P Discharge Date......... ... : 05/05/20 Admit Date ......... : 05/02/20 Admit Phys .................... : NEHEMIAH DEMETRICE Date of ....... : 1935 Family Phys ................... : NEHEMIAH DEMETRICE Phone .................. : [phone] Age ................................ : 84 Film# .................. .:[id number] Sex ................................. : F Unsigned transcriptions are preliminary reports and do not represent a medical or legal document CHEST PORTABLE [id number] COMPLETE:05/03/20 07:01 DLA 23643 Reason(s): CHF PORTABLE CHEST X-RAY: INDICATION: Shortness [...] By KRIS ANDERSEN MD , 05/09/20 11:11, [facility] Transcribe Initials: SADI , Transcribe Date: 05/07/20 16:45, Dictation Date: Copy for: 710 MED REC DISCHARGED Page 1 of 1 Name Value Range Interpretation Code Description Data Mini rce(s) Supporting Document(s) ID Date Data Source [id number] 05/05/2020 06:40:00 AM EST [facility] (Eh Cerna [...] (Eh Cerna MD) ID Date Data Source [id number] 05/05/2020 06:40:00 AM EST [facility] (Eh Cerna MD) Name Value Range Interpretation Code Description Data Mini rce(s) Supporting Document(s) Magnesium [Mass/volume] in Serum or Plasma 2.2 mg/dL 1.7-2.2 [facility] (Eh Cerna MD) ID Date Data Source [id number] 05/05/2020 06:40:00 AM EST [facility] (Eh Cerna [...] g/dL 3 .9-5.0 Below low normal [facility] (hE Cerna MD) Laboratory test finding [...] (Eh Cerna MD) ID Date Data Source [id number] 05/05/2020 06:40:00 AM EST [facility] (Eh Cerna MD) Name Value Range Interpretation Code Description Data Mini rce(s) Supporting Document(s) Natriuretic peptide.B prohormone N-Terminal [Mass/volu me] in Serum or Plasma 1080 pg/mL 0-450 Above high normal [facility] (Eh Cerna MD) ID Date Data Source [id number] 05/05/2020 08:52:00 AM [facility] Name Value Range Interpretation Code Description Data Mini rce(s) Supporting Document(s) COMPREHENSIVE METABOLIC PANEL [facility] COMPREHENSIVE METABOLIC PANEL Sodium [Moles/volume] in Serum or Plasma 137 mEq/L 134 - 153 [facility] Potassium [Moles/volume] in Serum or Plasma 4.4 mEq/L 3.6 - 5.0 [facility] Chloride [Moles/volume] in Serum or Plasma 102 mEq/L 98 - 107 [facility] Carbon dioxide, total [Moles/volume] in Serum or Plasma 29 MEQ/L 22 - 30 [facility] Glucose [Mass/volume] in Serum or Plasma 111 MG/DL 65 - 110 H [facility] BUN 25 MG/DL 7 - 21 H [facility] Creatinine [Mass/volume] in Serum or Plasma 0.9 MG/DL 0.7 - 1.5 [facility] BUN/CREAT 28 8 - 27 H [facility] Protein [Mass/volume] in Serum or Plasma 6.1 G/DL 6.3 - 8.2 L [facility] Albumin [Mass/volume] in Serum or Plasma 3.8 G/DL 3.9 - 5.0 L [facility] Globulin [Mass/volume] in Serum by calculation 2.3 GM/DL 2.4 - 3.2 L [facility] A/G RATIO 1.7 0.8 - 2.0 [facility] Calcium [Mass/volume] in Serum or Plasma 10.1 MG/DL 8.4 - 10.2 [facility] Bilirubin.total [Mass/volume] in Serum or Plasma <0.7 MG/DL 0.2 - 1.3 [facility] Alkaline phosphatase [Enzymatic activity/volume] in Serum or Plasma 56 U/L 38 - 126 [facility] Aspartate aminotransferase [Enzymatic activity/volume] in Serum or Plasma 12 U/L 5 - 40 [facility] Alanine aminotransferase [Enzymatic activity/volume] in Seru m or Plasma 10 U/L 7 - 56 [facility] Anion gap 3 in Serum or Plasma 6.0 mmol/L 8.0 - 16.0 L [facility] AGE 84 yrs [facility] al NON-AA GFR >60 mL/min [facility] ital AFR AMER GFR >60 [facility] pital Male GFR In terprentation 20-49 yrs [...] >32 mL/min Normal ID Date Data Source [id number] 05/05/2020 08:52:00 AM [facility] Name Value Range Interpretation Code Description Data Mini rce(s) Supporting Document(s) BNP 1080 PG/ML 0 - 450 [facility] k[facility] ID Date Data Source [id number] 05/05/2020 08:52:00 AM [facility] Name Value Range Interpretation Code Description Data Mini rce(s) Supporting Document(s) Magnesium [Mass/volume] in Serum or Plasma 2.2 MG/DL 1.7 - 2.2 [facility] ID Date Data Source [id number] 05/05/2020 08:46:00 AM EST [facility] Name Value Range Interpretation Code Description Data Mini rce(s) Supporting Document(s) CBC W/AUTOMATED DIFF [facility] COMPLETE BLOOD COUNT Leukocytes [#/volume] in Blood by Automated count 8.3 10^3/uL 4.2 - 1 1.0 [facility] Erythrocytes [#/volume] in Blood by Automated count 4.20 10^6/uL 4. 20 - 5.40 [facility] Hemoglobin [Mass/volume] in Blood 12.7 g/dL 12.0 - 16.0 [facility] Hematocrit [Volume Fraction] of Blood by Automated count 38.6 % 3 7.0 - 47.0 [facility] Erythrocyte mean corpuscular volume [Entitic volume] by Auto mated count 91.9 fL 81.0 - 101 [facility] Erythrocyte mean corpuscular hemoglobin [Entitic mass] by Automated count 30.2 pg 27.0 - 34.0 [facility] Erythrocyte mean corpuscular hemoglobin concentration [Mass/volume] by Automated count 32.9 g/dL 31.0 - 36.0 [facility] Erythrocyte distribution width [Ratio] by Automated count 13.3 % 11.5 - 14.5 [facility] Platelets [#/volume] in Blood by Automated count 249 10^3/uL 150 - 45 0 [facility] Platelet mean volume [Entitic volume] in Blood by Automated count 10.7 fL 7.4 - 10.4 H [facility] Neutrophils/100 leukocytes in Blood by Automated count 44.7 % 37. 0 - 80.0 [facility] Lymphocytes/100 leukocytes in Blood by Manual count 41.4 % 25.0 - 40.0 H [facility] Monocytes/100 leukocytes in Blood by Automated count 10.3 % 3.0 - 8.0 H [facility] Eosinophils/100 leukocytes in Blood by Automated count 2.9 % 0.0 - 7.0 [facility] Basophils/100 leukocytes in Blood by Automated count 0.5 % 0.0 - 2.5 [facility] %IG 0.2 % 0.0 - 0.0 [facility] al %NRBC 0.0 % 0.0 - 0.0 [facility] al Neutrophils [#/volume] in Blood by Automated count 3.71 10^3/uL 2.00 - 6.90 [facility] Lymphocytes [#/volume] in Blood by Automated count 3.44 10^3/uL 0.60 - 3.40 H [facility] Monocytes [#/volume] in Blood by Automated count 0.86 10^3/uL 0.00 - 0.90 [facility] Eosinophils [#/volume] in Blood by Automated count 0.24 10^3/uL 0.00 - 0.70 [facility] Basophils [#/volume] in Blood by Automated count 0.04 10^3/uL 0.00 - 0.20 [facility] #IG 0.02 10^3/uL 0.00 - 0.10 [facility] #NRBC 0.00 10^3/uL 0.00 - 0.00 [facility] MANUAL DIFF NOT INDICATED [facility] RBC MORPH NOT INDICATED [facility] spital ID Date Data Source [id number] 05/04/2020 02:35:00 PM EST [facility] [address] [place] [address] PHONE: [phone] FAX: [phone] Name .................. : ELIZABETH COLBY Armani Acct Number.................. : [id number] ROOM. ................. : 107-1 MR Number ................... : [id number] Stay type ............. : O/P Discharge Date......... ... : Admit Date ......... : 05/02/20 Admit Phys .................... : NEHEMIAH DEMETRICE Date of ....... : 1935 Family Phys ................... : NEHEMIAH DEMETRICE Phone .................. : [phone] Age ................................ : 84 Film# .................. .:[id number] Sex ................................. : F Unsigned transcriptions are preliminary reports and do not represent a medical or legal document CT THORAX W/O CONTRAST [id number] COMPLETE:05/03/20 09:32 [id number] (REASON FOR CHEST: CHF CT SCAN OF [...] By Jo Landry MD , 05/04/20 14:35, KGChristine Transcribe Initials: RUEL, Transcribe Date: 05/03/20 11:19, Dictation Date: Copy for: 002 [facility] Copy for: 710 [facility] REC Page 1 of 1 Name Value Range Interpretation Code Description Data Mini rce(s) Supporting Document(s) ID Date Data Source [id number] 05/04/2020 08:08:00 AM EST [address] [address] RESPIRATORY CARE REPORT ==== ---------NAME------- NUMBER SEX AGE ADMIT DISC. XRAY# F/C TYPEVALENTINE LASHA O [id number] F 84 05/02/20 [id number] MB4 O/P DATE OF : 1935 M/R# [id number] #: [id number] 107-1 LOCATION: EMERGENCY DEPT EKG [id number] COMP LETE:05/03/20 01:54 [place] [address] PHYSICIAN: NEHEMIAH BOONE Name Value Range Interpretation Code Description Data Mini rce(s) Supporting Document(s) ID Date Data Source [id number] 05/04/2020 05:31:00 AM EST [facility] (Eh Cerna [...] finding (navigational concept) Laboratory test result [facility] (hE Cerna MD) Male GFR Interprentation 20-49 yrs [...] >32 mL/min Normal ID Date Data Source [id number] 05/04/2020 05:31:00 AM EST [facility] (Eh Cerna [...] (Eh Cerna MD) ID Date Data Source [id number] 05/04/2020 07:15:00 AM EST [facility] Name Value Range Interpretation Code Description Data Mini rce(s) Supporting Document(s) COMPREHENSIVE METABOLIC PANEL [facility] COMPREHENSIVE METABOLIC PANEL Sodium [Moles/volume] in Serum or Plasma 136 mEq/L 134 - 153 [facility] Potassium [Moles/volume] in Serum or Plasma 3.8 mEq/L 3.6 - 5.0 [facility] Chloride [Moles/volume] in Serum or Plasma 99 mEq/L 98 - 107 [facility] Carbon dioxide, total [Moles/volume] in Serum or Plasma 27 MEQ/L 22 - 30 [facility] Glucose [Mass/volume] in Serum or Plasma 122 MG/DL 65 - 110 H [facility] BUN 25 MG/DL 7 - 21 H [facility] al Creatinine [Mass/volume] in Serum or Plasma 0.9 MG/DL 0.7 - 1.5 [facility] BUN/CREAT 28 8 - 27 H [facility] al Protein [Mass/volume] in Serum or Plasma 5.9 G/DL 6.3 - 8.2 L [facility] Albumin [Mass/volume] in Serum or Plasma 3.9 G/DL 3.9 - 5.0 [facility] Globulin [Mass/volume] in Serum by calculation 2.0 GM/DL 2.4 - 3.2 L [facility] A/G RATIO 2.0 0.8 - 2.0 [facility] Calcium [Mass/volume] in Serum or Plasma 9.7 MG/DL 8.4 - 10.2 [facility] Bilirubin.total [Mass/volume] in Serum or Plasma <0.7 MG/DL 0.2 - 1.3 [facility] Alkaline phosphatase [Enzymatic activity/volume] in Serum or Plasma 58 U/L 38 - 126 [facility] Aspartate aminotransferase [Enzymatic activity/volume] in Serum or Plasma 12 U/L 5 - 40 [facility] Alanine aminotransferase [Enzymatic activity/volume] in Seru m or Plasma 10 U/L 7 - 56 [facility] Anion gap 3 in Serum or Plasma 10.0 mmol/L 8.0 - 16.0 [facility] 84 [facility] G[facility] >60 mL/min [facility] ital AFR AMER GFR >60 [facility] Male GFR In terprentation [...] >32 mL/min Normal ID Date Data Source [id number] 05/04/2020 06:59:00 AM EST [facility] Name Value Range Interpretation Code Description Data Mini rce(s) Supporting Document(s) CBC W/AUTOMATED DIFF [facility] COMPLETE BLOOD COUNT Leukocytes [#/volume] in Blood by Automated count 9.4 10^3/uL 4.2 - 1 1.0 [facility] Erythrocytes [#/volume] in Blood by Automated count 4.25 10^6/uL 4. 20 - 5.40 [facility] Hemoglobin [Mass/volume] in Blood 13.0 g/dL 12.0 - 16.0 [facility] Hematocrit [Volume Fraction] of Blood by Automated count 38.9 % 3 7.0 - 47.0 [facility] Erythrocyte mean corpuscular volume [Entitic volume] by Auto mated count 91.5 fL 81.0 - 101 [facility] Erythrocyte mean corpuscular hemoglobin [Entitic mass] by Automated count 30.6 pg 27.0 - 34.0 [facility] Erythrocyte mean corpuscular hemoglobin concentration [Mass/volume] by Automated count 33.4 g/dL 31.0 - 36.0 [facility] Erythrocyte distribution width [Ratio] by Automated count 13.5 % 11.5 - 14.5 [facility] Platelets [#/volume] in Blood by Automated count 245 10^3/uL 150 - 45 0 [facility] Platelet mean volume [Entitic volume] in Blood by Automated count 10.7 fL 7.4 - 10.4 H [facility] Neutrophils/100 leukocytes in Blood by Automated count 52.0 % 37. 0 - 80.0 [facility] Lymphocytes/100 leukocytes in Blood by Manual count 35.0 % 25.0 - 40.0 [facility] Monocytes/100 leukocytes in Blood by Automated count 10.0 % 3.0 - 8.0 H [facility] Eosinophils/100 leukocytes in Blood by Automated count 2.2 % 0.0 - 7.0 [facility] Basophils/100 leukocytes in Blood by Automated count 0.6 % 0.0 - 2.5 [facility] %IG 0.2 % 0.0 - 0.0 H [facility] %NRBC 0.0 % 0.0 - 0.0 [facility] al Neutrophils [#/volume] in Blood by Automated count 4.88 10^3/uL 2.00 - 6.90 [facility] Lymphocytes [#/volume] in Blood by Automated count 3.29 10^3/uL 0.60 - 3.40 [facility] Monocytes [#/volume] in Blood by Automated count 0.94 10^3/uL 0.00 - 0.90 H [facility] Eosinophils [#/volume] in Blood by Automated count 0.21 10^3/uL 0.00 - 0.70 [facility] Basophils [#/volume] in Blood by Automated count 0.06 10^3/uL 0.00 - 0.20 [facility] #IG 0.02 10^3/uL 0.00 - 0.10 [facility] ospital #NRBC 0.00 10^3/uL 0.00 - 0.00 [facility] ospital MANUAL DIFF NOT INDICATED [facility] RBC MORPH NOT INDICATED [facility] spital ID Date Data Source [id number] 05/03/2020 10:20:00 PM EST [facility] (Eh Cerna MD) Name Value Range Interpretation Code Description Data Mini rce(s) Supporting Document(s) Troponin T.cardiac [Mass/volume] in Serum or Plasma Laborato ry test result 0.00-0.10 NEL[facility] (Eh Cerna MD) TROPONIN T 0.1 ng/ml Recommended as the clinical th reshold value for Troponin T. ID Date Data Source [id number] 05/03/2020 11:02:00 PM [facility] Name Value Range Interpretation Code Description Data Mini rce(s) Supporting Document(s) TROPONIN T <0.01 NG/ML 0.00 - 0.10 [facility] TROPONIN T0.1 ng/ml Recommended as the c linical threshold value forTroponin T. ID Date Data Source [id number] 05/03/2020 04:43:00 PM EST [facility] (Eh Cerna MD) Name Value Range Interpretation Code Description Data Mini rce(s) Supporting Document(s) Troponin T.cardiac [Mass/volume] in Serum or Plasma Laborato ry test result 0.00-0.10 MED[facility] (Eh Cerna MD) TROPONIN T 0.1 ng/ml Recommended as the clinical th reshold value for Troponin T. ID Date Data Source [id number] 05/03/2020 05:14:00 PM [facility] Name Value Range Interpretation Code Description Data Mini rce(s) Supporting Document(s) TROPONIN T <0.01 NG/ML 0.00 - 0.10 [facility] TROPONIN T0.1 ng/ml Recommended as the c linical threshold value forTroponin T. ID Date Data Source [id number] 05/03/2020 10:22:00 AM EST [facility] (Eh Cerna MD) Name Value Range Interpretation Code Description Data Mini rce(s) Supporting Document(s) Troponin T.cardiac [Mass/volume] in Serum or Plasma Laborato ry test result 0.00-0.10 [facility] (Eh Cerna MD) TROPONIN T 0.1 ng/ml Recommended as the clinical th reshold value for Troponin T. ID Date Data Source [id number] 05/03/2020 11:12:00 AM [facility] Name Value Range Interpretation Code Description Data Mini rce(s) Supporting Document(s) TROPONIN T <0.01 NG/ML 0.00 - 0.10 [facility] TROPONIN T0.1 ng/ml Recommended as the c linical threshold value forTroponin T. ID Date Data Source [id number] 05/02/2020 10:27:00 PM EST [facility] 1 OrderSheet [facility] Emergency Department [address] [place] [address] Phone #: ext- [phone] 05/02/2020 22:26 [id number] Sex: F : 1935 Age: 84yWEIGHT:75.2 kg (M) HEIGHT:63 inches (S) BMI:29.4ALLERGIES: Eyal Dhillon MoldCHIEF COMPLAINT: palpitationsDIAGNOSIS: Congestive heart failureLAB ORDERSOrder Description Priority Entered Acknowledged InitialedCBC w Diff STAT 22:50 05/02/2020 Ack'd: 22:52 23:28 Rosetta Paris Riccardo Melaragno, Laura Laura R.N. M.D.; R.N.CMP STAT 22:50 05/02/2020 Ack'd: 22:52 23:28 Rosetta Paris Riccardo Melaragno, Laura Laura R.N. M.D.; R.N.Lipase STAT 22:50 05/02/2020 Ack'd: 22:52 23:28 Rosetta Paris Riccardo Melaragno, Laura Laura R.N. M.D.; R.N.PT/PTT STAT 22:50 05/02/2020 Ack'd: 22:52 23:28 Rosetta Pairs Riccardo Melaragno, Laura Laura R.N. M.D.; R.N.Troponin-T STAT 22:50 05/02/2020 Ack'd: 22:52 23:28 Rosetta Paris Riccardo Melaragno, Laura Laura R.N. M.D.; R.N.BNP STAT 22:50 05/02/2020 Ack'd: 22:52 23:28 MelaragnRosetta lomeli Riccardo Melaragno, Laura Laura R.N. M.D.; R.N.TSH STAT 22:51 05/02/2020 Ack'd: 22:52 23:28 Rosetta Paris Riccardo Melaragno, Laura Laura R.N. M.D.; R.N.DIAGNOSTIC STUDY ORDERSOrder Description Priority Entered Acknowledged Initialed 2 OrderSheet [facility] Emergency Department [address] [place] [address] Phone #: ext- [phone] 05/02/2020 22:26 Patient: LASHA CASTRO Sex: F : 1935 Age: 84yChest Portable 1 STAT 22:50 05/02/2020 Ack'd: 22:52 22:56 Gregorio Paris (Oxygen? Nila Sargent Laura Laura RMartine(Yes)) Jose; R.N. Reason for Study: CHF, Shortness of BreathMEDICATION/IV/DRIP/FLUID ORDERSOrder Description Priority Entered Acknowledged InitialedNitroGLYCERIN 22:50 05/02/2020 Ack'd: 22:52 22:56 RainaTopical Ointment Jose Sargent Laura Laura R.NAni0.5 in. M.DAni; R.N.Lasix IVP 60 mg 23:13 05/02/2020 Ack'd: 23:20 23:27 Rosetta Paris Riccardo Melaragno, Laura Laura R.N. M.D.; R.N.GENERAL ORDERSOrder Description Priority Entered Acknowledged InitialedBlood Pressure 22:50 05/02/2020 22:51 Raina,Monitor Jose Sargent R.N., M.D.;Pin Sticker 22:50 05/02/2020 22:51 Raina,(continuous) Jose Sargent R.N. M.D.;EKG 22:50 05/02/2020 22:51 Rosetta Paris Riccardo Laura R.N. M.D.;NPO 22:50 05/02/2020 22:51 Raina, Rosetta, Jose Singha R.N. M.D.;Obtain Old EKG 22:50 05/02/2020 22:51 Rosetta Paris Riccardo Laura R.N. M.D.;Obtain Old Records 22:50 05/02/2020 22:51 Rosetta Paris Riccardo Laura R.N. M.D.;Oxygen (2 L/min) 22:50 05/02/2020 22:51 Raina(NC) (Titrate to O2 Jose Sargent R.N.Sat >92%) Jose;Oxygen titrate to 22:50 05/02/2020 22:51 Raina,92% Jose Sargenta R.N. M.D.; 3 OrderSheet [facility] Emergency Department [address] [place] [address] Phone #: ext- [phone] 05/02/2020 22:26 [id number] Sex: F : 1935 Age: 84yPulse oximeter 22:50 05/02/2020 22:51 Raina,(Continuous) Jose Sargent R.N. M.D.;Saline Lock 22:50 05/02/2020 22:51 Rosetta Paris Riccardo Laura R.N. M.D.;Vitals 22:50 05/02/2020 22:51 Rosetta Paris Riccardo Laura R.N. M.D.;Consult - 23:53 05/02/2020 23:57 Raina,Hospitalist Jose Sargent R.N., M.D.;[Electronically signed by Brandy Paris R.N. (05/03/2020)][Electronically signed by Jose Sargent M.D. (06:02 05/03/2020)][Electronically locked by Brandy Paris R.N. (05/03/2020)] Name Value Range Interpretation Code Description Data Mini rce(s) Supporting Document(s) ID Date Data Source [id number] 05/02/2020 10:27:00 PM EST [facility] 1 Medication Reconciliation Report [facility] Emergency Department [address] [place] [address] Phone #: ext- [phone] 05/02/2020 22:26 Patient: [...] administered: 22:56 05/02/2020 2 Medication Reconciliation Report [facility] Emergency Department [address] [place] [address] Phone #: ext- [phone] 05/02/2020 22:26 Patient: LASHA CASTRO Sex: F : 1935 Age: 84yLasix [IVP] IVP 60 mg, administered: 23:27 05/02/2020The following Medications were prescribed to the patient:None. Name Value Range Interpretation Code Description Data Mini rce(s) Supporting Document(s) ID Date Data Source [id number] 05/02/2020 10:27:00 PM [facility] 1 Medication Administration Record [facility] Emergency Department [address] [place] [address] Phone #: ext- [phone] 05/02/2020 22:26 Patient: LASHA CASTRO Sex: F : 1935 Age: 84yWeight: 75.2 kgHeight/Length: 63 inBMI: 29.4ALLERGIES: Darvan, Mold, Dust Date/Time Medication Administered Medication OrderedGiven NITROGLYCERIN [TOPICAL OINTMENT] NitroGLYCERIN Kbxzaou22:56 05/02/2020 Dose: 0.5 in. Topical Ointment 0.5 in.Brandy Paris, R.NAniGiven LASIX [IVP] Lasix IVP 60 mg23:27 05/02/2020 Dose: 60 mg IVPMBrandy griffin, RAniNAni Site: #1 left wrist Name Value Range Interpretation Code Description Data Mini rce(s) Supporting Document(s) ID Date Data Source [id number] 05/02/2020 10:27:00 PM [facility] 1 General Instructions [facility] Emergency Department [address] [place] [address] Phone #: ext- [phone] 05/02/2020 22:26 Patient: LASHA CASTRO Sex: F : 1935 Age: 84yAcute mild systolic, left ventricular congestive heart failure.S/P Pacemaker status.(Electronically signed by Jose Sargent M.D. 05/03/2020 06:02) Name Value Range Interpretation Code Description Data Mini rce(s) Supporting Document(s) ID Date Data Source [id number] 05/02/2020 10:27:00 PM 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 --22:38 05/02/20 Brandy Paris R.N.22:28 05/02/20. BP: [...] Paris R.N.PROBLEMS: 2 Clinical Report - Nurses [facility] Emergency Department [address] [place] [address] Phone #: ext- [phone] 05/02/2020 22:26 Patient: LASHA CASTRO Sex: F : 1935 Age: 84yAsthma.CHF.Atrial Fibrillation. [...] R.N.InterventionsIdentification band on patient. To treatment room. --:38 05/02/20 Brandy Paris R.N. 3 Clinical Report - Nurses [facility] Emergency Department [address] [place] [address] Phone #: ext- [phone] 05/02/2020 22:26 Patient: [...] Paris R.N. 4 Clinical Report - Nurses [facility] Emergency Department [address] [place] [address] Phone #: ext- [phone] 05/02/2020 22:26 Patient: [...] Flushed with 10 mL saline; flushes easily. --05/03/20 Brandy Paris R.N. Disposition: observation for further [...] 97.9 F (oral). Pain level now: 0/10. --01:05/03/20 Brandy Paris R.N. Departure time: late entry - 01:05/03/2020. --:05/03/20 Brandy Paris R.N.Locked/Released at 05/03/2020 01:28 by Brandy Paris R.N. 5 Clinical Report - Nurses [facility] Emergency Department [address] [place] [address] Phone #: ext- [phone] 05/02/2020 22:26 Patient: LASHA CASTRO Sex: F : 1935 Age: 84y Name Value Range Interpretation Code Description Data Mini rce(s) Supporting Document(s) ID Date Data Source [id number] 05/02/2020 10:27:00 PM [facility] 1 Clinical Report - Physicians/Mid Levels [facility] Emergency Department [address] [place] [address] Phone #: ext- [phone] 05/02/2020 22:26 Patient: [...] Procedure. 2 Clinical Report - Physicians/Mid Levels [facility] Emergency Department [address] [place] [address] Phone #: ext- [phone] 05/02/2020 22:26 Patient: [...] normal. 3 Clinical Report - Physicians/Mid Levels [facility] E mergency Department [address] [place] [address] Phone #: ext- [phone] 05/02/2020 22:26 [id number] Sex: F : 1935 Age: 84yLABS, X-RAYS, [...] making process. TSH: (OLIVA: 05/02/2020 22:35) ( MsgRcvd 05/02/2020 23:41) [...] PANEL 4 Clinical Report - Physicians/Mid Levels [facility] Emergency Department [address] [place] [address] Phone #: ext- [phone] 05/02/2020 22:26 Patient: [...] Male GFR Interprentation 20-49 yrs >60 mL/min [id number] yrs >56 mL/min Normal 60-69 yrs >49 mL/min Normal 70-79yrs>42 mL/min Normal 80 and above >35 mL/min Normal Female GFRInterpretation 20-39 yrs >60 mL/min Normal 40-49 yrs >58 mL/minNormal 50-59 yrs >51 mL/min Normal 60-69 yrs >45 mL/min [id number] yrs >39 mL/min Normal 80 and above >32 mL/min NormalLipase: (OLIVA: 05/02/2020 22:35) ( [facility] 05/02/2020 23:41) Final results Test Result Flag Units (Reference) LIPASE 42 U/L (13 - 60)PT/PTT: (OLIVA: 05/02/2020 22:35) ( [facility] 05/02/2020 23:20) Final results Test Result Flag Units (Reference) PROTIME 14.3 SECONDS (11.0 - 15.5) INR 1.06 (0.93 - 1.23) PTT 28.1 SECONDS (24.8 - 36.7) \\BLDo\\INR INTERPRETATION\\BLDx\\ Therapeutic range for Coumadin andrelated oral anticoagulants. -International Normalized Ratio (INR): 2.0 - 3.0 for VenousThrombosis, Pulmonary Embolus, Tissue heart valves, Acute MA Atrial Fibrillation, Valvular heart diseaseand recurrent Systemic Embolism. -International Normalized Ratio (INR): 2.5 - 3.5 forMechanical Prosthetic valve.Troponin-T: (OLIVA: 05/02/2020 22:35) ( [facility] 05/02/2020 23:27) Final results Test Result Flag Units (Reference) TROPONIN T <0.01 NG/ML (0.00 - 0.10) TROPONIN T0.1 ng/ml Recommended as the clinical threshold value forTroponin T.BNP: (OLIVA: 05/02/2020 22:35) ( [facility] 05/02/2020 23:41) Final results Test Result Flag Units (Reference) BNP 1701 H PG/ML (0 - 450) 5 Clinical Report - Physicians/Mid Levels [facility] Emergency Department [address] [place] [address] Phone #: ext- [phone] 05/02/2020 22:26 Patient: LASHA CASTRO Sex: F : 1935 Age: 84y.PROGRESS AND PROCEDURESCourse of Care: 23:50 05/02/20. workup all in and reviewed, BNP at 1701, was 2656 on 12-14, CXR showsmild CHF w CM, pt doing better, feeling better, no arrhythmia, case discussed ramiro Puri, hospitalist for , agrees to admission. [...] rce(s) Supporting Document(s) ID Date Data Source [id number] 05/02/2020 10:27:00 PM [facility] Addenda for LASHA CASTRO VisitID: [id number] Date: 0:01Faxed medication reconciliation request to [employer](Electronically signed by Tae Roa - 05/03/2020 0:01) Name Value Range Interpretation Code Description Data Mini rce(s) Supporting Document(s) ID Date Data Source [id number] 05/03/2020 05:35:00 AM EST [facility] (Eh Cerna [...] for Troponin T. ID Date Data Source [id number] 05/03/2020 05:35:00 AM EST [facility] (Eh Cerna [...] >32 mL/min Normal ID Date Data Source [id number] 05/03/2020 05:35:00 AM EST [facility] (Eh Cerna [...] (Eh Cerna MD) ID Date Data Source [id number] 05/03/2020 07:34:00 AM EST [facility] Name Value Range Interpretation Code Description Data Mini rce(s) Supporting Document(s) CBC W/AUTOMATED DIFF [facility] COMPLETE BLOOD COUNT Leukocytes [#/volume] in Blood by Automated count 8.7 10^3/uL 4.2 - 1 1.0 [facility] Erythrocytes [#/volume] in Blood by Automated count 4.28 10^6/uL 4. 20 - 5.40 [facility] Hemoglobin [Mass/volume] in Blood 12.8 g/dL 12.0 - 16.0 [facility] Hematocrit [Volume Fraction] of Blood by Automated count 39.2 % 3 7.0 - 47.0 [facility] Erythrocyte mean corpuscular volume [Entitic volume] by Auto mated count 91.6 fL 81.0 - 101 [facility] Erythrocyte mean corpuscular hemoglobin [Entitic mass] by Automated count 29.9 pg 27.0 - 34.0 [facility] Erythrocyte mean corpuscular hemoglobin concentration [Mass/volume] by Automated count 32.7 g/dL 31.0 - 36.0 [facility] Erythrocyte distribution width [Ratio] by Automated count 13.4 % 11.5 - 14.5 [facility] Platelets [#/volume] in Blood by Automated count 272 10^3/uL 150 - 45 0 [facility] Platelet mean volume [Entitic volume] in Blood by Automated count 10.5 fL 7.4 - 10.4 H [facility] Neutrophils/100 leukocytes in Blood by Automated count 49.5 % 37. 0 - 80.0 [facility] Lymphocytes/100 leukocytes in Blood by Manual count 37.5 % 25.0 - 40.0 [facility] Monocytes/100 leukocytes in Blood by Automated count 9.6 % 3.0 - 8.0 H [facility] Eosinophils/100 leukocytes in Blood by Automated count 2.4 % 0.0 - 7.0 [facility] Basophils/100 leukocytes in Blood by Automated count 0.8 % 0.0 - 2.5 [facility] %IG 0.2 % 0.0 - 0.0 [facility] %[facility] 0.0 % 0.0 - 0.0 [facility] al Neutrophils [#/volume] in Blood by Automated count 4.30 10^3/uL 2.00 - 6.90 [facility] Lymphocytes [#/volume] in Blood by Automated count 3.26 10^3/uL 0.60 - 3.40 [facility] Monocytes [#/volume] in Blood by Automated count 0.83 10^3/uL 0.00 - 0.90 [facility] Eosinophils [#/volume] in Blood by Automated count 0.21 10^3/uL 0.00 - 0.70 [facility] Basophils [#/volume] in Blood by Automated count 0.07 10^3/uL 0.00 - 0.20 [facility] #IG 0.02 10^3/uL 0.00 - 0.10 [facility] #NRBC 0.00 10^3/uL 0.00 - 0.00 [facility] ospital MANUAL DIFF NOT INDICATED [facility] RBC MORPH NOT INDICATED [facility] spital ID Date Data Source [id number] 05/03/2020 07:32:00 AM EST [facility] Name Value Range Interpretation Code Description Data Mini rce(s) Supporting Document(s) COMPREHENSIVE METABOLIC PANEL [facility] COMPREHENSIVE METABOLIC PANEL Sodium [Moles/volume] in Serum or Plasma 137 mEq/L 134 - 153 [facility] Potassium [Moles/volume] in Serum or Plasma 3.8 mEq/L 3.6 - 5.0 [facility] Chloride [Moles/volume] in Serum or Plasma 100 mEq/L 98 - 107 [facility] Carbon dioxide, total [Moles/volume] in Serum or Plasma 28 MEQ/L 22 - 30 [facility] Glucose [Mass/volume] in Serum or Plasma 112 MG/DL 65 - 110 H [facility] BUN 18 MG/DL 7 - 21 [facility] Creatinine [Mass/volume] in Serum or Plasma 0.7 MG/DL 0.7 - 1.5 [facility] BUN/CREAT 26 8 - 27 [facility] Protein [Mass/volume] in Serum or Plasma 6.2 G/DL 6.3 - 8.2 L [facility] Albumin [Mass/volume] in Serum or Plasma 4.0 G/DL 3.9 - 5.0 [facility] Globulin [Mass/volume] in Serum by calculation 2.2 GM/DL 2.4 - 3.2 L [facility] A/G RATIO 1.8 0.8 - 2.0 [facility] Calcium [Mass/volume] in Serum or Plasma 9.4 MG/DL 8.4 - 10.2 [facility] Bilirubin.total [Mass/volume] in Serum or Plasma <0.7 MG/DL 0.2 - 1.3 [facility] Alkaline phosphatase [Enzymatic activity/volume] in Serum or Plasma 63 U/L 38 - 126 [facility] Aspartate aminotransferase [Enzymatic activity/volume] in Serum or Plasma 14 U/L 5 - 40 [facility] Alanine aminotransferase [Enzymatic activity/volume] in Seru m or Plasma 9 U/L 7 - 56 [facility] Anion gap 3 in Serum or Plasma 9.0 mmol/L 8.0 - 16.0 [facility]GE 84 [facility] GFR >60 mL/min [facility] AFR AMER GFR >60 [facility] Male GFR In terprentation [...] >32 mL/min Normal ID Date Data Source [id number] 05/03/2020 07:16:00 AM EST [facility] Name Value Range Interpretation Code Description Data Mini rce(s) Supporting Document(s) TROPONIN T <0.01 NG/ML 0.00 - 0.10 [facility] ospital TROPONIN T0.1 ng/ml Recommended as the c linical threshold value forTroponin T. ID Date Data Source [id number] 05/03/2020 07:10:00 AM [facility] Name Value Range Interpretation Code Description Data Mini rce(s) Supporting Document(s) Magnesium [Mass/volume] in Serum or Plasma 2.0 MG/DL 1.7 - 2.2 [facility] ID Date Data Source [id number] 05/02/2020 10:35:00 PM EST [facility] (Eh M. Nehemiah MD) Name Value Range Interpretation Code Description [...] (Eh Cerna MD) ID Date Data Source [id number] 05/02/2020 10:35:00 PM EST [facility] (Eh Cerna [...] >32 mL/min Normal ID Date Data Source [id number] 05/02/2020 10:35:00 PM EST [facility] (Eh Cerna MD) Name Value Range Interpretation Code Description Data Mini rce(s) Supporting Document(s) Troponin T.cardiac [Mass/volume] in Serum or Plasma Laborato ry test result 0.00-0.10 [facility] (Eh Cerna MD) TROPONIN T 0.1 ng/ml Recommended as the clinical th reshold value for Troponin T. ID Date Data Source [id number] 05/02/2020 10:35:00 PM EST [facility] (Eh Cerna [...] (Eh Cerna MD) ID Date Data Source [id number] 05/02/2020 10:35:00 PM EST [facility] (Eh Cerna [...] Thrombosis, Pulmonary Embolus, Tissue heart valves, Acute MA Atrial Fibrillation, Valvular heart disease and recurrent Systemic Embolism. -International Normalized Ratio (INR): 2 .5 - 3.5 for Mechanical Prosthetic valve. ID Date Data Source [id number] 05/02/2020 11:41:00 PM [facility] Name Value Range Interpretation Code Description Data Mini rce(s) Supporting Document(s) Thyrotropin [Units/volume] in Serum or Plasma by Detec tion limit <= 0.05 mIU/L 2.98 uIU/mL 0.47 - 5.01 [facility] ID Date Data Source [id number] 05/02/2020 11:41:00 PM [facility] Name Value Range Interpretation Code Description Data Mini rce(s) Supporting Document(s) BNP 1701 PG/ML 0 - 450 H [facility] k[facility]na ID Date Data Source [id number] 05/02/2020 11:41:00 PM EST [facility] Name Value Range Interpretation Code Description Data Mini rce(s) Supporting Document(s) Lipase [Enzymatic activity/volume] in Serum or Plasma 42 U/L 13 - 60 [facility] ID Date Data Source [id number] 05/02/2020 11:41:00 PM EST [facility] Name Value Range Interpretation Code Description Data Mini rce(s) Supporting Document(s) COMPREHENSIVE METABOLIC PANEL [facility] COMPREHENSIVE METABOLIC PANEL Sodium [Moles/volume] in Serum or Plasma 137 mEq/L 134 - 153 [facility] Potassium [Moles/volume] in Serum or Plasma 3.9 mEq/L 3.6 - 5.0 [facility] Chloride [Moles/volume] in Serum or Plasma 100 mEq/L 98 - 107 [facility] Carbon dioxide, total [Moles/volume] in Serum or Plasma 26 MEQ/L 22 - 30 [facility] Glucose [Mass/volume] in Serum or Plasma 153 MG/DL 65 - 110 H [facility] BUN 19 MG/DL 7 - 21 [facility] al Creatinine [Mass/volume] in Serum or Plasma 1.0 MG/DL 0.7 - 1.5 [facility] BUN/CREAT 19 8 - 27 [facility] al Protein [Mass/volume] in Serum or Plasma 6.6 G/DL 6.3 - 8.2 [facility] Albumin [Mass/volume] in Serum or Plasma 4.1 G/DL 3.9 - 5.0 [facility] Globulin [Mass/volume] in Serum by calculation 2.5 GM/DL 2.4 - 3.2 [facility] A/G RATIO 1.6 0.8 - 2.0 [facility] Calcium [Mass/volume] in Serum or Plasma 10.2 MG/DL 8.4 - 10.2 [facility] Bilirubin.total [Mass/volume] in Serum or Plasma <0.7 MG/DL 0.2 - 1.3 [facility] Alkaline phosphatase [Enzymatic activity/volume] in Serum or Plasma 71 U/L 38 - 126 [facility] Aspartate aminotransferase [Enzymatic activity/volume] in Serum or Plasma 12 U/L 5 - 40 [facility] Alanine aminotransferase [Enzymatic activity/volume] in Seru m or Plasma 10 U/L 7 - 56 [facility] Anion gap 3 in Serum or Plasma 11.0 mmol/L 8.0 - 16.0 [facility]GE 84 [facility] 56 mL/min [facility]na AFR AMER GFR >60 [facility] Male GFR In terprentation [...] >32 mL/min Normal ID Date Data Source [id number] 05/02/2020 11:27:00 PM [facility] Name Value Range Interpretation Code Description Data Mini rce(s) Supporting Document(s) TROPONIN T <0.01 NG/ML 0.00 - 0.10 [facility] ospital TROPONIN T0.1 ng/ml Recommended as the c linical threshold value forTroponin T. ID Date Data Source [id number] 05/02/2020 11:23:00 PM [facility] Name Value Range Interpretation Code Description Data Mini rce(s) Supporting Document(s) CBC W/AUTOMATED DIFF [facility] COMPLETE BLOOD COUNT Leukocytes [#/volume] in Blood by Automated count 10.7 10^3/uL 4.2 - 11.0 [facility] Erythrocytes [#/volume] in Blood by Automated count 4.23 10^6/uL 4. 20 - 5.40 [facility] Hemoglobin [Mass/volume] in Blood 12.9 g/dL 12.0 - 16.0 [facility] Hematocrit [Volume Fraction] of Blood by Automated count 38.5 % 3 7.0 - 47.0 [facility] Erythrocyte mean corpuscular volume [Entitic volume] by Auto mated count 91.0 fL 81.0 - 101 [facility] Erythrocyte mean corpuscular hemoglobin [Entitic mass] by Automated count 30.5 pg 27.0 - 34.0 [facility] Erythrocyte mean corpuscular hemoglobin concentration [Mass/volume] by Automated count 33.5 g/dL 31.0 - 36.0 [facility] Erythrocyte distribution width [Ratio] by Automated count 13.4 % 11.5 - 14.5 [facility] Platelets [#/volume] in Blood by Automated count 271 10^3/uL 150 - 45 0 [facility] Platelet mean volume [Entitic volume] in Blood by Automated count 10.8 fL 7.4 - 10.4 H [facility] Neutrophils/100 leukocytes in Blood by Automated count 53.4 % 37. 0 - 80.0 [facility] Lymphocytes/100 leukocytes in Blood by Manual count 33.1 % 25.0 - 40.0 [facility] Monocytes/100 leukocytes in Blood by Automated count 10.1 % 3.0 - 8.0 H [facility] Eosinophils/100 leukocytes in Blood by Automated count 2.4 % 0.0 - 7.0 [facility] 0.6 %IG 0.4 % 0.0 - 0.0 H [facility] al %NRBC 0.0 % 0.0 - 0.0 [facility] al Neutrophils [#/volume] in Blood by Automated count 5.71 10^3/uL 2.00 - 6.90 [facility] Lymphocytes [#/volume] in Blood by Automated count 3.53 10^3/uL 0.60 - 3.40 H [facility] Monocytes [#/volume] in Blood by Automated count 1.08 10^3/uL 0.00 - 0.90 H [facility] Eosinophils [#/volume] in Blood by Automated count 0.26 10^3/uL 0.00 - 0.70 [facility] Basophils [#/volume] in Blood by Automated count 0.06 10^3/uL 0.00 - 0.20 [facility] #IG 0.04 10^3/uL 0.00 - 0.10 [facility] ospital #NRBC 0.00 10^3/uL 0.00 - 0.00 [facility] MANUAL DIFF SEE BELOW [facility] Segmented neutrophils/100 leukocytes in Blood by Manual count 55 % 37 - 80 [facility] %LYMPH 35 % 25 - 40 [facility] %MONO 5 % 3 - 8 [facility] %EOS 4 % 0 - 7 [facility] al 1 Metamyelocytes/100 leukocytes in Blood by Manual count 0 % [facility] RBC MORPH NOT INDICATED [facility] ID Date Data Source [id number] 05/02/2020 11:19:00 PM EST [facility] Name Value Range Interpretation Code Description Data Mini rce(s) Supporting Document(s) Prothrombin time (PT) 14.3 SECONDS 11.0 - 15.5 [facility] INR in Platelet poor plasma by Coagulation assay 1.06 0.93 - 1. 23 [facility] aPTT in Blood by Coagulation assay 28.1 SECONDS 24.8 - 36.7 [facility] \\BLDo\\INR INTERPRETATION\\BLDx\\ Therapeutic range for Coumadin and related oral anticoagulants. - International Normalized Ratio (INR): 2.0 - 3.0 for Venous Thrombosis, Pulmonary Embolus, Tissue heart valves, Acute MA Atrial Fibrillation, Valvular heart disease and recurrent Systemic Embolism. - International Normalized Ratio (INR): 2.5 - 3.5 for Mechanical Prosthetic valve. ID Date Data Source [id number] 04/09/2020 01:51:00 PM EST [facility] ([facility] ) Name Value Range Interpretation Code Description Data Mini rce(s) Supporting Document(s) Hemoglobin A1c/Hemoglobin.total in Blood 6.4 [facility] Glucose [Mass/volume] in Serum or Plasma 140 [facility] ([facility]) Procedure Social History Code Duration Value Status Description Data Source(s ) Smoking 01/17/2021 12:00:00 AM EDT Patient has never smoked co mpleted Patient has never smoked [facility] ([facility]) Smoking 01/04/2021 10:44:33 AM EDT Never smoked tobacco (findi ng) completed Never smoked tobacco (finding) [facility] (Vijay Webb MD [facility]) Smoking 01/04/2021 10:44:08 AM EDT Never smoked tobacco (findi ng) completed Never smoked tobacco (finding) [facility] (Vijay Webb MD [facility]) Smoking 01/04/2021 10:40:56 AM EDT Never smoked tobacco (findi ng) completed Never smoked tobacco (finding) [facility]TE (Vijay Webb MD [facility]) Smoking 09/03/2020 12:00:00 AM EDT Never Smoker completed Never S moker eCW1 ([facility]) Smoking 04/09/2020 12:00:00 AM EST Patient is a former smoker completed Patient is a former smoker [facility] ([facility]) Vital Signs ID Date Data Source [id number] Name Value Range Interpretation Code Description Data Source(s) Body mass index (BMI) [Ratio] 28.6 kg/m2 28.6 k g/m2 [facility] (Eh Cerna MD) Body height 66 [...] 95 % [facility] (Eh Cerna MD) Body temperature 97.5 [...] 81 /min [facility] (Eh Cerna MD) Body mass index (BMI) [Ratio] 28.3 kg/m2 28.3 k g/m2 [facility] (Eh Cerna MD) Body height 66 [in_i] 66 [in_i] [facility] (Eh Cerna MD) 5'6" Body temperature 97.2 [degF] 97.2 [degF] [facility] (Eh Cerna MD) Systolic blood pressure 154 mm[Hg] 154 mm[Hg] M EDENT (Eh Cerna MD) Oxygen saturation in Arterial blood by Pulse oximetry 98 % 98 % [facility] (Eh Cerna MD) Body weight 175.12 [lb_av] 175.12 [lb_av] MEDEN T (Eh Cerna MD) Body mass index (BMI) [Ratio] 28.3 kg/m2 28.3 k g/m2 [facility] (Eh Cerna MD) Body temperature 97.2 [degF] 97.2 [degF] [facility] (Eh Cerna MD) Systolic blood pressure 154 mm[Hg] 154 mm[Hg] M EDENT (Eh Cerna MD) Diastolic blood pressure 84 mm[Hg] 84 mm[Hg] [facility] (Eh Cerna MD) Heart rate 81 /min 81 /min [facility] (Eh Cerna MD) Oxygen saturation in Arterial blood by Pulse oximetry 98 % 98 % [facility] (Eh Cerna MD) Body height [...] pressure 158 mm[Hg] 158 mm[Hg] M EDENT ([facility]) Diastolic blood pressure 79 mm[Hg] 79 mm[Hg] [facility] ([facility]) Heart rate 71 /min 71 /min [facility] ([facility]) Body weight 173.00 [lb_av] 173.00 [lb_av] MEDEN T ([facility]) Respiratory rate 18 /min 18 /min [facility] ( [facility]) Body temperature 97.0 [degF] 97.0 [degF] [facility] (Eh Cerna MD) Systolic blood pressure 149 mm[Hg] 149 mm[Hg] M EDENT (Eh Cerna MD) Diastolic blood pressure 79 mm[Hg] 79 mm[Hg] [facility] (Eh Cerna MD) Heart rate 75 /min 75 /min [facility] (Eh Cerna MD) Oxygen saturation [...] MD) Respiratory rate 20 /min 20 /min BROOKSENT ( Eh Cerna MD) Body height 66 [in_i] 66 [in_i] BROOKSENT (Eh Cerna MD) 5'6" Body weight 175.00 [lb_av] 175.00 [lb_av] MEDEN T (Eh Cerna MD) Body mass index (BMI) [Ratio] 28.2 kg/m2 28.2 k g/m2 [facility] (Eh Cerna MD) Body temperature 97.4 [degF] 97.4 [degF] [facility] (Eh Cerna MD) Body weight 174 [lb_av] 174 [lb_av] eCW1 ([facility] Body weight 78.93 kg 78.93 kg W1 ([facility]) Body height 64 [in_i] 64 [in_i] eCW1 ([facility]) Body mass index (BMI) [Ratio] 29.86 kg/m2 29.86 kg/m2 eCW1 ([facility]) Systolic blood pressure 138 mm[Hg] 138 mm[Hg] e CW1 ([facility]) Diastolic blood pressure 76 mm[Hg] 76 mm[Hg] eCW1 ([facility]) Body mass index (BMI) [Ratio] 30.5 kg/m2 30.5 k g/m2 [facility] (Eh Cerna MD) Body height 64 [in_i] 64 [in_i] [facility] (Eh Cerna MD) 5'4" Oxygen saturation in Arterial blood by Pulse [...] blood pressure 80 mm[Hg] 80 mm[Hg] [facility] ([facility] ) Systolic blood pressure 142 mm[Hg] 142 mm[Hg] M EDENT ([facility] ) Heart rate 77 /min 77 /min [facility] ([facility] ) Body temperature 96.8 [degF] 96.8 [degF] [facility] ([facility] ) Body height 64 [in_i] 64 [in_i] [facility] ([facility] ) 5'4" Body weight 168.31 [lb_av] 168.31 [lb_av] MED[facility] T ([facility] [facility] ) Body mass index (BMI) [Ratio] 28.9 kg/m2 28.9 k g/m2 [facility] ([facility] ) Oxygen saturation in Arterial blood by Pulse oximetry 98 % 98 % [facility] ([facility] ) Systolic blood pressure 139 mm[Hg] 139 mm[Hg] M [facility] ([facility]) Diastolic blood pressure 71 mm[Hg] 71 mm[Hg] [facility] ([facility]) ID Date Data Source [id number] 05/21/2020 02:59:56 PM EST [facility] Name Value Range Interpretation Code Description Data Source(s) WEIGHT RECORDED 169.[address] [facility] [place] Height 64 Inches 064 Inches [facility] WEIGHT RECORDED 169.[address] [facility] [place] Height 64 Inches 064 Inches [facility] Patient Treatment Plan of Care Planned Activity Planned Date Details Description Data Source (s) bimatoprost 0.1 MG/ML Ophthalmic Solution [Lumigan] 10/03/19 12:00:00 AM EDT [facility] ([facility]ijay Webb [facility]) Rhopressa 0.02% Ophthalmic Solution 09/05/2020 12:00:00 AM EDT [facility] ([facility]) brinzolamide 10 MG/ML Ophthalmic Suspension [Azopt] 08/10/19 12:00:00 AM EDT [facility] ([facility]ijay Webb [facility]) Timolol Maleate 0.5% Ophthalmic Solution 03/13/2020 12:00:00 AM EDT [facility] ([facility]ijay Webb MD [facility]) Rhopressa 0.02% Ophthalmic Solution 02/08/2020 12:00:00 AM EDT [facility] ([facility]ijay Webb MD [facility]) Rhopressa 0.02% Ophthalmic Solution 02/08/2020 12:00:00 AM EDT [facility] ([facility] Webb [facility]) bimatoprost 0.1 MG/ML Ophthalmic Solution [Lumigan] 10/21/19 12:00:00 AM EDT [facility] ([facility] Webb [facility]) brinzolamide 10 MG/ML Ophthalmic Suspension [Azopt] 08/22/19 12:00:00 AM EDT [facility] ([facility]ay Webb MD [facility]) Rhopressa 0.02% Ophthalmic Solution 08/15/2019 12:00:00 AM EDT [facility] ([facility])
[2021-03-22 16:48] LABS: ABG BASE EXCESS -5.8 (-2.0-2.0); ABG HCO3 20.3 MEQ/L (22.0-26.0); ABG O2 SATURATION 97.7 % (95.0-99.0); ABG PARTIAL PRESSURE CO2 41.9 mmHg (35.0-45.0); ABG STANDARD HCO3 19.8 MEQ/L (22.0-26.0); ABG TOTAL CO2 21.6 MEQ/L (23.0-31.0); ABG pH (ARTERIAL) 7.303 UNITS (7.350-7.450)
[2021-03-22] MEDS: MIDAZOLAM HCL 100 MG in D5W 80 ML IV SCH ×4 (17:17→22:41)
[2021-03-22] MEDS ORDERED: DILT240C82 PO (17:29)
[2021-03-22] MEDS ORDERED: ASPI81TA26 PO (17:29)
[2021-03-22] MEDS ORDERED: HOME MED LIST COMPLETE! XX SCH (19:05)
--- NOTE | 2021-03-22 19:08 | ECGEPIP ---
[facility] - ED Test Date: 2021-03-22 Pat Name: LASHA JOHNSON Department: Room: [place] [address] Gender: Female [employer] Room Supervisor: FARNAZ : 1935 Requested By: Maurice Segura Order Number: [id number] Reading MD: Shelley Camacho Measurements Intervals [place] Rate: 70 P: IN: QRS: 90 QRSD: 164 T: 74 QT: 392 QTc: 423 Interpretive Statements Ventricular-paced rhythm similar 09/04/19 Electronically Signed on 03-22-2021 19:07:56 EDT by Shelley Camacho
[2021-03-22] MEDS: fentaNYL CITRATE 1,000 MCG in NS 80 ML IV SCH (20:03)
[2021-03-22] MEDS ORDERED: EPINEPHrine 1MG/10ML SYRINGE 1.5IN ONE (20:06)
[2021-03-22] MEDS: CHLORHEXIDINE GLUCONATE 0.12 % 15ML UDC (PERIDEX ORAL RINSE) MT SCH (21:00)
[2021-03-23] VITALS (76 sets, daily range): BP systolic 80–134; BP diastolic 41–79
[2021-03-23] MEDS ORDERED: PROPOFOL 1,000 MG/100 ML VIAL As Ordered ONE (01:54)
[2021-03-23 03:23] LABS: ABG BASE EXCESS 1.1 (-2.0-2.0); ABG HCO3 23.3 MEQ/L (22.0-26.0); ABG PARTIAL PRESSURE CO2 29.5 mmHg (35.0-45.0); ABG PARTIAL PRESSURE O2 177.7 mmHg (75.0-100.0); ABG STANDARD HCO3 25.5 MEQ/L (22.0-26.0); ABG TOTAL CO2 24.2 MEQ/L (23.0-31.0); ABG pH (ARTERIAL) 7.515 UNITS (7.350-7.450)
[2021-03-23 03:24] LABS: HEMATOCRIT 32.6 % (36.0-47.0); HEMOGLOBIN 10.6 g/dl (12.0-15.5); MEAN CORPUSCULAR HEMOGLOBIN 30.1 pg (27.0-33.0); MEAN CORPUSCULAR HGB CONC 32.5 g/dl (32.0-36.5); MEAN CORPUSCULAR VOLUME 92.6 fl (80.0-96.0); PLATELET COUNT, AUTOMATED 213 10^3/uL (150-450); RED BLOOD COUNT 3.52 10^6/uL (4.00-5.40); WHITE BLOOD COUNT 14.6 10^3/uL (4.0-10.0)
[2021-03-23 03:30] LABS: BASO % 0.1 % (0.0-1.0); LYMPH % 6.7 % (24.0-44.0); MONO # 1.2 10^3/uL (0.0-0.8); MONO % 8.3 % (2.0-8.0); NEUTROPHILS # 12.3 10^3/uL (1.5-8.5); NEUTROPHILS % 84.5 % (36.0-66.0)
[2021-03-23 03:36] LABS: INR 1.28; PROTHROMBIN TIME 16.4 SECONDS (12.7-14.5)
[2021-03-23 03:58] LABS: ALBUMIN 2.9 GM/DL (3.2-5.2); BILIRUBIN,TOTAL 0.7 MG/DL (0.2-1.0); CALCIUM LEVEL 8.7 MG/DL (8.8-10.2); CREATININE FOR GFR 1.42 MG/DL (0.55-1.30); GLOMERULAR FILTRATION RATE 37.3 (>32); MAGNESIUM LEVEL 1.9 MG/DL (1.8-2.4); PHOSPHORUS LEVEL 3.7 MG/DL (2.5-4.9); POTASSIUM SERUM 3.3 MEQ/L (3.5-5.1); TOTAL PROTEIN 5.9 GM/DL (6.4-8.2)
[2021-03-23 04:09] LABS: BILIRUBIN,TOTAL 0.8 MG/DL (0.2-1.0); CALCIUM LEVEL 9.1 MG/DL (8.8-10.2); CREATININE FOR GFR 1.5 MG/DL (0.55-1.30); GLOMERULAR FILTRATION RATE 35.1 (>32); MAGNESIUM LEVEL 2.2 MG/DL (1.8-2.4); PHOSPHORUS LEVEL 4.1 MG/DL (2.5-4.9); POTASSIUM SERUM 4.2 MEQ/L (3.5-5.1); TOTAL PROTEIN 6.4 GM/DL (6.4-8.2)
[2021-03-23] MEDS: MIDAZOLAM HCL 100 MG in D5W 80 ML IV SCH ×2 (04:17→14:14)
[2021-03-23] MEDS: HEPARIN SOD (PORCINE) 5000UNITS/ML 1ML VIAL/SYRINGE SC SCH ×4 (04:19→21:19)
[2021-03-23] MEDS: propofoL 1,000 MG in IV 1 EA IV SCH ×5 (04:20→20:30)
[2021-03-23 05:49] LABS: ABG BASE EXCESS -1.3 (-2.0-2.0); ABG HCO3 21.4 MEQ/L (22.0-26.0); ABG O2 SATURATION 99.6 % (95.0-99.0); ABG PARTIAL PRESSURE CO2 29.4 mmHg (35.0-45.0); ABG PARTIAL PRESSURE O2 213.2 mmHg (75.0-100.0); ABG STANDARD HCO3 23.4 MEQ/L (22.0-26.0); ABG TOTAL CO2 22.3 MEQ/L (23.0-31.0); ABG pH (ARTERIAL) 7.479 UNITS (7.350-7.450)
[2021-03-23] MEDS: PANTOPRAZOLE 40MG VIAL (C9113 PER 1) IV SCH (07:51)
[2021-03-23] MEDS: CHLORHEXIDINE GLUCONATE 0.12 % 15ML UDC (PERIDEX ORAL RINSE) MT SCH ×2 (07:51→21:19)
[2021-03-23] MEDS: fentaNYL CITRATE 1,000 MCG in NS 80 ML IV SCH (07:52)
[2021-03-23 07:59] LABS: HEMATOCRIT 31.3 % (36.0-47.0); HEMOGLOBIN 10.2 g/dl (12.0-15.5); MEAN CORPUSCULAR HEMOGLOBIN 30.8 pg (27.0-33.0); MEAN CORPUSCULAR HGB CONC 32.6 g/dl (32.0-36.5); MEAN CORPUSCULAR VOLUME 94.6 fl (80.0-96.0); PLATELET COUNT, AUTOMATED 214 10^3/uL (150-450); RED BLOOD COUNT 3.31 10^6/uL (4.00-5.40); WHITE BLOOD COUNT 14.4 10^3/uL (4.0-10.0)
[2021-03-23 08:10] LABS: INR 1.27; PROTHROMBIN TIME 16.3 SECONDS (12.7-14.5)
[2021-03-23 08:11] LABS: PARTIAL THROMBOPLASTIN TIME 30.9 SECONDS (25.9-37.0)
[2021-03-23 08:26] LABS: ALBUMIN 2.7 GM/DL (3.2-5.2); BILIRUBIN,TOTAL 0.6 MG/DL (0.2-1.0); CALCIUM LEVEL 8.8 MG/DL (8.8-10.2); CREATININE FOR GFR 1.31 MG/DL (0.55-1.30); POTASSIUM SERUM 3.2 MEQ/L (3.5-5.1); TOTAL PROTEIN 5.6 GM/DL (6.4-8.2)
--- NOTE | 2021-03-23 08:46 | REP ---
INDICATION: intubated. COMPARISON: Portable chest, 03/22/2021 TECHNIQUE: AP portable chest image was obtained. FINDINGS: There has been significant radiographic improvement in the patient's congestive heart failure. There remains mild congestive heart failure with interstitial edema. There are no significant pleural effusions. The endotracheal tube is again noted unchanged in position. Pacemaker again noted. There is new nasogastric tube noted with the side port in the left upper quadrant of the abdomen. IMPRESSION: 1. Significant interval improvement in the patient's congestive heart failure. 2. Nasogastric tube now present which appears in good position. 3. Other findings as noted, unchanged. <Electronically signed by George Alberts > 03/23/21 [id number]
[2021-03-23 08:50] LABS: ABG BASE EXCESS 1.8 (-2.0-2.0); ABG HCO3 24.6 MEQ/L (22.0-26.0); ABG O2 SATURATION 98.6 % (95.0-99.0); ABG PARTIAL PRESSURE CO2 30.7 mmHg (35.0-45.0); ABG PARTIAL PRESSURE O2 129.1 mmHg (75.0-100.0); ABG STANDARD HCO3 26.1 MEQ/L (22.0-26.0); ABG TOTAL CO2 25.6 MEQ/L (23.0-31.0); ABG pH (ARTERIAL) 7.517 UNITS (7.350-7.450)
[2021-03-23 10:09] LABS: TROPONIN I 0.68 NG/ML (< 0.10)
[2021-03-23 11:00] LABS: ABG BASE EXCESS -2.1 (-2.0-2.0); ABG HCO3 20.9 MEQ/L (22.0-26.0); ABG O2 SATURATION 98.8 % (95.0-99.0); ABG PARTIAL PRESSURE CO2 27.9 mmHg (35.0-45.0); ABG PARTIAL PRESSURE O2 138.3 mmHg (75.0-100.0); ABG STANDARD HCO3 22.7 MEQ/L (22.0-26.0); ABG TOTAL CO2 21.8 MEQ/L (23.0-31.0); ABG pH (ARTERIAL) 7.486 UNITS (7.350-7.450)
[2021-03-23] MEDS: KCL 10MEQ/100ML SWI (KRUN) 10 MEQ in IV 1 EA IV SCH ×2 (11:48→12:34)
[2021-03-23 12:46] LABS: HEMATOCRIT 29.7 % (36.0-47.0); HEMOGLOBIN 9.9 g/dl (12.0-15.5); MEAN CORPUSCULAR HEMOGLOBIN 30.5 pg (27.0-33.0); MEAN CORPUSCULAR HGB CONC 33.3 g/dl (32.0-36.5); MEAN CORPUSCULAR VOLUME 91.4 fl (80.0-96.0); PLATELET COUNT, AUTOMATED 214 10^3/uL (150-450); RED BLOOD COUNT 3.25 10^6/uL (4.00-5.40); WHITE BLOOD COUNT 12.5 10^3/uL (4.0-10.0)
[2021-03-23 12:57] LABS: INR 1.34; PARTIAL THROMBOPLASTIN TIME 31.4 SECONDS (25.9-37.0)
[2021-03-23] MEDS ORDERED: NOREPINEPHRINE BITARTRATE 8 MG in D5W 492 ML IV SCH (13:05)
[2021-03-23] MEDS ORDERED: NOREPINEPHRINE 4 MG/4 ML AMP As Ordered ONE (13:07)
[2021-03-23 13:11] LABS: ALBUMIN 2.6 GM/DL (3.2-5.2); BILIRUBIN,TOTAL 0.6 MG/DL (0.2-1.0); CALCIUM LEVEL 8.6 MG/DL (8.8-10.2); CREATININE FOR GFR 1.33 MG/DL (0.55-1.30); GLOMERULAR FILTRATION RATE 40.3 (>32); MAGNESIUM LEVEL 2.2 MG/DL (1.8-2.4); PHOSPHORUS LEVEL 4.1 MG/DL (2.5-4.9); POTASSIUM SERUM 3.1 MEQ/L (3.5-5.1); TOTAL PROTEIN 5.4 GM/DL (6.4-8.2)
--- NOTE | 2021-03-23 13:13 | IPNPDOC ---
Text Note Date of Service The patient was seen on 03/23/21. NOTE CRITICAL CARE PROGRESS NOTE: SUBJECTIVE: Patient seen and examined. Patient remains on mechanical ventilation. There were no overnight events. Patient is currently on targeted temperature management 36 C. Patient is currently on propofol, Versed, fentanyl. Patient has low urine output All other ROS are negative except as mentioned above PHYSICAL EXAMINATION: VITAL SIGNS: Please see below. GENERAL APPEARANCE: On mechanical ventilation no distress HEENT: no thyromegaly, trachea midline, PERRLA. normal mucous membranes RESPIRATORY: Intubated, crackles bilateral good air entry. CARDIOVASCULAR: +s1 s2, no murmurs. ABDOMEN: nontender, not distended, +BS EXTREMITIES: Pitting edema bilaterally SKIN: no rash, no purpura NEUROLOGICAL: no sensory or motor deficits, orientedx3. PERTINENT LABS/IMAGING: Chest x-ray improved bilateral opacities. ET tube and OG tube are in satisfactory position. IMPRESSION: 1. Acute hypoxic respiratory failure secondary to decompensated CHF complicated by Cardiopulmonary arrest with approximately 30-minute downtime. Nonshockable rhythm. 2. MALIK oligoanuric 3. Lactic acidosis improved 4. History of A. fib not on anticoagulation status post watchman procedure 5. 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 Targeted temperature management of 36 C for 24 hours. PULM: HOB 30 degrees. Maintain Sp02 94-98%. Titrate down oxygen as tolerated. Vent changes as follows tidal volume 360 rate 14 PEEP 10 FiO2 50%. CARDIO: We will place A-line. Maintain MAPs 60-65. Not requiring vasopressors at this time. S/p lasix 100mg in ED, once hemodynamics improve will resume diuresis GI: OG feeds, GI prophylaxis RENAL: monitor lytes, replete potassium. ID: No antibiotics at this time. ENDO: Monitor FS per routine. Goal range 140-180. Start insulin drip intensive care nursing protocol if remains high HEME: DVT ppx LINES/CATHETERS: No central line, tenorio CODE STATUS: I discussed with the patient's healthcare proxy Malik Castro who is patient's spouse regarding her poor prognosis. He has advised me that him and his family do want do not want any more her work measures so they will make her DNR and will not pursue hemodialysis if it comes to that. Currently she will be DNR with trial of intubation. DISPOSITION: Patient requires continued monitoring in the ICU. VS,Fishbone, I+O VS, Fishbone, I+O Laboratory Tests 03/22/21 14:06 03/22/21 15:17 03/23/21 03:11 03/23/21 07:49 03/23/21 12:25 Vital Signs Date Time Temp Pulse Resp B/P (MAP) Pulse Ox O2 Delivery O2 Flow Rate FiO2 03/23/21 12:15 69 14 86/53 (65) 94 Ventilator 50 103/48 03/23/21 07:34 97.0 I&O- Last 24 Hours up to 6 AM 03/23/21 06:00 Output Total 120 ml Balance -120 ml JANY BLUNT MD Mar 23, 2021 13:12
[2021-03-23] MEDS ORDERED: LR 1,000 ML IV ONE (13:55)
[2021-03-23] MEDS: LACRILUBE (AKWA TEARS) OPHTH OINT 3.5 GM OU SCH ×3 (13:56→21:19)
--- NOTE | 2021-03-23 15:11 | REP ---
INDICATION: Oliguria. COMPARISON: None. TECHNIQUE: Multiple ultrasound images of the kidneys and urinary bladder were obtained. FINDINGS: The right kidney measures 11.7 by 5.3 x 4.6 cm in the left kidney measures 11.8 x 6.2 x 5.4 cm. There is mild thinning of the renal cortices bilaterally. There is increased renal cortical echogenicity bilaterally there are 2 small cortical cyst in the left kidney. There is no nephrolithiasis or hydronephrosis. There is a Ludwig catheter in the urinary bladder. IMPRESSION: 1. Increased echogenicity of the renal parenchyma consistent with medical renal disease. 2. There is a Ludwig catheter in the urinary bladder. <Electronically signed by George Alberts > 03/23/21 0750
--- NOTE | 2021-03-23 15:21 | ROOPDOC ---
[facility] Report Of Operation Report of Operation INDICATION: Hypotension PROCEDURE: Right internal jugular triple-lumen catheter placement PROCEDURE GROUP BILLING COORDINATOR: Dr. Torres CONSENT: Consent was implied as the procedure was done under emergency circumstances. PROCEDURE SUMMARY: A time out was performed. My hands were washed immediately prior to the procedure. I wore a surgical cap, mask with protective eyewear, full gown and sterile gloves throughout the procedure. The patient was placed in Trendelenburg position. The right chest region was prepped using chlorhexidine scrub and draped in sterile fashion using a full drape and sterile probe cover and sterile gel employed. The right internal Jugular vein was identified using the ultrasound. Anesthesia was achieved over the vein using 1% lidocaine. Using real-time out of plane guidance, the introducer needle was inserted into the Internal Jugular vein under direct ultrasound visualization. Venous blood was withdrawn. The syringe was removed and a guidewire was advanced into the introducer needle. The guidewire was visualized in the Internal Jugular Vein by ultrasound. A small incision was made at the skin surface with a scalpel and the introducer needle was exchanged for a dilator over the guidewire. After appropriate dilation was obtained, the dilator was exchanged over the wire for a central venous catheter. The wire was removed and the catheter was sutured in place at 17 cm. A sterile shield was placed over the catheter at the insertion site. The patient tolerated the procedure without any hemodynamic compromise. At time of procedure completion, all ports aspirated and flushed properly. Post- procedure chest x-ray is pending at this time. Estimated blood loss is 10. JANY TORRES MD Mar 23, 2021 15:21
--- NOTE | 2021-03-23 15:22 | ROOPDOC ---
[facility] Report Of Operation Report of Operation INDICATION: Hypotension PROCEDURE: Right femoral arterial line placement PROCEDURE NEWS CAMERA PERSON: Dr Torres CONSENT: Consent was implied as the procedure was done for emergency circumstances PROCEDURE SUMMARY: A time out was performed. My hands were washed immediately prior to the procedure. I wore a surgical cap, mask with protective eyewear, sterile gown and sterile gloves throughout the procedure. The right inguinal region was prepped using chlorhexidine scrub and draped in sterile fashion using a three quarter sheet drape and sterile towels. Using ultrasound guidance the right femoral artery was identified. Anesthesia was achieved using 1% lidocaine. The introducer needle was inserted into the femoral artery. Arterial blood was withdrawn. The syringe was removed and a guidewire was advanced through the needle into the femoral artery. The needle was exchanged over the wire for an arterial catheter. The wire was removed and the catheter was secured to the skin using a suture. The patient tolerated the procedure without any hemodynamic compromise. At time of procedure completion, the catheter was connected to the nurse monitoring and calibrated. Appropriate waveform and blood pressure tracing was observed. Estimated blood loss is 10 cc. JANY TORRES MD Mar 23, 2021 15:22
--- NOTE | 2021-03-23 15:48 | REP ---
INDICATION: central line placement. COMPARISON: Portable chest, 03/23/2021, 6:56 a.m. TECHNIQUE: AP portable chest image was obtained. FINDINGS: There is again noted mild congestive heart failure with cardiomegaly, pulmonary venous hypertension and interstitial pulmonary edema. There are small bilateral pleural effusions. There is airspace disease in the left lung base consistent with atelectasis or pneumonia. The endotracheal tube, nasogastric tube and right IJ deep line are unchanged. The pacemaker is again noted. IMPRESSION: Mild congestive heart failure. Bilateral pleural effusions and airspace disease in the left lung base. No significant change. Other findings as noted not significantly changed. <Electronically signed by George Alberts > 03/23/21 [id number]
[2021-03-23 16:12] LABS: ABG BASE EXCESS -15.4 (-2.0-2.0); ABG HCO3 8.4 MEQ/L (22.0-26.0); ABG O2 SATURATION 98.1 % (95.0-99.0); ABG PARTIAL PRESSURE O2 155.1 mmHg (75.0-100.0); ABG STANDARD HCO3 11.9 MEQ/L (22.0-26.0); ABG TOTAL CO2 8.8 MEQ/L (23.0-31.0); ABG pH (ARTERIAL) 7.413 UNITS (7.350-7.450)
[2021-03-23 16:16] LABS: ABG PARTIAL PRESSURE CO2 13.4 mmHg (35.0-45.0)
[2021-03-23 16:23] LABS: HEMATOCRIT 31.3 % (36.0-47.0); HEMOGLOBIN 10.2 g/dl (12.0-15.5); MEAN CORPUSCULAR HEMOGLOBIN 30.2 pg (27.0-33.0); MEAN CORPUSCULAR HGB CONC 32.6 g/dl (32.0-36.5); MEAN CORPUSCULAR VOLUME 92.6 fl (80.0-96.0); PLATELET COUNT, AUTOMATED 221 10^3/uL (150-450); RED BLOOD COUNT 3.38 10^6/uL (4.00-5.40); WHITE BLOOD COUNT 14.8 10^3/uL (4.0-10.0)
[2021-03-23 16:37] LABS: INR 1.32; PROTHROMBIN TIME 16.8 SECONDS (12.7-14.5)
[2021-03-23 16:38] LABS: PARTIAL THROMBOPLASTIN TIME 29.6 SECONDS (25.9-37.0)
[2021-03-23 16:53] LABS: ALBUMIN 2.5 GM/DL (3.2-5.2); BILIRUBIN,TOTAL 0.6 MG/DL (0.2-1.0); CALCIUM LEVEL 8.4 MG/DL (8.8-10.2); CREATININE FOR GFR 1.33 MG/DL (0.55-1.30); GLOMERULAR FILTRATION RATE 40.3 (>32); MAGNESIUM LEVEL 1.9 MG/DL (1.8-2.4); PHOSPHORUS LEVEL 3.8 MG/DL (2.5-4.9); POTASSIUM SERUM 3.6 MEQ/L (3.5-5.1); TOTAL PROTEIN 5.5 GM/DL (6.4-8.2); TROPONIN I 0.51 NG/ML (< 0.10)
[2021-03-23 20:53] LABS: ABG BASE EXCESS -4.6 (-2.0-2.0); ABG HCO3 19.4 MEQ/L (22.0-26.0); ABG O2 SATURATION 98.3 % (95.0-99.0); ABG PARTIAL PRESSURE CO2 32.4 mmHg (35.0-45.0); ABG PARTIAL PRESSURE O2 120.1 mmHg (75.0-100.0); ABG STANDARD HCO3 20.7 MEQ/L (22.0-26.0); ABG TOTAL CO2 20.4 MEQ/L (23.0-31.0); ABG pH (ARTERIAL) 7.396 UNITS (7.350-7.450)
[2021-03-23 21:00] LABS: HEMATOCRIT 31.8 % (36.0-47.0); HEMOGLOBIN 10.4 g/dl (12.0-15.5); MEAN CORPUSCULAR HEMOGLOBIN 30.2 pg (27.0-33.0); MEAN CORPUSCULAR HGB CONC 32.7 g/dl (32.0-36.5); MEAN CORPUSCULAR VOLUME 92.4 fl (80.0-96.0); PLATELET COUNT, AUTOMATED 223 10^3/uL (150-450); RED BLOOD COUNT 3.44 10^6/uL (4.00-5.40); WHITE BLOOD COUNT 14.3 10^3/uL (4.0-10.0)
[2021-03-23 21:12] LABS: INR 1.33; PARTIAL THROMBOPLASTIN TIME 31.4 SECONDS (25.9-37.0); PROTHROMBIN TIME 16.9 SECONDS (12.7-14.5)
[2021-03-23 21:29] LABS: ALBUMIN 2.6 GM/DL (3.2-5.2); BILIRUBIN,TOTAL 0.7 MG/DL (0.2-1.0); CALCIUM LEVEL 8.6 MG/DL (8.8-10.2); CREATININE FOR GFR 1.26 MG/DL (0.55-1.30); GLOMERULAR FILTRATION RATE 42.9 (>32); PHOSPHORUS LEVEL 3.4 MG/DL (2.5-4.9); POTASSIUM SERUM 3.6 MEQ/L (3.5-5.1); TOTAL PROTEIN 5.6 GM/DL (6.4-8.2)
[2021-03-24] VITALS (30 sets, daily range): BP systolic 90–125; BP diastolic 48–75
[2021-03-24 00:08] LABS: HEMATOCRIT 32.1 % (36.0-47.0); HEMOGLOBIN 10.4 g/dl (12.0-15.5); MEAN CORPUSCULAR HEMOGLOBIN 30.1 pg (27.0-33.0); MEAN CORPUSCULAR HGB CONC 32.4 g/dl (32.0-36.5); PLATELET COUNT, AUTOMATED 231 10^3/uL (150-450); RED BLOOD COUNT 3.45 10^6/uL (4.00-5.40)
[2021-03-24 00:11] LABS: INR 1.31; PROTHROMBIN TIME 16.8 SECONDS (12.7-14.5)
[2021-03-24 00:12] LABS: PARTIAL THROMBOPLASTIN TIME 33.4 SECONDS (25.9-37.0)
[2021-03-24 00:30] LABS: ABG HCO3 22.6 MEQ/L (22.0-26.0); ABG O2 SATURATION 98.6 % (95.0-99.0); ABG PARTIAL PRESSURE CO2 34.1 mmHg (35.0-45.0); ABG PARTIAL PRESSURE O2 150.3 mmHg (75.0-100.0); ABG STANDARD HCO3 23.6 MEQ/L (22.0-26.0); ABG TOTAL CO2 23.7 MEQ/L (23.0-31.0)
[2021-03-24 00:35] LABS: ALBUMIN 2.7 GM/DL (3.2-5.2); BILIRUBIN,TOTAL 0.6 MG/DL (0.2-1.0); CALCIUM LEVEL 8.9 MG/DL (8.8-10.2); CREATININE FOR GFR 1.27 MG/DL (0.55-1.30); GLOMERULAR FILTRATION RATE 42.5 (>32); MAGNESIUM LEVEL 2.1 MG/DL (1.8-2.4); PHOSPHORUS LEVEL 3.1 MG/DL (2.5-4.9); POTASSIUM SERUM 3.6 MEQ/L (3.5-5.1); TOTAL PROTEIN 5.6 GM/DL (6.4-8.2)
[2021-03-24] MEDS ORDERED: NOREPINEPHRINE BITARTRATE 8 MG in D5W 492 ML IV SCH (01:00)
[2021-03-24] MEDS ORDERED: fentaNYL 100 MCG/2 ML INJECTION (J3010) IV PRN (01:10)
[2021-03-24] MEDS: propofoL 1,000 MG in IV 1 EA IV SCH ×3 (01:37→18:05)
[2021-03-24 04:33] LABS: ABG BASE EXCESS -3.5 (-2.0-2.0); ABG HCO3 20.4 MEQ/L (22.0-26.0); ABG PARTIAL PRESSURE CO2 32.8 mmHg (35.0-45.0); ABG PARTIAL PRESSURE O2 145.8 mmHg (75.0-100.0); ABG STANDARD HCO3 21.6 MEQ/L (22.0-26.0); ABG TOTAL CO2 21.4 MEQ/L (23.0-31.0); ABG pH (ARTERIAL) 7.411 UNITS (7.350-7.450)
[2021-03-24 04:47] LABS: HEMATOCRIT 31.2 % (36.0-47.0); HEMOGLOBIN 10.3 g/dl (12.0-15.5); MEAN CORPUSCULAR HEMOGLOBIN 30.7 pg (27.0-33.0); MEAN CORPUSCULAR VOLUME 92.9 fl (80.0-96.0); PLATELET COUNT, AUTOMATED 212 10^3/uL (150-450); RED BLOOD COUNT 3.36 10^6/uL (4.00-5.40); WHITE BLOOD COUNT 14.6 10^3/uL (4.0-10.0)
[2021-03-24 04:51] LABS: INR 1.3; PARTIAL THROMBOPLASTIN TIME 32.7 SECONDS (25.9-37.0); PROTHROMBIN TIME 16.6 SECONDS (12.7-14.5)
[2021-03-24 05:13] LABS: ALBUMIN 2.6 GM/DL (3.2-5.2); BILIRUBIN,TOTAL 0.5 MG/DL (0.2-1.0); CALCIUM LEVEL 9.1 MG/DL (8.8-10.2); CREATININE FOR GFR 1.05 MG/DL (0.55-1.30); GLOMERULAR FILTRATION RATE 52.9 (>32); MAGNESIUM LEVEL 2.2 MG/DL (1.8-2.4); POTASSIUM SERUM 3.3 MEQ/L (3.5-5.1); TOTAL PROTEIN 5.5 GM/DL (6.4-8.2)
[2021-03-24] MEDS: HEPARIN SOD (PORCINE) 5000UNITS/ML 1ML VIAL/SYRINGE SC SCH ×3 (05:51→21:11)
--- NOTE | 2021-03-24 08:22 | REP ---
INDICATION: intubated. COMPARISON: 03/23/2021 at 3:24 p.m. TECHNIQUE: Portable FINDINGS: The technique utilized in obtaining the radiograph has magnified the cardiac silhouette and accentuated the interstitial markings. Cardiomediastinal silhouette is unchanged. There is mild cardiomegaly accentuated by technique status quo. The tubes and line are unchanged. The pacemaker devices unchanged. The lung haskins are stable. No acute patchy parenchymal opacities or pleural effusions have developed. Small bilateral pleural effusions cannot be ruled out. There is a persistent left retrocardiac density status quo. There is no change in the osseous structures. IMPRESSION: No significant change as described above. <Electronically signed by Art Baxter > 03/24/21 [id number]
[2021-03-24] MEDS: PANTOPRAZOLE 40MG VIAL (C9113 PER 1) IV SCH (08:24)
[2021-03-24] MEDS: KCL 20MEQ IN 100ML SWI (KRUN) 20 MEQ in IV 1 EA IV SCH ×4 (08:24→09:53)
[2021-03-24] MEDS: CHLORHEXIDINE GLUCONATE 0.12 % 15ML UDC (PERIDEX ORAL RINSE) MT SCH ×2 (08:24→21:10)
[2021-03-24] MEDS: LACRILUBE (AKWA TEARS) OPHTH OINT 3.5 GM OU SCH ×3 (08:25→21:11)
[2021-03-24 08:39] LABS: BASO % 0.2 % (0.0-1.0); EOS # 0.1 10^3/uL (0.0-0.5); EOS % 0.5 % (0.0-3.0); HEMATOCRIT 32.3 % (36.0-47.0); HEMOGLOBIN 10.5 g/dl (12.0-15.5); LYMPH # 1.1 10^3/uL (1.5-5.0); LYMPH % 6.7 % (24.0-44.0); MEAN CORPUSCULAR HEMOGLOBIN 30.2 pg (27.0-33.0); MEAN CORPUSCULAR HGB CONC 32.5 g/dl (32.0-36.5); MEAN CORPUSCULAR VOLUME 92.8 fl (80.0-96.0); MONO # 1.8 10^3/uL (0.0-0.8); MONO % 10.4 % (2.0-8.0); NEUTROPHILS # 13.8 10^3/uL (1.5-8.5); NEUTROPHILS % 81.7 % (36.0-66.0); PLATELET COUNT, AUTOMATED 239 10^3/uL (150-450); RED BLOOD COUNT 3.48 10^6/uL (4.00-5.40); WHITE BLOOD COUNT 16.9 10^3/uL (4.0-10.0)
[2021-03-24 08:57] LABS: ALBUMIN 2.7 GM/DL (3.2-5.2); BILIRUBIN,TOTAL 0.6 MG/DL (0.2-1.0); CALCIUM LEVEL 9.1 MG/DL (8.8-10.2); CREATININE FOR GFR 1.11 MG/DL (0.55-1.30); GLOMERULAR FILTRATION RATE 49.6 (>32); MAGNESIUM LEVEL 2.2 MG/DL (1.8-2.4); PHOSPHORUS LEVEL 3.2 MG/DL (2.5-4.9); POTASSIUM SERUM 3.7 MEQ/L (3.5-5.1); TOTAL PROTEIN 5.6 GM/DL (6.4-8.2)
--- NOTE | 2021-03-24 10:42 | ECHO ---
ECHOCARDIOGRAM DATE OF PROCEDURE: 03/23/2021 Age: 85 Gender: Female Height: 163 cm Weight: 85 kg REFERRING PROVIDER: Dr. Kandace Torres PATIENT LOCATION: Room 3221 REASON FOR THIS STUDY: Post cardiac arrest 2D MEASUREMENTS: IVS 1.2 cm LV 4.0 cm LVPW 1.4 cm LA 3.6 cm Aorta 3.2 cm IVC 2.3 cm DOPPLER MEASUREMENTS: Peak velocity across the aortic valve 1.0 m/s Peak velocity across the LVOT 0.39 m/s Maximum tricuspid valve velocity 2.7 m/s 2D COMMENTS: 1. Normal left ventricular size with mildly increased left ventricular wall thickness global left ventricular systolic function. The estimated left ventricular systolic ejection fraction is 30%-35%. The anterior septum appeared to be akinetic. 2. Normal left atrium. The right atrium appeared to be mildly enlarged in limited views. Normal right ventricle. 3. The atrial septum appeared to be normal without evidence of defect or shunt. 4. Normal aortic root. 5. A small pericardial effusion was noted, no evidence of cardiac tamponade. Left pleural effusion also noted. 6. Minimally calcified aortic valve with normal leaflet excursion. Mildly calcified mitral annulus with normal anterior mitral valve leaflet motion. The tip of the anterior mitral valve leaflet also was calcified. Normal tricuspid valve and pulmonic valve. The proximal pulmonary artery branches were not well visualized. 7. The inferior vena cava is dilated, central venous pressure is probably elevated. 8. Pacemaker wire artifacts noted in the right heart chambers. DOPPLER: It detects mild mitral regurgitation and moderate to severe tricuspid regurgitation. The calculated pulmonary artery systolic pressure varied between 30-40 mmHg. Assessment of the left ventricular diastolic function was not conclusive. IMPRESSION: 1. Moderate global left ventricular systolic dysfunction with regional wall motion abnormalities involving the anterior septum. Assessment of the left ventricular diastolic function was not conclusive. 2. Aortic valve sclerosis without stenosis or aortic regurgitation. 3. Mitral annulus calcification with mild mitral regurgitation. 4. Moderate to severe tricuspid regurgitation with mild pulmonary hypertension. The right atrium appeared to be mildly enlarged. 5. A small pericardial effusion was noted, no evidence of cardiac tamponade. Left pleural effusion also noted. 6. Pacemaker wire artifact noted in the right heart chambers.
--- NOTE | 2021-03-24 11:38 | IPNPDOC ---
Text Note Date of Service The patient was seen on 03/24/21. NOTE CRITICAL CARE PROGRESS NOTE: SUBJECTIVE: Patient seen and examined at bedside. Patient remains on mechanical ventilation. There were no overnight events. Patient is actively being rewarmed. Patient is on the following drips: Propofol at 35. When sedation is reduced patient becomes very tachypneic. Brainstem reflexes are present. Urine output improved in last 24 hours. She is tolerating her tube feeds. All other ROS are negative except as mentioned above PHYSICAL EXAMINATION: VITAL SIGNS: Please see below. GENERAL APPEARANCE: On mechanical ventilation HEENT: no thyromegaly, trachea midline, PERRLA. normal mucous membranes RESPIRATORY: Intubated, CTA B/L, good air entry. CARDIOVASCULAR: +s1 s2, no murmurs. ABDOMEN: nontender, not distended, +BS EXTREMITIES: no edema or erythema. palpable distal pulses SKIN: no rash, no purpura NEUROLOGICAL: Has brainstem reflexes and moves all extremities PERTINENT LABS/IMAGING: Chest x-ray from today bilateral opacities have improved, ET tube, OG tube and right triple-lumen catheter are in satisfactory position echo/03/23/21 1. Moderate global left ventricular systolic dysfunction with regional wall motion abnormalities involving the anterior septum. Assessment of the left ventricular diastolic function was not conclusive. 2. Aortic valve sclerosis without stenosis or aortic regurgitation. 3. Mitral annulus calcification with mild mitral regurgitation. 4. Moderate to severe tricuspid regurgitation with mild pulmonary hypertension. The right atrium appeared to be mildly enlarged. 5. A small pericardial effusion was noted, no evidence of cardiac tamponade. Left pleural effusion also noted. 6. Pacemaker wire artifact noted in the right heart chambers. IMPRESSION: 1. Acute hypoxic respiratory failure secondary to decompensated CHF complicated by Cardiopulmonary arrest with approximately 30-minute downtime. Nonshockable rhythm. 2. MALIK resolved and urine output improved 3. Lactic acidosis resolved 4. History of A. fib not on anticoagulation status post watchman procedure and status post PPM 5. History of multiple admissions for respiratory failure 6. Probable anoxic encephalopathy 7. Mild elevated troponins likely demand ischemia troponin downtrending 8. 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 Initiate rewarming per protocol. MRI brain tomorrow if does not wake up PULM: HOB 30 degrees. Maintain Sp02 94-98%. Titrate down oxygen as tolerated. Vent changes as follows: FiO2 40% PEEP 8 tidal volume 360 rate 14 if wakes up and follows commands will do SBT. CARDIO: No pressors. Maintain MAPs 60-65. I = O GI: OG feeds, GI prophylaxis RENAL: monitor lytes, replete potassium. ID: No antibiotics at this time. Blood cultures negative ENDO: Monitor FS per routine. Goal range 140-180. Start insulin drip intensive care nursing protocol if remains high HEME: DVT ppx LINES/CATHETERS: No central line, tenorio CODE STATUS: I discussed with healthcare proxy son George. He described that the patient would not want tracheostomy and halfway placement if she has persistent anoxic brain injury. DNR for now. No hemodialysis. DISPOSITION: Patient requires continued monitoring in the ICU. VS,Fishbone, I+O VS, Fishbone, I+O Laboratory Tests 03/23/21 12:25 03/23/21 16:09 03/23/21 20:34 03/23/21 23:43 03/24/21 04:18 03/24/21 08:16 Vital Signs Date Time Temp Pulse Resp B/P (MAP) Pulse Ox O2 Delivery O2 Flow Rate FiO2 03/24/21 11:00 69 18 119/56 (81) 96 Ventilator 40 03/24/21 08:01 98.0 I&O- Last 24 Hours up to 6 AM 03/24/21 06:00 Intake Total 2003.1 ml Output Total 855 ml Balance 1148.1 ml JANY BLUNT MD Mar 24, 2021 11:38
[2021-03-24 12:30] LABS: HEMOGLOBIN 10.2 g/dl (12.0-15.5); MEAN CORPUSCULAR HEMOGLOBIN 30.9 pg (27.0-33.0); MEAN CORPUSCULAR HGB CONC 32.9 g/dl (32.0-36.5); MEAN CORPUSCULAR VOLUME 93.9 fl (80.0-96.0); PLATELET COUNT, AUTOMATED 217 10^3/uL (150-450); WHITE BLOOD COUNT 14.2 10^3/uL (4.0-10.0)
[2021-03-24 12:36] LABS: ALBUMIN 2.5 GM/DL (3.2-5.2); BILIRUBIN,TOTAL 0.6 MG/DL (0.2-1.0); CALCIUM LEVEL 9.1 MG/DL (8.8-10.2); CREATININE FOR GFR 1.03 MG/DL (0.55-1.30); GLOMERULAR FILTRATION RATE 54.1 (>32); MAGNESIUM LEVEL 2.4 MG/DL (1.8-2.4); PHOSPHORUS LEVEL 2.9 MG/DL (2.5-4.9); POTASSIUM SERUM 3.9 MEQ/L (3.5-5.1); TOTAL PROTEIN 5.9 GM/DL (6.4-8.2)
[2021-03-24 16:21] LABS: HEMATOCRIT 31.4 % (36.0-47.0); HEMOGLOBIN 10.3 g/dl (12.0-15.5); MEAN CORPUSCULAR HEMOGLOBIN 30.6 pg (27.0-33.0); MEAN CORPUSCULAR HGB CONC 32.8 g/dl (32.0-36.5); MEAN CORPUSCULAR VOLUME 93.2 fl (80.0-96.0); PLATELET COUNT, AUTOMATED 232 10^3/uL (150-450); RED BLOOD COUNT 3.37 10^6/uL (4.00-5.40); WHITE BLOOD COUNT 15.4 10^3/uL (4.0-10.0)
[2021-03-24 16:41] LABS: ALBUMIN 2.5 GM/DL (3.2-5.2); BILIRUBIN,TOTAL 0.5 MG/DL (0.2-1.0); CREATININE FOR GFR 0.96 MG/DL (0.55-1.30); GLOMERULAR FILTRATION RATE 58.7 (>32); MAGNESIUM LEVEL 2.1 MG/DL (1.8-2.4); TOTAL PROTEIN 5.6 GM/DL (6.4-8.2)
[2021-03-24 20:18] LABS: HEMATOCRIT 31.6 % (36.0-47.0); HEMOGLOBIN 10.2 g/dl (12.0-15.5); MEAN CORPUSCULAR HEMOGLOBIN 30.1 pg (27.0-33.0); MEAN CORPUSCULAR HGB CONC 32.3 g/dl (32.0-36.5); MEAN CORPUSCULAR VOLUME 93.2 fl (80.0-96.0); PLATELET COUNT, AUTOMATED 215 10^3/uL (150-450); RED BLOOD COUNT 3.39 10^6/uL (4.00-5.40); WHITE BLOOD COUNT 13.7 10^3/uL (4.0-10.0)
[2021-03-24 20:56] LABS: ALBUMIN 2.5 GM/DL (3.2-5.2); ALT/SGPT 31 U/L (12-78); BILIRUBIN,TOTAL 0.4 MG/DL (0.2-1.0); BLOOD UREA NITROGEN 27 MG/DL (7-18); CALCIUM LEVEL 8.9 MG/DL (8.8-10.2); CARBON DIOXIDE LEVEL 25 MEQ/L (21-32); CHLORIDE LEVEL 106 MEQ/L (98-107); CREATININE FOR GFR 0.83 MG/DL (0.55-1.30); GLOMERULAR FILTRATION RATE > 60.0 (>32); GLUCOSE, FASTING 138 MG/DL (70-100); MAGNESIUM LEVEL 2.2 MG/DL (1.8-2.4); PHOSPHORUS LEVEL 3.2 MG/DL (2.5-4.9); POTASSIUM SERUM 4.1 MEQ/L (3.5-5.1); SODIUM LEVEL 137 MEQ/L (136-145); TOTAL PROTEIN 5.5 GM/DL (6.4-8.2)
[2021-03-25] VITALS (15 sets, daily range): BP systolic 94–160; BP diastolic 47–99
[2021-03-25] MEDS: propofoL 1,000 MG in IV 1 EA IV SCH ×3 (00:09→12:46)
[2021-03-25 00:21] LABS: HEMATOCRIT 31.4 % (36.0-47.0); HEMOGLOBIN 10.3 g/dl (12.0-15.5); MEAN CORPUSCULAR HEMOGLOBIN 30.7 pg (27.0-33.0); MEAN CORPUSCULAR HGB CONC 32.8 g/dl (32.0-36.5); MEAN CORPUSCULAR VOLUME 93.7 fl (80.0-96.0); PLATELET COUNT, AUTOMATED 227 10^3/uL (150-450); RED BLOOD COUNT 3.35 10^6/uL (4.00-5.40); WHITE BLOOD COUNT 14.9 10^3/uL (4.0-10.0)
[2021-03-25 01:17] LABS: ALBUMIN 2.5 GM/DL (3.2-5.2); ALT/SGPT 30 U/L (12-78); BILIRUBIN,TOTAL 0.4 MG/DL (0.2-1.0); BLOOD UREA NITROGEN 27 MG/DL (7-18); CALCIUM LEVEL 8.8 MG/DL (8.8-10.2); CARBON DIOXIDE LEVEL 28 MEQ/L (21-32); CHLORIDE LEVEL 105 MEQ/L (98-107); CREATININE FOR GFR 0.87 MG/DL (0.55-1.30); GLOMERULAR FILTRATION RATE > 60.0 (>32); GLUCOSE, FASTING 156 MG/DL (70-100); MAGNESIUM LEVEL 2.2 MG/DL (1.8-2.4); POTASSIUM SERUM 4.5 MEQ/L (3.5-5.1); SODIUM LEVEL 135 MEQ/L (136-145); TOTAL PROTEIN 5.5 GM/DL (6.4-8.2)
[2021-03-25 05:00] LABS: BASO % 0.1 % (0.0-1.0); EOS # 0.1 10^3/uL (0.0-0.5); EOS % 0.5 % (0.0-3.0); HEMATOCRIT 31.1 % (36.0-47.0); HEMOGLOBIN 9.9 g/dl (12.0-15.5); LYMPH # 1.2 10^3/uL (1.5-5.0); MEAN CORPUSCULAR HEMOGLOBIN 30.1 pg (27.0-33.0); MEAN CORPUSCULAR HGB CONC 31.8 g/dl (32.0-36.5); MEAN CORPUSCULAR VOLUME 94.5 fl (80.0-96.0); MONO # 1.5 10^3/uL (0.0-0.8); MONO % 10.8 % (2.0-8.0); NEUTROPHILS # 10.6 10^3/uL (1.5-8.5); PLATELET COUNT, AUTOMATED 216 10^3/uL (150-450); RED BLOOD COUNT 3.29 10^6/uL (4.00-5.40); WHITE BLOOD COUNT 13.4 10^3/uL (4.0-10.0)
[2021-03-25 05:31] LABS: ALBUMIN 2.4 GM/DL (3.2-5.2); ALT/SGPT 28 U/L (12-78); BILIRUBIN,TOTAL 0.4 MG/DL (0.2-1.0); BLOOD UREA NITROGEN 26 MG/DL (7-18); CALCIUM LEVEL 8.9 MG/DL (8.8-10.2); CARBON DIOXIDE LEVEL 28 MEQ/L (21-32); CHLORIDE LEVEL 106 MEQ/L (98-107); GLOMERULAR FILTRATION RATE > 60.0 (>32); GLUCOSE, FASTING 133 MG/DL (70-100); MAGNESIUM LEVEL 2.3 MG/DL (1.8-2.4); POTASSIUM SERUM 3.8 MEQ/L (3.5-5.1); SODIUM LEVEL 138 MEQ/L (136-145); TOTAL PROTEIN 5.5 GM/DL (6.4-8.2)
[2021-03-25] MEDS: HEPARIN SOD (PORCINE) 5000UNITS/ML 1ML VIAL/SYRINGE SC SCH (05:50)
[2021-03-25 08:09] LABS: ABG HCO3 24.2 MEQ/L (22.0-26.0); ABG O2 SATURATION 95.7 % (95.0-99.0); ABG PARTIAL PRESSURE CO2 42.2 mmHg (35.0-45.0); ABG PARTIAL PRESSURE O2 82.1 mmHg (75.0-100.0); ABG STANDARD HCO3 23.6 MEQ/L (22.0-26.0); ABG TOTAL CO2 25.5 MEQ/L (23.0-31.0); ABG pH (ARTERIAL) 7.376 UNITS (7.350-7.450)
--- NOTE | 2021-03-25 09:01 | REP ---
INDICATION: intubated. COMPARISON: 03/24/2021, 03/23/2021 TECHNIQUE: AP portable semi-erect FINDINGS: The endotracheal tube about 3 point 5 cm from the trinh. Nasogastric tube, right jugular central venous catheter and left-sided dual lead cardiac pacemaker are all unchanged. Large the cardiac silhouette is unchanged. There is left atrial enlargement with elevation of the left mainstem bronchus. Calcified tortuous somewhat ectatic aorta is again seen. Retrocardiac left lower lobe density is stable. Hazy atelectatic changes seen in the right and left base. Left effusion suspected and small right effusion is not excluded. Overall slightly decreased level of inspiration causing some crowding of markings. IMPRESSION: 1. Lines and tubes unchanged. 2. Cardiomegaly, retrocardiac opacity with some bibasilar hazy atelectatic change and left effusion with suspected small right effusion as well. All of this grossly stable. <Electronically signed by Kobi Mireles > 03/25/21 0857
[2021-03-25] MEDS ORDERED: ACETAMINOPHEN 325 MG/10.15 ML UDC GT PRN (09:30)
[2021-03-25] MEDS: PANTOPRAZOLE 40MG VIAL (C9113 PER 1) IV SCH (10:01)
[2021-03-25] MEDS: CHLORHEXIDINE GLUCONATE 0.12 % 15ML UDC (PERIDEX ORAL RINSE) MT SCH (10:01)
[2021-03-25] MEDS: LACRILUBE (AKWA TEARS) OPHTH OINT 3.5 GM OU SCH (10:02)
--- NOTE | 2021-03-25 10:50 | REP ---
INDICATION: POST ARREST, POSSIBLE ANOXIC INJURY. COMPARISON: 08/13/2013. TECHNIQUE: CT brain performed in the axial plane. Coronal reconstruction images are performed. FINDINGS: There is evidence of diffuse edema with effacement of cerebral sulci. There is decreased cortical sandy matter attenuation and loss of normal sandy-white differentiation. The findings are compatible with global hypoxic ischemic injury. There is no evidence of acute intracranial hemorrhage or extra-axial fluid collection. Vascular calcifications are seen in the carotid siphons. There is mild mucosal thickening in the sphenoid sinuses. IMPRESSION: There are findings compatible with global hypoxic ischemic injury. There is no evidence of acute intracranial hemorrhage, midline shift or herniation. <Electronically signed by Anton Sandy > 03/25/21 1047
[2021-03-25] MEDS ORDERED: MORPHINE 2 MG/ML 1ML VIAL (J2270) IV PRN (12:20)
[2021-03-25] MEDS ORDERED: LORazepam 2 MG/ML VIAL IV PRN (12:20)
[2021-03-25] MEDS ORDERED: SCOPOLAMINE 1MG TRANSDERMAL PATCH TOP PRN (12:20)
--- NOTE | 2021-03-25 12:34 | IPNPDOC ---
Text Note Date of Service The patient was seen on 03/25/21. NOTE CRITICAL CARE PROGRESS NOTE: SUBJECTIVE: Patient seen and examined this morning. Patient remains on mechanical ventilation. There were no overnight events. Patient is currently on profile drip at 35. She is status post targeted temperature management and rewarming. When sedation is turned off the patient does not move extremities or follow commands she just becomes very tachypneic and agitated and becomes to synchronous with the ventilator. She breathes over the ventilator. She is tolerating her tube feeds and she has not had any bowel movements. She has negative fluid balance. All other ROS are negative except as mentioned above PHYSICAL EXAMINATION: VITAL SIGNS: Please see below. GENERAL APPEARANCE: On mechanical ventilator HEENT: no thyromegaly, trachea midline, PERRLA. normal mucous membranes RESPIRATORY: Intubated with good air entry bilateral CARDIOVASCULAR: +s1 s2, no murmurs. ABDOMEN: nontender, not distended, +BS EXTREMITIES: There is lower extremity edema SKIN: no rash, no purpura NEUROLOGICAL: Positive brainstem reflexes does not move extremities PERTINENT LABS/IMAGING: Chest x-ray from today shows improved bilateral opacities. TLC, ET tube and OG tube are in satisfactory position. IMPRESSION: 1. Acute hypoxic respiratory failure secondary to decompensated CHF complicated by Cardiopulmonary arrest with approximately 30-minute downtime. Nonshockable rhythm. Status post targeted temperature management and rewarming. 2. MALIK resolved and urine output improved 3. Lactic acidosis resolved 4. History of A. fib not on anticoagulation status post watchman procedure and status post PPM 5. History of multiple admissions for respiratory failure 6. anoxic brain injury with CT evidence of global hypoxic ischemic injury 7. Mild elevated troponins likely demand ischemia troponin downtrending 8. History of heart failure reduced EF PLAN: After long discussion with son George who is the healthcare proxy, they have decid ed to make the patient comfort measures only. DNR/DNI. Will order morphine and Ativan as needed and scopolamine to help with secretions. VS,Fishbone, I+O VS, Fishbone, I+O Laboratory Tests 03/24/21 16:08 03/24/21 19:57 03/25/21 00:00 03/25/21 04:38 Vital Signs Date Time Temp Pulse Resp B/P (MAP) Pulse Ox O2 Delivery O2 Flow Rate FiO2 03/25/21 12:00 100.5 69 22 96/49 (70) 98 Ventilator 40 I&O- Last 24 Hours up to 6 AM 03/25/21 06:00 Intake Total 613 ml Output Total 891 ml Balance -278 ml JANY BLUNT MD Mar 25, 2021 12:34
[2021-03-25] MEDS ORDERED: LORazepam 2 MG/ML VIAL As Ordered ONE (12:58)
--- NOTE | 2021-03-25 16:43 | DS.PDOC ---
Discharge Summary General Date of Admission Mar 22, 2021 at 16:10 Date of Discharge 03/25/2021 Discharge Summary PROCEDURES PERFORMED DURING STAY: Arterial line, central line ADMITTING DIAGNOSES: 1. Acute hypoxic respiratory failure 2. Acute decompensated CHF 3. Cardiopulmonary arrest 4. Anoxic brain injury. DISCHARGE DIAGNOSES: 1. Same as above. COMPLICATIONS/CHIEF COMPLAINT: Respiratory Failure. HISTORY OF PRESENT ILLNESS: 85-year-old female with a history of diastolic CHF and multiple admissions for respiratory failure due to CHF exacerbation who presents to the ED for hypoxia and shortness of breath. History obtained from chart and from ER physician, patient was having symptoms of CHF exacerbation as an outpatient and she was told by her doctor to go to the ER. She had refused to go and today she had complained of severe shortness of breath and EMS was called. On arrival EMS noted that she was hypoxic but alert and responsive. On route to the ED patient became agonal breathing and unresponsive and she was subsequently intubated in the ER. She then had a cardiac arrest in the ED with an approximate downtime of 30 minutes after which she achieved ROSC. She did not have any shockable rhythm. 4 rounds of epi were given. HOSPITAL COURSE: Patient was admitted to the ICU for acute hypoxic respiratory failure and status post cardiopulmonary arrest. She underwent targeted temperature management for 24 hours followed by gradual rewarming. She had minimal neurologic activity other than the presence of brainstem reflexes. After approximately 72 hours of no significant neurologic recovery she had a CT head which showed global anoxic brain injury. The family decided on comfort measures at that time and the patient had terminal extubation on March 25, 2021 and she passed shortly after that 1:25 PM. DISCHARGE MEDICATIONS: None ALLERGIES: Please see below. DISPOSITION: . TIME SPENT ON DISCHARGE: 20 minutes Vital Signs/I&Os Vital Signs Date Time Temp Pulse Resp B/P (MAP) Pulse Ox O2 Delivery O2 Flow Rate FiO2 03/25/21 12:46 69 16 110/51 (74) 99 Ventilator 30 03/25/21 12:00 100.5 I&O- Last 24 Hours up to 6 AM 03/25/21 06:00 Intake Total 613 ml Output Total 891 ml Balance -278 ml Laboratory Data Labs 24H Laboratory Tests 2 03/24/21 17:05: Bedside Glucose (Misc Panel) 116H 03/24/21 17:52: Bedside Glucose (Misc Panel) 114H 03/24/21 19:15: Bedside Glucose (Misc Panel) 107 03/24/21 19:52: Bedside Glucose (Misc Panel) 102 03/24/21 19:57: Nucleated Red Blood Cells % (auto) 0.0, Anion Gap 6L, Glomerular Filtration Rate > 60.0, Lactic Acid Level 0.9, Calcium Level 8.9, Phosphorus Level 3.2, Magnesium Level 2.2, Total Bilirubin 0.4, Aspartate Amino Transf (AST/SGOT) 48H, Alanine Aminotransferase (ALT/SGPT) 31, Alkaline Phosphatase 50, Total Protein 5.5L, Albumin 2.5L, Albumin/Globulin Ratio 0.8L 03/24/21 21:10: Bedside Glucose (Misc Panel) 98 03/24/21 22:07: Bedside Glucose (Misc Panel) 100 03/24/21 23:18: Bedside Glucose (Misc Panel) 112H 03/24/21 23:59: Bedside Glucose (Misc Panel) 103 03/25/21 00:00: Nucleated Red Blood Cells % (auto) 0.0, Anion Gap 2L, Glomerular Filtration Rate > 60.0, Calcium Level 8.8, Phosphorus Level 3.0, Magnesium Level 2.2, Total Bilirubin 0.4, Aspartate Amino Transf (AST/SGOT) 48H, Alanine Aminotransferase (ALT/SGPT) 30, Alkaline Phosphatase 51, Total Protein 5.5L, Albumin 2.5L, Albumin/Globulin Ratio 0.8L 03/25/21 01:04: Bedside Glucose (Misc Panel) 110 03/25/21 02:33: Bedside Glucose (Misc Panel) 109 03/25/21 03:04: Bedside Glucose (Misc Panel) 104 03/25/21 03:49: Bedside Glucose (Misc Panel) 121H 03/25/21 04:38: Immature Granulocyte % (Auto) 0.6, Neutrophils (%) (Auto) 79.0H, Lymphocytes (%) (Auto) 9.0L, Monocytes (%) (Auto) 10.8H, Eosinophils (%) (Auto) 0.5, Basophils (%) (Auto) 0.1, Neutrophils # (Auto) 10.6H, Lymphocytes # (Auto) 1.2L, Monocytes # (Auto) 1.5H, Eosinophils # (Auto) 0.1, Basophils # (Auto) 0.0, Nucleated Red Blood Cells % (auto) 0.0, Activated Partial Thromboplast Time 38.2, Blood Gas Bicarbonate Standard 23.6, Arterial Blood pH 7.376, Arterial Blood Partial Pressure CO2 42.2, Arterial Blood Partial Pressure O2 82.1, Arterial Blood Total CO2 25.5, Arterial Blood HCO3 24.2, Arterial Blood Base Excess -1.0, Arterial Blood Oxygen Saturation 95.7, Anion Gap 4L, Glomerular Filtration Rate > 60.0, Calcium Level 8.9, Phosphorus Level 3.0, Magnesium Level 2.3, Total Bilirubin 0.4, Aspartate Amino Transf (AST/SGOT) 52H, Alanine Aminotransferase (ALT/SGPT) 28, Alkaline Phosphatase 52, Total Protein 5.5L, Albumin 2.4L, Albumin/Globulin Ratio 0.8L 03/25/21 04:53: Bedside Glucose (Misc Panel) 105 03/25/21 05:53: Bedside Glucose (Misc Panel) 114H 03/25/21 11:01: Urine Color YELLOW, Urine Appearance TURBIDH, Urine pH 5.0, Urine Specific [place] 1.017, Urine Protein 2+H, Urine Glucose (UA) NEGATIVE, Urine Ketones NEGATIVE, Urine Blood NEGATIVE, Urine Nitrite POSITIVEH, Urine Bilirubin NEGATIVE, Urine Urobilinogen 0.2, Urine Leukocyte Esterase 3+H, Urine WBC (Auto) 93H, Urine RBC (Auto) 0, Urine Hyaline Casts (Auto) 0, Urine Bacteria (Auto) 3+H, Urine Squamous Epithelial Cells 46, Urine Uric Acid Crystals (Auto) MODERATE, Urine Amorphous Sediment SMALLH, Urine Sperm (Auto) CBC/BMP Laboratory Tests 03/24/21 19:57 03/25/21 00:00 03/25/21 04:38 FSBS Laboratory Tests Test 03/24/21 17:05 03/24/21 17:52 03/24/21 19:15 03/24/21 19:52 Range/Units Bedside Glucose (Misc Panel) 116 114 107 102 83-110 MG/DL Test 03/24/21 21:10 03/24/21 22:07 03/24/21 23:18 03/24/21 23:59 Range/Units Bedside Glucose (Misc Panel) 98 100 112 103 83-110 MG/DL Test 03/25/21 01:04 03/25/21 02:33 03/25/21 03:04 03/25/21 03:49 Range/Units Bedside Glucose (Misc Panel) 110 109 104 121 83-110 MG/DL Test 03/25/21 04:53 03/25/21 05:53 Range/Units Bedside Glucose (Misc Panel) 105 114 83-110 MG/DL Microbiology Microbiology 03/25/21 Blood Culture, Received Pending 03/25/21 Urine Culture, Received Pending 03/25/21 Gram Stain - Final, Resulted 03/25/21 Sputum Culture, Resulted Pending 03/25/21 Blood Culture, Received Pending 03/22/21 Blood Culture - Preliminary, Resulted No Growth after 72 hours. All specime... 03/22/21 Blood Culture - Preliminary, Resulted No Growth after 72 hours. All specime... 03/22/21 Respiratory Virus Panel (PCR) ([facility]) - Final, Complete Discharge Medications Scheduled Acetaminophen (Tylenol) 325 Mg Tablet, 650 MG PO QHS, (Reported) Aspirin (Aspirin EC) 81 Mg Tablet.dr, 81 MG PO DAILY, (Reported) Bimatoprost (Lumigan) 50 Drop/2.5 Ml Mavis, 1 DROP OU QHS, (Reported) Brinzolamide (Azopt) 200 Drop/10 Ml Susp, 1 DROP OU TID, (Reported) Cholecalciferol (Vitamin D3) (Vitamin D3) 1,000 Unit Tablet, 2,000 UNITS PO VINEET LY, (Reported) TAKES RIGHT AFTER LUNCH Diltiazem HCl (Diltiazem 24Hr ER) 240 Mg Cap.er.24h, 240 MG PO QHS, (Reported) Netarsudil Mesylate (Rhopressa) 2.5 Ml Drops, 1 DROP OU QHS, (Reported) Olanzapine (Zyprexa) 2.5 Mg Tab, 5 MG PO QHS, (Reported) Timolol Maleate (Timolol Maleate) 100 Drop/5 Ml Mavis, 1 DROP OU DAILY, (Reported) Allergies Coded Allergies: Crab (Verified Allergy, Severe, SEVERE BY TESTING NEVER HAD, 06/21/19) egg (Verified Adverse Reaction, Intermediate, DIARRHEA, 06/21/19) meperidine (Verified Adverse Reaction, Intermediate, INTOLERANCE - NAUSEA, 06/21/19) moxifloxacin (Verified Adverse Reaction, Intermediate, N/V/D DEHYDRATION, 06/21/19) Sulfa (Sulfonamide Antibiotics) (Verified Adverse Reaction, Mild, DIZZY, 06/21/19) JANY BLUNT MD Mar 25, 2021 16:43
[2021-03-25] MEDS ORDERED: SENNA 8.6 MG TAB (SENOKOT) NG SCH (21:00)
== END 2021-03-25 13:25 | disposition expired | DRG 296 ==
LOC: M ED 13:44 → M ED INP 16:10 → M PCU 23:47
PROVIDERS: ADMIT Internal Medicine Pulmonary Disease; ATTEND Internal Medicine Pulmonary Disease
PROC: 5A1945Z Respiratory Ventilation, 24-96 Consecutive Hours (ICD-10-PCS; principal; 2021-03-22)
PROC: 04HK33Z Insertion of Infusion Device into Right Femoral Artery, Percutaneous Approach (ICD-10-PCS; 2021-03-23)
PROC: 05HM33Z Insertion of Infusion Device into Right Internal Jugular Vein, Percutaneous Approach (ICD-10-PCS; 2021-03-23)
DX: I46.9 Cardiac arrest, cause unspecified (principal); J96.01 Acute respiratory failure with hypoxia; I50.23 Acute on chronic systolic (congestive) heart failure; N17.9 Acute kidney failure, unspecified; E87.2 Acidosis; G93.1 Anoxic brain damage, not elsewhere classified; I24.8 Other forms of acute ischemic heart disease; Z79.82 Long term (current) use of aspirin; Z79.899 Other long term (current) drug therapy; Z88.2 Allergy status to sulfonamides; Z88.8 Allergy status to other drugs, medicaments and biological substances; Z91.013 Allergy to seafood; Z91.012 Allergy to eggs; I48.91 Unspecified atrial fibrillation; Z95.0 Presence of cardiac pacemaker; I11.0 Hypertensive heart disease with heart failure; J45.909 Unspecified asthma, uncomplicated; Z96.651 Presence of right artificial knee joint; Z66 Do not resuscitate